=== PATIENT | male | born 1940 | race Caucasian/White ===

== ENCOUNTER 2024-03-27 12:07 | Inpatient (IN) ==
--- NOTE | 2024-03-27 12:22 | Emergency Department Note ---
Impression & Plan Hypoxic respiratory failure, Weakness, Elevated troponin, Lung mass ED Provider Note NAME: OSWALDO VOSS AGE: 83 SEX: M : 1940 ARRIVES VIA: Ambulance INFORMANT: Patient ED PROVIDER(S): Barron Chavez DO CHIEF COMPLAINT: weakness HPI: Patient is an 83-year-old male with a past medical history of bladder cancer with urostomy who presents to the ER for weakness. He notes this has been present for the past 2 to 3 days. He is so weak today that he cannot get out of bed. Patient admits to the persistent right sided chest wall pain that has been constant for over a month. Denies any headache or change in vision. No shortness of breath. No belly pain. No nausea, vomiting or diarrhea. No dysuria, urgency or frequency. No other exacerbating or remitting factors. ADDITIONAL HISTORY OBTAINED: Per HPI Chronic Medical/Social Conditions Affecting Care: Per HPI PAST MEDICAL HISTORY:See Below PAST SURGICAL HISTORY:See Below FAMILY HISTORY:See Below SOCIAL HISTORY:See Below HOME MEDICATIONS:See Below ALLERGIES:See Below VITALS:See Below PHYSICAL EXAMINATION: GENERAL: Sitting up in bed, alert, well appearing, well nourished, no distress, non-toxic EYE EXAM: normal conjunctiva. OROPHARYNX: no exudate, no erythema, lips, buccal mucosa, and tongue normal and mucous membranes are moist NECK: supple, no nuchal rigidity, no adenopathy, non-tender LUNGS: Clear to auscultation. Normal chest wall mechanics HEART: no murmurs, S1 normal and S2 normal ABDOMEN: abdomen soft, non-tender, normo-active bowel sounds, no masses, no rebound or guarding. BACK: Back is symmetrical on inspection and there is no deformity, no midline tenderness, no CVA tenderness. SKIN: no rashes and no bruising UPPER EXTREMITIES: upper extremities are grossly normal. LOWER EXTREMITIES: No pitting edema. NEURO EXAM: Normal sensorium, cranial nerves II-XII grossly intact, normal speech, no gross weakness of arms, no gross weakness of legs. MEDICAL DECISION MAKING: Patient is an 83-year-old male who presents the ER for the above-stated complaint. IV was established and blood work was obtained. Labs showed mild leukocytosis 11,000. No significant anemia. BMP with mild hyponatremia at 133. LFTs bilirubin were unremarkable. Troponin was mildly elevated at 33. Lipase normal. Viral panel was negative. Chest x-ray suggest a pulmonary mass. CT confirms likely cancer of the lung. Patient was hypoxic upon presentation was placed on 2 L nasal cannula with a pulse ox of 88 to 89% on room air. He was initially covered with IV antibiotics including Rocephin and azithromycin. Case was discussed with the hospitalist for further evaluation management treatment. Consults/Care Managements Discussions: Per [facility] Triage Nursing notes reviewed. Limited review of prior medical records performed Vital Signs: reviewed and remarkable for no significant abnormalities Differential diagnosis: Infection, dehydration, metabolic abnormality, hypo/hyperglycemia, electrolyte disturbance, anemia, hypoxia, cardiac sources, intracerebral event, toxicologic, neurologic, as well as other pathologies. ER treatment provided: See below Diagnostics interpreted by me include EKG and cardiac monitoring as listed below: -Cardiac Monitoring: An order was placed for continuous cardiac monitoring. The monitor shows a rate of 80 with sinus rhythm. -ECG: Sinus rhythm rate 88 Normal axis Reported branch block QTc 467 -Laboratory studies:Interpreted by me as stated above in MDM and shown below. Imaging studies: Xrays: As interpreted by me: Portable AP upright 1 view of the chest shows right lower lobe mass CTs show: CT of the chest suggest lung cancer Procedures:none Critical Care: I have personally spent 33 minutes of critical care time in the direct management of this patient. This includes bedside care, interpretation of diagnostic studies, and testing, discussion with consultants, patient, and family members, and other required patient management activities. This 33 minutes is in excess of all separately billable procedures. Past Med/Surg History Problem List (Updated 03/27/24 @ 17:49 by Barron Chavez DO) Lung mass (Acute) Elevated troponin (Acute) Weakness (Acute) Hypoxic respiratory failure (Acute) History of bladder cancer 2016--bladder sx/chemo Recurrent falls RLL pneumonia Lung cancer Elevated troponin Generalized weakness Hypoxia S/P carpal tunnel release Carpal tunnel syndrome, right Pre-op testing Bilateral carpal tunnel syndrome Bilateral kidney stones Complication of urostomy resolved History of primary bladder cancer ~9 years Arthritis Medical History Encounter for pre-operative examination Osteoarthritis History of bladder cancer 2016--bladder sx/chemo Hx MRSA infection "years ago" dx hospital in [place], in a wound and blood?; tx w/abx. History of kidney stones Hyperlipidemia Presence of urostomy Frequent UTI "not as bad as he used to" Surgical History History of carpal tunnel surgery of left wrist History of lumbar surgery 1961 History of esophagogastroduodenoscopy (EGD) Hx of colonoscopy Hx of tonsillectomy Hx of cataract extraction rt/lt. 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 Required: No Beliefs That Will Affect Care: None marital status: Current Living Situation: Spouse current occupational status: retired Feels Safe at Home: Yes Assistive Devices: Denture - Upper, Denture - Lower and Glasses Allergies Allergies Allergy/AdvReac Type Severity Reaction Status Date / Time Penicillins Allergy Intermediate Hives Verified 09/17/23 10:56 Home Meds Home Medications Medication Instructions Recorded Confirmed hydrocodone 5 mg-acetaminophen 325 1 - 2 tab PO BID PRN Pain 03/01/19 03/27/24 mg tablet alprazolam 0.5 mg tablet 0.5 mg PO BID PRN Anxiety 06/14/20 03/27/24 ascorbic acid (vitamin C) 500 mg 1,500 mg PO QPM 06/14/20 03/27/24 tablet (Vitamin C) aspirin 81 mg tablet,delayed 81 mg PO UD 06/14/20 03/27/24 release (Ramya Low Dose Aspirin) cholecalciferol (vitamin D3) 25 25 mcg PO DAILY 06/14/20 03/27/24 mcg (1,000 unit) tablet (Vitamin D3) atorvastatin 20 mg tablet 20 mg PO QAM 05/28/21 03/27/24 Results & Data (ED) Vital Signs Vital Signs - 24 hr 03/27/24 12:22 03/27/24 12:23 03/27/24 13:13 Temperature 37.5 C Temperature Source Oral Pulse Rate 87 89 Pulse Rate [Apical] Respiratory Rate 28 H Respiratory Effort / Characteristics Non-Labored Spontaneous Respiratory Depth Normal Respiratory Pattern Regular Blood Pressure 102/54 L Blood Pressure [Right Arm] Blood Pressure Mean 70 Blood Pressure Mean [Right Arm] Pulse Oximetry 93 89 L Oxygen Delivery Method Room Air Nasal Cannula Oxygen Flow Rate 0 Sepsis Recent Fever Within 48 Hours No Sepsis New/Unexplained Change in Mental Status No Sepsis Action Taken by Nursing No Action Required Fraction of Inspired Oxygen - Titration 2 Pulse Oximetry Post Tiitration 95 03/27/24 14:01 Temperature Temperature Source Pulse Rate Pulse Rate [Apical] 78 Respiratory Rate 14 Respiratory Effort / Characteristics Non-Labored Spontaneous Respiratory Depth Normal Respiratory Pattern Regular Blood Pressure Blood Pressure [Right Arm] 116/59 L Blood Pressure Mean Blood Pressure Mean [Right Arm] 78 Pulse Oximetry 95 Oxygen Delivery Method Room Air Oxygen Flow Rate Sepsis Recent Fever Within 48 Hours Sepsis New/Unexplained Change in Mental Status Sepsis Action Taken by Nursing Fraction of Inspired Oxygen - Titration Pulse Oximetry Post Tiitration Laboratory Data 03/27/24 12:57 03/27/24 12:57 Lab Results 03/27/24 03/27/24 03/27/24 Range/Units 12:35 12:57 14:33 WBC 11.26 H (4.8-10.8) K/ul RBC 4.84 (4.70-6.10) M/uL Hgb 14.2 (14.0-18.0) g/dl Hct 42.7 (42.0-52.0) % MCV 88.2 (80.0-100.0) fL MCH 29.3 (25.0-34.0) pg MCHC 33.3 (32.0-36.0) g/dL RDW Std Deviation 43.8 (36.4-46.3) fL RDW Coeff of Kwame 13.6 (11.5-14.5) % Plt Count 237 (130-400) K/uL MPV 9.9 (9.4-12.4) fL Immature Gran % (Auto) 0.4 % Neut % (Auto) 80.4 % Lymph % (Auto) 5.8 % Ross % (Auto) 12.9 % Eos % (Auto) 0.1 % Baso % (Auto) 0.4 % Neut # (Auto) 9.07 H (1.40-6.50) K/uL Lymph # (Auto) 0.65 L (1.20-3.40) K/uL Ross # (Auto) 1.45 H (0.11-0.59) K/uL Eos # (Auto) 0.01 (0.00-0.50) K/uL Baso # (Auto) 0.04 (0.00-0.20) K/uL Immature Gran # (Auto) 0.04 (0.01-0.20) K/uL APTT 28 (21-31) Seconds PTT Ratio 1.0 Sodium 133 L (136-145) mmol/L Potassium 3.8 (3.5-5.1) mmol/L Chloride 99 (98-107) mmol/L Carbon Dioxide 25 (21-32) mmol/L Anion Gap 9 (3-11) BUN 15 (6-23) mg/dl Creatinine 0.78 (0.6-1.4) mg/dl Est Cr Clr Drug Dosing 75.1 ml/min eGFR 87.94 BUN/Creatinine Ratio 19.2 (10-20) Glucose 114 H (70-99(Fasting)) mg/dl Calcium 9.0 (8.6-10.3) mg/dl Total Bilirubin 0.9 (0.2-1.0) mg/dl AST 13 (13-39) U/L ALT 9 (7-52) U/L Alkaline Phosphatase 68 (34-104) U/L Troponin I High Sens 33.5 H 26.8 H (0-20) pg/ml Total Protein 7.6 (6.0-8.3) gm/dl Albumin 3.8 (3.4-5.0) gm/dl Globulin 3.8 (2.5-4.0) gm/dl Albumin/Globulin Ratio 1.0 (0.9-2) Lipase 26 (11-82) U/L Adenovirus (PCR) Not Detected (NotDetected) B. pertussis DNA (PCR) Not Detected (NotDetected) B.parapertussis DNA PCR Not Detected (NotDetected) C. pneumoniae DNA (PCR) Not Detected (NotDetected) Coronavirus OC43 (PCR) Not Detected (NotDetected) Coronavirus HKU1 (PCR) Not Detected (NotDetected) Coronavirus 229E (PCR) Not Detected (NotDetected) SARS-CoV-2 (PCR) Not Detected (NotDetected) Coronavirus NL63 (PCR) Not Detected (NotDetected) Human Metapneumovir PCR Not Detected (NotDetected) Influenza Type A (PCR) Not Detected (NotDetected) Influenza Type B (PCR) Not Detected (NotDetected) M. pneumoniae (PCR) Not Detected (NotDetected) Parainfluenza 1 (PCR) Not Detected (NotDetected) Parainfluenza 2 (PCR) Not Detected (NotDetected) Parainfluenza 3 (PCR) Not Detected (NotDetected) Parainfluenza 4 (PCR) Not Detected (NotDetected) RSV (PCR) Not Detected (NotDetected) Entero/Rhino (PCR) Not Detected (NotDetected) Administered Medications Discontinued Medications Azithromycin (Azithromycin 250 Mg Tab) 500 mg PO NOW ONE Stop: 03/27/24 15:46 Last Admin: 03/27/24 15:58 Dose: 500 mg Documented By: ROHITH Sodium Chloride (Nss) 500 mls @ 999 mls/hr IV .Q31M ONE Stop: 03/27/24 15:05 Last Infusion: 03/27/24 16:40 Dose: Infused Documented By: Admin: 03/27/24 14:49 Dose: 999 mls/hr Documented By: JENN Ceftriaxone Sodium (Rocephin) 2,000 mg in 50 mls @ 100 mls/hr IV NOW STA Stop: 03/27/24 16:14 Last Infusion: 03/27/24 16:40 Dose: Infused Documented By: Admin: 03/27/24 15:58 Dose: 100 mls/hr Documented By: ROHITH Ioversol (Optiray 320 125ml) 121 ml IV ONCE ONE Stop: 03/27/24 14:25 Last Admin: 03/27/24 14:24 Dose: 121 ml Documented By: EDK Imaging Data Radiologist's Impression: Chest X-Ray 03/27/24 12:20 XR chest 1V portable CLINICAL HISTORY: Chest pain, nonspecific COMPARISON STUDY: Chest radiograph February 11, 2024. FINDINGS: There is no pneumothorax or pleural effusion. Asymmetric right hilar enlargement is noted. There is a 5 cm mass-like right perihilar round density. Cardiomediastinal silhouette is stable. There is pulmonary vascular congestion. No consolidation is identified to suggest pneumonia. IMPRESSION: 1. 5 cm round mass-like right perihilar density. This is suggestive of a neoplasm. Right hilar enlargement may represent associated lymphadenopathy. CT of the chest with contrast is recommended for further evaluation. 2. Pulmonary vascular congestion. ACT 112: Positive. There are findings on this exam that require communication between the performing entity and the patient following Patient Test Result Information Act ([place] Act 112) guidelines. Electronically signed by: Kaleb Rubi M.D. 03/27/2024 1:44 PM Chest CTA 03/27/24 14:06 CT pulmonary angiogram with IV contrast History: Chest pain COMPARISON: None TECHNIQUE: CT angiography of the chest was performed without IV contrast followed by IV contrast, including 3D post processing CTA image reconstruction. Dose reduction techniques were achieved by using automatic exposure control and/or adjustment of mA and/or kV according to patient size and/or use of iterative reconstruction technique. FINDINGS: Diagnostic quality: Adequate There is no evidence for pulmonary embolism. The heart is not enlarged. There is no pericardial effusion. Masslike lymphadenopathy in the right mediastinum/hilum, measuring 4.9 x 4.2 cm in the axial plane, with masslike peripheral lymphadenopathy about the inferior right hilum as well, measuring 3.3 x 2.1 cm. There is mild narrowing of the bronchus intermedius. There is a rounded mass along the pleura of the posterior right lower lobe on axial image 43 measuring 4.7 x 2.8 cm. The lungs demonstrate severe emphysema. A nodular density of the right lung apex on axial image 84 is seen measuring 6 mm, however which may represent a component of scar and appears continuous with adjacent apical pleural thickening. The base of the neck appears grossly clear. Mild mucoid debris is seen in the trachea. Trace right pleural effusion. Limited visualized upper abdomen. No destructive osseous changes are seen. IMPRESSION: No evidence for pulmonary embolism. Right lower lobe malignancy, with pathologic right hilar and right mediastinal lymphadenopathy. Electronically signed by Matt Elliott 03-27-2024 2:49 PM Discharge Plan Visit Data Chief Complaint: Weakness Stated Complaint: WEAKNESS ED Provider: Barron Chavez Discharge Problem: Hypoxic respiratory failure, Weakness, Elevated troponin, Lung mass Discharge Instructions Interventions: ED Discharge Assessment Last Done: 03/27/24 16:33 Discharge Problem: Hypoxic respiratory failure Qualifiers: Chronicity: acute Qualified Code(s): J96.01 - Acute respiratory failure with hypoxia
[2024-03-27 13:08] LABS: Basophils # (auto) 0.04 K/uL (0.00-0.20); Basophils % (auto) 0.4 %; Eosinophils # (auto) 0.01 K/uL (0.00-0.50); Eosinophils % (auto) 0.1 %; Hematocrit (blood only) 42.7 % (42.0-52.0); Hemoglobin 14.2 g/dl (14.0-18.0); Immature Granulocytes # (auto) 0.04 K/uL (0.01-0.20); Immature Granulocytes % (auto) 0.4 %; Lymphocytes # (auto) 0.65 K/uL (1.20-3.40); Lymphocytes % (auto) 5.8 %; Mean Corpuscular Hemoglobin 29.3 pg (25.0-34.0); Mean Corpuscular Hgb Conc 33.3 g/dL (32.0-36.0); Mean Corpuscular Volume 88.2 fL (80.0-100.0); Mean Platelet Volume 9.9 fL (9.4-12.4); Monocytes # (auto) 1.45 K/uL (0.11-0.59); Monocytes % (auto) 12.9 %; Neutrophils # (auto) 9.07 K/uL (1.40-6.50); Neutrophils % (auto) 80.4 %; Platelet Count 237 K/uL (130-400); RDW Coefficient of Variation 13.6 % (11.5-14.5); RDW Standard Deviation 43.8 fL (36.4-46.3); Red Blood Count 4.84 M/uL (4.70-6.10); White Blood Count 11.26 K/ul (4.8-10.8)
[2024-03-27 13:30] LABS: Albumin Level 3.8 gm/dl (3.4-5.0); BUN Creatinine Ratio 19.2 (10-20); Bilirubin,Total 0.9 mg/dl (0.2-1.0); Creatinine Clr Calc Pharmacy 75.1 ml/min; Globulin 3.8 gm/dl (2.5-4.0); Potassium 3.8 mmol/L (3.5-5.1); Total Protein 7.6 gm/dl (6.0-8.3)
[2024-03-27 13:35] LABS: Troponin I High Sensitivity 33.5 pg/ml (0-20)
[2024-03-27 13:37] LABS: Partial Thromboplastin Time 28 Seconds (21-31)
--- NOTE | 2024-03-27 13:46 | XRay Report ---
XR chest 1V portable CLINICAL HISTORY: Chest pain, nonspecific COMPARISON STUDY: Chest radiograph February 11, 2024. FINDINGS: There is no pneumothorax or pleural effusion. Asymmetric right hilar enlargement is noted. There is a 5 cm mass-like right perihilar round density. Cardiomediastinal silhouette is stable. Ther e is pulmonary vascular congestion. No consolidation is identified to suggest pneumonia. IMPRESSION: 1. 5 cm round mass-like right perihilar density. This is suggestive of a neoplasm. Right hilar enlarg ement may represent associated lymphadenopathy. CT of the chest with contrast is recommended for furt her evaluation. 2. Pulmonary vascular congestion. ACT 112: Positive. There are findings on this exam that require communication between the performing entity and the patient following Patient Test Result Information Act ([place] Act 112) guidelines. Electronically signed by: Kaleb Rubi M.D. 03/27/2024 1:44 PM
[2024-03-27 13:56] LABS: Adenovirus PCR Not Detected (NotDetected); Bordetella parapertussis PCR Not Detected (NotDetected); Bordetella pertussis PCR Not Detected (NotDetected); Chlamydia pneumoniae PCR Not Detected (NotDetected); Coronavirus 229E PCR Not Detected (NotDetected); Coronavirus CoV-2 (COVID19)PCR Not Detected (NotDetected); Coronavirus HKU1 PCR Not Detected (NotDetected); Coronavirus NL63 PCR Not Detected (NotDetected); Coronavirus OC43PCR Not Detected (NotDetected); Human Metapneumovirus PCR Not Detected (NotDetected); Influenza A PCR Not Detected (NotDetected); Influenza B PCR Not Detected (NotDetected); Mycoplasma pneumoniae PCR Not Detected (NotDetected); Parainfluenza Virus 1 PCR Not Detected (NotDetected); Parainfluenza Virus 2 PCR Not Detected (NotDetected); Parainfluenza Virus 3 PCR Not Detected (NotDetected); Parainfluenza Virus 4 PCR Not Detected (NotDetected); Respiratory Syncytial VirusPCR Not Detected (NotDetected); Rhinovirus/Enterovirus PCR Not Detected (NotDetected)
[2024-03-27] MEDS: OPTIRAY 320 125ml IV ONE (14:24)
--- NOTE | 2024-03-27 14:45 | History & Physical Report ---
Date of Service March 27, 2024 Assessment & Plan (1) RLL pneumonia: Plan: Rafal is an 83-year-old male with PMH of bladder cancer and arthritis. He presented on 03/27 for generalized weakness, fatigue, low-grade fevers, and dry cough x 2 to 3 days. Patient reports that he was unable to get up out of his chair today, when he is normally able to stand/ambulate independently. Falls x 2 prior to coming in. Mild leukocytosis at 11.26 with a neutrophil predominance CXR revealed 5 cm round mass in the right perihilar region suggestive of neoplasm, as well as pulmonary vascular congestion Pulmonary lesion first appreciated on CXR on 02/11/2024 Chest CTA revealed no pulmonary embolism, but did reconfirm RLL malignancy and mediastinal lymphadenopathy Incentive spirometry, flutter valve DuoNeb 3 mL Q6R Guaifenesin 600 mg p.o. BID for cough While no mention of pneumonia on imaging, given elevated WBCs + acute onset of weakness, low-grade fevers, right rib pain, and cough x 2 days, will cover empirically with antibiotics for RLL pneumonia Ceftriaxone 2000 mg IV q24h; patient does report h/o mild PCN allergy, rash Azithromycin 500 mg p.o. q24h Acetaminophen as needed for pain/fever (2) Hypoxia: Plan: 89% on RA on arrival Patient is not on supplemental oxygen at baseline BioFire negative Supplemental oxygen as needed to maintain SpO2 >94% While patient is a former smoker and CTA does show evidence of emphysema, no prior history of COPD diagnosis Continuous pulse oximetry (3) Lung cancer: Plan: Did discuss findings of right lung mass on chest CTA with both patient and family at bedside No mention of patient's R lung mass on CXR on 09/24/2020 However, patient's son at bedside reports that they were told of a right lung mass 8 to 10 years ago at [facility] oncology when patient was undergoing treatment for his bladder cancer ? Told recently that this mass was unchanged from prior Will work to obtain additional records from [facility] oncology at [place] Pending any additional findings, will need to discuss follow-up/workup for potential biopsy (4) Elevated troponin: Plan: Troponin 33--> 26 on arrival Clinically, patient denies chest pain at time admission Continuous telemetry monitoring (5) Recurrent falls: Plan: Fall x 2 on 03/26; no LOC; no head strike; not on anticoagulants PT/OT evaluations appreciated Fall precautions (6) History of bladder cancer: Plan: S/p bladder removal Daily urostomy care (7) Generalized weakness: Plan [facility] Full code Regular diet VTE PPx: Lovenox 40 mg SQ q24h History of Present Illness Chief Complaint: Generalized weakness, cough, low-grade fevers Primary Care Provider: Ivan Harrison Rafal is an 83-year-old male with PMH of bladder cancer and arthritis. He presented on 03/27 for generalized weakness, fatigue, and dry cough x 2 to 3 days. Patient reports that he was unable to get up out of his chair today, when he is normally able to stand/ambulate independently. He does not ambulate with a walker or cane at baseline. He does endorse lower extremity weakness, and patient's at bedside (Pepper) does report that he has had a low-grade fever over the past couple days. Patient had 2 falls yesterday; no LOC; no head strike. Patient reports that his legs just gave out on him. H/o recurrent falls, per family. Additionally, family reports that he had been "talking funny" and somewhat confused over the past 24 hours; for instance he thought his "toes" were where his "heels" were, and vice versa. No prior history of stroke, and family denies appreciating any strokelike symptoms such as slurred speech, facial droop, or unilateral deficits. Patient denies any chest pain, but does note he has rib pain on his right side, which has been ongoing for the past month. While he is unsure if the right ribs were affected by a fall, he denies any recent muscle strains or injuries. He denies SOB at rest or with exertion, but has developed a dry cough. No supplemental oxygen at baseline. No CPAP at night. He received a course of doxycycline at the end of January for presumed right lower lobe pneumonia. In regard to the mass in the patient's right lung, patient's son at bedside does report that they have known about this mass since January, and were told that this mass might be unchanged from prior. Patient has history of bladder cancer s/p cystectomy around 8 to 10 years ago; he previously followed with [facility] oncology. Patient does report he has a penicillin allergy; when asked what happens when he takes penicillin, he reports he developed a rash many years ago, and family is unsure if this is a true allergy. No prior history of anaphylaxis, throat closure, or tongue swelling with PCN use. Patient is amenable to trying Rocephin while inpatient. Patient is a former tobacco cigarette smoker, but quit approximately 15 years ago. Patient is tachypneic at 28 bpm, hypotensive at 102/54, and hypoxic at 89% on RA at time of admission. ED course: NSS 500 mL IV ROS: Patient endorses low grade fevers at home x 2 days, feeling off balance, dry cough, pain in R ribs x 2 months, and diarrhea x 2 days. Patient denies chills, night sweats, headache, changes in vision, chest pain, chest tightness, rashes or bruising on the chest wall, tick bites, SOB at rest or with exertion, pleuritic CP, abdominal pain, N/V/D, changes in urinary bowel habits, or numbness/tingling/swelling in the legs. Allergies Allergy/AdvReac Type Severity Reaction Status Date / Time Penicillins Allergy Intermediate Hives Verified 09/17/23 10:56 Home Medications Medication Instructions Recorded Confirmed Type hydrocodone 5 mg-acetaminophen 325 1 - 2 tab PO BID PRN Pain 03/01/19 03/27/24 History mg tablet alprazolam 0.5 mg tablet 0.5 mg PO BID PRN Anxiety 06/14/20 03/27/24 History ascorbic acid (vitamin C) 500 mg 1,500 mg PO QPM 06/14/20 03/27/24 History tablet (Vitamin C) aspirin 81 mg tablet,delayed 81 mg PO UD 06/14/20 03/27/24 History release (Ramya Low Dose Aspirin) cholecalciferol (vitamin D3) 25 25 mcg PO DAILY 06/14/20 03/27/24 History mcg (1,000 unit) tablet (Vitamin D3) atorvastatin 20 mg tablet 20 mg PO QAM 05/28/21 03/27/24 History Past Med/Surg History Problem List (Updated 03/27/24 @ 16:01 by Joseph Walker PA-C) History of bladder cancer 2016--bladder sx/chemo Recurrent falls RLL pneumonia Lung cancer Elevated troponin Generalized weakness Hypoxia S/P carpal tunnel release Carpal tunnel syndrome, right Pre-op testing Bilateral carpal tunnel syndrome Bilateral kidney stones Complication of urostomy resolved History of primary bladder cancer ~9 years Arthritis Medical History Encounter for pre-operative examination Osteoarthritis History of bladder cancer 2016--bladder sx/chemo Hx MRSA infection "years ago" dx hospital in [place], in a wound and blood?; tx w/abx. History of kidney stones Hyperlipidemia Presence of urostomy Frequent UTI "not as bad as he used to" Surgical History History of carpal tunnel surgery of left wrist History of lumbar surgery 1961 History of esophagogastroduodenoscopy (EGD) Hx of colonoscopy Hx of tonsillectomy Hx of cataract extraction rt/lt. Hx of prostatectomy done with total cystectomy History of total cystectomy Family History Brother Prostate cancer Hypertension Father Heart disease Other No family history of adverse response to anesthesia Social History Smoking Status: Current every day smoker Tobacco Type: Smokeless Tobacco (Dip or Chew) Second Hand Exposure: No; Do You Dip or Chew Tobacco: Yes (1 can/day; advised); Hx Alcohol Use: No Hx Substance Use: No Preferred Language: Sami Communication Ability: Effective Park Maintainer Required: No Beliefs That Will Affect Care: None marital status: Current Living Situation: Spouse current occupational status: retired Feels Safe at Home: Yes Assistive Devices: Denture - Upper, Denture - Lower and Glasses Review of Systems Review of Systems: See HPI above Physical Exam Physical Exam: General: no acute distress; family bedside; non-toxic appearing; frail appearing; cooperative; SpO2 98% on 2L NC HEENT: normocephalic, atraumatic; no scleral icterus; PERRLA; vision and hearing grossly intact Neck: supple; no lymphadenopathy; trachea midline Skin: warm, dry without signs of tenting; no cyanosis; no rashes, bruising, lesions, or erythema noted CV: chest wall NTP; RRR; S1/S2 normal; no murmurs/rubs/gallops; pulses intact and symmetric at radial, DP, and PT Lungs: no acute respiratory distress; symmetrical chest wall expansion; mild expiratory wheeze noted in the right lower lung field ABD: Soft, NTP; stoma in place without signs of erythema or infection; BS present; no rebound/guarding; no distention MSK: no tics or fasciculations; no edema noted in the LEs b/l, nonerythematous Neuro: A&Ox3; normal mood and affect; fluent speech; no focal deficits; sensation grossly intact in the LEs b/l Trialed patient off of supplemental oxygen: Patient's SpO2 was 98% on 2L NC Patient's SpO2 dropped to around 90% on RA Results & Data Results & Data Vital Signs (Past 12 Hours) Vital Signs Temp Pulse Resp BP Pulse Ox O2 Del Method O2 Flow Rate 03/27/24 13:13 89 L Nasal Cannula 0 03/27/24 12:23 89 03/27/24 12:22 37.5 C 87 28 H 102/54 L 93 Room Air Laboratory Results Abnormal lab results 03/27/24 Range/Units 12:57 WBC 11.26 H (4.8-10.8) K/ul Neut # (Auto) 9.07 H (1.40-6.50) K/uL Lymph # (Auto) 0.65 L (1.20-3.40) K/uL [place] # (Auto) 1.45 H (0.11-0.59) K/uL Sodium 133 L (136-145) mmol/L Glucose 114 H (70-99(Fasting)) mg/dl Troponin I High Sens 33.5 H (0-20) pg/ml Diagnostic Findings Chest X-Ray 03/27/24 12:20 XR chest 1V portable CLINICAL HISTORY: Chest pain, nonspecific COMPARISON STUDY: Chest radiograph February 11, 2024. FINDINGS: There is no pneumothorax or pleural effusion. Asymmetric right hilar enlargement is noted. There is a 5 cm mass-like right perihilar round density. Cardiomediastinal silhouette is stable. There is pulmonary vascular congestion. No consolidation is identified to suggest pneumonia. IMPRESSION: 1. 5 cm round mass-like right perihilar density. This is suggestive of a neoplasm. Right hilar enlargement may represent associated lymphadenopathy. CT of the chest with contrast is recommended for further evaluation. 2. Pulmonary vascular congestion. ACT 112: Positive. There are findings on this exam that require communication between the performing entity and the patient following Patient Test Result Information Act ([place] Act 112) guidelines. Electronically signed by: Kaleb Rubi M.D. 03/27/2024 1:44 PM ECG Additional Comments: ECG revealed NSR at 88 bpm; QTc 467 Code Status & VTE Plan Code Status Full code VTE Prophylaxis Plan VTE Prophylaxis will be ordered: Yes Supervising Physician Co-Signing Physician Notes I have personally seen, evaluated and examined the patient. I have also personally discussed the management of the patient with the resident physician/MICHELLE and I agree with the exam findings documented in the history and physical examination and the documented assessment and plan unless otherwise stated below. Brief Exam: In general pleasant 83-year-old male was alert oriented x 3 at the time my exam. He is accompanied by his , his 2 sons, his grandson and his grandson's girlfriend. He did yaritza permission for all parties to be present in room during my interview and exam. He interacts appropriate and pleasantly. He is comfortable on his oxygen therapy currently. Reports that he spent 6 years in [place]. Extensive conversation with the patient and family as documented above I had additional conversation. We did tell them that this mass/nodule was not present in 2020. Was present in January. Patient did have a full course of antibiotics family reports doxycycline as an outpatient. This nodule was not resolved. It looks suspicious by imaging. We did discuss biopsies are going away whether or not he wants to go through biopsy or not. In addition they are requesting we obtain records from 10 years ago from [facility]. HEENT: Normocephalic atraumatic. Heart: Regular rate and rhythm. Lungs: Bilateral diffuse expiratory wheezing. Abdomen: Soft nontender positive bowel sounds, ileal conduit noted. Extremities: Intact with no significant edema. Neurologically alert and oriented x 3. Assessment/plan: As discussed above. Continue antibiotic therapy. Waived potential for possible biopsy of this lung abnormality. Again discussed in detail above. Please refer to orders for further planning. PG Care Time/CCT Total # of Minutes Spent Total Time Spent with Patient: Total time spent is greater than 50% in coordination of care (as documented) at patient's floor/unit and/or counseling patient: Coding [place] [address] INT INP/OBS CARE MIN Patient Type Established Medical Decision Making High Complexity Diagnoses RLL pneumonia J18.9 Hypoxia R09.02 Lung cancer C34.90 Elevated troponin R79.89 Recurrent falls R29.6 History of bladder cancer Z85.51 Generalized weakness R53.1
[2024-03-27] MEDS: SODIUM CHLORIDE 0.9% 500 ML IV ONE (14:49)
--- NOTE | 2024-03-27 14:50 | CT Scan Report ---
CT pulmonary angiogram with IV contrast History: Chest pain COMPARISON: None TECHNIQUE: CT angiography of the chest was performed without IV contrast followed by IV contrast, including 3D post processing CTA image reconstruction. Dose reduction techniques were achieved by using automatic exposure control and/or adjustment of mA and/or kV according to patient size and/or use of iterative reconstruction technique. FINDINGS: Diagnostic quality: Adequate There is no evidence for pulmonary embolism. The heart is not enlarged. There is no pericardial effusion. Masslike lymphadenopathy in the right mediastinum/hilum, measuring 4.9 x 4.2 cm in the axial plane, with masslike peripheral lymphadenopathy about the inferior right hilum as well, measuring 3.3 x 2.1 cm. There is mild narrowing of the bronchus intermedius. There is a rounded mass along the pleura of the posterior right lower lobe on axial image 43 measuring 4.7 x 2.8 cm. The lungs demonstrate severe emphysema. A nodular density of the right lung apex on axial image 84 is seen measuring 6 mm, however which may represent a component of scar and appears continuous with adjacent apical pleural thickening. The base of the neck appears grossly clear. Mild mucoid debris is seen in the trachea. Trace right pleural effusion. Limited visualized upper abdomen. No destructive osseous changes are seen. IMPRESSION: No evidence for pulmonary embolism. Right lower lobe malignancy, with pathologic right hilar and right mediastinal lymphadenopathy. Electronically signed by Matt Elliott 03-27-2024 2:49 PM
[2024-03-27] MEDS: cefTRIAXone SODIUM 2,000 MG/50 ML BAG IV STA (15:58)
[2024-03-27] MEDS: AZITHROMYCIN 250 MG TAB PO ONE (15:58)
[2024-03-27] MEDS ORDERED: ALBUT/IPRATROP 3MG/0.5MG NEB 3 ML VIAL NEB PRN (16:33)
[2024-03-27] MEDS: HYDROmorphone INJ 0.5 MG/0.5 ML SYR IV STA (18:43)
[2024-03-27 19:02] LABS: Amorphous Sediment Urine Present (None Prsent); Appearance Urine Cloudy (Clear); Bacteria Urine Automated 4+ (None Seen); Bilirubin Urine Negative (Negative); Blood Urine Trace (Negative); Color Urine Yellow; Glucose Urine UA Negative (Negative); Ketones Urine Negative (Negative); Leukocyte Esterase Urine 2+ (Negative); Nitrite Urine Negative (Negative); Protein Urine 1+ (Negative); Specific Gravity Urine > 1.045 (1.000-1.030); Urobilinogen Urine Negative (Negative); WBC Urine Automated 21-50 /hpf (0-5)
[2024-03-27] MEDS: guaiFENesin 600 MG TABCR PO SCH (20:15)
[2024-03-27] MEDS: ENOXAPARIN INJ 40 MG/0.4 ML SYR SQ SCH (20:15)
[2024-03-28] MEDS: HYDROCODONE/ACETAMOPHEN 5/325MG TAB PO PRN (05:33)
[2024-03-28] MEDS: ASPIRIN 81 MG ECTAB PO SCH (07:29)
[2024-03-28] MEDS: ATORVASTATIN 20 MG TAB PO SCH (07:30)
--- NOTE | 2024-03-28 12:14 | Hospitalist Progress Note ---
Date of Service March 28, 2024 Assessment & Plan (1) Acute hypoxic respiratory failure: Plan: although no discrete pneumonia is seen on imaging, I suspect he has a COPD exacerbation at minimum. he has severe emphysematous changes on imaging, and has developed significant cough etc in the days leading up to admission. he was hypoxic upon ER presentation with documented respiratory rates in the mid 20s. remains on rocephin/zithromax (could he have a post-obstructive pneumonia that simply can't be seen readily on CT?). cont mucinex. cont tessalon. pulm toilet. of note - resp biofire panel was fully negative. (2) COPD with emphysema: Plan: as seen on CT. with exacerbation. add Anoro. cont mucinex, tessalon. albuterol prn. abx as in #1 above. NC O2 - wean as tolerated. (3) Elevated troponin: Plan: Troponin 33--> 26 on arrival no evidence of ACS this is likely myocardial demand ischemia in setting of #1, #2 above (4) Recurrent falls: Plan: due to weakness from his pulmonary disease? due to weakness from lumbar spine disease? other? PT, OT Check B12, TSH levels obtaining MRI brain - r/o stroke as cause of falls; r/o ICH; r/o metastatic disease (5) History of bladder cancer: Plan: s/p cystectomy 2016 with urostomy creation (6) LAD (lymphadenopathy), mediastinal: Plan: highly worrisome for lung ca to have EBUS tomorrow (7) Lung mass: Plan: right lower lobe highly worrisome for lung ca appreciate consult by Dr Hutchinson, MACK Pulm possible EBUS with bx tomorrow NPO after MN tonight obtaining CT a/p to r/o distant mets obtaining MRI brain to r/o intra-cranial mets (8) Presence of urostomy: Plan: created 2016 in [place] ?UTI cont rocephin (9) Lumbar spine pain: Plan: long-standing lumbar back pain but worse in the last few weeks check CT l-spine - r/o fracture, r/o high-grade stenosis causing falls, r/o obvious metastatic disease k-pad pain meds etc Plan DVT proph - lovenox - but hold for possible EBUS tomorrow daughter, grand-daughter updated at bedside Admission and Anticipated Discharge Date Admission Date: March 27, 2024 Subjective patient resting in bed during the visit daughter, grand-daughter present at bedside he reports several weeks of right-sided pleuritic chest discomfort in addition has had ongoing cough/congestion no weight loss he also suffers from severe low back pain family reports he walks "hunched over" and "shuffles" he denies leg pains or paresthesias of legs had surgery in his lumbar spine in the 1960s has multiple falls each week has not hit his head denies neck pain Review of Systems Review of Systems: gen - denies fever or chills today cv - no substernal or left-sided cp pulm - no hemoptysis GI - no abd pain or N/V Physical Exam Physical Exam: gen - lying in bed, coughing at times neck - no JVD mouth - MMM heart - RRR, s1 s2, no murmur lungs - b/l wheezes, course BS b/l, occasional crackle, no increased work of breathing abd - soft NT ND BS+; urostomy stoma clean, healthy red color, attached to vega bag ext - no edema, pulses 2+ b/l feet neuro - strength 5/5 b/l hip flexion, ankle dorsiflexion/plantarflexion musculo - tender over l-spine to palpation; at L1 or L2 the spine protrudes in this area; no masses Results & Data Results & Data Vital Signs (Past 12 Hours) Vital Signs Temp Pulse Pulse Resp BP Pulse Ox O2 Del Method 03/28/24 08:22 Nasal Cannula 03/28/24 07:35 36.9 C 82 16 109/58 L 96 Nasal Cannula 03/28/24 05:40 85 03/28/24 03:31 36.9 C 91 H 20 108/64 96 Nasal Cannula O2 Flow Rate 03/28/24 08:22 2 03/28/24 07:35 3 03/28/24 05:40 03/28/24 03:31 2 Laboratory Results Laboratory Results - last 48 hr 03/27/24 03/27/24 03/27/24 12:35 12:57 14:33 WBC 11.26 H RBC 4.84 Hgb 14.2 Hct 42.7 MCV 88.2 MCH 29.3 MCHC 33.3 RDW Std Deviation 43.8 RDW Coeff of Kwame 13.6 Plt Count 237 MPV 9.9 Immature Gran % (Auto) 0.4 Neut % (Auto) 80.4 Lymph % (Auto) 5.8 [place] % (Auto) 12.9 Eos % (Auto) 0.1 Baso % (Auto) 0.4 Neut # (Auto) 9.07 H Lymph # (Auto) 0.65 L [place] # (Auto) 1.45 H Eos # (Auto) 0.01 Baso # (Auto) 0.04 Immature Gran # (Auto) 0.04 APTT 28 PTT Ratio 1.0 Sodium 133 L Potassium 3.8 Chloride 99 Carbon Dioxide 25 Anion Gap 9 BUN 15 Creatinine 0.78 Est Cr Clr Drug Dosing 75.1 eGFR 87.94 BUN/Creatinine Ratio 19.2 Glucose 114 H Calcium 9.0 Total Bilirubin 0.9 AST 13 ALT 9 Alkaline Phosphatase 68 Troponin I High Sens 33.5 H 26.8 H Total Protein 7.6 Albumin 3.8 Globulin 3.8 Albumin/Globulin Ratio 1.0 Lipase 26 Urine Color Urine Appearance Urine pH Ur Specific [place] Urine Protein Urine Glucose (UA) Urine Ketones Urine Blood Urine Nitrite Urine Bilirubin Urine Urobilinogen Ur Leukocyte Esterase Urine WBC (Auto) Urine RBC (Auto) U Hyaline Cast (Auto) U Epithel Cells (Auto) Urine Bacteria (Auto) Amorphous Sediment Adenovirus (PCR) Not Detected B. pertussis DNA (PCR) Not Detected B.parapertussis DNA PCR Not Detected C. pneumoniae DNA (PCR) Not Detected Coronavirus OC43 (PCR) Not Detected Coronavirus HKU1 (PCR) Not Detected Coronavirus 229E (PCR) Not Detected SARS-CoV-2 (PCR) Not Detected Coronavirus NL63 (PCR) Not Detected Human Metapneumovir PCR Not Detected Influenza Type A (PCR) Not Detected Influenza Type B (PCR) Not Detected M. pneumoniae (PCR) Not Detected Parainfluenza 1 (PCR) Not Detected Parainfluenza 2 (PCR) Not Detected Parainfluenza 3 (PCR) Not Detected Parainfluenza 4 (PCR) Not Detected RSV (PCR) Not Detected Entero/Rhino (PCR) Not Detected 03/27/24 Unknown WBC RBC Hgb Hct MCV MCH MCHC RDW Std Deviation RDW Coeff of [place] Plt Count MPV Immature Gran % (Auto) Neut % (Auto) Lymph % (Auto) [place] % (Auto) Eos % (Auto) Baso % (Auto) Neut # (Auto) Lymph # (Auto) [place] # (Auto) Eos # (Auto) Baso # (Auto) Immature Gran # (Auto) APTT PTT Ratio Sodium Potassium Chloride Carbon Dioxide Anion Gap BUN Creatinine Est Cr Clr Drug Dosing eGFR BUN/Creatinine Ratio Glucose Calcium Total Bilirubin AST ALT Alkaline Phosphatase Troponin I High Sens Total Protein Albumin Globulin Albumin/Globulin Ratio Lipase Urine Color Yellow Urine Appearance Cloudy A Urine pH 7.0 Ur Specific [place] > 1.045 H Urine Protein 1+ H Urine Glucose (UA) Negative Urine Ketones Negative Urine Blood Trace H Urine Nitrite Negative Urine Bilirubin Negative Urine Urobilinogen Negative Ur Leukocyte Esterase 2+ H Urine WBC (Auto) 21-50 H Urine RBC (Auto) 6-10 H U Hyaline Cast (Auto) 3-5 H U Epithel Cells (Auto) 3-5 H Urine Bacteria (Auto) 4+ H Amorphous Sediment Present A Adenovirus (PCR) B. pertussis DNA (PCR) B.parapertussis DNA PCR C. pneumoniae DNA (PCR) Coronavirus OC43 (PCR) Coronavirus HKU1 (PCR) Coronavirus 229E (PCR) SARS-CoV-2 (PCR) Coronavirus NL63 (PCR) Human Metapneumovir PCR Influenza Type A (PCR) Influenza Type B (PCR) M. pneumoniae (PCR) Parainfluenza 1 (PCR) Parainfluenza 2 (PCR) Parainfluenza 3 (PCR) Parainfluenza 4 (PCR) RSV (PCR) Entero/Rhino (PCR) PG Care Time/CCT Total # of Minutes Spent Total Time Spent with Patient: Total time spent is greater than 50% in coordination of care (as documented) at patient's floor/unit and/or counseling patient: Coding Level of Care Code 78728 SUB INP/OBS CARE 3/50MIN Diagnoses Acute hypoxic respiratory failure J96.01 COPD with emphysema J43.9 Elevated troponin R79.89 Recurrent falls R29.6 History of bladder cancer Z85.51 LAD (lymphadenopathy), mediastinal R59.0 Lung mass R91.8 Presence of urostomy Z93.6 Lumbar spine pain M54.50
--- NOTE | 2024-03-28 12:20 | Pulmonary Consultation ---
Date of Consultation March 28, 2024 Assessment & Plan (1) Lung mass: (2) LAD (lymphadenopathy), mediastinal: (3) COPD with emphysema: (4) Hypoxic respiratory failure: Chronicity: acute Qualified Code(s): J96.01 - Acute respiratory failure with hypoxia (5) History of primary bladder cancer: Plan CT chest 03/27/2024 personally reviewed: Narrowing of the RBI, right lower lobe superior segment pleural-based mass Centrilobular and paraseptal emphysema appreciated bilaterally Right apical pleural scarring Significant right hilar and mediastinal lymphadenopathy -- Right lower lobe mass with mediastinal lymphadenopathy There seems to be narrowing of the RBI as well There is known history of pulmonary nodule approximately 5 years ago which was not followed up The probability of it being lung cancer is very high. --COPD with emphysema Not on any inhalers at home Plan: MRI of the brain, CT abdomen pelvis has been ordered. If the CT abdomen pelvis does not show any abnormality and the MRI of the brain is negative then EBUS tomorrow with endobronchial biopsies will be thought of Case was discussed with patient's family and patient at bedside. They understand and they are agreeable to procedure if need be Please note the above document was generated using voice recognition software. It may contain grammatical, syntax or spelling errors.Any formal questions or concerns about the content, text or information contained within the body of this dictation should be directly addressed to the provider for clarification. History of Present Illness Attending Physician: Chaim Franco MD History of Present Illness 83-year-old male present to the hospital with generalized weakness and low-grade fever Past medical history: Bladder cancer Pulmonary consulted for abnormal chest CT At the time of examination patient's family was in the room. Patient was in mild respiratory distress although his oxygenation was 98% on 2 L nasal cannula Denies any difficulty swallowing. He is not on any oxygen at home. Does not take any inhalers at home Occasional cough with clear phlegm. 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 No history of lung cancer in the family Allergies Allergy/AdvReac Type Severity Reaction Status Date / Time Penicillins Allergy Intermediate Hives Verified 09/17/23 10:56 Home Medications Medication Instructions Recorded Confirmed Type hydrocodone 5 mg-acetaminophen 325 1 - 2 tab PO BID PRN Pain 03/01/19 03/27/24 History mg tablet alprazolam 0.5 mg tablet 0.5 mg PO BID PRN Anxiety 06/14/20 03/27/24 History ascorbic acid (vitamin C) 500 mg 1,500 mg PO QPM 06/14/20 03/27/24 History tablet (Vitamin C) aspirin 81 mg tablet,delayed 81 mg PO UD 06/14/20 03/27/24 History release (Ramya Low Dose Aspirin) cholecalciferol (vitamin D3) 25 25 mcg PO DAILY 06/14/20 03/27/24 History mcg (1,000 unit) tablet (Vitamin D3) atorvastatin 20 mg tablet 20 mg PO QAM 05/28/21 03/27/24 History Patient History Medical History Encounter for pre-operative examination Osteoarthritis History of bladder cancer 2015--bladder sx/chemo Hx MRSA infection "years ago" [facility] in [place], in a wound and blood?; tx w/abx. History of kidney stones Hyperlipidemia Presence of urostomy Frequent UTI "not as bad as he used to" Surgical History History of carpal tunnel surgery of left wrist History of lumbar surgery 1961 History of esophagogastroduodenoscopy (EGD) Hx of colonoscopy Hx of tonsillectomy Hx of cataract extraction rt/lt. Hx of prostatectomy done with total cystectomy History of total cystectomy Family History Brother Prostate cancer Hypertension Father Heart disease Other No family history of adverse response to anesthesia Social History Smoking Status: Never smoker Tobacco Type: Smokeless Tobacco (Dip or Chew) Second Hand Exposure: No; Do You Dip or Chew Tobacco: Yes; Tobacco Cessation Education Requested by Patient: No Hx Alcohol Use: No Hx Substance Use: No Preferred Language: Taiwanese Communication Ability: Effective Director Of Community Services Required: No Beliefs That Will Affect Care: None marital status: Current Living Situation: Spouse current occupational status: retired Feels Safe at Home: Yes Safety Concerns: Feels Safe At This Time Assistive Devices: Oxygen - Continuous Review of Systems 2 Review of Systems: All systems reviewed & are unremarkable except as noted in HPI & below Physical Exam 2 Physical Exam: Constitutional: Mild respiratory distress HEENT: EOMI, PERRLA Respiratory system: Decreased air entry bilaterally, no wheeze, rhonchi, positive crackles bilaterally CVS: S1-S2 positive Abdomen: Soft, nontender, nondistended, positive bowel sounds x4 Extremities: +2 pulses bilaterally radialis/ dorsalis pedis, no cyanosis, no edema Neuro: Awake alert oriented x3 Psych: Normal mood and affect G/U: Positive Schmitz Skin: no rashes, warm and dry Lymphatic: no cervical or axillary lymphadenopathy Results & Data Results & Data Vital Signs (Past 12 Hours) Vital Signs Temp Pulse Pulse Resp BP Pulse Ox O2 Del Method 03/28/24 08:22 Nasal Cannula 03/28/24 07:35 36.9 C 82 16 109/58 L 96 Nasal Cannula 03/28/24 05:40 85 03/28/24 03:31 36.9 C 91 H 20 108/64 96 Nasal Cannula O2 Flow Rate 03/28/24 08:22 2 03/28/24 07:35 3 03/28/24 05:40 03/28/24 03:31 2 Laboratory Results 03/27/24 12:57 03/27/24 12:57 PG Care Time/CCT Total # of Minutes Spent Total Time Spent with Patient: Total time spent is greater than 50% in coordination of care (as documented) at patient's floor/unit and/or counseling patient: Coding Level of Care Code 72584 INT INP/OBS CARE 375MIN Diagnoses Lung mass R91.8 LAD (lymphadenopathy), mediastinal R59.0 COPD with emphysema J43.9 Hypoxic respiratory failure J96.01 Chronicity: acute History of primary bladder cancer Z85.51
[2024-03-28] MEDS: OPTIRAY 320 100ml IV ONE (13:26)
--- NOTE | 2024-03-28 14:13 | XRay Report ---
ORBIT RADIOGRAP[facility] 3 VIEWS HISTORY: pre-MRI screening. COMPARISON: Head CT June 13, 2020. FINDINGS: There are no radiopaque foreign bodies identified within the orbits. Note is again made of multiple metallic foreign bodies within the right face, as shown on CT of June 13, 2020 IMPRESSION: 1. No radiopaque foreign bodies identified within the orbits. 2. Multiple right facial metallic foreign bodies, as shown on prior CT. These do not represent a cont raindication to MRI. ACT 112: Negative or not required by law. Electronically signed by: Kaleb Rubi M.D. 03/28/2024 2:12 PM
--- NOTE | 2024-03-28 14:13 | CT Scan Report ---
CT OF THE ABDOMEN AND PELVIS WITH CONTRAST CLINICAL HISTORY: lung mass, prior bladder ca; eval recurrent ca COMPARISON STUDY: CT of the abdomen and pelvis May 28, 2021. TECHNIQUE: Following IV administration of 94 mL of Optiray, axial images of the abdomen and pelvis we re obtained from the lung bases to the proximal femurs. Images were reviewed in the axial, sagittal, and coronal planes. IV contrast was administered without complication. Automated exposure control wa s utilized for the study. A dose lowering technique was utilized adhering to the principles of ALARA . CT DOSE: 1046.02 mGy.cm FINDINGS: Trace right pleural effusion. No pneumatosis, free air or portal venous gas is present. The re are no hepatic lesions. Spleen, adrenal glands and pancreas are normal. There is no biliary or canada creatic ductal dilatation. There are postoperative findings consistent with cystectomy with right low er quadrant urostomy. There is no hydronephrosis. Several left renal calculi measure up to 5 mm. Smal l right renal calculus is present. There are no ureteral calculi. Mild bilateral perinephric strandin g. Several ill-defined hypoechoic enhancing foci within the left kidney are present. There is also a small hypoenhancing focus within the midpole the right kidney. Stranding adjacent to the bilateral re nal pelves and ureters is unchanged. There is no evidence for a bowel obstruction. No abdominal or pe lvic lymphadenopathy is identified. There are postoperative findings within the lumbar spine. No acut e fractures are identified. Please note that the lumbar spine CT will be reported separately. There is extensive aortoiliac atherosclerotic plaque. IMPRESSION: 1. Several ill-defined hypoenhancing foci within the kidneys, left greater than right. The findings m ay represent pyelonephritis. Although less likely, metastases could appear similar given the findings on chest CT of March 27, 2024. 2. Bilateral nephrolithiasis. No ureteral calculi. No hydronephrosis status post cystectomy with righ t lower quadrant urostomy. 3. No bowel obstruction. No bowel wall thickening. 4. No abdominal or pelvic lymphadenopathy. ACT 112: Negative or not required by law. Electronically signed by: Kaleb Rubi M.D. 03/28/2024 2:11 PM
--- NOTE | 2024-03-28 14:33 | CT Scan Report ---
LUMBAR SPINE CT WITH CONTRAST CLINICAL HISTORY: numerous falls, severe low back pain; r/o Fx, mets COMPARISON STUDY: CT of the abdomen and pelvis January 20, 2023. TECHNIQUE: Axial images of the lumbar spine were obtained following intravenous administration of 94 cc of Optiray 320 IV. Sagittal and coronal reconstructions were viewed. Automated exposure control wa s utilized for the study. A dose lowering technique was utilized adhering to the principles of ALARA . FINDINGS: Please note that the abdomen and pelvis CT will be reported separately. For purposes of num bering on this exam, the L5-S1 disc space is assigned to axial image 316 of 409. There is mild S-shap ed curvature of the lumbar spine. Vertebral body heights are maintained. There are no lumbar spine fr actures. No osseous lesions are identified by CT. Severe multilevel disc space narrowing is noted wit hin the lumbar spine. There is associated osteophytosis as well as severe facet arthrosis. There are postoperative findings consistent with L3-L4 laminectomy. Central canal and neural foramen are subopt imally assessed given CT technique. Surgical clips within the canal at the L3-L4 level are noted. Migdalia arent central canal stenosis at this level is again noted. This appears similar to prior CT. IMPRESSION: 1. No acute lumbar spine fractures. 2. No suspicious lesions within the lumbar spine by CT. 3. Severe multilevel degenerative changes within the lumbar spine. Status post L3-L4 laminectomy. Patricia pected central canal stenosis at L3-L4. This is suboptimally assessed by CT but likely similar to ear lier CT of January 20, 2023. ACT 112: Negative or not required by law. Electronically signed by: Kaleb Rubi M.D. 03/28/2024 2:30 PM
[2024-03-28] MEDS: GADOBUTROL 65ML VIAL IV ONE (15:16)
--- NOTE | 2024-03-28 15:42 | Magnetic Resonance Report ---
MRI of the brain performed with and without IV contrast History: Lung cancer Comparison: No prior Technique: Multiplanar T1 weighted, axial T2/FLAIR, and susceptibility images were obtained without intravenous contrast. Following intravenous gadolinium based contrast administration, axial T2 weighted, diffusion, and T1-weighted images were obtained. 8 mL Gadavist. Findings: No evidence for intracranial mass lesion, mass-effect, midline shift, or abnormal extra-axial fluid collection. Postcontrast images demonstrate no abnormal intracranial enhancement. The orbits are grossly unremarkable. There is marked cerebral atrophy, and mild to moderate cerebellar atrophy. On T2/FLAIR, there is mild high signal intensity change in the white matter suggesting sequelae of chronic small vessel ischemic disease. No abnormally reduced diffusion or evidence for acute infarct. Normal intravascular flow voids. Bilateral pseudophakia. Impression: No evidence for metastatic disease of the head. Age-related changes. Electronically signed by Matt Elliott 03-28-2024 3:42 PM
[2024-03-28] MEDS: LIDOCAINE 5% 1 PATCH TD SCH (15:47)
[2024-03-28] MEDS: UMECLIDINIUM/VILANTEROL 62.5/25MCG 7 PUFFS/INHALER INH SCH (15:47)
[2024-03-28] MEDS: BENZONATATE 100 MG CAPSULE PO SCH (15:47)
[2024-03-28] MEDS: AZITHROMYCIN 250 MG TAB PO SCH (15:48)
[2024-03-28] MEDS: cefTRIAXone SODIUM 2,000 MG/50 ML BAG IV SCH (15:49)
[2024-03-28] MEDS: ACETAMINOPHEN 325 MG TAB PO PRN (16:02)
[2024-03-29 08:13] LABS: BUN Creatinine Ratio 22.1 (10-20); Calcium 8.9 mg/dl (8.6-10.3); Creatinine Clr Calc Pharmacy 86.1 ml/min; Potassium 3.6 mmol/L (3.5-5.1)
[2024-03-29 08:19] LABS: Prothrombin Time 11.2 Seconds (9.0-12.0)
[2024-03-29 08:28] LABS: Thyroid Stimulating Hormone 3.444 uIu/ml (0.300-4.500)
--- NOTE | 2024-03-29 11:14 | Pulmonology Progress Note ---
Date of Service March 29, 2024 Assessment & Plan (1) Lung mass: (2) LAD (lymphadenopathy), mediastinal: (3) COPD with emphysema: (4) Hypoxic respiratory failure: Chronicity: acute Qualified Code(s): J96.01 - Acute respiratory failure with hypoxia (5) History of primary bladder cancer: Plan Impression: 83-year-old male with prior history of bladder cancer presenting now with lung mass and extensive right hilar adenopathy of unclear etiology. No comparison films in our system to review. Findings are concerning for malignancy. Recommendations: 1. Right lower lobe lung mass with extensive mediastinal adenopathy. Patient is n.p.o. for bronchoscopy with endobronchial ultrasound and transbronchial needle aspiration. Discussed with patient and family at bedside. Questions were answered the best my ability. We discussed risks of the procedure including bleeding, respiratory failure, hypoxemia, pneumothorax, and need for additional invasive procedures. Patient is agreeable to proceed. Procedure tentatively scheduled for noon today. Advised the patient and family that pathology will not likely be available for 48 to 72 hours. Will need outpatient PET scan and potentially consultation with medical oncology and/or radiation oncology depending on findings. 2. Do not see evidence for pneumonia. Recommend discontinuation of broad- spectrum antibiotics. 3. Hypoxemia: Resolved. The patient should be assessed for supplemental oxygen prior to discharge. 4. COPD: The patient may have had an exacerbation. He is not bronchospastic currently. Can continue azithromycin 250 mg for additional 3 days at which point in time he may be discontinued. Outpatient PFTs are recommended. Can continue DuoNebs on an as-needed basis. Agree with Anoro. From a pulmonary perspective, the patient may be eligible to dismissed from the hospital after the bronchoscopy. Ultimate disposition is deferred to the patient's primary admitting service. I will contact the patient once the pathology results are available to review later this week. 55 minutes was spent evaluating managing and coronation care for this patient Admission and Anticipated Discharge Date Admission Date: March 27, 2024 Subjective Patient seen and examined. EMR reviewed. 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 Patient reports he is doing well currently. He is having no respiratory difficulties. No cough, wheezing, shortness of breath. No sputum production. He is asking about potentially be dismissed from the hospital Review of Systems 2 Review of Systems: All systems reviewed & are unremarkable except as noted in Subjective Physical Exam 2 Constitutional: WD/WN, vitals as above Neck: trachea midline, no thyromegaly Respiratory: normal respiratory effort, lungs clear to auscultation Cardiovascular: RRR, no murmur, no edema Gastrointestinal (Abdomen): normal bowel sounds, soft, nontender, no hepatosplenomegaly Musculoskeletal: Extremities: extremities normal to inspection Skin: no rashes, warm and dry Neurologic: Nonfocal exam Lymphatic: no cervical lymphadenopathy Results & Data Results & Data Vital Signs (Past 12 Hours) Vital Signs Temp Pulse Resp BP Pulse Ox O2 Del Method 03/29/24 08:04 36.6 C 70 18 121/65 94 Room Air 03/29/24 04:13 36.5 C 72 18 112/67 95 Room Air 03/28/24 23:17 36.5 C 69 18 105/60 95 Room Air Laboratory Results 03/27/24 12:57 03/29/24 06:32 Diagnostic Findings MRI of the brain without evidence of intracranial metastases. CT abdomen pelvis: Several hypoenhancing foci within the kidneys left greater than right. Unclear etiology. Recommend correlation with prior films. PG Care Time/CCT Total # of Minutes Spent Total Time Spent with Patient: Total time spent is greater than 50% in coordination of care (as documented) at patient's floor/unit and/or counseling patient: Coding Level of Care Code 31336 SUB INP/OBS CARE 3/50MIN Diagnoses Lung mass R91.8 LAD (lymphadenopathy), mediastinal R59.0 COPD with emphysema J43.9 Hypoxic respiratory failure J96.01 Chronicity: acute History of primary bladder cancer Z85.51
--- NOTE | 2024-03-29 11:57 | Pre Anesthesia Assessment ---
Date of Service March 29, 2024 Pre Sedation Assessment Vital Signs Temp Pulse Pulse Resp BP Pulse Ox O2 Del Method 03/29/24 11:46 36.7 C 74 19 149/67 H 99 Oxymask 03/29/24 08:04 36.6 C 70 18 121/65 94 Room Air 03/29/24 07:00 79 03/29/24 04:13 36.5 C 72 18 112/67 95 Room Air 03/28/24 23:17 36.5 C 69 18 105/60 95 Room Air 03/28/24 21:55 69 03/28/24 19:50 Nasal Cannula 03/28/24 19:21 36.4 C L 77 16 109/63 94 Room Air 03/28/24 16:22 36.7 C 80 16 125/64 95 Room Air 03/28/24 12:26 36.7 C 82 20 156/73 H 98 Nasal Cannula O2 Flow Rate 03/29/24 11:46 6 03/29/24 08:04 03/29/24 07:00 03/29/24 04:13 03/28/24 23:17 03/28/24 21:55 03/28/24 19:50 3 03/28/24 19:21 03/28/24 16:22 03/28/24 12:26 2 Pre-Sedation Airway Assessment Smoking Status: Never smoker Hx Sleep Apnea: No Short, Thick Neck: No Thyromental Distance: > or= 3.5 Finger Breadths Oral Cavity: + WNL Mallampati Class: III ASA: ASA3 NPO Status Date of Last Intake of Fluids: 03/29/24 Time of Last Intake of Fluids: 06:00 Date of Last Intake of Solid Food: 03/28/24 Time of Last Intake of Solid Foods: 21:00 Notes The planned sedation has been discussed with the patient. Informed Consent was obtained. I have identified the patient, determined the appropriateness of sedation and have assessed the patient immediately prior to the procedure. All medicine(s) and interventions are by my order.
--- NOTE | 2024-03-29 12:22 | Post Anesthesia Assessment ---
Date of Service March 29, 2024 Post Sedation Assessment Vital Signs Temp Pulse Pulse Resp BP Pulse Ox O2 Del Method 03/29/24 12:19 82 12 99/62 L 93 Oxymask 03/29/24 12:15 76 8 L 96/54 L 93 Oxymask 03/29/24 12:10 75 10 L 99/53 L 93 Oxymask 03/29/24 12:05 74 12 131/66 100 Oxymask 03/29/24 12:00 76 14 149/67 H 100 Oxymask 03/29/24 12:00 Room Air 03/29/24 11:46 36.7 C 74 19 149/67 H 99 Oxymask 03/29/24 08:04 36.6 C 70 18 121/65 94 Room Air 03/29/24 07:00 79 03/29/24 04:13 36.5 C 72 18 112/67 95 Room Air 03/28/24 23:17 36.5 C 69 18 105/60 95 Room Air 03/28/24 21:55 69 03/28/24 19:50 Nasal Cannula 03/28/24 19:21 36.4 C L 77 16 109/63 94 Room Air 03/28/24 16:22 36.7 C 80 16 125/64 95 Room Air 03/28/24 12:26 36.7 C 82 20 156/73 H 98 Nasal Cannula O2 Flow Rate 03/29/24 12:19 6 03/29/24 12:15 6 03/29/24 12:10 6 03/29/24 12:05 6 03/29/24 12:00 03/29/24 12:00 03/29/24 11:46 6 03/29/24 08:04 03/29/24 07:00 03/29/24 04:13 03/28/24 23:17 03/28/24 21:55 03/28/24 19:50 3 03/28/24 19:21 03/28/24 16:22 03/28/24 12:26 2 Recovery Score Activity: Moves 0 extremities Respiration: Dyspnea/Limited Breathing Circulation: +/-20-49% PreAnes Value Consciousness: Arouseable (by name) Oxygen Saturation: > 92% On Room Air Post Anesthesia Score: 5 Discharge Sedation Level of Care: Fast Track Phase II Post Sedation Plan On clinical assessment, the patient appears to have tolerated the sedation without complications. Patient is recovering as anticipated. Patient will continue to be monitored by nursing and may be discharged when sedation discharge criteria are met per below protocol. Upon Completions of procedure up to 15 minutes continue every 5 minute vital signs and the P.A.R. score; then discharge to a Phase I or Fast Track to Phase II per the following guidelines: * Discharge Patient to appropriate Phase II area if PAR is 8 or greater or return to pre- procedure baseline. The post - procedure orders will be as directed. * If PAR score is less than 8 or not return to pre-procedure baseline then patient will follow Phase I monitoring till PAR is reached for Phase II. The Phase I may be done in procedure room or may call to secure a Phase I area. * If naloxone or flumazenil are used for reversal, hold in Phase I for continued monitoring from when last reversal dose was given for a minimum of 60 minutes or longer pending the nurse and/or physician discretion of patient condition before discharge to Phase II. Please call the Sedation Physician to re-evaluate and complete post-note for discharge to Phase II area. Do NOT discharge from procedure sedation or Phase 1 until post- sedation evaluation note is complete by procedure /sedation MD Sedation Discharge Instructions to be given to the patient at discharge to home.
--- NOTE | 2024-03-29 12:35 | Procedure Note ---
Procedure Note: Bronchoscopy Procedure Procedure: Fiberoptic bronchoscopy Endobronchial ultrasound evaluation during bronchoscopy Endobronchial ultrasound with transbronchial needle aspiration of lymph nodes, single station Conscious sedation Provider: Bj Lacey MD Consent: Signed by patient and timeout verified prior to procedure. Sedation start: 1155 Sedation end: 1219 Conscious sedation: 6 mg Versed, 125 mcg fentanyl, topical lidocaine per RT protocol Indication: Abnormal CT scan Procedure: Patient was brought to the bronchoscopy suite. Consent was verified. Appropriate radiographic studies had been reviewed prior to the procedure. Standard monitoring was applied. Oxygen was administered. After topical anesthesia of the airways per respiratory therapy protocol, the fiberoptic scope was advanced through the oropharynx via the bite-block. Oropharynx was unremarkable. Vocal cords were visualized and were normal in function.. Topical anesthesia of the cords was achieved with instillation of lidocaine through the scope. Scope was then passed through the vocal cords. The trachea was slightly tortuous. Main catarina was splayed. Anesthesia of the lower airways was achieved with instillation of lidocaine through the scope. A sequential and systematic examination of the lower airways was conducted. The right mainstem bronchus was patent with a patent orifice leading to the right upper lobe however at the R C2 lesion, there was submucosal abnormality which appeared to be malignant. This extended down at the 3 o'clock position of the bronchus intermedius to just above the takeoff of the superior segment of the right lower lobe. The right middle lobe and right lower lobe were patent. There was some mucoid secretions emanating from the lower lobe which were lavaged free. Scope was then directed into the left mainstem bronchus. The left upper lobe, lingula, and left lower lobe orifice was patent with normal mucosa. After the inspection bronchoscopy was completed, the fiberoptic scope was removed from the airway and the endobronchial ultrasound advanced through the bite-block through the glottis. Extensive masslike consolidation/adenopathy was identified within the level 7 and level 4R stations. Under direct ultrasound visualization using a 20-gauge needle, the 4R station was sampled. Rapid onsite cytologic evaluation confirmed presence of malignant cells. A total of 8 passes with the needle were collected with 10-15 swipes per pass. After adequate material had been collected, the scope was withdrawn to the level of the catarina. Hemostasis was confirmed. The bronchoscope was then removed from the airways. The patient tolerated the procedure well without obvious complication. Patient was returned to the recovery room. Estimated blood loss: 5 mL Impression: 1. Abnormal inspection bronchoscopy with what appeared to be tumor extending from the RC to down into the bronchus intermedius. The airways were patent. 3. Extensive masslike consolidation/adenopathy present within the level 7 and level 4R stations status post biopsy with a 21-gauge needle. Await final [place] [facility] Codes (Charges) Pulmonary/Thoracic Procedure 1: Pulmonary and Thoracic: 05658 Bronchoscopy, w/EBUS 1 or 2 mediastinal Sedation/Anesthesia Procedure 2: Sedation/Anesthesia: 23976 Mod Sedation by the same physician;Init15 Min Child Age 5 & Up Total Sedation Time (minutes): 24 Procedure 3: Sedation/Anesthesia: 46066 Mod Sedation by the same physician; Ea [id number] Minutes
[2024-03-29] MEDS: CYANOCOBALAMIN (B-12) 500 MCG TABLET PO SCH (15:41)
[2024-03-29] MEDS: AZITHROMYCIN 250 MG TAB PO SCH (15:41)
--- NOTE | 2024-03-29 15:41 | Electrocardiogram Report ---
Test Reason : Blood Pressure : */* mmHG Vent. Rate : 88 BPM Atrial Rate : 88 BPM P-R Int : 178 ms QRS Dur : 132 ms QT Int : 386 ms P-R-T Axes : 55 72 56 degrees QTcB Int : 467 ms Normal sinus rhythm Right bundle branch block Abnormal ECG When compared with ECG of 11-Feb-2024 09:45, No significant change was found Confirmed by Beka Kimbrough ([id number]) on 03/29/2024 3:41:01 PM Referred By: REFERRED SELF Confirmed By: Beka Kimbrough
[2024-03-29] MEDS: MIDAZOLAM HCL 5 MG/ML 1 ML VIAL ONE (16:06)
[2024-03-29] MEDS: fentaNYL citrate PF 100 MCG/2 ML VIAL ONE (16:06)
--- NOTE | 2024-03-29 18:23 | Hospitalist Progress Note ---
Date of Service March 29, 2024 Assessment & Plan (1) Lung mass: Plan: right lower lobe highly worrisome for lung ca about 4.5cm in size appreciate consult by Dr Hutchinson and Dr Lacey s/p EBUS with biopsies today by Dr Lacey patient stable from pulm standpoint post-bronch MRI brain w/o intracranial mets CT a/p without obvious mets although kidneys were abnormal in appearance will need outpatient PET/CT patient and family to decide where they want his cancer care (he has previously followed with [facility] in [place] for his prior bladder ca) (2) Acute hypoxic respiratory failure: Plan: improved although no discrete pneumonia was seen on imaging, I suspect he has a COPD exacerbation at minimum. he has severe emphysematous changes on imaging, and has developed significant cough etc in the days leading up to admission. he was hypoxic upon ER presentation with documented respiratory rates in the mid 20s. received rocephin/zithromax (could he have a post-obstructive pneumonia that simply can't be seen readily on CT?) since admission change to levaquin PO in am tomorrow. (levaquin to be used for urine coverage as well) s/p bronch today - see #1 above. cont mucinex. cont tessalon. cont Anoro which was started this admission. of note - resp biofire panel was fully negative. (3) COPD with emphysema: Plan: emphysema seen on CT chest. heavy tobacco consumption years ago. with exacerbation. added Anoro. would d/c home on such. cont mucinex, tessalon. albuterol prn. antibiotics. defer on systemic steroids. (4) Elevated troponin: Plan: Troponin 33--> 26 on arrival no evidence of ACS this was likely myocardial demand ischemia in setting of #1, #2 above (5) Recurrent falls: Plan: due to weakness from his pulmonary disease and suspected lung ca? due to weakness from lumbar spine disease? worsened by B12 def? PT, OT evals needed MRI brain with atrophy of cerebrum/cerebellum but no old/new CVA L-spine CT with advanced DDD which is the likely culprit (family reports stopped posture with walking, etc) (6) History of bladder cancer: Plan: s/p cystectomy 2015 with urostomy creation - [facility] (7) LAD (lymphadenopathy), mediastinal: Plan: highly worrisome for lung ca s/p bronch/EBUS today with bx's of RLL mass (8) Presence of urostomy: Plan: created 2015 in [place] ?UTI with pyelonephritis? cont abx - change to PO levaquin tomorrow, 03/30 (9) Lumbar spine pain: Plan: long-standing lumbar back pain but worse in the last few weeks checked CT l-spine - NO fracture, NO obvious metastatic disease considerable DDD/DJD of l-spine noted on CT k-pad pain meds etc lidoderms PT/OT (10) B12 deficiency: Plan: B12 level 191 deserves replacement in light of ambulatory dysfunction start oral B12 1000mcg daily and take for 6 months to rebuild stores (11) Abnormal CT of the abdomen: Plan: CT a/p with findings suggestive of pyelonephritis vs mets from the suspected lung cancer favor former some of his right sided lower chest wall pain/flank could be from the right kidney u/a at admission was suggestive of UTI but urine cx grew multiple organisms [id number] will cover for UTI/possible pyelo stop rocephin stop azithromycin change to levaquin 750mg daily levaquin will cover the lungs as well Plan DVT proph - lovenox - but held for his EBUS today daughter, grand-daughter, , son-in-law updated extensively at bedside today questions answered support given await PT/OT evals given frequent falls at home Admission and Anticipated Discharge Date Admission Date: March 27, 2024 Subjective saw patient post-bronch bronch went well, biopsies obtained of RLL lung mass some minimal amount of mucoid secretions were seen during the bronch since the bronch he has had scant hemoptysis he reports overall feeling better less cough no dyspnea at rest still with mild pleuritic right-sided chest wall pain no substernal pain no left-sided chest pain numerous family at bedside during the visit - , daughter, son-in-law, grand- daughter we discussed the concerns for lung cancer and that bx results would take 2-3 days to result but the suspicion for lung ca is very high discussed negative brain MRI discussed l-spine CT showing considerable DJD discussed CT a/p showing ? findings that might fit with pyelonephritis and that some of his right sided pain could be kidney pain in addition to pain from the right lung he has not been out of bed much since admission remains anxious to get home, however Review of Systems Review of Systems: gen - no fevers cv - see HPI; no edema pulm - see HPI; no dyspnea at rest GI - no abd pain or N/V - urostomy draining clear yellow urine Physical Exam Physical Exam: gen - lying in bed, looks better today, awake/alert, minimal cough today neck - no JVD mouth - MMM heart - RRR, s1 s2, no murmur lungs - b/l wheezes improved, no increased work of breathing abd - soft NT ND BS+; urostomy stoma clean, healthy red color, attached to vega bag ext - no edema, pulses 2+ b/l feet Results & Data Results & Data Vital Signs (Past 12 Hours) Vital Signs Temp Pulse Pulse Resp BP Pulse Ox O2 Del Method 03/29/24 14:00 36.5 C 79 18 117/63 90 Room Air 03/29/24 13:55 Oxyhood 03/29/24 13:40 82 12 99/62 L 97 Nasal Cannula 03/29/24 13:25 78 12 105/59 L 96 Nasal Cannula 03/29/24 13:10 77 12 91/60 L 96 Nasal Cannula 03/29/24 12:55 84 12 112/63 96 Nasal Cannula 03/29/24 12:40 86 15 117/67 95 Oxymask 03/29/24 12:28 36.6 C 92 H 14 99/62 L 91 Oxymask 03/29/24 12:19 82 12 99/62 L 93 Oxymask 03/29/24 12:15 76 8 L 96/54 L 93 Oxymask 03/29/24 12:10 75 10 L 99/53 L 93 Oxymask 03/29/24 12:05 74 12 131/66 100 Oxymask 03/29/24 12:00 76 14 149/67 H 100 Oxymask 03/29/24 12:00 Room Air 03/29/24 11:46 36.7 C 74 19 149/67 H 99 Oxymask 03/29/24 08:04 36.6 C 70 18 121/65 94 Room Air 03/29/24 07:00 79 O2 Flow Rate 03/29/24 14:00 03/29/24 13:55 03/29/24 13:40 2 03/29/24 13:25 2 03/29/24 13:10 4 03/29/24 12:55 4 03/29/24 12:40 4 03/29/24 12:28 4 03/29/24 12:19 6 03/29/24 12:15 6 03/29/24 12:10 6 03/29/24 12:05 6 03/29/24 12:00 03/29/24 12:00 03/29/24 11:46 6 03/29/24 08:04 03/29/24 07:00 Laboratory Results Laboratory Results - last 24 hr 03/29/24 06:32 PT 11.2 INR 1.0 Sodium 134 L Potassium 3.6 Chloride 99 Carbon Dioxide 28 Anion Gap 7 BUN 15 Creatinine 0.68 Est Cr Clr Drug Dosing 86.1 eGFR 91.66 BUN/Creatinine Ratio 22.1 H Glucose 105 H Calcium 8.9 Vitamin B12 191 TSH 3.444 PG Care Time/CCT Total # of Minutes Spent Total Time Spent with Patient: Total time spent is greater than 50% in coordination of care (as documented) at patient's floor/unit and/or counseling patient: Coding Level of Care Code 04105 SUB INP/OBS CARE 3/50MIN Diagnoses Lung mass R91.8 Acute hypoxic respiratory failure J96.01 COPD with emphysema J43.9 Elevated troponin R79.89 Recurrent falls R29.6 History of bladder cancer Z85.51 LAD (lymphadenopathy), mediastinal R59.0 Presence of urostomy Z93.6 Lumbar spine pain M54.50 [address] deficiency [address] of the abdomen R93.5
[2024-03-30 08:14] LABS: Hematocrit (blood only) 40.8 % (42.0-52.0); Hemoglobin 13.8 g/dl (14.0-18.0); Mean Corpuscular Hemoglobin 29.9 pg (25.0-34.0); Mean Corpuscular Hgb Conc 33.8 g/dL (32.0-36.0); Mean Corpuscular Volume 88.5 fL (80.0-100.0); Mean Platelet Volume 10.4 fL (9.4-12.4); Platelet Count 232 K/uL (130-400); RDW Coefficient of Variation 13.3 % (11.5-14.5); RDW Standard Deviation 43.3 fL (36.4-46.3); Red Blood Count 4.61 M/uL (4.70-6.10); White Blood Count 5.31 K/ul (4.8-10.8)
[2024-03-30 08:19] LABS: BUN Creatinine Ratio 22.5 (10-20); Creatinine Clr Calc Pharmacy 82.5 ml/min; Potassium 3.8 mmol/L (3.5-5.1)
[2024-03-30] MEDS: levoFLOXacin 750 MG TAB PO SCH (08:43)
--- NOTE | 2024-03-30 09:17 | Pulmonology Progress Note ---
Date of Service March 30, 2024 Assessment & Plan (1) Lung mass: (2) LAD (lymphadenopathy), mediastinal: (3) COPD with emphysema: (4) Hypoxic respiratory failure: Chronicity: acute Qualified Code(s): J96.01 - Acute respiratory failure with hypoxia (5) History of primary bladder cancer: Plan Impression: 83-year-old male with prior history of bladder cancer presenting now with lung mass and extensive right hilar adenopathy of unclear etiology. Status post EBUS TBNA yesterday with final results pending Recommendations: 1. Right lower lobe lung mass with extensive mediastinal adenopathy. Status post EBUS TBNA. Malignant cells identified, final path pending. Should be available in 24 to 48 hours. Would recommend medical oncology and radiation oncology evaluation. Recommend oncology nurse navigation be involved to assist in getting patient timely appointments 2. Patient will require PET scan as an outpatient 3. Hypoxemia: Resolved. The patient should be assessed for supplemental oxygen prior to discharge. 4. COPD: Patient is unclear if Anoro is offering him any clinical benefit. Complete azithromycin for additional 2 days then discontinue. Recommend outpatient PFTs Patient can be dismissed from the hospital. I will call him to review the path results once available. Pulmonary signing off. Feel free to contact us with questions or concerns Admission and Anticipated Discharge Date Admission Date: March 27, 2024 Subjective Patient seen and examined. EMR reviewed. The patient is doing well post bronchoscopy. He did have a little bit of blood- tinged phlegm yesterday but this is resolving. He is off oxygen. He is sitting up eating breakfast. His back pain is adequately treated. He denies any chest pain or palpitations. No shortness of breath. He overall feels like he is doing well clinically Review of Systems 2 Review of Systems: All systems reviewed & are unremarkable except as noted in Subjective Physical Exam 2 Constitutional: WD/WN, vitals as above ENMT: Mallampati Class: III Neck: trachea midline, no thyromegaly Respiratory: normal respiratory effort, lungs clear to auscultation Cardiovascular: RRR, no murmur, no edema Gastrointestinal (Abdomen): normal bowel sounds, soft, nontender, no hepatosplenomegaly Musculoskeletal: Extremities: extremities normal to inspection Skin: no rashes, warm and dry Lymphatic: no cervical lymphadenopathy Results & Data Results & Data Vital Signs (Past 12 Hours) Vital Signs Temp Pulse Pulse Resp BP Pulse Ox O2 Del Method 03/30/24 07:35 Room Air 03/30/24 07:25 36.8 C 86 18 125/68 91 Room Air 03/30/24 07:10 77 03/30/24 03:43 36.7 C 68 18 115/66 93 Room Air 03/29/24 23:00 36.8 C 79 18 115/62 93 Room Air 03/29/24 21:52 83 Laboratory Results 03/30/24 07:19 03/30/24 07:19 Pathology pending. Diagnostic Findings No new imaging PG Care Time/CCT Total # of Minutes Spent Total Time Spent with Patient: Total time spent is greater than 50% in coordination of care (as documented) at patient's floor/unit and/or counseling patient: Coding Level of Care Code 22006 SUB INP/OBS CARE 2/35MIN Diagnoses Lung mass R91.8 LAD (lymphadenopathy), mediastinal R59.0 COPD with emphysema J43.9 Hypoxic respiratory failure J96.01 Chronicity: acute History of primary bladder cancer Z85.51
--- NOTE | 2024-03-30 12:28 | Hospitalist Progress Note ---
Date of Service March 30, 2024 Assessment & Plan (1) Lung mass: Plan: right lower lobe mass,highly worrisome for lung ca,about 4.5cm in size Now s/p EBUS with biopsies, pathology pending patient stable from pulm standpoint post-bronch MRI brain w/o intracranial mets CT a/p without obvious mets although kidneys were abnormal in appearance Will await pathology to direct care regarding need for oncology consult will need outpatient PET/CT patient and family to decide where they want his cancer care (he has previously followed with [facility] in [place] for his prior bladder ca) (2) Acute hypoxic respiratory failure: Plan: Now much improved improved, now on room air Probably secondary to COPD excaerbation or the lung mass he has severe emphysematous changes on imaging, and has developed significant cough etc in the days leading up to admission. continue PO Levaquin (3) COPD with emphysema: Plan: emphysema seen on CT chest. heavy tobacco consumption years ago. with exacerbation. added Anoro. would d/c home on such. cont mucinex, tessalon. albuterol prn. antibiotics. defer on systemic steroids. (4) Elevated troponin: Plan: Troponin 33--> 26 on arrival no evidence of ACS this was likely myocardial demand ischemia in setting of #1, #2 above (5) Recurrent falls: Plan: due to weakness from his pulmonary disease and suspected lung ca? due to weakness from lumbar spine disease? worsened by B12 def? PT, OT evals needed MRI brain with atrophy of cerebrum/cerebellum but no old/new CVA L-spine CT with advanced DDD which is the likely culprit (family reports stopped posture with walking, etc) (6) History of bladder cancer: Plan: s/p cystectomy 2015 with urostomy creation - [facility] (7) LAD (lymphadenopathy), mediastinal: Plan: highly worrisome for lung ca s/p bronch/EBUS today with bx's of RLL mass (8) Presence of urostomy: Plan: created 2015 in [place] ?UTI with pyelonephritis? cont abx - change to PO levaquin tomorrow, 03/30 (9) Lumbar spine pain: Plan: long-standing lumbar back pain but worse in the last few weeks checked CT l-spine - NO fracture, NO obvious metastatic disease considerable DDD/DJD of l-spine noted on CT k-pad pain meds etc lidoderms PT/OT (10) B12 deficiency: Plan: B12 level 191 deserves replacement in light of ambulatory dysfunction start oral B12 1000mcg daily and take for 6 months to rebuild stores (11) Abnormal CT of the abdomen: Plan: CT a/p with findings suggestive of pyelonephritis vs mets from the suspected lung cancer favor former some of his right sided lower chest wall pain/flank could be from the right kidney u/a at admission was suggestive of UTI but urine cx grew multiple organisms [id number] will cover for UTI/possible pyelo stop rocephin stop azithromycin change to levaquin 750mg daily levaquin will cover the lungs as well Plan DVT proph - lovenox - but held for his EBUS today daughter, grand-daughter, , son-in-law updated extensively at bedside today questions answered support given await PT/OT evals given frequent falls at home Admission and Anticipated Discharge Date Admission Date: March 27, 2024 Subjective patient seen and examined, stable post [facility] Review of Systems Review of Systems: All systems reviewed are negative, apart from the ones contained in the history. Physical Exam Physical Exam: The patient is awake, alert and oriented 3, well developed and well nourished, normocephalic and atraumatic, lying in bed and in no acute distress. HEENT--PERRL, EOMI, mucous membranes and oropharynx mildly dry Neck--supple. No JVD. No bruits. Thyroid normal, trachea midline, no adenopathy. Heart--normal S1 and S2. No murmurs, rubs or gallops. Lungs--clear bilaterally, no respiratory distress, no accessory muscle use. Abdomen--normal bowel sounds and soft. Extremities--no cyanosis or clubbing. No edema. Dermatologic--normal skin turgor, normal color, no abnormal lymph nodes, no rash. Neurologic--cranial nerves II through XII grossly intact. Rheumatologic--normal range of motion. Psychiatric--normal affect. Results & Data Results & Data Vital Signs (Past 12 Hours) Vital Signs Temp Pulse Pulse Resp BP Pulse Ox O2 Del Method 03/30/24 11:05 98.2 F 64 18 131/68 92 Room Air 03/30/24 07:35 Room Air 03/30/24 07:25 98.2 F 86 18 125/68 91 Room Air 03/30/24 07:10 77 03/30/24 03:43 98.1 F 68 18 115/66 93 Room Air PG Care Time/CCT Total # of Minutes Spent Total Time Spent with Patient: Total time spent is greater than 50% in coordination of care (as documented) at patient's floor/unit and/or counseling patient: Coding Level of Care Code 53182 SUB INP/OBS CARE 2/35MIN Diagnoses Lung mass R91.8 Acute hypoxic respiratory failure J96.01 COPD with emphysema J43.9 Elevated troponin R79.89 Recurrent falls R29.6 History of bladder cancer Z85.51 LAD (lymphadenopathy), mediastinal R59.0 Presence of urostomy Z93.6 Lumbar spine pain M54.50 B12 deficiency E53.[address] of the abdomen R93.5 Time Spent (min) 35
--- NOTE | 2024-03-31 08:04 | Oncology Consultation ---
Date of Consultation March 31, 2024 Assessment & Plan (1) Lung cancer: Plan Gentleman recently diagnosed with adenocarcinoma of the lung. Based on imaging, he appears to have stage III disease. -Would recommend outpatient PET/CT to rule out more extensive disease -If PET/CT is negative for distant metastatic disease, we will plan to treat with concurrent chemoradiation treatment with carboplatin/paclitaxel followed by 1 year of immunotherapy if he has good response to treatment. I will schedule patient to follow-up with me in clinic in about 1 to 2 weeks , outpatient PET/CT and outpatient radiation oncology evaluation. Patient, and son agreed with above plan. History of Present Illness Attending Physician: Kassie Guerra MD History of Present Illness 83-year-old gentleman with history of bladder cancer status post cystectomy and adjuvant chemotherapy about 10 years ago who presented to the ER at [facility] on 03/27/2024 with fatigue and cough. Chest x-ray revealed 5 cm round masslike right perihilar density suggestive of neoplasm with right hilar enlargement possibly representing associated lymphadenopathy. CTA chest also on 03/27/2024 revealed right lower lobe malignancy with pathologic right hilar and right mediastinal lymphadenopathy. CT abdomen and pelvis on 03/28/2024 revealed several ill-defined hypoenhancing foci within the kidneys, left greater than right possibly representing pyelonephritis, bilateral nephrolithiasis. Lumbar spine CT on 03/28/2024 did not reveal any suspicious lesions. Brain MRI also on 03/28/2024 was negative for metastatic disease. 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 He states that he had previously smoked about 1 pack a day for about 50 years prior to quitting when he was diagnosed with bladder cancer Allergies Allergy/AdvReac Type Severity Reaction Status Date / Time Penicillins Allergy Intermediate Hives Verified 09/17/23 10:56 Home Medications Medication Instructions Recorded Confirmed Type hydrocodone 5 mg-acetaminophen 325 1 - 2 tab PO BID PRN Pain 03/01/19 03/27/24 History mg tablet alprazolam 0.5 mg tablet 0.5 mg PO BID PRN Anxiety 06/14/20 03/27/24 History ascorbic acid (vitamin C) 500 mg 1,500 mg PO QPM 06/14/20 03/27/24 History tablet (Vitamin C) aspirin 81 mg tablet,delayed 81 mg PO UD 06/14/20 03/27/24 History release (Ramya Low Dose Aspirin) cholecalciferol (vitamin D3) 25 25 mcg PO DAILY 06/14/20 03/27/24 History mcg (1,000 unit) tablet (Vitamin D3) atorvastatin 20 mg tablet 20 mg PO QAM 05/28/21 03/27/24 History Patient History Medical History Encounter for pre-operative examination Osteoarthritis History of bladder cancer 2016--bladder sx/chemo Hx MRSA infection "years ago" dx [facility] in [place], in a wound and blood?; tx w/abx. History of kidney stones Hyperlipidemia Presence of urostomy Frequent UTI "not as bad as he used to" Surgical History History of carpal tunnel surgery of left wrist History of lumbar surgery 1961 History of esophagogastroduodenoscopy (EGD) Hx of colonoscopy Hx of tonsillectomy Hx of cataract extraction rt/lt. Hx of prostatectomy done with total cystectomy History of total cystectomy Family History Brother Prostate cancer Hypertension Father Heart disease Other No family history of adverse response to anesthesia Social History Smoking Status: Never smoker Tobacco Type: Smokeless Tobacco (Dip or Chew) Second Hand Exposure: No; Do You Dip or Chew Tobacco: Yes; Tobacco Cessation Education Requested by Patient: No Hx Alcohol Use: No Hx Substance Use: No Preferred Language: Arabic Communication Ability: Effective Creative Services Intern Required: No Beliefs That Will Affect Care: None marital status: Current Living Situation: Spouse current occupational status: retired Feels Safe at Home: Yes Safety Concerns: Feels Safe At This Time Assistive Devices: Glasses Results & Data Vital Signs (Past 12 Hours) Vital Signs Temp Pulse Pulse Resp BP Pulse Ox O2 Del Method 03/31/24 07:46 36.2 C L 73 19 118/66 94 Room Air 03/31/24 04:01 36.7 C 58 L 20 114/64 93 Room Air 03/31/24 00:25 36.9 C 66 20 126/64 93 Room Air 03/30/24 21:48 76
--- NOTE | 2024-03-31 11:44 | Hospitalist Progress Note ---
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 continue PO Levaquin (3) COPD with emphysema: Plan: emphysema seen on CT chest. heavy tobacco consumption years ago. with exacerbation. added Anoro. would d/c home on such. cont mucinex, tessalon. albuterol prn. antibiotics. defer on systemic steroids. (4) Elevated troponin: Plan: Troponin 33--> 26 on arrival no evidence of ACS this was likely myocardial demand ischemia in setting of #1, #2 above (5) Recurrent falls: Plan: due to weakness from his pulmonary disease and suspected lung ca? due to weakness from lumbar spine disease? worsened by B12 def? PT, OT evals needed MRI brain with atrophy of cerebrum/cerebellum but no old/new CVA L-spine CT with advanced DDD which is the likely culprit (family reports stopped posture with walking, etc) (6) History of bladder cancer: Plan: s/p cystectomy 2016 with urostomy creation - [facility] (7) LAD (lymphadenopathy), mediastinal: Plan: highly worrisome for lung ca s/p bronch/EBUS today with bx's of RLL mass (8) Presence of urostomy: Plan: created 2015 in [place] ?UTI with pyelonephritis? cont abx (9) Lumbar spine pain: Plan: long-standing lumbar back pain but worse in the last few weeks checked CT l-spine - NO fracture, NO obvious metastatic disease considerable DDD/DJD of l-spine noted on CT k-pad pain meds etc lidoderms PT/OT (10) B12 deficiency: Plan: B12 level 191 deserves replacement in light of ambulatory dysfunction start oral B12 1000mcg daily and take for 6 months to rebuild stores (11) Abnormal CT of the abdomen: Plan: CT a/p with findings suggestive of pyelonephritis vs mets from the suspected lung cancer favor former some of his right sided lower chest wall pain/flank could be from the right kidney u/a at admission was suggestive of UTI but urine cx grew multiple organisms [id number] will cover for UTI/possible pyelo stop rocephin stop azithromycin change to levaquin 750mg daily levaquin will cover the lungs as well Plan DVT proph - lovenox support given await PT/OT evals given frequent falls at home Admission and Anticipated Discharge Date Admission Date: March 27, 2024 Subjective patient seen and examined, stable post [facility] Review of Systems Review of Systems: All systems reviewed are negative, apart from the ones contained in the history. Physical Exam Physical Exam: The patient is awake, alert and oriented 3, well developed and well nourished, normocephalic and atraumatic, lying in bed and in no acute distress. HEENT--PERRL, EOMI, mucous membranes and oropharynx mildly dry Neck--supple. No JVD. No bruits. Thyroid normal, trachea midline, no adenopathy. Heart--normal S1 and S2. No murmurs, rubs or gallops. Lungs--clear bilaterally, no respiratory distress, no accessory muscle use. Abdomen--normal bowel sounds and soft. Extremities--no cyanosis or clubbing. No edema. Dermatologic--normal skin turgor, normal color, no abnormal lymph nodes, no rash. Neurologic--cranial nerves II through XII grossly intact. Rheumatologic--normal range of motion. Psychiatric--normal affect. Results & Data Results & Data Vital Signs (Past 12 Hours) Vital Signs Temp Pulse Resp BP Pulse Ox O2 Del Method 03/31/24 07:46 97.2 F L 73 19 118/66 94 Room Air 03/31/24 04:01 98.1 F 58 L 20 114/64 93 Room Air 03/31/24 00:25 98.4 F 66 20 126/64 93 Room Air PG Care Time/CCT Total # of Minutes Spent Total Time Spent with Patient: Total time spent is greater than 50% in coordination of care (as documented) at patient's floor/unit and/or counseling patient: Coding Level of Care Code 20627 SUB INP/OBS CARE 2/35MIN Diagnoses Lung mass R91.8 Acute hypoxic respiratory failure J96.01 COPD with emphysema J43.9 Elevated troponin R79.89 Recurrent falls R29.6 History of bladder cancer Z85.51 LAD (lymphadenopathy), mediastinal R59.0 Presence of urostomy Z93.6 Lumbar spine pain M54.50 B[address] deficiency [address] of the abdomen R93.5 Time Spent (min) 35
[2024-03-31] MEDS: FAMOTIDINE 20 MG TAB PO PRN (21:25)
[2024-03-31] MEDS: CALCIUM CARBONATE 500 MG CHEWABLE TAB PO PRN (22:40)
[2024-04-01] VITALS: O2SAT 94
[2024-04-01 07:54] VITALS: RESP 18
--- NOTE | 2024-04-01 11:11 | Discharge Summary ---
Date of Service April 01, 2024 Admission HPI Per Admitting Provider Rafal is an 83-year-old male with PMH of bladder cancer and arthritis. He presented on 03/27 for generalized weakness, fatigue, and dry cough x 2 to 3 days. Patient reports that he was unable to get up out of his chair today, when he is normally able to stand/ambulate independently. He does not ambulate with a walker or cane at baseline. He does endorse lower extremity weakness, and patient's at bedside (Pepper) does report that he has had a low-grade fever over the past couple days. Patient had 2 falls yesterday; no LOC; no head strike. Patient reports that his legs just gave out on him. H/o recurrent falls, per family. Additionally, family reports that he had been "talking funny" and somewhat confused over the past 24 hours; for instance he thought his "toes" were where his "heels" were, and vice versa. No prior history of stroke, and family denies appreciating any strokelike symptoms such as slurred speech, facial droop, or unilateral deficits. Patient denies any chest pain, but does note he has rib pain on his right side, which has been ongoing for the past month. While he is unsure if the right ribs were affected by a fall, he denies any recent muscle strains or injuries. He denies SOB at rest or with exertion, but has developed a dry cough. No supplemental oxygen at baseline. No CPAP at night. He received a course of doxycycline at the end of January for presumed right lower lobe pneumonia. In regard to the mass in the patient's right lung, patient's son at bedside does report that they have known about this mass since January, and were told that this mass might be unchanged from prior. Patient has history of bladder cancer s/p cystectomy around 8 to 10 years ago; he previously followed with [facility] oncology. Patient does report he has a penicillin allergy; when asked what happens when he takes penicillin, he reports he developed a rash many years ago, and family is unsure if this is a true allergy. No prior history of anaphylaxis, throat closure, or tongue swelling with PCN use. Patient is amenable to trying Rocephin while inpatient. Patient is a former tobacco cigarette smoker, but quit approximately 15 years ago. Patient is tachypneic at 28 bpm, hypotensive at 102/54, and hypoxic at 89% on RA at time of admission. ED course: NSS 500 mL IV ROS: Patient endorses low grade fevers at home x 2 days, feeling off balance, dry cough, pain in R ribs x 2 months, and diarrhea x 2 days. Patient denies chills, night sweats, headache, changes in vision, chest pain, chest tightness, rashes or bruising on the chest wall, tick bites, SOB at rest or with exertion, pleuritic CP, abdominal pain, N/V/D, changes in urinary bowel habits, or numbness/tingling/swelling in the legs. Admission Exam (Per Admitting) Constitutional The patient is awake, alert and oriented 3, well developed and well nourished, normocephalic and atraumatic, lying in bed and in no acute distress. HEENT--PERRL, EOMI, mucous membranes and oropharynx mildly dry Neck--supple. No JVD. No bruits. Thyroid normal, trachea midline, no adenopathy. Heart--normal S1 and S2. No murmurs, rubs or gallops. Lungs--clear bilaterally, no respiratory distress, no accessory muscle use. Abdomen--normal bowel sounds and soft. Extremities--no cyanosis or clubbing. No edema. Dermatologic--normal skin turgor, normal color, no abnormal lymph nodes, no rash. Neurologic--cranial nerves II through XII grossly intact. Rheumatologic--normal range of motion. Psychiatric--normal affect. 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 continue PO Levaquin 750mg for 5 more days (3) COPD with emphysema: emphysema seen on CT chest. heavy tobacco consumption years ago. with exacerbation. added Anoro. would d/c home on such. cont mucinex, tessalon. albuterol prn. antibiotics. defer on systemic steroids. (4) Elevated troponin: Troponin 33--> 26 on arrival no evidence of ACS this was likely myocardial demand ischemia in setting of #1, #2 above (5) Recurrent falls: due to weakness from his pulmonary disease and suspected lung ca? due to weakness from lumbar spine disease? worsened by B12 def? PT, OT evals needed MRI brain with atrophy of cerebrum/cerebellum but no old/new CVA L-spine CT with advanced DDD which is the likely culprit (family reports stopped posture with walking, etc) (6) History of bladder cancer: s/p cystectomy 2016 with urostomy creation - [facility] (7) LAD (lymphadenopathy), mediastinal: highly worrisome for lung ca s/p bronch/EBUS today with bx's of RLL mass (8) Presence of urostomy: created 2015 in [place] ?UTI with pyelonephritis? cont abx (9) Lumbar spine pain: long-standing lumbar back pain but worse in the last few weeks checked CT l-spine - NO fracture, NO obvious metastatic disease considerable DDD/DJD of l-spine noted on CT k-pad pain meds etc lidoderms PT/OT (10) B12 deficiency: B12 level 191 deserves replacement in light of ambulatory dysfunction start oral B12 1000mcg daily and take for 6 months to rebuild stores (11) Abnormal CT of the abdomen: CT a/p with findings suggestive of pyelonephritis vs mets from the suspected lung cancer favor former some of his right sided lower chest wall pain/flank could be from the right kidney u/a at admission was suggestive of UTI but urine cx grew multiple organisms [id number] will cover for UTI/possible pyelo stop rocephin stop azithromycin change to levaquin 750mg daily levaquin will cover the lungs as well Plan DVT proph - lovenox support given d/c home, Coding Level of Care Code 94979 INP/OBS DISCH >30 MIN Diagnoses Lung mass R91.8 Acute hypoxic respiratory failure J96.01 COPD with emphysema J43.9 Elevated troponin R79.89 Recurrent falls R29.6 History of bladder cancer Z85.51 LAD (lymphadenopathy), mediastinal R59.0 Presence of urostomy Z93.6 Lumbar spine pain M54.50 B12 deficiency E53.[address] of the abdomen R93.5 Time Spent (min) 35
[2024-04-01 11:37] VITALS: BP 121/61; PULSE 64; TEMP 97.5
== END 2024-04-01 12:48 | disposition home or self-care (01) | DRG 166 ==
LOC: ED 12:07 → SUATTDRO 15:44 → EDINP 15:44 → 2N 16:33

== ENCOUNTER 2024-07-26 10:03 | Inpatient (IN) ==
--- NOTE | 2024-07-26 10:20 | Emergency Department Note ---
Impression & Plan Sepsis, Fall from standing, Complicated urinary tract infection, Acute pain of left hip ED Provider Note HISTORY OF PRESENT ILLNESS: Patient is an 84-year-old male presenting after a fall from standing. Patient reports that he was walking with his walker when he tripped over his 's oxygen cord and fell, striking the left side of his head against a wall and landing on his left hip. He was unable to get up on his own. He is not on any anticoagulation or antiplatelet therapy. He reports a history of bladder cancer and lung cancer. He just recently completed radiation and chemotherapy 2 weeks ago. He reports that he is supposed to start immunotherapy in 72 hours. Denies any fevers or chills at home. Denies any chest pain, shortness of breath or lightheadedness prior to his fall. He states that he been having a chronic cough. Denies any recent sick contact exposures. Denies any dysuria or hematuria. ROS: as above PHYSICAL EXAM: Constitutional: Patient appears in no acute distress. HENT: Head: Normocephalic and atraumatic. Eyes: EOMI, PERRL Mouth/Throat: Mucous membranes moist. Neck: Trachea midline. Neck supple. Cardiovascular: Tachycardic with regular rhythm. No murmurs, rubs or gallops. Intact distal pulses. Pulmonary/Chest: No respiratory distress. Breath sounds clear and equal bilaterally. No wheezes or rales. No chest wall tenderness to palpation. Abdominal: Abdomen soft, no tenderness, rebound or guarding. Urostomy in right lower quadrant. Musculoskeletal: No edema, or deformity noted. Left lateral hip tenderness palpation. Patient is able to straight leg raise bilaterally. No pain with internal/external rotation of the femur on the left. Skin: Warm and dry. No rash, erythema, pallor or cyanosis Psychiatric: Appropriate mood and affect for situation. Neurological: Alert and keenly responsive. CN II-XII grossly intact, moving all extremities equally and fully. MDM: - Vitals signs showed tachycardia - History obtained via patient. History as above. - Chronic conditions affecting care: HTN; HLD; bladder cancer; COPD; adenocarcinoma of R lung - Differential diagnoses include, but are not limited to: Pneumonia; UTI; intracranial hemorrhage; CVA; pelvic fracture; left femur fracture - Order placed for continuous cardiac monitoring. At this time, monitor showed rate of 98 bpm with normal sinus rhythm, per my interpretation. - External medical records reviewed. Oncology note dated was reviewed. Patient followed in the clinic for right lower lobe adenocarcinoma of the lung. He completed a combined chemo and radiation therapy on. - EKG image interpreted by myself showed normal sinus rhythm. Rate tachycardic at 114 bpm. QT 358. Noted to have a right bundle branch block. No acute ischemic changes. - Laboratory workup interpreted by myself showed normal WBC; normal PT/INR; stable electrolytes; slightly elevated glucose (127) with normal anion gap; normal troponin; normal lactate - UA showed evidence of infection. Given 2g IV rocephin - Viral respiratory panel negative - CXR image read by myself is negative for pneumonia, per my interpretation. - Xray pelvis negative for acute fracture. - CT head wo contrast negative for intracranial pathology - CT cervical spine wo contrast negative for acute pathology - Patient given 2L NS in ER. Patient's sepsis fluid volume calculation based on ideal body weight is 2263.50 mL. Patient was started on 2 L nasal cannula for increased work of breathing after his initial 2 L. Will hold off on any further fluid resuscitation as patient is not hypotensive. - Given 1g IV tylenol for hip pain. - Blood cultures obtained. - Given patient's HR >90, RR >20 and UTI, he meets sepsis criteria. - Discussion was had with case supervisor about patient's case and need for admission - Hospitalist, Dr. Cameron, consulted for admission [facility] 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), mediastinal Lung mass (Acute) Elevated troponin (Acute) Weakness (Acute) Hypoxic respiratory failure (Acute) History of bladder cancer 2015--bladder sx/chemo Recurrent falls RLL pneumonia Lung cancer Elevated troponin Generalized weakness Hypoxia S/P carpal tunnel release Carpal tunnel syndrome, right Pre-op testing Bilateral carpal tunnel syndrome Bilateral kidney stones Complication of urostomy resolved History of primary bladder cancer ~9 years Arthritis Medical History (Updated 07/26/24 @ 15:13 by Jamee Lee MD) Encounter for pre-operative examination Osteoarthritis Hx MRSA infection "years ago" [facility] in [place], in a wound and blood?; tx w/abx. History of kidney stones Hyperlipidemia Frequent UTI "not as bad as he used to" Surgical History (Updated 05/02/24 @ 00:07 by Phil Chung) History of carpal tunnel surgery of right wrist History of carpal tunnel surgery of left wrist History of lumbar surgery 1961 History of esophagogastroduodenoscopy (EGD) Hx of colonoscopy Hx of tonsillectomy Hx of cataract extraction rt/lt. Hx of prostatectomy done with total cystectomy History of total cystectomy Family History (Updated 04/15/24 @ 13:24 by Mindi Monterroso RN) Brother Prostate cancer Hypertension Father Heart disease Cancer throat Other No family history of adverse response to anesthesia Social History (Updated 04/15/24 @ 13:27 by Mindi Monterroso, JAY) Smoking Status: Former smoker Tobacco Type: Smokeless Tobacco (Dip or Chew) Age Started Using Tobacco: 17; Second Hand Exposure: No; Do You Dip or Chew Tobacco: Yes; Hx Alcohol Use: No Hx Substance Use: No Preferred Language: Nigerien Communication Ability: Effective Visual Impairment: Limited Hearing Ability: Hard of Hearing 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 Beliefs That Will Affect Care: None marital status: Current Living Situation: Spouse 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 Feels Safe at Home: Yes Diet: regular during the past year weight has: remained stable Assistive Devices: Glasses Allergies Allergies Allergy/AdvReac Type Severity Reaction Status Date / Time wheat Allergy Severe Sneezing Unverified 07/26/24 14:46 Penicillins Allergy Intermediate Hives Verified 07/26/24 14:46 Home Meds Home Medications Medication Instructions Recorded Confirmed hydrocodone 5 mg-acetaminophen 325 1 - 2 tab PO BID PRN Pain 03/01/19 07/26/24 mg tablet alprazolam 0.5 mg tablet 0.5 mg PO BID PRN Anxiety 06/14/20 07/26/24 ascorbic acid (vitamin C) 500 mg 1,500 mg PO QPM 06/14/20 07/26/24 tablet (Vitamin C) aspirin 81 mg tablet,delayed 81 mg PO DAILY 06/14/20 07/26/24 release (Ramya Low Dose Aspirin) atorvastatin 20 mg tablet 20 mg PO QAM 05/28/21 07/26/24 mecobalamin (vitamin B12) 1,000 1,000 mcg PO DAILY 06/21/24 07/26/24 mcg chewable tablet omeprazole 20 mg capsule,delayed 20 mg PO DAILY PRN Acid Reflux 06/21/24 07/26/24 release albuterol sulfate 90 mcg/actuation 1 inh inhalation QID PRN Shortness 07/26/24 07/26/24 aerosol inhaler Of Breath Or Wheezing Results & Data (ED) Vital Signs Vital Signs - 24 hr 07/26/24 10:12 07/26/24 10:13 07/26/24 10:30 Temperature 36.8 C Temperature Source Oral Pulse Rate 122 H 120 H 114 H Pulse Rate [Apical] Pulse Rate from SpO2 Sensor 114 H Respiratory Rate 20 17 Respiratory Effort / Characteristics Non-Labored Spontaneous Blood Pressure 108/69 109/68 Blood Pressure [Left Arm] Blood Pressure Mean 82 81 Blood Pressure Mean [Left Arm] Pulse Oximetry 96 93 Oxygen Delivery Method Room Air Nasal Cannula Oxygen Flow Rate 2 Sepsis Recent Fever Within 48 Hours No Sepsis New/Unexplained Change in Mental Status No Sepsis Action Taken by Nursing No Action Required 07/26/24 10:32 07/26/24 10:32 07/26/24 10:32 Temperature Temperature Source Pulse Rate 114 H Pulse Rate [Apical] 114 H Pulse Rate from SpO2 Sensor Respiratory Rate 23 23 Respiratory Effort / Characteristics Blood Pressure Blood Pressure [Left Arm] 109/68 Blood Pressure Mean Blood Pressure Mean [Left Arm] 81 Pulse Oximetry 98 98 98 Oxygen Delivery Method Nasal Cannula Nasal Cannula Nasal Cannula Oxygen Flow Rate 2 2 2 Sepsis Recent Fever Within 48 Hours Sepsis New/Unexplained Change in Mental Status Sepsis Action Taken by Nursing 07/26/24 11:18 07/26/24 11:36 07/26/24 11:51 Temperature Temperature Source Pulse Rate 112 H 113 H 117 H Pulse Rate [Apical] Pulse Rate from SpO2 Sensor 112 H 114 H 109 H Respiratory Rate 13 21 15 Respiratory Effort / Characteristics Blood Pressure 128/72 104/66 121/75 Blood Pressure [Left Arm] Blood Pressure Mean 90 78 90 Blood Pressure Mean [Left Arm] Pulse Oximetry 96 97 96 Oxygen Delivery Method Nasal Cannula Nasal Cannula Nasal Cannula Oxygen Flow Rate 2 2 2 Sepsis Recent Fever Within 48 Hours Sepsis New/Unexplained Change in Mental Status Sepsis Action Taken by Nursing 07/26/24 12:00 07/26/24 12:15 07/26/24 12:35 Temperature Temperature Source Pulse Rate 115 H 111 H 105 H Pulse Rate [Apical] Pulse Rate from SpO2 Sensor 115 H 110 H 104 H Respiratory Rate 25 H 18 22 Respiratory Effort / Characteristics Blood Pressure 98/66 L 117/67 124/69 Blood Pressure [Left Arm] Blood Pressure Mean 76 83 87 Blood Pressure Mean [Left Arm] Pulse Oximetry 96 94 95 Oxygen Delivery Method Nasal Cannula Nasal Cannula Oxygen Flow Rate 2 2 Sepsis Recent Fever Within 48 Hours Sepsis New/Unexplained Change in Mental Status Sepsis Action Taken by Nursing 07/26/24 13:05 07/26/24 13:23 07/26/24 13:47 Temperature Temperature Source Pulse Rate 101 H 103 H 99 H Pulse Rate [Apical] Pulse Rate from SpO2 Sensor 102 H 103 H 99 H Respiratory Rate 20 19 24 Respiratory Effort / Characteristics Blood Pressure 90/63 L 104/69 93/62 L Blood Pressure [Left Arm] Blood Pressure Mean 72 80 72 Blood Pressure Mean [Left Arm] Pulse Oximetry 97 95 95 Oxygen Delivery Method Nasal Cannula Nasal Cannula Nasal Cannula Oxygen Flow Rate 2 2 2 Sepsis Recent Fever Within 48 Hours Sepsis New/Unexplained Change in Mental Status Sepsis Action Taken by Nursing 07/26/24 14:02 07/26/24 14:20 07/26/24 14:25 Temperature Temperature Source Pulse Rate 100 H 97 H 98 H Pulse Rate [Apical] Pulse Rate from SpO2 Sensor 101 H 97 H Respiratory Rate 21 16 Respiratory Effort / Characteristics Blood Pressure 97/68 L 108/77 Blood Pressure [Left Arm] Blood Pressure Mean 77 87 Blood Pressure Mean [Left Arm] Pulse Oximetry 97 95 Oxygen Delivery Method Nasal Cannula Nasal Cannula Oxygen Flow Rate 2 2 Sepsis Recent Fever Within 48 Hours Sepsis New/Unexplained Change in Mental Status Sepsis Action Taken by Nursing Laboratory Data 07/26/24 10:45 07/26/24 10:45 Lab Results 07/26/24 07/26/24 Range/Units 10:45 12:44 WBC 8.48 (4.8-10.8) K/ul RBC 4.29 L (4.70-6.10) M/uL Hgb 13.4 L (14.0-18.0) g/dl Hct 39.8 L (42.0-52.0) % MCV 92.8 (80.0-100.0) fL MCH 31.2 (25.0-34.0) pg MCHC 33.7 (32.0-36.0) g/dL RDW Std Deviation 62.4 H (36.4-46.3) fL RDW Coeff of Kwame 18.6 H (11.5-14.5) % Plt Count 147 (130-400) K/uL MPV 10.3 (9.4-12.4) fL Immature Gran % (Auto) 1.8 % Neut % (Auto) 75.7 % Lymph % (Auto) 5.2 % [place] % (Auto) 11.6 % Eos % (Auto) 5.3 % Baso % (Auto) 0.4 % Neut # (Auto) 6.43 (1.40-6.50) K/uL Lymph # (Auto) 0.44 L (1.20-3.40) K/uL [place] # (Auto) 0.98 H (0.11-0.59) K/uL Eos # (Auto) 0.45 (0.00-0.50) K/uL Baso # (Auto) 0.03 (0.00-0.20) K/uL Immature Gran # (Auto) 0.15 (0.01-0.20) K/uL PT 11.1 (9.0-12.0) Seconds INR 1.0 (0.9-1.1) APTT 22 (21-31) Seconds PTT Ratio 0.8 Sodium 136 (136-145) mmol/L Potassium 4.1 (3.5-5.1) mmol/L Chloride 100 (98-107) mmol/L Carbon Dioxide 29 (21-32) mmol/L Anion Gap 7 (3-11) BUN 16 (6-23) mg/dl Creatinine 0.70 (0.6-1.4) mg/dl Est Cr Clr Drug Dosing 79.7 ml/min eGFR 90.30 BUN/Creatinine Ratio 22.9 H (10-20) Glucose 127 H (70-99(Fasting)) mg/dl Lactate 1.8 (0.4-2.0) mmol/L Calcium 9.4 (8.6-10.3) mg/dl Magnesium 2.1 (1.7-2.4) mg/dl Total Bilirubin 0.8 (0.2-1.0) mg/dl AST 31 (13-39) U/L ALT 38 (7-52) U/L Alkaline Phosphatase 89 (34-104) U/L Troponin I High Sens 18.4 (0-20) pg/ml Total Protein 7.2 (6.0-8.3) gm/dl Albumin 3.4 (3.4-5.0) gm/dl Globulin 3.8 (2.5-4.0) gm/dl Albumin/Globulin Ratio 0.9 (0.9-2) Urine Color Yellow Urine Appearance Cloudy A (Clear) Urine pH 6.5 (4.5-7.5) Ur Specific [place] 1.016 (1.000-1.030) Urine Protein 1+ H (Negative) Urine Glucose (UA) Negative (Negative) Urine Ketones Trace H (Negative) Urine Blood Negative (Negative) Urine Nitrite Positive A (Negative) Urine Bilirubin Negative (Negative) Urine Urobilinogen Negative (Negative) Ur Leukocyte Esterase 2+ H (Negative) Urine WBC (Auto) 21-50 H (0-5) /hpf Urine RBC (Auto) 6-10 H (0-2) /hpf U Hyaline Cast (Auto) 0-2 (0-2) /lpf U Epithel Cells (Auto) 0-2 (0-2) /hpf Urine Bacteria (Auto) 4+ H (None Seen) Calcium Oxalate Crystal Present A (None Prsent) Adenovirus (PCR) Not Detected (NotDetected) B. pertussis DNA (PCR) Not Detected (NotDetected) B.parapertussis DNA PCR Not Detected (NotDetected) C. pneumoniae DNA (PCR) Not Detected (NotDetected) Coronavirus OC43 (PCR) Not Detected (NotDetected) Coronavirus HKU1 (PCR) Not Detected (NotDetected) Coronavirus 229E (PCR) Not Detected (NotDetected) SARS-CoV-2 (PCR) Not Detected (NotDetected) Coronavirus NL63 (PCR) Not Detected (NotDetected) Human Metapneumovir PCR Not Detected (NotDetected) Influenza Type A (PCR) Not Detected (NotDetected) Influenza Type B (PCR) Not Detected (NotDetected) M. pneumoniae (PCR) Not Detected (NotDetected) Parainfluenza 1 (PCR) Not Detected (NotDetected) Parainfluenza 2 (PCR) Not Detected (NotDetected) Parainfluenza 3 (PCR) Not Detected (NotDetected) Parainfluenza 4 (PCR) Not Detected (NotDetected) RSV (PCR) Not Detected (NotDetected) Entero/Rhino (PCR) Not Detected (NotDetected) Administered Medications Sodium Chloride (Nss) 500 mls @ 15 mls/hr IV .Q24H JOSE ALBERTO Stop: 07/27/24 07:29 Last Admin: 07/26/24 14:10 Dose: 15 mls/hr Documented By: DEBORAH Discontinued Medications Sodium Chloride (Nss) 500 mls @ 999 mls/hr IV .Q31M ONE Stop: 07/26/24 12:27 Last Infusion: 07/26/24 13:03 Dose: Infused Documented By: Admin: 07/26/24 12:17 Dose: 999 mls/hr Documented By: LUISITO Acetaminophen (Ofirmev) 1,000 mg in 100 mls @ 400 mls/hr IV NOW STA Stop: 07/26/24 12:11 Last Infusion: 07/26/24 12:39 Dose: Infused Documented By: Admin: 07/26/24 12:18 Dose: 400 mls/hr Documented By: LUISITO Ceftriaxone Sodium (Rocephin) 2,000 mg in 50 mls @ 100 mls/hr IV NOW STA Stop: 07/26/24 13:51 Last Admin: 07/26/24 14:03 Dose: 100 mls/hr Documented By: DEBORAH Sodium Chloride (Nss) 1,000 mls @ 999 mls/hr IV .Q1H1M STA Stop: 07/26/24 14:31 Last Admin: 07/26/24 14:04 Dose: 999 mls/hr Documented By: DEBORAH Imaging Data Radiologist's Impression: Cervical Spine CT 07/26/24 10:15 CT cervical spine wo con CT DOSE: 1189.31 mGy.cm CLINICAL HISTORY: fall from standing. COMPARISON: 06/13/2020 TECHNIQUE: Multiple axial CT images of the cervical spine were obtained without contrast. A dose lowering technique was utilized adhering to the principles of ALARA. FINDINGS: There is diffuse cervical spine degenerative disc disease. No fracture or subluxation. IMPRESSION: No cervical spine fracture seen. ACT 112: Negative or not required by law. The above report was generated using voice recognition software. It may contain grammatical, syntax or spelling errors. Electronically signed by: Kamron Watson M.D. 07/26/2024 11:46 AM Chest X-Ray 07/26/24 10:15 XR chest 1V not portable CLINICAL HISTORY: Sepsis. Lung cancer. COMPARISON STUDY: Chest CT July 14, 2024. FINDINGS: Lung volumes are normal. Right lower lobe lesion on CT of July 14, 2024 is not well visualized by radiography. There is no pneumothorax or pleural effusion. Cardiac size is normal. Mediastinal contours are normal. There is no evidence for pulmonary edema. IMPRESSION: 1. No acute cardiopulmonary findings. 2. The right lower lobe lesion on CT of July 14, 2024 is not well-visualized by radiography. ACT 112: Negative or not required by law. Electronically signed by: Kaleb Rubi M.D. 07/26/2024 11:[address] 07/26/24 10:15 CT SCAN OF THE BRAIN WITHOUT IV CONTRAST CLINICAL HISTORY: Fall. COMPARISON STUDY: Head CT June 13, 2020 and MRI of the brain March 28, 2024. TECHNIQUE: Unenhanced axial CT scan of the brain was performed from the vertex to the skull base. A dose lowering technique was utilized adhering to the principles of ALARA. FINDINGS: Brain parenchyma: This exam is mildly compromised by motion artifact. No acute intracranial hemorrhage, midline shift or mass effect is present. Krueger-white matter differentiation is preserved. There are no extra-axial fluid collections. There are no findings to suggest acute dural sinus thrombosis or acute territorial infarct. Ventricles, sulci, cisterns: There is no hydrocephalus. The basal cisterns are patent. Calvarium: There are no calvarial fractures. Sinuses and mastoids: The visualized paranasal sinuses are clear. The mastoid air cells are well pneumatized. Orbits: The bony orbits are grossly intact. Facial bones: Old nasal bone fractures are unchanged since PET/CT of May 04, 2024. IMPRESSION: 1. No acute intracranial findings. Mild motion artifact. 2. No calvarial fractures. ACT 112: Negative or not required by law. Electronically signed by: Kaleb Rubi M.D. 07/26/2024 11:38 AM Pelvis X-Ray 07/26/24 10:15 XR pelvis 1-2V routine CLINICAL HISTORY: L hip pain s/p fall COMPARISON: CT of the abdomen and pelvis July 14, 2024. FINDINGS: Sacroiliac joints and symphysis pubis are intact. There are no fractures within the pelvis or hips. Pelvic surgical clips are noted. There is a right lower quadrant ostomy. There is moderate osteophytosis of both hips. IMPRESSION: No fractures within the pelvis or hips. ACT 112: Negative or not required by law. Electronically signed by: Kaleb Rubi M.D. 07/26/2024 11:33 AM Discharge Plan Visit Data Chief Complaint: Fall Stated Complaint: FALL, L HIP DISCOMFORT ED Provider: Jamee Lee Discharge Problem: Sepsis, Fall from standing, Complicated urinary tract infection, Acute pain of left hip Condition: Fair Forms Stand Alone Forms: [facility] Prescriptions Prescriptions: No Action omeprazole 20 mg capsule,delayed release(DR/EC) 20 mg PO DAILY PRN (Reason: Acid Reflux) mecobalamin (vitamin B12) 1,000 mcg tablet,chewable 1,000 mcg PO DAILY hydrocodone-acetaminophen 5-325 mg tablet 1 - 2 tab PO BID PRN (Reason: Pain) Hold Instructions: new medication alprazolam 0.5 mg tablet 0.5 mg PO BID PRN (Reason: Anxiety) Patient Comments: usually takes once a day at night aspirin [Ramya Low Dose Aspirin] 81 mg Tablet,Delayed Release (Dr/Ec) 81 mg PO DAILY ascorbic acid (vitamin C) [Vitamin C] 500 mg Tablet 1,500 mg PO QPM atorvastatin 20 mg tablet 20 mg PO QAM albuterol sulfate 90 mcg/actuation Hfa Aerosol Inhaler 1 inh INHALATION QID PRN (Reason: Shortness Of Breath Or Wheezing) Referrals Referrals: Ivan Harrison [Primary Care Provider] -
[2024-07-26 11:26] LABS: Basophils # (auto) 0.03 K/uL (0.00-0.20); Basophils % (auto) 0.4 %; Eosinophils # (auto) 0.45 K/uL (0.00-0.50); Eosinophils % (auto) 5.3 %; Hematocrit (blood only) 39.8 % (42.0-52.0); Hemoglobin 13.4 g/dl (14.0-18.0); Immature Granulocytes # (auto) 0.15 K/uL (0.01-0.20); Immature Granulocytes % (auto) 1.8 %; Lymphocytes # (auto) 0.44 K/uL (1.20-3.40); Lymphocytes % (auto) 5.2 %; Mean Corpuscular Hemoglobin 31.2 pg (25.0-34.0); Mean Corpuscular Hgb Conc 33.7 g/dL (32.0-36.0); Mean Corpuscular Volume 92.8 fL (80.0-100.0); Mean Platelet Volume 10.3 fL (9.4-12.4); Monocytes # (auto) 0.98 K/uL (0.11-0.59); Monocytes % (auto) 11.6 %; Neutrophils # (auto) 6.43 K/uL (1.40-6.50); Neutrophils % (auto) 75.7 %; Platelet Count 147 K/uL (130-400); RDW Coefficient of Variation 18.6 % (11.5-14.5); RDW Standard Deviation 62.4 fL (36.4-46.3); Red Blood Count 4.29 M/uL (4.70-6.10); White Blood Count 8.48 K/ul (4.8-10.8)
[2024-07-26 11:32] LABS: Albumin Globulin Ratio 0.9 (0.9-2); Albumin Level 3.4 gm/dl (3.4-5.0); BUN Creatinine Ratio 22.9 (10-20); Bilirubin,Total 0.8 mg/dl (0.2-1.0); Calcium 9.4 mg/dl (8.6-10.3); Creatinine Clr Calc Pharmacy 79.7 ml/min; Globulin 3.8 gm/dl (2.5-4.0); Magnesium 2.1 mg/dl (1.7-2.4); Potassium 4.1 mmol/L (3.5-5.1); Total Protein 7.2 gm/dl (6.0-8.3)
--- NOTE | 2024-07-26 11:35 | XRay Report ---
XR pelvis 1-2V routine CLINICAL HISTORY: L hip pain s/p fall COMPARISON: CT of the abdomen and pelvis July 14, 2024. FINDINGS: Sacroiliac joints and symphysis pubis are intact. There are no fractures within the pelvis or hips. Pelvic surgical clips are noted. There is a right lower quadrant ostomy. There is moderate osteophytosis of both hips. IMPRESSION: No fractures within the pelvis or hips. ACT 112: Negative or not required by law. Electronically signed by: Kaleb Rubi M.D. 07/26/2024 11:33 AM
--- NOTE | 2024-07-26 11:36 | XRay Report ---
XR chest 1V not portable CLINICAL HISTORY: Sepsis. Lung cancer. COMPARISON STUDY: Chest CT July 14, 2024. FINDINGS: Lung volumes are normal. Right lower lobe lesion on CT of July 14, 2024 is not well visual ized by radiography. There is no pneumothorax or pleural effusion. Cardiac size is normal. Mediastina l contours are normal. There is no evidence for pulmonary edema. IMPRESSION: 1. No acute cardiopulmonary findings. 2. The right lower lobe lesion on CT of July 14, 2024 is not well-visualized by radiography. ACT 112: Negative or not required by law. Electronically signed by: Kaleb Rubi M.D. 07/26/2024 11:35 AM
[2024-07-26 11:37] LABS: Troponin I High Sensitivity 18.4 pg/ml (0-20)
[2024-07-26 11:40] LABS: Partial Thromboplastin Ratio 0.8; Partial Thromboplastin Time 22 Seconds (21-31); Prothrombin Time 11.1 Seconds (9.0-12.0)
--- NOTE | 2024-07-26 11:40 | CT Scan Report ---
CT SCAN OF THE BRAIN WITHOUT IV CONTRAST CLINICAL HISTORY: Fall. COMPARISON STUDY: Head CT June 13, 2020 and MRI of the brain March 28, 2024. TECHNIQUE: Unenhanced axial CT scan of the brain was performed from the vertex to the skull base. A dose lowering technique was utilized adhering to the principles of ALARA. FINDINGS: Brain parenchyma: This exam is mildly compromised by motion artifact. No acute intracranial hemorrhag e, midline shift or mass effect is present. Krueger-white matter differentiation is preserved. There are no extra-axial fluid collections. There are no findings to suggest acute dural sinus thrombosis or a cute territorial infarct. Ventricles, sulci, cisterns: There is no hydrocephalus. The basal cisterns are patent. Calvarium: There are no calvarial fractures. Sinuses and mastoids: The visualized paranasal sinuses are clear. The mastoid air cells are well pneu matized. Orbits: The bony orbits are grossly intact. Facial bones: Old nasal bone fractures are unchanged since PET/CT of May 04, 2024. IMPRESSION: 1. No acute intracranial findings. Mild motion artifact. 2. No calvarial fractures. ACT 112: Negative or not required by law. Electronically signed by: Kaleb Rubi M.D. 07/26/2024 11:38 AM
--- NOTE | 2024-07-26 11:48 | CT Scan Report ---
CT cervical spine wo con CT DOSE: 1189.31 mGy.cm CLINICAL HISTORY: fall from standing. COMPARISON: 06/13/2020 TECHNIQUE: Multiple axial CT images of the cervical spine were obtained without contrast. A dose low ering technique was utilized adhering to the principles of ALARA. FINDINGS: There is diffuse cervical spine degenerative disc disease. No fracture or subluxation. IMPRESSION: No cervical spine fracture seen. ACT 112: Negative or not required by law. The above report was generated using voice recognition software. It may contain grammatical, syntax o r spelling errors. Electronically signed by: Kamron Watson M.D. 07/26/2024 11:46 AM
[2024-07-26 12:04] LABS: Adenovirus PCR Not Detected (NotDetected); Bordetella parapertussis PCR Not Detected (NotDetected); Bordetella pertussis PCR Not Detected (NotDetected); Chlamydia pneumoniae PCR Not Detected (NotDetected); Coronavirus 229E PCR Not Detected (NotDetected); Coronavirus CoV-2 (COVID19)PCR Not Detected (NotDetected); Coronavirus HKU1 PCR Not Detected (NotDetected); Coronavirus NL63 PCR Not Detected (NotDetected); Coronavirus OC43PCR Not Detected (NotDetected); Human Metapneumovirus PCR Not Detected (NotDetected); Influenza A PCR Not Detected (NotDetected); Influenza B PCR Not Detected (NotDetected); Mycoplasma pneumoniae PCR Not Detected (NotDetected); Parainfluenza Virus 1 PCR Not Detected (NotDetected); Parainfluenza Virus 2 PCR Not Detected (NotDetected); Parainfluenza Virus 3 PCR Not Detected (NotDetected); Parainfluenza Virus 4 PCR Not Detected (NotDetected); Respiratory Syncytial VirusPCR Not Detected (NotDetected); Rhinovirus/Enterovirus PCR Not Detected (NotDetected)
[2024-07-26] MEDS: SODIUM CHLORIDE 0.9% 500 ML IV ONE (12:17)
[2024-07-26] MEDS: ACETAMINOPHEN 1,000 MG/100 ML VIAL IV STA (12:18)
[2024-07-26 13:11] LABS: Appearance Urine Cloudy (Clear); Bacteria Urine Automated 4+ (None Seen); Bilirubin Urine Negative (Negative); Blood Urine Negative (Negative); Calcium Oxalate Crystals Urine Present (None Prsent); Cast Urine Automated 0-2 /lpf (0-2); Color Urine Yellow; Epithelial Cell Urine Auto 0-2 /hpf (0-2); Glucose Urine UA Negative (Negative); Ketones Urine Trace (Negative); Leukocyte Esterase Urine 2+ (Negative); Nitrite Urine Positive (Negative); Protein Urine 1+ (Negative); Specific Gravity Urine 1.016 (1.000-1.030); Urobilinogen Urine Negative (Negative); WBC Urine Automated 21-50 /hpf (0-5); pH Urine 6.5 (4.5-7.5)
[2024-07-26] MEDS: cefTRIAXone SODIUM 2,000 MG/50 ML BAG IV STA (14:03)
[2024-07-26] MEDS: SODIUM CHLORIDE 0.9% 1,000 ML IV STA (14:04)
[2024-07-26] MEDS: SODIUM CHLORIDE 0.9% 500 ML IV SCH (14:10)
--- NOTE | 2024-07-26 15:56 | History & Physical Report ---
Date of Service July 26, 2024 Assessment & Plan (1) Weakness: (2) Complicated urinary tract infection: (3) Adenocarcinoma of lower lobe of right lung: (4) Fall from standing: Plan #weaknessseems most likely to be weak from failure to thrive related to chemo and radiation followed by poor p.o. intake. This in turn seems to be potentiated by an esophageal processmost likely radiation esophagitis, cannot rule out thrush. At any rate, he is overall weak, appears malnourished, and his story fits most with failure to thrive. Will start with gentle IV fluids with LR at 80, manage the esophagitis as though it is not infectious at first (see below) and encourage p.o. intake/build and nutrition plan. PT/OT eval and treat, may need rehab. #Dysphagia/difficulty with p.o. intakeconcern on radiation esophagitis versus candidal esophagitis. Right now he is only on a PPI dailywe will empirically treat with a twice daily PPI, twice daily H2, and 4 times daily Carafateif this does not help enough over approximately 2 days or so, we will ask GI to see him to consider EGD for a more accurate diagnosis (again if he is not improving) #acute protein calorie malnutritionunclear how much weight he is lost, but he does appear frail with some muscle wasting and his p.o. intake seems to be poor. We will build a nutrition plan form ourselves, as well as ask dietitian to build a nutrition plan for him, and work on p.o. intake as best as possible #abnormal urinalysishis symptoms seem to fit the most with failure to thrive from poor p.o. intake, but his family notes that is very reminiscent of whenever he de evolved into sepsis with a UTI before. For now cover with ceftriaxone and follow clinically. When it becomes clear whether or not there is an infection, adjust treatment accordingly. #Lung cancerwas to start immunotherapy this weekI have reached out to oncology to clarify what he was going to be started on, that way we can work together on whether or not it would be of benefit to start at this week if possible, versus if it would be better to hold off longer depending on the treatment regimen #DVT prophylaxisLovenox admit to medical, [facility], after discussion of CODE STATUS, it became clear he would not want to be a full resuscitation, although I did implore him to discuss advanced directives with his family in more detail in the coming days/weeks. PT/OT eval and treat, may need rehab at discharge. History of Present Illness Chief Complaint: weakness Primary Care Provider: Ivan Harrison patient is a very pleasant 84-year-old male who just finished chemo and radiation for lung cancer about 2 weeks ago. He has had a difficult time eating and drinkinghas a lot of throat pain. Feels like he is followed behind nutritionally. Does have some back pain and maybe felt warm last night although no documented feversomewhat reminiscent of whenever he has had sepsis from a urinary tract infection before. Mostly though, he feels extremely weak. Family present and very supportive. Allergies Allergy/AdvReac Type Severity Reaction Status Date / Time wheat Allergy Severe Sneezing Unverified 07/26/24 14:46 Penicillins Allergy Intermediate Hives Verified 07/26/24 14:46 Home Medications Medication Instructions Recorded Confirmed Type hydrocodone 5 mg-acetaminophen 325 1 - 2 tab PO BID PRN Pain 03/01/19 07/26/24 History mg tablet alprazolam 0.5 mg tablet 0.5 mg PO BID PRN Anxiety 06/14/20 07/26/24 History ascorbic acid (vitamin C) 500 mg 1,500 mg PO QPM 06/14/20 07/26/24 History tablet (Vitamin C) aspirin 81 mg tablet,delayed 81 mg PO DAILY 06/14/20 07/26/24 History release (Ramya Low Dose Aspirin) atorvastatin 20 mg tablet 20 mg PO QAM 05/28/21 07/26/24 History mecobalamin (vitamin B12) 1,000 1,000 mcg PO DAILY 06/21/24 07/26/24 History mcg chewable tablet omeprazole 20 mg capsule,delayed 20 mg PO DAILY PRN Acid Reflux 06/21/24 07/26/24 History release albuterol sulfate 90 mcg/actuation 1 inh inhalation QID PRN Shortness 07/26/24 07/26/24 History aerosol inhaler Of Breath Or Wheezing Past Med/Surg History Problem List Acute pain of left hip (Acute) Complicated urinary tract infection (Acute) Fall from standing (Acute) Sepsis (Acute) Adenocarcinoma of lower lobe of right lung (Chronic 03/29/24) Abnormal CT of the abdomen B12 deficiency Acute hypoxic respiratory failure Lumbar spine pain 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), mediastinal Lung mass (Acute) Elevated troponin (Acute) Weakness (Acute) Hypoxic respiratory failure (Acute) History of bladder cancer 2016--bladder sx/chemo Recurrent falls RLL pneumonia Lung cancer Elevated troponin Generalized weakness Hypoxia S/P carpal tunnel release Carpal tunnel syndrome, right Pre-op testing Bilateral carpal tunnel syndrome Bilateral kidney stones Complication of urostomy resolved History of primary bladder cancer ~9 years Arthritis Medical History Encounter for pre-operative examination Osteoarthritis Hx MRSA infection "years ago" dx hospital in [place], in a wound and blood?; tx w/abx. History of kidney stones Hyperlipidemia Frequent UTI "not as bad as he used to" Surgical History History of carpal tunnel surgery of right wrist History of carpal tunnel surgery of left wrist History of lumbar surgery 1961 History of esophagogastroduodenoscopy (EGD) Hx of colonoscopy Hx of tonsillectomy Hx of cataract extraction rt/lt. Hx of prostatectomy done with total cystectomy History of total cystectomy Family History Brother Prostate cancer Hypertension Father Heart disease Cancer throat Other No family history of adverse response to anesthesia Social History Smoking Status: Former smoker Tobacco Type: Smokeless Tobacco (Dip or Chew) Age Started Using Tobacco: 17; Second Hand Exposure: No; Do You Dip or Chew Tobacco: Yes; Hx Alcohol Use: No Hx Substance Use: No Preferred Language: [place] Communication Ability: Effective Visual Impairment: Limited Hearing Ability: Hard of Hearing Marketing Proposal Coordinator Required: No Beliefs That Will Affect Care: None marital status: Current Living Situation: Spouse 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 Feels Safe at Home: Yes Diet: regular during the past year weight has: remained stable Assistive Devices: Glasses Review of Systems Review of Systems: All systems reviewed & are unremarkable except as noted in HPI & below Physical Exam Physical Exam: In general he is awake alert oriented pleasant but fatigued no distress. HEENT normocephalic atraumatic mucous membranes moist. No thrush noted in mouth or oropharynx that I can see. Cardio distant but regular no rubs murmurs or gallops, lungs are clear but quiet no rales rhonchi or wheezes good effort. Abdomen is soft nondistended nontender no masses organomegaly. Extremities are without cyanosis or clubbing there is a little bit of muscle wasting. Skin shows radiation swanson on his back, no other rashes pallor or icterus. Neuro shows cranial nerves II through XII be grossly intact gross motor and sensory are intact. Mental status shows good recent and remote recall normal mood and affect good judgment and insight. Results & Data Results & Data Vital Signs (Past 12 Hours) Vital Signs Temp Pulse Pulse Resp BP BP Pulse Ox 07/26/24 14:25 98 H 07/26/24 14:20 97 H 16 108/77 95 07/26/24 14:02 100 H 21 97/68 L 97 07/26/24 13:47 99 H 24 93/62 L 95 07/26/24 13:23 103 H 19 104/69 95 07/26/24 13:05 101 H 20 90/63 L 97 07/26/24 12:35 105 H 22 124/69 95 07/26/24 12:15 111 H 18 117/67 94 07/26/24 12:00 115 H 25 H 98/66 L 96 07/26/24 11:51 117 H 15 121/75 96 07/26/24 11:36 113 H 21 104/66 97 07/26/24 11:18 112 H 13 128/72 96 07/26/24 10:32 114 H 23 98 07/26/24 10:32 98 07/26/24 10:32 114 H 23 109/68 98 07/26/24 10:30 114 H 17 109/68 93 07/26/24 10:13 120 H 07/26/24 10:12 98.2 F 122 H 20 108/69 96 O2 Del Method O2 Flow Rate 07/26/24 14:25 07/26/24 14:20 Nasal Cannula 2 07/26/24 14:02 Nasal Cannula 2 07/26/24 13:47 Nasal Cannula 2 07/26/24 13:23 Nasal Cannula 2 07/26/24 13:05 Nasal Cannula 2 07/26/24 12:35 Nasal Cannula 2 07/26/24 12:15 07/26/24 12:00 Nasal Cannula 2 07/26/24 11:51 Nasal Cannula 2 07/26/24 11:36 Nasal Cannula 2 07/26/24 11:18 Nasal Cannula 2 07/26/24 10:32 Nasal Cannula 2 07/26/24 10:32 Nasal Cannula 2 07/26/24 10:32 Nasal Cannula 2 07/26/24 10:30 Nasal Cannula 2 07/26/24 10:13 07/26/24 10:12 Room Air Code Status & VTE Plan VTE Prophylaxis Plan VTE Prophylaxis will be ordered: Yes PG Care Time/CCT Total # of Minutes Spent Total Time Spent with Patient: Total time spent is greater than 50% in coordination of care (as documented) at patient's floor/unit and/or counseling patient: Coding Level of Care Code 47957 INT INP/OBS CARE 3/75MIN Diagnoses Weakness R53.1 Complicated urinary tract infection N39.0 Adenocarcinoma of lower lobe of right lung C34.31 Fall from standing W19.XXXA
[2024-07-26] MEDS ORDERED: HYDROCODONE/ACETAMOPHEN 5/325MG TAB PO PRN (18:29)
[2024-07-26] MEDS ORDERED: MAGNESIUM HYDROXIDE SUSP 30 ML UDC PO PRN (18:29)
[2024-07-26] MEDS ORDERED: ACETAMINOPHEN 325 MG TAB PO PRN (18:29)
[2024-07-26] MEDS ORDERED: ALBUTEROL HFA 8 GM INHALER INH PRN (18:29)
[2024-07-26] MEDS ORDERED: POLYETHYLENE (MIRALAX) 17 GM PACK PO PRN (18:29)
[2024-07-26] MEDS ORDERED: ALUMINUM/MAGNESIUM SUSP 30 ML UDC PO PRN (18:29)
[2024-07-26] MEDS ORDERED: ALPRAZolam 0.5 MG TABLET PO PRN (18:29)
[2024-07-26] MEDS ORDERED: ONDANSETRON INJ 2 MG/ML 2 ML VIAL IV PRN (18:29)
[2024-07-26] MEDS ORDERED: SUCRALFATE 1 GM/10 ML UDC PO SCH (18:45)
[2024-07-26] MEDS: PANTOprazole 40 MG TAB PO STA (19:13)
[2024-07-26] MEDS: SUCRALFATE 1 GM/10 ML UDC PO SCH (19:13)
[2024-07-26] MEDS: LACTATED RINGER'S 1,000 ML IV SCH (19:14)
[2024-07-26] MEDS: FAMOTIDINE 20 MG TAB PO ONE (19:14)
[2024-07-26] MEDS: ENOXAPARIN INJ 40 MG/0.4 ML SYR SQ SCH (20:49)
[2024-07-26] MEDS: ASCORBIC ACID 500 MG TAB PO SCH (20:49)
[2024-07-26] MEDS: FAMOTIDINE 20 MG TAB PO SCH (20:50)
[2024-07-26] MEDS: PANTOprazole 40 MG TAB PO SCH (20:50)
--- NOTE | 2024-07-27 04:58 | Electrocardiogram Report ---
Test Reason : Blood Pressure : */* mmHG Vent. Rate : 114 BPM Atrial Rate : 114 BPM P-R Int : 162 ms QRS Dur : 124 ms QT Int : 358 ms P-R-T Axes : 51 72 57 degrees QTcB Int : 493 ms Sinus tachycardia Right bundle branch block Abnormal ECG When compared with ECG of 27-Mar-2024 12:22, No significant change was found Confirmed by Greyson Cancino ([id number]) on 07/27/2024 4:58:04 AM Referred By: REFERRED SELF Confirmed By: Greyson Cancino
[2024-07-27 07:33] LABS: Calcium 8.4 mg/dl (8.6-10.3); Creatinine Clr Calc Pharmacy 94.3 ml/min; Potassium 3.9 mmol/L (3.5-5.1)
[2024-07-27 07:50] LABS: Basophils # (auto) 0.02 K/uL (0.00-0.20); Basophils % (auto) 0.3 %; Eosinophils # (auto) 0.47 K/uL (0.00-0.50); Eosinophils % (auto) 6.4 %; Hematocrit (blood only) 29.5 % (42.0-52.0); Immature Granulocytes # (auto) 0.09 K/uL (0.01-0.20); Immature Granulocytes % (auto) 1.2 %; Lymphocytes # (auto) 0.35 K/uL (1.20-3.40); Lymphocytes % (auto) 4.8 %; Mean Corpuscular Hemoglobin 31.6 pg (25.0-34.0); Mean Corpuscular Hgb Conc 33.9 g/dL (32.0-36.0); Mean Corpuscular Volume 93.4 fL (80.0-100.0); Mean Platelet Volume 10.3 fL (9.4-12.4); Monocytes # (auto) 0.86 K/uL (0.11-0.59); Monocytes % (auto) 11.7 %; Neutrophils # (auto) 5.56 K/uL (1.40-6.50); Neutrophils % (auto) 75.6 %; Platelet Count 141 K/uL (130-400); RDW Coefficient of Variation 18.2 % (11.5-14.5); RDW Standard Deviation 62.2 fL (36.4-46.3); Red Blood Count 3.16 M/uL (4.70-6.10); White Blood Count 7.35 K/ul (4.8-10.8)
[2024-07-27] MEDS ORDERED: FAMOTIDINE 20 MG TAB PO SCH (09:00)
[2024-07-27] MEDS ORDERED: PANTOprazole 40 MG TAB PO SCH (09:00)
[2024-07-27] MEDS: CYANOCOBALAMIN (B-12) 500 MCG TABLET PO SCH (09:31)
[2024-07-27] MEDS: ASPIRIN 81 MG ECTAB PO SCH (09:31)
[2024-07-27] MEDS: ATORVASTATIN 20 MG TAB PO SCH (09:31)
--- NOTE | 2024-07-27 11:03 | Hospitalist Progress Note ---
Date of Service July 27, 2024 Assessment & Plan (1) Adenocarcinoma of lower lobe of right lung: (2) Lung cancer: (3) Dysphagia: (4) Dehydration: Plan Mr. Carrasquillo is 84-year-old male, with pmh of lung cancer, complicated UTI, fall, AHRF, COPD with emphysema, bladder cancer,arthritis who just finished chemo and radiation for lung cancer about 2 weeks ago, admitted for dysphagia as he came with generalized weakness and dysphagia leading to dehydration. #Generalized weakness/ failure to thrive *2/2 to decreased PO and radiation treatment and age of course. - CBC, CMP reviewed; stable. - Urine CS: unremarkable. - NSR on tele/ EKG Plan: Continue IV fluids with LR at 80 encourage p.o. PT/OT: recs Rehab Magic mouthwash. 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 Clinical picture less likely for candidiasis; no thrush on exam. Plan: Extensive GI regimen: Protonix BID, Pepcid BID, Carafate - Will give couple of days to respond- if no improvement GI consult and EGD c ould help. #PEM: - Acute; [employer] consulted. #Lung cancer: - Immunotherapy planned next week. Dispo: OT/PT recs Rehab after stable. DVT prophylaxisLovenox Code: DNR/DNI Admission and Anticipated Discharge Date Admission Date: July 26, 2024 Supervising Physician Co-Signing Physician Notes I personally examined the patient and verified all fernandez points of history and exam, discussed case, and agree with decision making with Dr Conroy Feeling okay. Did not eat great with lunch, but it is not clear that it was because of ongoing odynophagia or any difficulty eatinghe notes that he ate the vegetables but did not care for the fish. No acute complaints right now. Was quite weak with therapy, but notes that he does not want to go to a facility. Family is not present at the time. Vitals noted, in general he is awake and alert pleasant no distress. HEENT normocephalic atraumatic mucous membranes moist. Breathing unlabored no accessory muscle use good effort. Skin without rashes pallor or icterus. Weaknessappears to be predominantly failure to thrive related to chemo and radiation. Concern on radiation esophagitisoverall situation causing severe acute protein calorie malnutrition. Following to see if he is able to take p.o.not clear, given that he did not like the food that he was served and therefore did not eat it is not clear if he is having improvement in his sy mptoms or not. Continue to follow. Once family is present and he has more people to be able to participate in the discussion, we will discuss nutrition goals in detail. Continue Pepcid/Protonix/Carafate. Continue PT/OT eval and treat. With no clear signs of infection and cultures no growth to dateokay to stop antibiotics for now and follow DVT prophylaxisLovenox otherwise as above Subjective Mr. Carrasquillo is felling little better today, but swallowing is still similar to how he came in. No new complain, was curious if somebody from oncology will see him at hospital stay. No fever, slept ok, eating not great. Review of Systems Review of Systems: As per HPI Physical Exam Physical Exam: Constitutional: Well appearing, No acute distress HEENT: Atraumatic, Normocephalic, No conjunctival injection CVS:S1 S2, no leg edema Respiratory. No increased work of breathing GI: Soft, Nondistended, Nontender, Normal Bowel sounds + MSK: No gross deformities noted Skin: Warm and Dry Neuro: Alert, Oriented to TPP, No Focal deficit Psych: Mood and Affect congruent, Cooperative on exam Results & Data Results & Data Vital Signs (Past 12 Hours) Vital Signs Temp Pulse Resp BP Pulse Ox O2 Del Method 07/27/24 07:01 37.3 C 106 H 18 102/61 94 Room Air Resident Activity Tracking Resident Involvement: Resident Care Provided Care Provided: Adult Hospital Medicine
[2024-07-27] MEDS ORDERED: cefTRIAXone SODIUM 1,000 MG/50 ML BAG IV SCH (14:00)
--- NOTE | 2024-07-27 18:56 | Billing Data ---
Date of Service July 27, 2024 Coding Level of Care Code 94982 SUB INP/OBS CARE
[2024-07-28 06:18] LABS: BUN Creatinine Ratio 14.8 (10-20); Calcium 8.2 mg/dl (8.6-10.3); Creatinine Clr Calc Pharmacy 94.3 ml/min; Potassium 3.5 mmol/L (3.5-5.1)
[2024-07-28 09:20] LABS: Basophils # (auto) 0.02 K/uL (0.00-0.20); Basophils % (auto) 0.3 %; Eosinophils % (auto) 10.4 %; Hematocrit (blood only) 27.9 % (42.0-52.0); Hemoglobin 9.4 g/dl (14.0-18.0); Immature Granulocytes # (auto) 0.12 K/uL (0.01-0.20); Immature Granulocytes % (auto) 1.6 %; Lymphocytes # (auto) 0.38 K/uL (1.20-3.40); Lymphocytes % (auto) 4.9 %; Mean Corpuscular Hemoglobin 31.8 pg (25.0-34.0); Mean Corpuscular Hgb Conc 33.7 g/dL (32.0-36.0); Mean Corpuscular Volume 94.3 fL (80.0-100.0); Mean Platelet Volume 10.4 fL (9.4-12.4); Monocytes % (auto) 11.7 %; Neutrophils # (auto) 5.48 K/uL (1.40-6.50); Neutrophils % (auto) 71.1 %; Platelet Count 145 K/uL (130-400); RDW Coefficient of Variation 18.2 % (11.5-14.5); RDW Standard Deviation 62.3 fL (36.4-46.3); Red Blood Count 2.96 M/uL (4.70-6.10)
[2024-07-28 14:38] VITALS: RESP 18
--- NOTE | 2024-07-28 19:25 | Billing Data ---
Date of Service July 28, 2024 Coding Level of Care Code 99483 SUB INP/OBS CARE
[2024-07-28] MEDS: MELATONIN 3 MG TAB PO PRN (20:05)
[2024-07-29 07:44] VITALS: BP 134/90; PULSE 70; TEMP 97.7; O2SAT 99
[2024-07-29 08:24] LABS: Calcium 8.4 mg/dl (8.6-10.3); Creatinine Clr Calc Pharmacy 99.2 ml/min; Potassium 3.4 mmol/L (3.5-5.1)
--- NOTE | 2024-07-29 10:12 | Hospitalist Progress Note ---
Date of Service July 28, 2024 Assessment & Plan (1) Adenocarcinoma of lower lobe of right lung: (2) Lung cancer: (3) Dysphagia: (4) Dehydration: Plan Mr. Carrasquillo is 84-year-old male, with pmh of lung cancer, complicated UTI, fall, AHRF, COPD with emphysema, bladder cancer,arthritis who just finished chemo and radiation for lung cancer about 2 weeks ago, admitted for dysphagia as he came with generalized weakness and dysphagia leading to dehydration. 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 Clinical picture less likely for candidiasis; no thrush on exam. -improving on BID pepcid, BID protonix, QID carafate --> if reaches a plateau or regresses can then consider EGD to eval for vamshi, etc - but improving at this time #Lung cancer: - Immunotherapy to start once he's doing better (Dr Myah reid/onc) Dispo: rehab DVT prophylaxisLovenox Code: DNR/DNI Admission and Anticipated Discharge Date Admission Date: July 26, 2024 Supervising Physician Co-Signing Physician Notes I personally examined the patient and verified all fernandez points of history and exam, discussed case, and agree with decision making with Dr Conroy Feeling okay. Did not eat great with lunch, but it is not clear that it was b ecause of ongoing odynophagia or any difficulty eatinghe notes that he ate the vegetables but did not care for the fish. No acute complaints right now. Was quite weak with therapy, but notes that he does not want to go to a facility. Family is not present at the time. Vitals noted, in general he is awake and alert pleasant no distress. HEENT normocephalic atraumatic mucous membranes moist. Breathing unlabored no accessory muscle use good effort. Skin without rashes pallor or icterus. Weaknessappears to be predominantly failure to thrive related to chemo and radiation. Concern on radiation esophagitisoverall situation causing severe acute protein calorie malnutrition. Following to see if he is able to take p.o.not clear, given that he did not like the food that he was served and therefore did not eat it is not clear if he is having improvement in his symptoms or not. Continue to follow. Once family is present and he has more people to be able to participate in the discussion, we will discuss nutrition goals in detail. Continue Pepcid/Protonix/Carafate. Continue PT/OT eval and treat. With no clear signs of infection and cultures no growth to dateokay to stop antibiotics for now and follow DVT prophylaxisLovenox otherwise as above Subjective feeling bettter just weak. doesn't want to go to rehab. discussed with pt and family that with how weak he appears w PT right now, home would really require 24/7 supervision and assistance. asked family to please assess his functional status and decide the actual viability of him being safe at home prior to taking him home later informed by case management family felt he would need rehab. Review of Systems 2 Review of Systems: All systems reviewed & are unremarkable except as noted in HPI & below Physical Exam Physical Exam: gen aaox3 pleasant nad heent nc at mmm breathing unlabored no accessory muscles good effort skin no rashes no pallor or icterus Results & Data Results & Data Vital Signs (Past 12 Hours) Vital Signs Temp Pulse Resp BP Pulse Ox O2 Del Method 07/29/24 06:54 97.7 F 70 18 134/90 99 Room Air PG Care Time/CCT Total # of Minutes Spent Total Time Spent with Patient: Total time spent is greater than 50% in coordination of care (as documented) at patient's floor/unit and/or counseling patient: Coding Level of Care Code 36553 SUB INP/OBS CARE 3/50MIN Diagnoses Adenocarcinoma of lower lobe of right lung C34.31 Lung cancer C34.90 Dysphagia R13.10 Dehydration E86.0
--- NOTE | 2024-07-29 10:12 | Discharge Summary ---
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 Clinical picture less likely for candidiasis; no thrush on exam. -improving on BID pepcid, BID protonix, QID carafate --> if reaches a plateau or regresses can then consider EGD to eval for vamshi, etc - but improving at this time #Lung cancer: - Immunotherapy to start once he's doing better (Dr Myah reid/onc) Dispo:rehab DVT prophylaxisLovenox utilized during his stay Code: DNR/DNI Notes For Next Care Provider Medication Changes From Visit added twice daily Pepcid, twice daily Protonix, 4 times daily Carafate Admission HPI Per Admitting Provider patient is a very pleasant 84-year-old male who just finished chemo and radiation for lung cancer about 2 weeks ago. He has had a difficult time eating and drinkinghas a lot of throat pain. Feels like he is followed behind nutritionally. Does have some back pain and maybe felt warm last night although no documented feversomewhat reminiscent of whenever he has had sepsis from a urinary tract infection before. Mostly though, he feels extremely weak. Family present and very supportive. Discharge Exam General He is awake and alert pleasant no distress. HEENT normocephalic atraumatic mucous membranes moist. Breathing unlabored no accessory muscle use good effort. Skin without rashes pallor or icterus. Neuro without focal deficits. Updated Medication List Medication Instructions Recorded Confirmed Type hydrocodone 5 mg-acetaminophen 325 1 - 2 tab PO BID PRN Pain 03/01/19 07/26/24 History mg tablet alprazolam 0.5 mg tablet 0.5 mg PO BID PRN Anxiety 06/14/20 07/26/24 History ascorbic acid (vitamin C) 500 mg 1,500 mg PO QPM 06/14/20 07/26/24 History tablet (Vitamin C) aspirin 81 mg tablet,delayed 81 mg PO DAILY 06/14/20 07/26/24 History release (Ramya Low Dose Aspirin) atorvastatin 20 mg tablet 20 mg PO QAM 05/28/21 07/26/24 History mecobalamin (vitamin B12) 1,000 1,000 mcg PO DAILY 06/21/24 07/26/24 History mcg chewable tablet albuterol sulfate 90 mcg/actuation 1 inh inhalation QID PRN Shortness 07/26/24 07/26/24 History aerosol inhaler Of Breath Or Wheezing famotidine 20 mg tablet 20 mg PO BID #60 tabs 07/29/24 Rx pantoprazole 40 mg tablet,delayed 40 mg PO BID #60 tabs 07/29/24 Rx release sucralfate 100 mg/mL oral 1 g (10 mL) PO QID #1,200 mL 07/29/24 Rx suspension Hospital Stay Data Consultations 07/26/24 15:10 ED Decision to Admit Stat Diagnostic Imagining Performed 07/26/24 10:15 CT cervical spine wo con Stat CT head/brain wo con Stat Pending Results Patient Have Any Pending Studies at Discharge: No Discharge Instructions Given to Patient (Per Discharging Provider) weaknesswhile there was initial concern about sepsis from a urinary tract infection, fortunately this proved to be unfounded and there was no infection at play. Weakness appears to be entirely due to deconditioning and malnutriti onwhich in turn are due to effects of chemotherapy and radiation therapy radiation esophagitispain/difficulty swallowing is clinically being attributed to radiation esophagitis. This seems to be getting better with aggressive acid suppression (Pepcid, Protonix, and Carafate)would continue this line of treatment and follow. If he reaches a plateau and is still not able to take in well, or if the current improvement fades and regresses, we did discuss considering an EGD to rule out candidal esophagitis as wellwith no thrush visible on exam, and with improvements clinically on aggressive acid suppression, it does not seem like an EGD will be warranted, but definitely please keep this in mind malnutritionrelated to deconditioning as well as radiation esophagitis. Calorie goals calculated to be [id number] a day (dietitian here recommends 1925). Discussed achieving nutrition goals in depth with patient and family, absolute minimum target of 1700 a day as a "nonnegotiable" (and discussed "cheaters" such as boost, ice cream, drinking calories to achieve that 1700-calorie minimum even on days where he does not feel like it) [facility] would like to start immunotherapy soon, but when we discussed the case, she felt it best to not initiate treatment until he is more built up/has a better functional status. Total Time Total Time Spent Total Time Spent (In Minutes): <30
--- NOTE | 2024-07-29 18:22 | Billing Data ---
Date of Service July 29, 2024 Coding Level of Care Code 88602 IN/OBS DISCH 30 MIN/LESS
== END 2024-07-29 13:10 | DRG 640 ==
LOC: ED 10:03 → EDINP 15:47 → 3N 19:32

== ENCOUNTER 2025-01-14 17:45 | Inpatient (IN) ==
--- NOTE | 2025-01-14 18:08 | Emergency Department Note ---
Impression & Plan Sepsis, Lung mass, Pneumonia, Anemia ED Provider Note NAME: OSWALDO VOSS AGE: 84 SEX: M : 1940 ARRIVES VIA: Walk-In INFORMANT: Patient, the patient's [id number] ED PROVIDER(S): German Matthews DO CHIEF COMPLAINT: Difficulty breathing HPI: the patient is an 84-year-old male who has a history of lung cancer as well as bladder cancer who presented to the emergency department for an evaluation of not feeling well. The patient was visiting his significant other at [facility]. He became very weak. He was taken to the emergency department. While he was there he was diagnosed with sepsis. He was planned for transfer to our facility for inpatient management but he could not get a bed at our facility so he came over by private vehicle. The patient states he has no exposure to tuberculosis. The patient received vancomycin prior to arrival. ROS: See above HPI for pertinent positives & negatives. A total of 10 systems reviewed and were otherwise negative. PAST MEDICAL HISTORY: See Below PAST SURGICAL HISTORY: See Below FAMILY HISTORY: See Below SOCIAL HISTORY: See Below HOME MEDICATIONS: See Below ALLERGIES: See Below VITALS: See Below PHYSICAL EXAMINATION: GENERAL: The patient is awake and alert. He appears somewhat anxious. EYES: The conjunctivae are clear. The pupils are round and reactive. EARS, NOSE, MOUTH AND THROAT: The nose is without any evidence of any deformity. NECK: The neck is nontender and supple. RESPIRATORY: Shallow respirations were noted. There was tachypnea with mild conversational dyspnea. CARDIOVASCULAR: Tachycardic and irregular heart sounds were noted to auscultation. There is no definite murmur. GASTROINTESTINAL: The abdomen is soft. Abdomen is nontender. MUSCULOSKELETAL/EXTREMITIES: There is no evidence of gross deformity full range of motion is noted in the hips and shoulders. SKIN: There is no significant pedal edema noted. NEUROLOGIC: Patient is awake alert and oriented x3 MEDICAL DECISION MAKING: The patient is an 84-year-old male who presented to the emergency department for an evaluation. The patient was not feeling well earlier today. He presented to [facility]. He was felt to be suffering from sepsis with pneumonia. The patient was set to be transferred to our facility but no bed was available. The patient signed out AGAINST MEDICAL ADVICE and came to our facility. We were trying to get the patient's records because the patient felt as though he did have a CAT scan. Reportedly he was treated with vancomycin but no other antibiotics. He was treated in our emergency department with IV fluids as well as IV antibiotics. The patient was reevaluated. I discussed the patient's condition with the on-call [facility] hospitalist. They have agreed to evaluate the patient in the emergency department for further management and disposition. Triage Nursing notes reviewed. Prior medical records reviewed Vital Signs: reviewed and remarkable for no significant abnormalities Differential diagnosis: Infection, dehydration, metabolic abnormality, hypo/hyperglycemia, electrolyte disturbance, anemia, hypoxia, cardiac sources, intracerebral event, toxicologic, neurologic, as well as other pathologies. ER treatment provided: See below Diagnostics interpreted by me: ECG: EKG was obtained in the emergency department. My interpretation is normal sinus rhythm at 100 bpm. Right bundle branch block pattern was noted. QTc was 485 ms. Cardiac Monitoring: An order was placed for continuous cardiac monitoring. The monitor shows a rate of 96 bpm with sinus rhythm. Laboratory studies: As stated above and show below. Imaging studies: See below. Radiographic imaging was reviewed by myself Consultation(s): I discussed this case with Dr. Osborne who is on-call for the [facility]ist group. 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), mediastinal Lung mass (Acute) Elevated troponin (Acute) Weakness (Acute) Hypoxic respiratory failure (Acute) History of bladder cancer 2016--bladder sx/chemo Recurrent falls RLL pneumonia Lung cancer Elevated troponin Generalized weakness Hypoxia S/P carpal tunnel release Carpal tunnel syndrome, right Pre-op testing Bilateral carpal tunnel syndrome Bilateral kidney stones Complication of urostomy resolved History of primary bladder cancer ~9 years Arthritis Medical History Dehydration Acute pain of left hip Complicated urinary tract infection Fall from standing Sepsis Encounter for pre-operative examination Osteoarthritis Hx MRSA infection "years ago" [facility] in [place], in a wound and blood?; tx w/abx. History of kidney stones Hyperlipidemia Frequent UTI "not as bad as he used to" Surgical History History of carpal tunnel surgery of right wrist History of carpal tunnel surgery of left wrist History of lumbar surgery 1961 History of esophagogastroduodenoscopy (EGD) Hx of colonoscopy Hx of tonsillectomy Hx of cataract extraction rt/lt. Hx of prostatectomy done with total cystectomy History of total cystectomy Family History Brother Prostate cancer Hypertension Father Heart disease Cancer throat Other No family history of adverse response to anesthesia Social History Smoking Status: Former smoker Tobacco Type: Smokeless Tobacco (Dip or Chew) Age Started Using Tobacco: 17; Second Hand Exposure: No; Hx Alcohol Use: No Hx Substance Use: No Preferred Language: Sami Communication Ability: Effective Visual Impairment: Limited Hearing Ability: Hard of Hearing Senior It Auditor Required: No Beliefs That Will Affect Care: None marital status: Current Living Situation: Spouse Current Living Situation Comment: home with 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 Feels Safe at Home: Yes Diet: regular during the past year weight has: remained stable Assistive Devices: Cane and Walker Allergies Allergies Allergy/AdvReac Type Severity Reaction Status Date / Time wheat Allergy Severe Sneezing Unverified 12/08/24 09:41 Penicillins Allergy Intermediate Hives Verified 12/08/24 09:41 Home Meds Home Medications Medication Instructions Recorded Confirmed hydrocodone 5 mg-acetaminophen 325 1 - 2 tab PO BID PRN Pain 03/01/19 12/08/24 mg tablet alprazolam 0.5 mg tablet 0.5 mg PO BID PRN Anxiety 06/14/20 12/08/24 ascorbic acid (vitamin C) 500 mg 1,500 mg PO QPM 06/14/20 12/08/24 tablet (Vitamin C) aspirin 81 mg tablet,delayed 81 mg PO DAILY 06/14/20 12/08/24 release (Ramya Low Dose Aspirin) atorvastatin 20 mg tablet 20 mg PO QAM 05/28/21 12/08/24 mecobalamin (vitamin B12) 1,000 1,000 mcg PO DAILY 06/21/24 12/08/24 mcg chewable tablet albuterol sulfate 90 mcg/actuation 1 inh inhalation QID PRN Shortness 07/26/24 12/08/24 aerosol inhaler Of Breath Or Wheezing Previous Rx's Medication Instructions Recorded famotidine 20 mg tablet 20 mg PO BID #60 tabs 07/29/24 pantoprazole 40 mg tablet,delayed 40 mg PO BID #60 tabs 07/29/24 release sucralfate 100 mg/mL oral 1 g (10 mL) PO QID #1,200 mL 07/29/24 suspension methylprednisolone 4 mg tablets in 4 mg PO UD #21 ea 10/20/24 a dose pack (Medrol (Darek)) budesonide 160 mcg-glycopyr 9 2 inh inhalation BID #10.7 grams 12/10/24 mcg-formot 4.8 mcg/actuation HFA inhaler (Breztri Aerosphere) chlorpheniramine 4 1 tab PO BID PRN allergy symptoms 12/10/24 mg-phenylephrine 10 mg tablet #30 tabs fluticasone propionate 50 1 spray intranasal DAILY #9.9 grams 12/10/24 mcg/actuation nasal spray,suspension (Allergy Relief (fluticasone)) Results & Data (ED) Vital Signs Vital Signs - 24 hr 01/14/25 17:50 01/14/25 18:00 01/14/25 18:11 Temperature 36.4 C Temperature Source Temporal Artery Scan Pulse Rate 100 H Pulse Rate [Apical] 104 H Pulse Rate from SpO2 Sensor Respiratory Rate 24 24 22 Respiratory Effort / Characteristics Non-Labored Spontaneous Non-Labored Spontaneous Respiratory Depth Normal Normal Respiratory Pattern Regular Regular Blood Pressure 89/54 L Blood Pressure [Right Arm] 106/63 Blood Pressure Mean 65 Blood Pressure Mean [Right Arm] 77 Blood Pressure Position [Right Arm] Semi-fowlers Pulse Oximetry 92 98 100 Oxygen Delivery Method Room Air Room Air Nasal Cannula Oxygen Flow Rate 2 Sepsis Recent Fever Within 48 Hours No Sepsis New/Unexplained Change in Mental Status No Sepsis Action Taken by Nursing No Action Required 01/14/25 18:11 01/14/25 18:12 01/14/25 18:17 Temperature Temperature Source Pulse Rate 99 H Pulse Rate [Apical] 96 H 91 H Pulse Rate from SpO2 Sensor Respiratory Rate 24 28 H Respiratory Effort / Characteristics Non-Labored Spontaneous Short of Breath Non-Labored Spontaneous Respiratory Depth Normal Normal Respiratory Pattern Tachypnea Tachypnea Blood Pressure Blood Pressure [Right Arm] 95/58 L 108/58 L Blood Pressure Mean Blood Pressure Mean [Right Arm] 70 74 Blood Pressure Position [Right Arm] Semi-fowlers Sitting Pulse Oximetry 99 98 Oxygen Delivery Method Nasal Cannula Room Air Oxygen Flow Rate 2 Sepsis Recent Fever Within 48 Hours Sepsis New/Unexplained Change in Mental Status Sepsis Action Taken by Nursing 01/14/25 18:36 01/14/25 18:39 01/14/25 18:44 Temperature Temperature Source Pulse Rate 94 H 94 H Pulse Rate [Apical] Pulse Rate from SpO2 Sensor 94 H Respiratory Rate 14 11 L Respiratory Effort / Characteristics Respiratory Depth Respiratory Pattern Blood Pressure 112/58 L Blood Pressure [Right Arm] Blood Pressure Mean 81 Blood Pressure Mean [Right Arm] Blood Pressure Position [Right Arm] Pulse Oximetry 100 Oxygen Delivery Method Oxygen Flow Rate Sepsis Recent Fever Within 48 Hours Sepsis New/Unexplained Change in Mental Status Sepsis Action Taken by Nursing 01/14/25 18:45 01/14/25 19:01 01/14/25 19:03 Temperature Temperature Source Pulse Rate 94 H Pulse Rate [Apical] Pulse Rate from SpO2 Sensor Respiratory Rate 15 Respiratory Effort / Characteristics Respiratory Depth Respiratory Pattern Blood Pressure 104/78 119/57 L Blood Pressure [Right Arm] Blood Pressure Mean 90 64 Blood Pressure Mean [Right Arm] Blood Pressure Position [Right Arm] Pulse Oximetry Oxygen Delivery Method Oxygen Flow Rate Sepsis Recent Fever Within 48 Hours Sepsis New/Unexplained Change in Mental Status Sepsis Action Taken by Nursing 01/14/25 19:11 01/14/25 19:15 01/14/25 19:15 Temperature Temperature Source Pulse Rate 93 H Pulse Rate [Apical] Pulse Rate from SpO2 Sensor Respiratory Rate 21 Respiratory Effort / Characteristics Respiratory Depth Respiratory Pattern Blood Pressure 125/71 125/71 Blood Pressure [Right Arm] Blood Pressure Mean 97 97 Blood Pressure Mean [Right Arm] Blood Pressure Position [Right Arm] Pulse Oximetry Oxygen Delivery Method Oxygen Flow Rate Sepsis Recent Fever Within 48 Hours Sepsis New/Unexplained Change in Mental Status Sepsis Action Taken by Nursing 01/14/25 19:23 01/14/25 19:29 01/14/25 19:30 Temperature Temperature Source Pulse Rate 96 H 95 H Pulse Rate [Apical] Pulse Rate from SpO2 Sensor 96 H 95 H Respiratory Rate 17 15 Respiratory Effort / Characteristics Respiratory Depth Respiratory Pattern Blood Pressure 124/69 Blood Pressure [Right Arm] Blood Pressure Mean 94 Blood Pressure Mean [Right Arm] Blood Pressure Position [Right Arm] Pulse Oximetry 99 99 Oxygen Delivery Method Oxygen Flow Rate Sepsis Recent Fever Within 48 Hours Sepsis New/Unexplained Change in Mental Status Sepsis Action Taken by Nursing 01/14/25 19:30 01/14/25 19:30 01/14/25 19:44 Temperature Temperature Source Pulse Rate 100 H Pulse Rate [Apical] Pulse Rate from SpO2 Sensor Respiratory Rate 27 H Respiratory Effort / Characteristics Respiratory Depth Respiratory Pattern Blood Pressure 124/69 124/69 Blood Pressure [Right Arm] Blood Pressure Mean 94 94 Blood Pressure Mean [Right Arm] Blood Pressure Position [Right Arm] Pulse Oximetry Oxygen Delivery Method Oxygen Flow Rate Sepsis Recent Fever Within 48 Hours Sepsis New/Unexplained Change in Mental Status Sepsis Action Taken by Nursing 01/14/25 19:45 01/14/25 19:45 01/14/25 19:50 Temperature Temperature Source Pulse Rate 105 H Pulse Rate [Apical] Pulse Rate from SpO2 Sensor Respiratory Rate 20 Respiratory Effort / Characteristics Respiratory Depth Respiratory Pattern Blood Pressure 122/71 122/71 Blood Pressure [Right Arm] Blood Pressure Mean 88 88 Blood Pressure Mean [Right Arm] Blood Pressure Position [Right Arm] Pulse Oximetry Oxygen Delivery Method Oxygen Flow Rate Sepsis Recent Fever Within 48 Hours Sepsis New/Unexplained Change in Mental Status Sepsis Action Taken by Nursing 01/14/25 19:56 01/14/25 20:00 01/14/25 20:00 Temperature Temperature Source Pulse Rate 103 H Pulse Rate [Apical] Pulse Rate from SpO2 Sensor Respiratory Rate 21 Respiratory Effort / Characteristics Respiratory Depth Respiratory Pattern Blood Pressure 116/90 116/90 Blood Pressure [Right Arm] Blood Pressure Mean 99 99 Blood Pressure Mean [Right Arm] Blood Pressure Position [Right Arm] Pulse Oximetry Oxygen Delivery Method Oxygen Flow Rate Sepsis Recent Fever Within 48 Hours Sepsis New/Unexplained Change in Mental Status Sepsis Action Taken by Nursing 01/14/25 20:02 Temperature Temperature Source Pulse Rate 107 H Pulse Rate [Apical] Pulse Rate from SpO2 Sensor Respiratory Rate 24 Respiratory Effort / Characteristics Respiratory Depth Respiratory Pattern Blood Pressure Blood Pressure [Right Arm] Blood Pressure Mean Blood Pressure Mean [Right Arm] Blood Pressure Position [Right Arm] Pulse Oximetry Oxygen Delivery Method Oxygen Flow Rate Sepsis Recent Fever Within 48 Hours Sepsis New/Unexplained Change in Mental Status Sepsis Action Taken by Senior Living Medications Current Medication List: was personally reviewed by me Laboratory Data Attestation: I reviewed the patient's lab results. 01/15/25 05:27 01/15/25 05:27 Lab Results 01/14/25 01/14/25 Range/Units 18:10 19:59 WBC 12.03 H (4.8-10.8) K/ul RBC 3.59 L (4.70-6.10) M/uL Hgb 10.4 L (14.0-18.0) g/dl Hct 33.3 L (42.0-52.0) % MCV 92.8 (80.0-100.0) fL MCH 29.0 (25.0-34.0) pg MCHC 31.2 L (32.0-36.0) g/dL RDW Std Deviation 57.8 H (36.4-46.3) fL RDW Coeff of Kwame 17.2 H (11.5-14.5) % Plt Count 324 (130-400) K/uL MPV 9.4 (9.4-12.4) fL Immature Gran % (Auto) 0.9 % Neut % (Auto) 85.6 % Lymph % (Auto) 4.7 % [place] % (Auto) 8.3 % Eos % (Auto) 0.3 % Baso % (Auto) 0.2 % Neut # (Auto) 10.28 H (1.40-6.50) K/uL Lymph # (Auto) 0.57 L (1.20-3.40) K/uL [place] # (Auto) 1.00 H (0.11-0.59) K/uL Eos # (Auto) 0.04 (0.00-0.50) K/uL Baso # (Auto) 0.03 (0.00-0.20) K/uL Immature Gran # (Auto) 0.11 (0.01-0.20) K/uL PT 11.4 (9.0-12.0) Seconds INR 1.1 (0.9-1.1) APTT 24 (21-31) Seconds PTT Ratio 0.9 VBG pH 7.33 L (7.36-7.41) VBG pCO2 48 (38-50) mmHg VBG pO2 21 mmHg VBG HCO3 25 mmol/L VBG O2 Saturation < 60.0 % VBG Base Excess -1.1 mEq/L Sodium 137 (136-145) mmol/L Potassium 4.2 (3.5-5.1) mmol/L Chloride 104 (98-107) mmol/L Carbon Dioxide 25 (21-32) mmol/L Anion Gap 8 (3-11) BUN 14 (6-23) mg/dl Creatinine 0.76 (0.6-1.4) mg/dl Est Cr Clr Drug Dosing Not Reportable eGFR 88.08 BUN/Creatinine Ratio 18.4 (10-20) Glucose 128 H (70-99(Fasting)) mg/dl Lactate 2.3 H* (0.4-2.0) mmol/L Calcium 8.8 (8.6-10.3) mg/dl Magnesium 1.7 (1.7-2.4) mg/dl Total Bilirubin 0.6 (0.2-1.0) mg/dl Direct Bilirubin 0.1 (0-0.2) mg/dl AST 11 L (13-39) U/L ALT 13 (7-52) U/L Alkaline Phosphatase 82 (34-104) U/L Troponin I High Sens 13.3 (0-20) pg/ml Total Protein 6.6 (6.0-8.3) gm/dl Albumin 3.1 L (3.4-5.0) gm/dl Procalcitonin 0.21 (0-0.5) ng/ml Adenovirus (PCR) Not Detected (NotDetected) B. pertussis DNA (PCR) Not Detected (NotDetected) B.parapertussis DNA PCR Not Detected (NotDetected) C. pneumoniae DNA (PCR) Not Detected (NotDetected) Coronavirus OC43 (PCR) Not Detected (NotDetected) Coronavirus HKU1 (PCR) Not Detected (NotDetected) Coronavirus 229E (PCR) Not Detected (NotDetected) SARS-CoV-2 (PCR) Not Detected (NotDetected) Coronavirus NL63 (PCR) Not Detected (NotDetected) Human Metapneumovir PCR Not Detected (NotDetected) Influenza Type A (PCR) Not Detected (NotDetected) Influenza Type B (PCR) Not Detected (NotDetected) M. pneumoniae (PCR) Not Detected (NotDetected) Parainfluenza 1 (PCR) Not Detected (NotDetected) Parainfluenza 2 (PCR) Not Detected (NotDetected) Parainfluenza 3 (PCR) Not Detected (NotDetected) Parainfluenza 4 (PCR) Not Detected (NotDetected) RSV (PCR) Not Detected (NotDetected) Entero/Rhino (PCR) Not Detected (NotDetected) Blood Type O Positive Antibody Screen NEGATIVE Administered Medications Enoxaparin Sodium (Enoxaparin Inj 40 Mg/0.4 Ml Syr) 40 mg SQ PM JOSE ALBERTO Stop: 02/13/25 22:42 Last Admin: 01/14/25 23:34 Dose: 40 mg Documented By: PARAMJIT Sodium Chloride (Nss) 1,000 mls @ 125 mls/hr IV .Q8H [facility] Stop: 01/17/25 22:42 Last Admin: 01/15/25 07:45 Dose: 125 mls/hr Documented By: Infusion: 01/15/25 07:36 Dose: Infused Documented By: Admin: 01/14/25 23:36 Dose: 125 mls/hr Documented By: PARAMJIT Cefepime HCl (Maxipime 2000mg) 2,000 mg in 20 mls @ 5 mls/min IV Q8H [facility]; Protocol Stop: 01/20/25 07:59 Last Admin: 01/15/25 07:45 Dose: 5 mls/min Documented By: DONOVAN Vancomycin HCl (Vancomycin Hcl / Nss) 1,000 mg in 270 mls @ 200 mls/hr IV Q12H [facility]; Protocol Stop: 01/17/25 01:59 Last Infusion: 01/15/25 03:44 Dose: Infused Documented By: Admin: 01/15/25 02:11 Dose: 200 mls/hr Documented By: PARAMJIT Doxycycline Hyclate 100 mg/ (Dextrose) 100 mls @ 50 mls/hr IV Q12H [facility] Stop: 01/19/25 22:59 Last Infusion: 01/15/25 02:12 Dose: Infused Documented By: Admin: 01/14/25 23:35 Dose: 50 mls/hr Documented By: PARAMJIT Discontinued Medications Sodium Chloride (Nss) 1,000 mls @ 999 mls/hr IV .Q1H1M ONE Stop: 01/14/25 19:19 Last Infusion: 01/14/25 20:00 Dose: Infused Documented By: Admin: 01/14/25 18:21 Dose: 999 mls/hr Documented By: YVONNE Sodium Chloride (Nss) 1,000 mls @ 999 mls/hr IV .Q1H1M ONE Stop: 01/14/25 20:10 Last Infusion: 01/14/25 21:36 Dose: Infused Documented By: Admin: 01/14/25 19:26 Dose: 999 mls/hr Documented By: ROHITH Ceftriaxone Sodium (Rocephin) 2,000 mg in 50 mls @ 100 mls/hr IV NOW STA Stop: 01/14/25 19:39 Last Infusion: 01/14/25 21:36 Dose: Infused Documented By: Admin: 01/14/25 20:06 Dose: 100 mls/hr Documented By: ROHITH Imaging Data Attestation: I personally reviewed and interpreted this imaging study as follows: My Impression: 1 view chest x-ray was obtained in the emergency department. My interpretation is no free air. There was a nodular mass with infiltrate noted at the right base, final report below. Radiologist's Impression: Chest X-Ray 01/14/25 18:02 Chest radiograph, one view History: Sepsis. Comparison: November 17, 2024. Findings: Lordotic positioning is noted. This limits portions of the evaluation. Left lung is relatively clear. Confluent interstitial densities and somewhat linear band density along the right perihilar and infrahilar region again noted. Poorly defined right costophrenic angle. This is unchanged. Obscuration portions of the medial right hemidiaphragm. Cardiomediastinal silhouette is otherwise normal. Pulmonary vasculature is otherwise normal. Impression: Difficulty appreciating significant interval change given patient positioning with nonspecific right perihilar and infrahilar at least subsegmental atelectasis/scarring and/or consolidation. Suspect small effusion. Electronically signed by Ángel Clancy 01-14-2025 7:18 PM Discharge Plan Visit Data Chief Complaint: Urinary Symptoms Stated Complaint: SEPTIS, LEGION ON LUNGS, UTI ED Provider: German Matthews Discharge Problem: Sepsis, Lung mass, Pneumonia, Anemia Patient Disposition: Admitted As Inpatient Condition: Fair Discharge Instructions Interventions: ED Discharge Assessment Last Done: 01/14/25 22:14
[2025-01-14] MEDS: SODIUM CHLORIDE 0.9% 1,000 ML IV ONE ×2 (18:21→19:26)
[2025-01-14 18:35] LABS: Hematocrit (blood only) 33.3 % (42.0-52.0); Hemoglobin 10.4 g/dl (14.0-18.0); Immature Granulocytes # (auto) 0.11 K/uL (0.01-0.20); Immature Granulocytes % (auto) 0.9 %; Mean Corpuscular Hemoglobin 29.0 pg (25.0-34.0); Mean Corpuscular Volume 92.8 fL (80.0-100.0); Platelet Count 324 K/uL (130-400); RDW Standard Deviation 57.8 fL (36.4-46.3); Red Blood Count 3.59 M/uL (4.70-6.10); White Blood Count 12.03 K/ul (4.8-10.8)
[2025-01-14 18:54] LABS: Alanine Aminotransferase 13 U/L (7-52); Albumin Level 3.1 gm/dl (3.4-5.0); Alkaline Phosphatase 82 U/L (34-104); Anion Gap 8 (3-11); Bilirubin,Total 0.6 mg/dl (0.2-1.0); Blood Urea Nitrogen 14 mg/dl (6-23); Calcium 8.8 mg/dl (8.6-10.3); Carbon Dioxide 25 mmol/L (21-32); Chloride 104 mmol/L (98-107); Glucose 128 mg/dl (70-99(Fasting)); Magnesium 1.7 mg/dl (1.7-2.4); Potassium 4.2 mmol/L (3.5-5.1); Sodium 137 mmol/L (136-145); Total Protein 6.6 gm/dl (6.0-8.3)
[2025-01-14 19:03] LABS: INR 1.1 (0.9-1.1); Partial Thromboplastin Time 24 Seconds (21-31); Prothrombin Time 11.4 Seconds (9.0-12.0)
--- NOTE | 2025-01-14 19:20 | XRay Report ---
Chest radiograph, one view History: Sepsis. Comparison: November 17, 2024. Findings: Lordotic positioning is noted. This limits portions of the evaluation. Left lung is relatively clear. Confluent interstitial densities and somewhat linear band density along the right perihilar and infrahilar region again noted. Poorly defined right costophrenic angle. This is unchanged. Obscuration portions of the medial right hemidiaphragm. Cardiomediastinal silhouette is otherwise normal. Pulmonary vasculature is otherwise normal. Impression: Difficulty appreciating significant interval change given patient positioning with nonspecific right perihilar and infrahilar at least subsegmental atelectasis/scarring and/or consolidation. Suspect small effusion. Electronically signed by Ángel Clancy 01-14-2025 7:18 PM
[2025-01-14 19:26] LABS: Chlamydia pneumoniae PCR Not Detected (NotDetected); Coronavirus 229E PCR Not Detected (NotDetected); Coronavirus CoV-2 (COVID19)PCR Not Detected (NotDetected); Coronavirus HKU1 PCR Not Detected (NotDetected); Coronavirus NL63 PCR Not Detected (NotDetected); Coronavirus OC43PCR Not Detected (NotDetected); Human Metapneumovirus PCR Not Detected (NotDetected); Parainfluenza Virus 1 PCR Not Detected (NotDetected); Parainfluenza Virus 2 PCR Not Detected (NotDetected); Parainfluenza Virus 3 PCR Not Detected (NotDetected); Parainfluenza Virus 4 PCR Not Detected (NotDetected); Respiratory Syncytial VirusPCR Not Detected (NotDetected); Rhinovirus/Enterovirus PCR Not Detected (NotDetected)
[2025-01-14 20:06] LABS: Base Excess VBG -1.1 mEq/L; HCO3 VBG 25 mmol/L; Oxygen Saturation VBG < 60.0 %; PCO2 VBG 48 mmHg (38-50); PO2 VBG 21 mmHg; pH VBG 7.33 (7.36-7.41)
[2025-01-14] MEDS: cefTRIAXone SODIUM 2,000 MG/50 ML BAG IV STA (20:06)
[2025-01-14 20:38] LABS: Appearance Urine Clear (Clear); Bacteria Urine Automated 4+ (None Seen); Cast Urine Automated 0-2 /lpf (0-2); Epithelial Cell Urine Auto 0-2 /hpf (0-2); Glucose Urine UA Negative (Negative); RBC Urine Automated 0-2 /hpf (0-2)
--- NOTE | 2025-01-14 20:38 | History & Physical Report ---
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 Apparently patient was visiting his significant other at [facility] today. He became weak and was taken to [facility] emergency room. And he was diagnosed with sepsis. [place] [facility] planned for transfer to our facility but as could not get a bed patient came over by private vehicle to the ER. Patient seems received vancomycin prior to arrival. Patient and family in the room. Patient is alert and oriented. Able to give history. Having dry cough for 1 week. Denies any shortness of breath or chest pain. No headache. No runny nose or sore throat. Appetite is okay. No difficulty swallowing. No abdominal pain. Normal bowel and bladder movements. His blood pressure was low at [facility] as per the family. He was feeling dizzy. Currently hemodynamics are okay. As per family patient was told that CAT scan done at [facility] showed lung abscess. We are still waiting for the CAT scan results from [facility]. As per family except for his immunotherapy patient is currently not taking any other medications. Sepsis Soft blood pressures Tachycardia WBC 12 Lactic acid 2.3 Respiratory BioFire negative UA is positive Chest x-ray nonspecific right perihilar and infrahilar subsegmental atelectasis/scaring or consolidation. Awaiting CAT scan results from the room. If CT scan results not available can repeat CAT scan in a.m. Sepsis from possible pneumonia and uti Empiric Vanco, cefepime and Doxy and fluids Close monitoring telemetry Pulmonary consult in a.m. 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 Apparently patient was visiting his significant other at [facility] today. He became weak and was taken to [facility] emergency room. And he was diagnosed with sepsis. [facility] planned for transfer to our facility but as could not get a bed patient came over by private vehicle to the ER. Patient seems received vancomycin prior to arrival. Patient and family in the room. Patient is alert and oriented. Able to give history. Having dry cough for 1 week. Denies any shortness of breath or chest pain. No headache. No runny nose or sore throat. Appetite is okay. No difficulty swallowing. No abdominal pain. Normal bowel and bladder movements. His blood pressure was low at [facility] as per the family. He was feeling dizzy. Currently hemodynamics are okay. As per family patient was told that CAT scan done at [facility] showed lung abscess. We are still waiting for the CAT scan results from [facility]. As per family except for his immunotherapy patient is currently not taking any other medications. Past medical history. As mentioned above. Past surgical history. Back surgery. Bilateral carpal tunnel surgery. Surgeries for bladder cancer with prostatectomy and total cystectomy. History of tonsillectomy. Cataract extraction. Left CEA Social history. Former smoking. Quit smoking 20 years ago. No alcohol use. No drug use. Family history. Per records father heart disease. Throat cancer. Brother had prostate cancer. Hypertension. Allergies Allergy/AdvReac Type Severity Reaction Status Date / Time wheat Allergy Severe Sneezing Unverified 12/08/24 09:41 Penicillins Allergy Intermediate Hives Verified 12/08/24 09:41 Home Medications Medication Instructions Recorded Confirmed Type hydrocodone 5 mg-acetaminophen 325 1 - 2 tab PO BID PRN Pain 03/01/19 12/08/24 History mg tablet alprazolam 0.5 mg tablet 0.5 mg PO BID PRN Anxiety 06/14/20 12/08/24 History ascorbic acid (vitamin C) 500 mg 1,500 mg PO QPM 06/14/20 12/08/24 History tablet (Vitamin C) aspirin 81 mg tablet,delayed 81 mg PO DAILY 06/14/20 12/08/24 History release (Ramya Low Dose Aspirin) atorvastatin 20 mg tablet 20 mg PO QAM 05/28/21 12/08/24 History mecobalamin (vitamin B12) 1,000 1,000 mcg PO DAILY 06/21/24 12/08/24 History mcg chewable tablet albuterol sulfate 90 mcg/actuation 1 inh inhalation QID PRN Shortness 07/26/24 12/08/24 History aerosol inhaler Of Breath Or Wheezing famotidine 20 mg tablet 20 mg PO BID #60 tabs 07/29/24 12/08/24 Rx pantoprazole 40 mg tablet,delayed 40 mg PO BID #60 tabs 07/29/24 12/08/24 Rx release sucralfate 100 mg/mL oral 1 g (10 mL) PO QID #1,200 mL 07/29/24 12/08/24 Rx suspension methylprednisolone 4 mg tablets in 4 mg PO UD #21 ea 10/20/24 12/08/24 Rx a dose pack (Medrol (Darek)) budesonide 160 mcg-glycopyr 9 2 inh inhalation BID #10.7 grams 12/10/24 12/10/24 Rx mcg-formot 4.8 mcg/actuation HFA inhaler (Breztri Aerosphere) chlorpheniramine 4 1 tab PO BID PRN allergy symptoms 12/10/24 12/10/24 Rx mg-phenylephrine 10 mg tablet #30 tabs fluticasone propionate 50 1 spray intranasal DAILY #9.9 grams 12/10/24 12/10/24 Rx mcg/actuation nasal spray,suspension (Allergy Relief (fluticasone)) Past Med/Surg History Problem List (Updated 01/14/25 @ 22:36 by German Matthews DO) Pneumonia (Acute) Lung mass (Acute) Sepsis (Acute) Sepsis Short of breath on exertion Upper airway cough syndrome Chronic cough Abnormal chest CT Dysphagia Adenocarcinoma of lower lobe of right lung (Chronic 03/29/24) Abnormal CT of the abdomen B12 deficiency Acute hypoxic respiratory failure Lumbar spine pain 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), mediastinal Lung mass (Acute) Elevated troponin (Acute) Weakness (Acute) Hypoxic respiratory failure (Acute) History of bladder cancer 2016--bladder sx/chemo Recurrent falls RLL pneumonia Lung cancer Elevated troponin Generalized weakness Hypoxia S/P carpal tunnel release Carpal tunnel syndrome, right Pre-op testing Bilateral carpal tunnel syndrome Bilateral kidney stones Complication of urostomy resolved History of primary bladder cancer ~9 years Arthritis Medical History Dehydration Acute pain of left hip Complicated urinary tract infection Fall from standing Sepsis Encounter for pre-operative examination Osteoarthritis Hx MRSA infection "years ago" [facility] in [place], in a wound and blood?; tx w/abx. History of kidney stones Hyperlipidemia Frequent UTI "not as bad as he used to" Surgical History History of carpal tunnel surgery of right wrist History of carpal tunnel surgery of left wrist History of lumbar surgery 1961 History of esophagogastroduodenoscopy (EGD) Hx of colonoscopy Hx of tonsillectomy Hx of cataract extraction rt/lt. Hx of prostatectomy done with total cystectomy History of total cystectomy Family History Brother Prostate cancer Hypertension Father Heart disease Cancer throat Other No family history of adverse response to anesthesia Social History Smoking Status: Former smoker Tobacco Type: Smokeless Tobacco (Dip or Chew) Age Started Using Tobacco: 17; Second Hand Exposure: No; Hx Alcohol Use: No Hx Substance Use: No Preferred Language: Mohawk Communication Ability: Effective Visual Impairment: Limited Hearing Ability: Hard of Hearing Mva Operator Required: No Beliefs That Will Affect Care: None marital status: Current Living Situation: Spouse Current Living Situation Comment: home with 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 ENT- oropharynx clear Neck- supple, no JVD. Lungs- clear to auscultation no wheezing or crackles Heart- regular rate and rhythm; no murmur, no gallop. Abdomen- normal bowel sounds, soft, nontender, no distension.Cystectomy bag seen Extremities- no pretibial edema, no erythema seen Neuro- alert, oriented PERRL, no facial palsy; no dysarthria; moves extremities Results & Data Results & Data Vital Signs (Past 12 Hours) Vital Signs Temp Pulse Pulse Resp BP BP Pulse Ox 01/14/25 18:17 91 H 28 H 108/58 L 98 01/14/25 18:12 99 H 01/14/25 18:11 96 H 24 95/58 L 99 01/14/25 18:11 22 100 01/14/25 18:00 104 H 24 106/63 98 01/14/25 17:50 36.4 C 100 H 24 89/54 L 92 O2 Del Method O2 Flow Rate 01/14/25 18:17 Room Air 01/14/25 18:12 01/14/25 18:11 Nasal Cannula 2 01/14/25 18:11 Nasal Cannula 2 01/14/25 18:00 Room Air 01/14/25 17:50 Room Air Diagnostic Findings Laboratory Results WBC 12.03 K/ul (4.8-10.8) H 01/14/25 18:10 RBC 3.59 M/uL (4.70-6.10) L 01/14/25 18:10 Hgb 10.4 g/dl (14.0-18.0) L 01/14/25 18:10 Hct 33.3 % (42.0-52.0) L 01/14/25 18:10 MCV 92.8 fL (80.0-100.0) 01/14/25 18:10 MCH 29.0 pg (25.0-34.0) 01/14/25 18:10 MCHC 31.2 g/dL (32.0-36.0) L 01/14/25 18:10 RDW Std Deviation 57.8 fL (36.4-46.3) H 01/14/25 18:10 RDW Coeff of Kwame 17.2 % (11.5-14.5) H 01/14/25 18:10 Plt Count 324 K/uL (130-400) 01/14/25 18:10 MPV 9.4 fL (9.4-12.4) 01/14/25 18:10 Immature Gran % (Auto) 0.9 % 01/14/25 18:10 Neut % (Auto) 85.6 % 01/14/25 18:10 Lymph % (Auto) 4.7 % 01/14/25 18:10 [place] % (Auto) 8.3 % 01/14/25 18:10 Eos % (Auto) 0.3 % 01/14/25 18:10 Baso % (Auto) 0.2 % 01/14/25 18:10 Neut # (Auto) 10.28 K/uL (1.40-6.50) H 01/14/25 18:10 Lymph # (Auto) 0.57 K/uL (1.20-3.40) L 01/14/25 18:10 [place] # (Auto) 1.00 K/uL (0.11-0.59) H 01/14/25 18:10 Eos # (Auto) 0.04 K/uL (0.00-0.50) 01/14/25 18:10 Baso # (Auto) 0.03 K/uL (0.00-0.20) 01/14/25 18:10 Immature Gran # (Auto) 0.11 K/uL (0.01-0.20) 01/14/25 18:10 PT 11.4 Seconds (9.0-12.0) 01/14/25 18:10 INR 1.1 (0.9-1.1) 01/14/25 18:10 APTT 24 Seconds (21-31) 01/14/25 18:10 PTT Ratio 0.9 01/14/25 18:10 VBG pH 7.33 (7.36-7.41) L 01/14/25 19:59 VBG pCO2 48 mmHg (38-50) 01/14/25 19:59 VBG pO2 21 mmHg 01/14/25 19:59 VBG HCO3 25 mmol/L 01/14/25 19:59 VBG O2 Saturation < 60.0 % 01/14/25 19:59 VBG Base Excess -1.1 mEq/L 01/14/25 19:59 Sodium 137 mmol/L (136-145) 01/14/25 18:10 Potassium 4.2 mmol/L (3.5-5.1) 01/14/25 18:10 Chloride 104 mmol/L (98-107) 01/14/25 18:10 Carbon Dioxide 25 mmol/L (21-32) 01/14/25 18:10 Anion Gap 8 (3-11) 01/14/25 18:10 BUN 14 mg/dl (6-23) 01/14/25 18:10 Creatinine 0.76 mg/dl (0.6-1.4) 01/14/25 18:10 Est Cr Clr Drug Dosing Not Reportable 01/14/25 18:10 eGFR 88.08 10/24/25 18:10 BUN/Creatinine Ratio 18.4 (10-20) 01/14/25 18:10 Glucose 128 mg/dl (70-99(Fasting)) H 01/14/25 18:10 Lactate 2.3 mmol/L (0.4-2.0) H* 01/14/25 18:10 Calcium 8.8 mg/dl (8.6-10.3) 01/14/25 18:10 Magnesium 1.7 mg/dl (1.7-2.4) 01/14/25 18:10 Total Bilirubin 0.6 mg/dl (0.2-1.0) 01/14/25 18:10 Direct Bilirubin 0.1 mg/dl (0-0.2) 01/14/25 18:10 AST 11 U/L (13-39) L 01/14/25 18:10 ALT 13 U/L (7-52) 01/14/25 18:10 Alkaline Phosphatase 82 U/L (34-104) 01/14/25 18:10 Troponin I High Sens 13.3 pg/ml (0-20) 01/14/25 18:10 Total Protein 6.6 gm/dl (6.0-8.3) 01/14/25 18:10 Albumin 3.1 gm/dl (3.4-5.0) L 01/14/25 18:10 Procalcitonin 0.21 ng/ml (0-0.5) 01/14/25 18:10 Urine Comment 01/14/25 Unknown Adenovirus (PCR) Not Detected (NotDetected) 01/14/25 18:10 B. pertussis DNA (PCR) Not Detected (NotDetected) 01/14/25 18:10 B.parapertussis DNA PCR Not Detected (NotDetected) 01/14/25 18:10 C. pneumoniae DNA (PCR) Not Detected (NotDetected) 01/14/25 18:10 Coronavirus OC43 (PCR) Not Detected (NotDetected) 01/14/25 18:10 Coronavirus HKU1 (PCR) Not Detected (NotDetected) 01/14/25 18:10 Coronavirus 229E (PCR) Not Detected (NotDetected) 01/14/25 18:10 SARS-CoV-2 (PCR) Not Detected (NotDetected) 01/14/25 18:10 Coronavirus NL63 (PCR) Not Detected (NotDetected) 01/14/25 18:10 Human Metapneumovir PCR Not Detected (NotDetected) 01/14/25 18:10 Influenza Type A (PCR) Not Detected (NotDetected) 01/14/25 18:10 Influenza Type B (PCR) Not Detected (NotDetected) 01/14/25 18:10 M. pneumoniae (PCR) Not Detected (NotDetected) 01/14/25 18:10 Parainfluenza 1 (PCR) Not Detected (NotDetected) 01/14/25 18:10 Parainfluenza 2 (PCR) Not Detected (NotDetected) 01/14/25 18:10 Parainfluenza 3 (PCR) Not Detected (NotDetected) 01/14/25 18:10 Parainfluenza 4 (PCR) Not Detected (NotDetected) 01/14/25 18:10 RSV (PCR) Not Detected (NotDetected) 01/14/25 18:10 Entero/Rhino (PCR) Not Detected (NotDetected) 01/14/25 18:10 Impressions Chest X-Ray 01/14/25 18:02 Chest radiograph, one view History: Sepsis. Comparison: November 17, 2024. Findings: Lordotic positioning is noted. This limits portions of the evaluation. Left lung is relatively clear. Confluent interstitial densities and somewhat linear band density along the right perihilar and infrahilar region again noted. Poorly defined right costophrenic angle. This is unchanged. Obscuration portions of the medial right hemidiaphragm. Cardiomediastinal silhouette is otherwise normal. Pulmonary vasculature is otherwise normal. Impression: Difficulty appreciating significant interval change given patient positioning with nonspecific right perihilar and infrahilar at least subsegmental atelectasis/scarring and/or consolidation. Suspect small effusion. Electronically signed by Ángel Clancy 01-14-2025 7:18 PM ECG Additional Comments: ECG. Normal sinus rhythm rate of 100. Right bundle branch block. No significant changes found. QTc 485. Code Status & VTE Plan VTE Prophylaxis Plan VTE Prophylaxis will be ordered: Yes
[2025-01-14] MEDS ORDERED: LEVALBUTEROL 1.25 MG/3 ML NEB NEB PRN (22:43)
[2025-01-14] MEDS ORDERED: NITROGLYCERIN SL 0.4 MG/TAB TAB SL PRN (22:43)
[2025-01-14] MEDS ORDERED: VANCOMYCIN CONSULT ACTIVE PRN (22:43)
[2025-01-14] MEDS ORDERED: ONDANSETRON INJ 2 MG/ML 2 ML VIAL IV PRN (22:43)
[2025-01-14] MEDS: ENOXAPARIN INJ 40 MG/0.4 ML SYR SQ SCH (23:34)
[2025-01-14] MEDS: DOXYCYCLINE HYCLATE 100 MG in DEXTROSE 5% MINI-B 100 ML IV SCH (23:35)
[2025-01-14] MEDS: SODIUM CHLORIDE 0.9% 1,000 ML IV SCH (23:36)
[2025-01-15] MEDS: VANCOMYCIN HCL / NSS 1,000 MG/270 ML BAG IV SCH (02:11)
[2025-01-15 06:06] LABS: Hematocrit (blood only) 29.4 % (42.0-52.0); Hemoglobin 9.1 g/dl (14.0-18.0); Immature Granulocytes # (auto) 0.12 K/uL (0.01-0.20); Immature Granulocytes % (auto) 1.4 %; Mean Corpuscular Hemoglobin 29.0 pg (25.0-34.0); Mean Corpuscular Volume 93.6 fL (80.0-100.0); Platelet Count 256 K/uL (130-400); RDW Standard Deviation 59.7 fL (36.4-46.3); Red Blood Count 3.14 M/uL (4.70-6.10); White Blood Count 8.56 K/ul (4.8-10.8)
[2025-01-15 06:32] LABS: Anion Gap 5.0 (3-11); Blood Urea Nitrogen 9.0 mg/dl (6-23); Calcium 8.3 mg/dl (8.6-10.3); Carbon Dioxide 27.0 mmol/L (21-32); Chloride 106.0 mmol/L (98-107); Creatinine Clr Calc Pharmacy 89.9 ml/min; Glucose 106.0 mg/dl (70-99(Fasting)); Magnesium 1.7 mg/dl (1.7-2.4); Potassium 4.0 mmol/L (3.5-5.1); Sodium 138.0 mmol/L (136-145)
[2025-01-15] MEDS: CEFEPIME 2000MG 2,000 MG/20 ML SYR IV SCH (07:45)
--- NOTE | 2025-01-15 10:05 | Pharmacy Report ---
Pharmacy PK ABX Note - Date of Service January 15, 2025 - Assessment and Plan Assessment 84 year old M receiving vancomycin, cefepime, and doxycycline for empiric treatment of sepsis suspected secondary to pulmonary v. urinary source. Blood and urine cultures pending. MRSA nasal ordered. Renal function stable. Day #2 of antimicrobial therapy. Plan Vancomycin * Pt received a vancomycin loading dose at outside hospital [facility] * Random level obtained around midnight last night - 9.8mcg/mL demonstrating vancomycin on board and safe to re-dose. * Maintenance dose: 1000 mg IV every 12 hours * Regimen is predicted to achieve target AUC/AUSTIN of 400-600 mg/L.hr * Will obtain a repeat level tomorrow AM Pharmacy will continue to follow and will adjust dose/frequency as necessary. Thank you. Pharmacy has transitioned to AUC monitoring for vancomycin. AUC/AUSTIN is the preferred PK/PD target and is associated with decreased risk of nephrotoxicity compared to traditional trough targets.
--- NOTE | 2025-01-15 11:31 | Pulmonary Consultation ---
Date of Consultation January 15, 2025 Assessment & Plan (1) Multifocal pneumonia: (2) COPD with emphysema: (3) LAD (lymphadenopathy), mediastinal: (4) Adenocarcinoma of lower lobe of right lung: Plan CT chest 01/14/2025 personally reviewed: Centrilobular and paraseptal emphysema appreciated bilaterally Right apical pleural scarring, right upper lobe 8 mm pulmonary nodule, stable Consolidative changes appreciated in the right upper lobe around the bullous area perifissural, I do not think this is abscess Right lower lobe and right hilar bandlike scarring likely postradiation changes Minimal right hilar lymphadenopathy --Acute hypoxic respiratory failure Likely secondary to multifocal pneumonia Respiratory BioFire negative for everything on 01/14/2025 Procalcitonin 0.21 --COPD with emphysema Gold E On BrezTri at home -- Abnormal chest CT Patient seems to have fibrotic changes in the right hilum in the right lower lobe Could be a remnant to radiation therapy that he got Continue to monitor CT chest 01/14/2025 personally reviewed: Centrilobular and paraseptal emphysema appreciated bilaterally Right apical pleural scarring, right upper lobe 8 mm pulmonary nodule, stable Consolidative changes appreciated in the right upper lobe around the bullous area perifissural, I do not think this is abscess Right lower lobe and right hilar bandlike scarring likely postradiation changes Minimal right hilar lymphadenopathy -- 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 Diagnosed 03/2024 MRI of the brain 04/17 negative for any metastatic disease S/p radiation and chemotherapy, currently undergoing immunotherapy Following up with cancer care Surveillance CAT scans have been ordered by them --History of bladder cancer Diagnosed 2015 Plan: Follow-up nasal MRSA, if negative can discontinue vancomycin I do not think patient has abscess but he does seem to have an infection/pneumonia around the bullous region in the right upper lobe paraseptal which would look like abscess if previous CAT scans are not compared I would recommend to continue with antibiotics along with atypical coverage Swallow eval to be done tomorrow. If the patient's clinical status does not improve within 24 hours then I would recommend to add Flagyl to the regimen. Nebulized bronchodilators while in the hospital For the unremitting cough, guaifenesin with codeine [id number] I spent more than 75 minutes looking in the chart, images, discussing the plan of care with the patient, RN as well as primary team Please note the above document was generated using voice recognition software. It may contain grammatical, syntax or spelling errors.Any formal questions or concerns about the content, text or information contained within the body of this dictation should be directly addressed to the provider for clarification. History of Present Illness Attending Physician: Bakari Hart DO History of Present Illness 84-year-old male admitted to the hospital for worsening shortness of breath Past medical history: Bladder cancer 2015, adenocarcinoma of the lung, diagnosed 04/17 Last seen by me in the clinic on 12/10/2024 At the time of examination, patient was saturating 95 to 96% on room air. Patient says that he has been having issues with coughing since the last 3 to 4 days It is so frequent that he is having significant muscular pain in the belly as well as around the chest. He went to [facility] where they did CT a chest and it was told that he has abscess on the right side. They were planning to transfer him but given that they had no transport available he drove himself to [facility] Denies any fever or chills Has been coughing up phlegm but has having difficulty bringing up. 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 No history of lung cancer in the family Allergies Allergy/AdvReac Type Severity Reaction Status Date / Time wheat Allergy Severe Sneezing Unverified 12/08/24 09:41 Penicillins Allergy Intermediate Hives Verified 12/08/24 09:41 Home Medications Medication Instructions Recorded Confirmed Type hydrocodone 5 mg-acetaminophen 325 1 - 2 tab PO BID PRN Pain 03/01/19 12/08/24 History mg tablet alprazolam 0.5 mg tablet 0.5 mg PO BID PRN Anxiety 06/14/20 12/08/24 History ascorbic acid (vitamin C) 500 mg 1,500 mg PO QPM 06/14/20 12/08/24 History tablet (Vitamin C) aspirin 81 mg tablet,delayed 81 mg PO DAILY 06/14/20 12/08/24 History release (Ramya Low Dose Aspirin) atorvastatin 20 mg tablet 20 mg PO QAM 05/28/21 12/08/24 History mecobalamin (vitamin B12) 1,000 1,000 mcg PO DAILY 06/21/24 12/08/24 History mcg chewable tablet albuterol sulfate 90 mcg/actuation 1 inh inhalation QID PRN Shortness 07/26/24 12/08/24 History aerosol inhaler Of Breath Or Wheezing famotidine 20 mg tablet 20 mg PO BID #60 tabs 07/29/24 12/08/24 Rx pantoprazole 40 mg tablet,delayed 40 mg PO BID #60 tabs 07/29/24 12/08/24 Rx release sucralfate 100 mg/mL oral 1 g (10 mL) PO QID #1,200 mL 07/29/24 12/08/24 Rx suspension methylprednisolone 4 mg tablets in 4 mg PO UD #21 ea 10/20/24 12/08/24 Rx a dose pack (Medrol (Darek)) budesonide 160 mcg-glycopyr 9 2 inh inhalation BID #10.7 grams 12/10/24 12/10/24 Rx mcg-formot 4.8 mcg/actuation HFA inhaler (Breztri Aerosphere) chlorpheniramine 4 1 tab PO BID PRN allergy symptoms 12/10/24 12/10/24 Rx mg-phenylephrine 10 mg tablet #30 tabs fluticasone propionate 50 1 spray intranasal DAILY #9.9 grams 12/10/24 12/10/24 Rx mcg/actuation nasal spray,suspension (Allergy Relief (fluticasone)) Patient History Medical History Dehydration Acute pain of left hip Complicated urinary tract infection Fall from standing Sepsis Encounter for pre-operative examination Osteoarthritis Hx MRSA infection "years ago" dx hospital in [place], in a wound and blood?; tx w/abx. History of kidney stones Hyperlipidemia Frequent UTI "not as bad as he used to" Surgical History History of carpal tunnel surgery of right wrist History of carpal tunnel surgery of left wrist History of lumbar surgery 1961 History of esophagogastroduodenoscopy (EGD) Hx of colonoscopy Hx of tonsillectomy Hx of cataract extraction rt/lt. Hx of prostatectomy done with total cystectomy History of total cystectomy Family History Brother Prostate cancer Hypertension Father Heart disease Cancer throat Other No family history of adverse response to anesthesia Social History Smoking Status: Former smoker Tobacco Type: Smokeless Tobacco (Dip or Chew) Age Started Using Tobacco: 17; Second Hand Exposure: No; Hx Alcohol Use: No Hx Substance Use: No Preferred Language: Mongolian Communication Ability: Effective Visual Impairment: Limited Hearing Ability: Hard of Hearing Neuroscience Specialist Required: No Beliefs That Will Affect Care: None marital status: Current Living Situation: Spouse Current Living Situation Comment: home with 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 Feels Safe at Home: Yes Diet: regular during the past year weight has: remained stable Assistive Devices: Cane and Walker Review of Systems 2 Review of Systems: All systems reviewed & are unremarkable except as noted in HPI & below Physical Exam 2 Physical Exam: Constitutional: No acute distress HEENT: EOMI, PERRLA Respiratory system: Decreased air entry bilaterally, no wheeze, no rhonchi, positive crackles bilateral lower lobe CVS: S1-S2 positive, no murmurs or gallops, accentuated P2 Abdomen: Soft, nontender, nondistended, positive bowel sounds x4 Extremities: +2 pulses bilaterally radialis, no cyanosis, no edema Neuro: Awake alert oriented x3 Psych: Normal mood and affect Skin: no rashes, warm and dry Lymphatic: no cervical or axillary lymphadenopathy Results & Data Results & Data Vital Signs (Past 12 Hours) Vital Signs Temp Pulse Pulse Resp BP Pulse Ox O2 Del Method 01/15/25 08:48 Nasal Cannula 01/15/25 07:19 36.8 C 91 H 22 118/71 96 Nasal Cannula 01/15/25 04:27 99 H 01/15/25 03:30 36.9 C 90 18 127/73 98 Room Air O2 Flow Rate 01/15/25 08:48 3 01/15/25 07:19 3 01/15/25 04:27 01/15/25 03:30 Laboratory Results 01/15/25 05:27 01/15/25 05:27 PG Care Time/CCT Total # of Minutes Spent Total Time Spent with Patient: Total time spent is greater than 50% in coordination of care (as documented) at patient's floor/unit and/or counseling patient: Coding Level of Care Code 36723 INT INP/OBS CARE 3/75MIN Diagnoses Multifocal pneumonia J18.8 COPD with emphysema J43.9 LAD (lymphadenopathy), mediastinal R59.0 Adenocarcinoma of lower lobe of right lung C34.31
--- NOTE | 2025-01-15 12:57 | Hospitalist Progress Note ---
Date of Service January 15, 2025 Assessment & Plan (1) Sepsis with acute organ dysfunction: (2) Postobstructive pneumonia: (3) Adenocarcinoma of lower lobe of right lung: (4) Acute hypoxic respiratory failure: (5) COPD with emphysema: (6) History of total cystectomy: (7) History of bladder cancer: Plan Patient transferred from [facility] for concerns of sepsis and significantly abnormal findings on chest CT done there, question if this is acute changes, infectious changes or changes due to lung cancer. Communication with pulmonary, reviewing imaging and making final recommendations Vital signs have been stable, okay MedSurg narrow antibiotics based on cultures and sensitivities Titrate oxygen as able, patient may need oxygen for home Antitussives and mucolytics Admission and Anticipated Discharge Date Admission Date: January 14, 2025 Subjective No acute issues overnight. Patient states he is not usually on oxygen at home. Has chronic cough, possibly little bit worse recently. Was visiting his at [facility] when he had some nausea and vomiting. This is what prompted the hospital staff to send him to ED. Physical Exam Physical Exam: Constitutional: Alert, nontoxic HEENT: Mucous membranes moist. Lungs: Decreased breath sounds, some rhonchi CV: S1-S2, regular Abdomen: Soft, nontender, nondistended, urostomy bag, ostomy viable Extremities: No significant edema Neuro: No focal deficits Psych: Cooperative, normal mood Results & Data Results & Data Vital Signs (Past 12 Hours) Vital Signs Temp Pulse Pulse Resp BP Pulse Ox O2 Del Method 01/15/25 11:39 36.4 C L 95 H 23 107/61 91 Nasal Cannula 01/15/25 08:48 Nasal Cannula 01/15/25 07:19 36.8 C 91 H 22 118/71 96 Nasal Cannula 01/15/25 04:27 99 H 01/15/25 03:30 36.9 C 90 18 127/73 98 Room Air O2 Flow Rate 01/15/25 11:39 3 01/15/25 08:48 3 01/15/25 07:19 3 01/15/25 04:27 01/15/25 03:30 Diagnostic Findings Reviewed imaging, laboratory and diagnostic studies. Pertinent findings as below. 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
--- NOTE | 2025-01-15 16:45 | Electrocardiogram Report ---
Test Reason : Blood Pressure : */* mmHG Vent. Rate : 100 BPM Atrial Rate : 100 BPM P-R Int : 170 ms QRS Dur : 124 ms QT Int : 376 ms P-R-T Axes : 45 65 47 degrees QTcB Int : 485 ms Normal sinus rhythm Right bundle branch block Abnormal ECG When compared with ECG of 26-Jul-2024 10:17, No significant change was found Confirmed by Matt Duncan ([id number] on 01/15/2025 4:45:26 PM Referred By: Confirmed By: Matt Duncan
[2025-01-15] MEDS: BUDESONIDE 0.25 MG/2 ML VIAL (PULMICORT) NEB SCH (19:36)
[2025-01-15] MEDS: FORMOTEROL 20 MCG/2 ML VIAL NEB SCH (19:36)
[2025-01-15] MEDS: ACETAMINOPHEN 325 MG TAB PO PRN (22:58)
[2025-01-16 11:00] LABS: Hematocrit (blood only) 33.7 % (42.0-52.0); Hemoglobin 10.3 g/dl (14.0-18.0); Immature Granulocytes # (auto) 0.15 K/uL (0.01-0.20); Immature Granulocytes % (auto) 1.8 %; Mean Corpuscular Hemoglobin 28.8 pg (25.0-34.0); Mean Corpuscular Volume 94.1 fL (80.0-100.0); Platelet Count 299 K/uL (130-400); RDW Standard Deviation 57.2 fL (36.4-46.3); Red Blood Count 3.58 M/uL (4.70-6.10); White Blood Count 8.12 K/ul (4.8-10.8)
[2025-01-16 11:16] LABS: Anion Gap 7.0 (3-11); Blood Urea Nitrogen 9.0 mg/dl (6-23); Calcium 9.1 mg/dl (8.6-10.3); Carbon Dioxide 29.0 mmol/L (21-32); Chloride 102.0 mmol/L (98-107); Creatinine Clr Calc Pharmacy 79.9 ml/min; Glucose 169.0 mg/dl (70-99(Fasting)); Potassium 3.8 mmol/L (3.5-5.1); Sodium 138.0 mmol/L (136-145)
--- NOTE | 2025-01-16 11:49 | Pulmonology Progress Note ---
Date of Service January 16, 2025 Assessment & Plan (1) Multifocal pneumonia: (2) COPD with emphysema: (3) LAD (lymphadenopathy), mediastinal: (4) Adenocarcinoma of lower lobe of right lung: Plan CT chest 01/14/2025 personally reviewed: Centrilobular and paraseptal emphysema appreciated bilaterally Right apical pleural scarring, right upper lobe 8 mm pulmonary nodule, stable Consolidative changes appreciated in the right upper lobe around the bullous area perifissural, I do not think this is abscess Right lower lobe and right hilar bandlike scarring likely postradiation changes Minimal right hilar lymphadenopathy --Acute hypoxic respiratory failure Likely secondary to multifocal pneumonia Respiratory BioFire negative for everything on 01/14/2025 Procalcitonin 0.21 Nasal MRSA negative --COPD with emphysema Gold E On BrezTri at home -- Abnormal chest CT Patient seems to have fibrotic changes in the right hilum in the right lower lobe Could be a remnant to radiation therapy that he got Continue to monitor CT chest 01/14/2025 personally reviewed: Centrilobular and paraseptal emphysema appreciated bilaterally Right apical pleural scarring, right upper lobe 8 mm pulmonary nodule, stable Consolidative changes appreciated in the right upper lobe around the bullous area perifissural, I do not think this is abscess Right lower lobe and right hilar bandlike scarring likely postradiation changes Minimal right hilar lymphadenopathy -- 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 Diagnosed 03/2024 MRI of the brain 04/17 negative for any metastatic disease S/p radiation and chemotherapy, currently undergoing immunotherapy Following up with cancer care Surveillance CAT scans have been ordered by them --History of bladder cancer Diagnosed 2015 Plan: I do not think patient has abscess but he does seem to have an infection/pneumonia around the bullous region in the right upper lobe paraseptal which would look like abscess if previous CAT scans are not compared Continue with antibiotics along with atypical coverage Speech eval to be done today, video swallow eval tomorrow If the patient's clinical status does not improve within 24 hours then I would recommend to add Flagyl to the regimen. Nebulized bronchodilators while in the hospital For the unremitting cough, guaifenesin with codeine [id number], can decrease the dose to 5 mL 3 times daily if the patient gets too drowsy Case was discussed with RN as well as primary team Please note the above document was generated using voice recognition software. It may contain grammatical, syntax or spelling errors.Any formal questions or concerns about the content, text or information contained within the body of this dictation should be directly addressed to the provider for clarification. Admission and Anticipated Discharge Date Admission Date: January 14, 2025 Subjective Patient seen and examined at bedside. No acute distress, no symptoms overnight He says that he is doing well when it comes to his coughing The cough suppressant medication seems to be working Denies any chest pain No headache, no nausea, no vomiting That appetite Has been afebrile Review of Systems 2 Review of Systems: All systems reviewed & are unremarkable except as noted in Subjective Physical Exam 2 Physical Exam: Constitutional: No acute distress HEENT: EOMI, PERRLA Respiratory system: Decreased air entry bilaterally, no wheeze, no rhonchi, positive crackles bilateral lower lobe CVS: S1-S2 positive, no murmurs or gallops, accentuated P2 Abdomen: Soft, nontender, nondistended, positive bowel sounds x4 Extremities: +2 pulses bilaterally radialis, no cyanosis, no edema Neuro: Awake alert oriented x3 Psych: Normal mood and affect Skin: no rashes, warm and dry Lymphatic: no cervical or axillary lymphadenopathy Results & Data Results & Data Vital Signs (Past 12 Hours) Vital Signs Temp Pulse Resp BP Pulse Ox O2 Del Method O2 Flow Rate 01/16/25 07:30 Room Air 01/16/25 07:17 36.6 C 89 16 98/61 L 92 Room Air 01/16/25 07:01 95 H 18 93 Room Air 01/16/25 00:23 37.1 C 104 H 16 115/70 96 Nasal Cannula 2 Laboratory Results 01/16/25 10:42 01/16/25 10:42 PG Care Time/CCT Total # of Minutes Spent Total Time Spent with Patient: Total time spent is greater than 50% in coordination of care (as documented) at patient's floor/unit and/or counseling patient: Coding Level of Care Code 67964 SUB INP/OBS CARE 2/35MIN Diagnoses Multifocal pneumonia J18.8 COPD with emphysema J43.9 LAD (lymphadenopathy), mediastinal R59.0 Adenocarcinoma of lower lobe of right lung C34.31
--- NOTE | 2025-01-16 16:52 | Hospitalist Progress Note ---
Date of Service January 16, 2025 Assessment & Plan (1) Sepsis with acute organ dysfunction: (2) Postobstructive pneumonia: (3) Adenocarcinoma of lower lobe of right lung: (4) Acute hypoxic respiratory failure: (5) COPD with emphysema: (6) History of total cystectomy: (7) History of bladder cancer: Plan Patient transferred from [facility] for concerns of sepsis and significantly abnormal findings on chest CT done there, question if this is acute changes, infectious changes or changes due to lung cancer. Communication with pulmonary, reviewing imaging and making final recommendations Vital signs have been stable, okay MedSurg narrow antibiotics based on cultures and sensitivities Titrate oxygen as able, patient may need oxygen for home Antitussives and mucolytics Mr. 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 Apparently patient was visiting his significant other at [facility] today. He became weak and was taken to [facility] emergency room. And he was diagnosed with sepsis. [facility] planned for transfer to our facility but as could not get a bed patient came over by private vehicle to the ER. Patient seems received vancomycin prior to arrival. Patient and family in the room. Patient is alert and oriented. Able to give history. Having dry cough for 1 week. Denies any shortness of breath or chest pain. No headache. No runny nose or sore throat. Appetite is okay. No difficulty swallowing. No abdominal pain. Normal bowel and bladder movements. His blood pressure was low at [facility] as per the family. He was feeling dizzy. Currently hemodynamics are okay. As per family patient was told that CAT scan done at [facility] showed lung abscess. We are still waiting for the CAT scan results from [facility]. As per family except for his immunotherapy patient is currently not taking any other medications. #Sepsis #Multifocal pneumonia #Adenocarcinoma of RLL Respiratory BioFire negative UA is positive Chest x-ray nonspecific right perihilar and infrahilar subsegmental atelectasis/scaring or consolidation. CT with interval radiation changes with resolution of right hilar and rll masses low suspicion for abscess at this time continue cefepime and doxy d/c vanco iso mrsa neg VFSS tomorrow Pulm following, appreciate recommendations continue around the clock guaifenesin and codeine #acute hypoxic resp failure, multifactoria #COPD with emphysema #abnormal CT chest wean o2 as able continue bronchodilators as able 2 step likely on dispo with pulm follow up #Status post chemoradiation #Immunocompromised Currently on chemotherapy due for treatment on 01/19, likely will need to reschedule iso infection #History of bladder cancer Status post cystectomy and prostatectomy Has cystectomy bag DVT prophylaxis Lovenox Disposition Telemetry CODE STATUS full code Admission and Anticipated Discharge Date Admission Date: January 14, 2025 Subjective NAEO reports feeling much improved overall this am reports eagerness to return home Denies any chest pain, endorses some cough but noted suppressant is helping alot Physical Exam Constitutional: WD/WN, vitals as above Respiratory: crackles noted bilaterally Cardiovascular: RRR, no murmur, no edema Results & Data Results & Data Vital Signs (Past 12 Hours) Vital Signs Temp Pulse Resp BP Pulse Ox O2 Del Method 01/16/25 15:15 36.8 C 94 H 16 96/61 L 92 Room Air 01/16/25 07:30 Room Air 01/16/25 07:17 36.6 C 89 16 98/61 L 92 Room Air 01/16/25 07:01 95 H 18 93 Room Air Laboratory Results Home Medications Medication Instructions Recorded Confirmed Last Taken hydrocodone 5 mg-acetaminophen 325 1 - 2 tab PO BID PRN Pain 03/01/19 12/08/24 06/13/20 mg tablet alprazolam 0.5 mg tablet 0.5 mg PO BID PRN Anxiety 06/14/20 12/08/24 06/13/20 ascorbic acid (vitamin C) 500 mg 1,500 mg PO QPM 06/14/20 12/08/24 12/09/22 tablet (Vitamin C) aspirin 81 mg tablet,delayed 81 mg PO DAILY 06/14/20 12/08/24 05/26/21 release (Ramya Low Dose Aspirin) atorvastatin 20 mg tablet 20 mg PO QAM 05/28/21 12/08/24 12/09/22 mecobalamin (vitamin B12) 1,000 1,000 mcg PO DAILY 06/21/24 12/08/24 Unknown mcg chewable tablet albuterol sulfate 90 mcg/actuation 1 inh inhalation QID PRN Shortness 07/26/24 12/08/24 Unknown aerosol inhaler Of Breath Or Wheezing famotidine 20 mg tablet 20 mg PO BID #60 tabs 07/29/24 12/08/24 Unknown pantoprazole 40 mg tablet,delayed 40 mg PO BID #60 tabs 07/29/24 12/08/24 Unknown release sucralfate 100 mg/mL oral 1 g (10 mL) PO QID #1,200 mL 07/29/24 12/08/24 Unknown suspension methylprednisolone 4 mg tablets in 4 mg PO UD #21 ea 10/20/24 12/08/24 Unknown a dose pack (Medrol (Darek)) budesonide 160 mcg-glycopyr 9 2 inh inhalation BID #10.7 grams 12/10/24 12/10/24 Unknown mcg-formot 4.8 mcg/actuation HFA inhaler (Breztri Aerosphere) chlorpheniramine 4 1 tab PO BID PRN allergy symptoms 12/10/24 12/10/24 Unknown mg-phenylephrine 10 mg tablet #30 tabs fluticasone propionate 50 1 spray intranasal DAILY #9.9 grams 12/10/24 12/10/24 Unknown mcg/actuation nasal spray,suspension (Allergy Relief (fluticasone)) Active Medications Generic Name Dose Route Start Last Admin Trade Name Freq PRN Reason Stop Dose Admin Acetaminophen 650 mg 01/14/25 22:43 01/15/25 22:58 Acetaminophen 325 Mg Tab PO 02/13/25 22:42 650 mg Q4H PRN Administration Pain or Fever Budesonide 0.25 mg 01/15/25 19:00 01/16/25 06:59 Budesonide 0.25 Mg/2 Ml Vial (Pulmicort) [facility] 02/14/25 18:59 0.25 mg BIDR JOSE ALBERTO Administration Enoxaparin Sodium 40 mg 01/14/25 22:43 01/15/25 20:28 Enoxaparin Inj 40 Mg/0.4 Ml Syr SQ 02/13/25 22:42 40 mg PM JOSE ALBERTO Administration Formoterol Fumarate 20 mcg 01/15/25 19:00 01/16/25 06:59 Formoterol 20 Mcg/2 Ml Vial NEB 02/14/25 18:59 20 mcg BIDR JOSE ALBERTO Administration Guaifenesin/Codeine Phosphate 10 ml 01/15/25 14:00 01/16/25 13:51 Guaifenesin/Codeine 100mg/10mg 5ml Udc PO 02/14/25 13:59 10 ml Q8 JOSE ALBERTO Administration Cefepime HCl 2,000 mg in 20 mls @ 5 mls/min 01/15/25 08:00 01/16/25 15:39 Maxipime 2000mg IV 01/20/25 07:59 5 mls/min Q8H JOSE ALBERTO Administration Protocol Doxycycline Hyclate 100 mg/ 100 mls @ 50 mls/hr 01/14/25 23:00 01/16/25 13:57 Dextrose IV 01/19/25 22:59 Infused Q12H JOSE ALBERTO Infusion Pantoprazole Sodium 40 mg 01/15/25 21:00 01/16/25 07:50 Pantoprazole 40 Mg Tab PO 02/14/25 20:59 40 mg BID JOSE ALBERTO Administration
[2025-01-16] MEDS: FLUTICASONE PROPIONATE NA SPR 16 GM BTL SCH (20:52)
[2025-01-17 06:37] LABS: Hematocrit (blood only) 31.7 % (42.0-52.0); Hemoglobin 9.9 g/dl (14.0-18.0); Mean Corpuscular Hemoglobin 28.5 pg (25.0-34.0); Mean Corpuscular Volume 91.4 fL (80.0-100.0); Platelet Count 263 K/uL (130-400); RDW Standard Deviation 55.2 fL (36.4-46.3); Red Blood Count 3.47 M/uL (4.70-6.10); White Blood Count 6.40 K/ul (4.8-10.8)
[2025-01-17 06:59] LABS: Anion Gap 9.0 (3-11); Blood Urea Nitrogen 9.0 mg/dl (6-23); Calcium 9.1 mg/dl (8.6-10.3); Carbon Dioxide 26.0 mmol/L (21-32); Chloride 100.0 mmol/L (98-107); Creatinine Clr Calc Pharmacy 89.9 ml/min; Glucose 125.0 mg/dl (70-99(Fasting)); Magnesium 1.8 mg/dl (1.7-2.4); Potassium 3.6 mmol/L (3.5-5.1); Sodium 135.0 mmol/L (136-145)
--- NOTE | 2025-01-17 13:21 | Fluoroscopy Report ---
FL video swallow CLINICAL HISTORY: R/o aspiration. TECHNIQUE: Video fluoroscopic evaluation of swallowing was performed in the AP and lateral projection s by the speech pathology staff. The patient is fed nectar-thick and thin liquid barium, a barium coa nelsy wafer, and barium pudding. FLUOROSCOPY TIME: 1 minute 10 seconds. COMPARISON: None FINDINGS: There was mild penetration with thin liquid. No aspiration seen. There is reduced esophagea l motility. IMPRESSION: No aspiration seen. ACT 112: Negative or not required by law. Electronically signed by: Kamron Watson M.D. 01/17/2025 1:20 PM
--- NOTE | 2025-01-17 15:56 | Hospitalist Progress Note ---
Date of Service January 17, 2025 Assessment & Plan (1) Sepsis with acute organ dysfunction: (2) Postobstructive pneumonia: (3) Adenocarcinoma of lower lobe of right lung: (4) Acute hypoxic respiratory failure: (5) COPD with emphysema: (6) History of total cystectomy: (7) History of bladder cancer: Plan Mr. 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 Patient with history of orthostasis and multiple falls at home. Noted to be orthostatic prior to potential discharge. Patient reports chronic orthostatic like symptoms prior to this event #Orthostatic hypotension TSH wnl 11/2024 Ordered am cortisol though suspect less likely given electrolyte stability Start 2.5mg midrodrine tid nelsy stockings IVF for now #Sepsis #Multifocal pneumonia #Adenocarcinoma of RLL Respiratory BioFire negative UA is positive Chest x-ray nonspecific right perihilar and infrahilar subsegmental atel ectasis/scaring or consolidation. CT with interval radiation changes with resolution of right hilar and rll masses low suspicion for abscess at this time continue cefepime and doxy d/c vanco iso mrsa neg VFSS tomorrow Pulm following, appreciate recommendations continue around the clock guaifenesin and codeine #acute hypoxic resp failure, multifactoria #COPD with emphysema #abnormal CT chest wean o2 as able continue bronchodilators as able 2 step likely on dispo with pulm follow up #Status post chemoradiation #Immunocompromised Currently on chemotherapy due for treatment on 01/19, likely will need to reschedule iso infection #History of bladder cancer Status post cystectomy and prostatectomy Has cystectomy bag DVT prophylaxis Lovenox Disposition Telemetry CODE STATUS full code Admission and Anticipated Discharge Date Admission Date: January 14, 2025 Subjective NAEO initially planned to d/c home, however reportedly symptomatic with his orthostasis Patient noted positional dizziness Physical Exam Constitutional: WD/WN, vitals as above Respiratory: no distress, diminished bibasilar breath sounds Cardiovascular: RRR, no murmur, no edema Gastrointestinal (Abdomen): normal bowel sounds, soft, nontender, no hepatosplenomegaly Results & Data Results & Data Vital Signs (Past 12 Hours) Vital Signs Temp Pulse Pulse Pulse Resp Resp Resp 01/17/25 15:23 01/17/25 15:23 36.3 C L 106 H 17 01/17/25 09:52 110 H 95 H 24 16 01/17/25 07:45 01/17/25 07:08 95 H 20 BP BP Pulse Ox Pulse Ox Pulse Ox O2 Del Method 01/17/25 15:23 100/58 L 01/17/25 15:23 80/49 L 95 Room Air 01/17/25 09:52 91 95 01/17/25 07:45 Room Air 01/17/25 07:08 92 Room Air
[2025-01-17] MEDS: MIDODRINE HCL 2.5 MG TAB PO SCH (16:29)
[2025-01-17] MEDS: SODIUM CHLORIDE 0.9% 1,000 ML IV SCH (16:30)
[2025-01-17] MEDS: POT PHOSPHATE MONOBASIC W/ SOD TAB PO SCH (16:31)
[2025-01-17] MEDS: CEFDINIR 300 MG CAP PO SCH (17:12)
[2025-01-17] MEDS: ADVANCED PROBIOTIC 625 MG CAPSULE PO SCH (17:12)
[2025-01-17] MEDS: DOXYCYCLINE HYCLATE 100 MG CAP PO SCH (22:14)
[2025-01-18 07:23] VITALS: O2SAT 94
[2025-01-18 08:37] LABS: Hematocrit (blood only) 32.5 % (42.0-52.0); Hemoglobin 10.2 g/dl (14.0-18.0); Mean Corpuscular Hemoglobin 28.7 pg (25.0-34.0); Mean Corpuscular Volume 91.5 fL (80.0-100.0); Platelet Count 312 K/uL (130-400); RDW Standard Deviation 55.5 fL (36.4-46.3); Red Blood Count 3.55 M/uL (4.70-6.10); White Blood Count 7.93 K/ul (4.8-10.8)
[2025-01-18 08:58] LABS: Anion Gap 8.0 (3-11); Blood Urea Nitrogen 9.0 mg/dl (6-23); Calcium 8.9 mg/dl (8.6-10.3); Carbon Dioxide 28.0 mmol/L (21-32); Chloride 102.0 mmol/L (98-107); Creatinine Clr Calc Pharmacy 83.4 ml/min; Glucose 149.0 mg/dl (70-99(Fasting)); Potassium 3.7 mmol/L (3.5-5.1); Sodium 138.0 mmol/L (136-145)
[2025-01-18 15:00] VITALS: BP 118/67; PULSE 96; RESP 16; TEMP 97.7
--- NOTE | 2025-01-18 17:03 | Discharge Summary ---
Discharge Summary Date of Service January 18, 2025 Principal Dx & Hospital Course #1 = Principal Diagnosis (1) Sepsis with acute organ dysfunction: (2) Postobstructive pneumonia: (3) Adenocarcinoma of lower lobe of right lung: (4) Acute hypoxic respiratory failure: (5) COPD with emphysema: (6) History of total cystectomy: (7) History of bladder cancer: Plan Mr. 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 There was initial concern for pulmonary abscess however upon review from Pulmonology this was less likely the case. Patient improved with IV antibiotics. Patient with history of orthostasis and multiple falls at home. Noted to be orthostatic prior to potential discharge on 01/17. Patient reports chronic orthostatic like symptoms prior to this event. Patient started on midodrine with notable improvement in orthostatic symptoms. Long discussion had with family (daughter Lidya and ) about patient's safety at home. Patient recommended to establish a career development manager as an outpatient. On day of discharge, patient was eating well, denying any dizziness like symptoms, and independent overall. Patient verbalized understanding to use assistive devices at home and explore other safety options, as well as consider assisted living type situations. #Orthostatic hypotension TSH wnl 11/2024 Ordered am cortisol though suspect less likely given electrolyte stability continue 2.5mg midrodrine tid continue nelsy stockings #Sepsis resolved #Multifocal pneumonia #Adenocarcinoma of RLL Respiratory BioFire negative UA is positive Chest x-ray nonspecific right perihilar and infrahilar subsegmental atelectasis/scaring or consolidation. CT with interval radiation changes with resolution of right hilar and rll masses low suspicion for abscess at this time continue cefepime and doxy d/c vanco iso mrsa neg continue guafensisin/codeine continue cefdinir and doxy for 6 more days for total 10 days therapy #acute hypoxic resp failure, multifactorial resolved #COPD with emphysema #abnormal CT chest wean o2 as able continue bronchodilators as able 2 step without need for o2 #Status post chemoradiation #Immunocompromised Currently on chemotherapy due for treatment on 01/19, likely will need to reschedule iso infection #History of bladder cancer Status post cystectomy and prostatectomy Has cystectomy bag Notes For Next Care Provider Recommend referral for financial accounting manager Medication Changes From Visit cefdinir 300mg bid x 6 more days doxycycline 100mg bid x 6 more days midodrine TID Admission HPI Per Admitting Provider 84-year-old male with past medical history significant for adenocarcinoma right lower lobe, bladder cancer status post surgery, 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 Apparently patient was visiting his significant other at [facility] today. He became weak and was taken to [facility] emergency room. And he was diagnosed with sepsis. [facility] planned for transfer to our facility but as could not get a bed patient came over by private vehicle to the ER. Patient seems received vancomycin prior to arrival. Patient and family in the room. Patient is alert and oriented. Able to give history. Having dry cough for 1 week. Denies any shortness of breath or chest pain. No headache. No runny nose or sore throat. Appetite is okay. No difficulty swallowing. No abdominal pain. Normal bowel and bladder movements. His blood pressure was low at [facility] as per the family. He was feeling dizzy. Currently hemodynamics are okay. As per family patient was told that CAT scan done at [facility] showed lung abscess. We are still waiting for the CAT scan results from [facility]. As per family except for his immunotherapy patient is currently not taking any other medications. Past medical history. As mentioned above. Past surgical history. Back surgery. Bilateral carpal tunnel surgery. Surgeries for bladder cancer with prostatectomy and total cystectomy. History of tonsillectomy. Cataract extraction. Left CEA Social history. Former smoking. Quit smoking 20 years ago. No alcohol use. No drug use. Family history. Per records father heart disease. Throat cancer. Brother had prostate cancer. Hypertension. Admission Exam Per Admitting Provider General-Not in distress Head- atraumatic Eyes- PERRL. ENT- oropharynx clear Neck- supple, no JVD. Lungs- clear to auscultation no wheezing or crackles Heart- regular rate and rhythm; no murmur, no gallop. Abdomen- normal bowel sounds, soft, nontender, no distension.Cystectomy bag seen Extremities- no pretibial edema, no erythema seen Neuro- alert, oriented PERRL, no facial palsy; no dysarthria; moves extremities Discharge Exam Constitutional WD/WN, vitals as above Respiratory diminshed bibasilar breath sounds Cardiovascular RRR, no murmur, no edema Gastrointestinal (Abdomen) normal bowel sounds, soft, nontender, no hepatosplenomegaly Neurologic PERRL, EOMI, accommodation nl, no face palsy, no dysarthria Updated Medication List Medication Instructions Recorded Confirmed Type hydrocodone 5 mg-acetaminophen 325 1 - 2 tab PO BID PRN Pain 03/01/19 12/08/24 History mg tablet alprazolam 0.5 mg tablet 0.5 mg PO BID PRN Anxiety 06/14/20 12/08/24 History ascorbic acid (vitamin C) 500 mg 1,500 mg PO QPM 06/14/20 12/08/24 History tablet (Vitamin C) aspirin 81 mg tablet,delayed 81 mg PO DAILY 06/14/20 12/08/24 History release (Ramya Low Dose Aspirin) atorvastatin 20 mg tablet 20 mg PO QAM 05/28/21 12/08/24 History mecobalamin (vitamin B12) 1,000 1,000 mcg PO DAILY 06/21/24 12/08/24 History mcg chewable tablet albuterol sulfate 90 mcg/actuation 1 inh inhalation QID PRN Shortness 07/26/24 12/08/24 History aerosol inhaler Of Breath Or Wheezing famotidine 20 mg tablet 20 mg PO BID #60 tabs 07/29/24 12/08/24 Rx pantoprazole 40 mg tablet,delayed 40 mg PO BID #60 tabs 07/29/24 12/08/24 Rx release sucralfate 100 mg/mL oral 1 g (10 mL) PO QID #1,200 mL 07/29/24 12/08/24 Rx suspension budesonide 160 mcg-glycopyr 9 2 inh inhalation BID #10.7 grams 12/10/24 12/10/24 Rx mcg-formot 4.8 mcg/actuation HFA inhaler (Breztri Aerosphere) chlorpheniramine 4 1 tab PO BID PRN allergy symptoms 12/10/24 12/10/24 Rx mg-phenylephrine 10 mg tablet #30 tabs fluticasone propionate 50 1 spray intranasal DAILY #9.9 grams 12/10/24 12/10/24 Rx mcg/actuation nasal spray,suspension (Allergy Relief (fluticasone)) L.acidop,casei,lactis,rham-B.lact,claude 1 cap PO DAILY 30 days #30 caps 01/18/25 Rx 625 mg (10 billion cell) capsule (Advanced Probiotic) cefdinir 300 mg capsule 300 mg PO BID 6 days #12 caps 01/18/25 Rx codeine 10 mg-guaifenesin 100 mg/5 10 ml PO Q8 14 days #420 mL 01/18/25 Rx mL oral liquid (Guaifenesin AC) doxycycline hyclate 100 mg capsule 100 mg PO BID 6 days #12 caps 01/18/25 Rx midodrine 2.5 mg tablet 2.5 mg PO TID@0800,1200,1700 30 01/18/25 Rx days #90 tabs Hospital Stay Data Consultations 01/14/25 19:33 ED Decision to Admit Stat 01/15/25 08:00 Consult Pulmonology Routine Diagnostic Imagining Performed 01/17/25 10:30 FL Swallow [FL video swallow] Routine Pending Results Patient Have Any Pending Studies at Discharge: No Discharge Instructions Given to Patient (Per Discharging Provider) You were admitted and treated for a multilobar pneumonia You still have 6 days of antibitoics You next dose is this evening -Cefdinir 300mg two times a day until all tablets are gone -Doxycycline 100mg two times a day until all tablets are gone You were noted to have orthostatic hypotension (low pressures with changes in position) -Please take midrodrine 2.5mg three times a day at 8am, 1pm, and 5pm -Please do not lay flat during the day while taking this medicine. You will be called to coordinate another PCP appointment in the coming days and we will work to get you a career development manager as an outpatient Total Time Total Time Spent Total Time Spent (In Minutes): 45
== END 2025-01-18 17:37 | disposition home health service (06) | DRG 871 ==
LOC: ED 17:45 → 2E 20:10 → SUATTDRO 20:10 → 2E 22:14 → 3N 01-15 16:32

== ENCOUNTER 2025-01-31 09:42 | Inpatient (IN) ==
--- NOTE | 2025-01-31 10:22 | Emergency Department Note ---
Impression & Plan Pneumonia, Hypoxia, Lung cancer ED Provider Note NAME: OSWALDO VOSS AGE: 84 SEX: M : 1940 ARRIVES VIA: Walk-In INFORMANT: Patient, ED PROVIDER(S): German Matthews DO CHIEF COMPLAINT: Tachycardia HPI: The patient is an 84-year-old male who was recently discharged more facility for pneumonia. The patient has a history of lung cancer. He was not feeling well especially over the last 2 evenings. He is been having trouble with shortness of breath with exertion as well as palpitations. He is also noticed chest pain. He was sent to the emergency department by his family doctor after being seen today and noted to be tachycardic. The patient denies having any hemoptysis. He has had fever but no lower extremity swelling. The patient was sent to the emergency department for CT of the chest. ROS: See above HPI for pertinent positives & negatives. A total of 10 systems reviewed and were otherwise negative. PAST MEDICAL HISTORY: See Below PAST SURGICAL HISTORY: See Below FAMILY HISTORY: See Below SOCIAL HISTORY: See Below HOME MEDICATIONS: See Below ALLERGIES: See Below VITALS: See Below PHYSICAL EXAMINATION: GENERAL: Patient is awake alert in no acute distress patient is resting comfortably and showing no signs of anxiety EYES: The conjunctivae are clear. The pupils are round and reactive. EARS, NOSE, MOUTH AND THROAT: The nose is without any evidence of any deformity. NECK: The neck is nontender and supple. RESPIRATORY: Diminished breath sounds with rales are noted in the right lung field. There is no tachypnea or conversational dyspnea. CARDIOVASCULAR: Tachycardic but regular heart sounds were noted to auscultation. There is no definite murmur. GASTROINTESTINAL: The abdomen is soft. Abdomen is nontender. MUSCULOSKELETAL/EXTREMITIES: There is no evidence of gross deformity full range of motion is noted in the hips and shoulders. SKIN: There is no obvious evidence of any rash. There are no petechiae, pallor or cyanosis noted. NEUROLOGIC: Patient is awake alert and oriented x3 MEDICAL DECISION MAKING: The patient is an 84-year-old male who presented to the emergency department for an evaluation of difficulty breathing. The patient was recently in our facility for pneumonia. He was discharged to home and was doing well at home until the last couple days. He had a follow-up appoint with his family doctor today where he was found to have tachycardia and difficulty breathing. He was also hypoxic. He was sent to the emergency department for concerns of pulmonary embolism. I discussed the patient's laboratory and radiographic studies with him. He was treated with IV fluids and IV antibiotics emergency department. CT scan was obtained and revealed a large infiltrate with the possibility of a necrotic mass versus a lung abscess. For this reason I discussed his condition with the on- call [facility]. They have agreed to evaluate the patient in the emergency department for further management and disposition. Triage Nursing notes reviewed. Prior medical records reviewed Vital Signs: reviewed and remarkable for tachycardia and hypoxia. Differential diagnosis: Cardiac ischemia, aortic dissection, pulmonary embolism, pneumothorax, pneumonia, pericarditis, myocarditis, esophageal rupture, GERD, cholecystitis, pancreatitis, musculoskeletal, as well as other pathologies. ER treatment provided: See below Diagnostics interpreted by me: ECG: EKG was obtained in the emergency department. My interpretation is sinus tachycardia at 126 bpm. Right bundle branch block pattern was noted. There were no PVCs noted. This was compared to a tracing from January 14, 2025. No changes were noted. Cardiac Monitoring: An order was placed for continuous cardiac monitoring. The monitor shows a rate of 105 bpm with sinus tachycardia. Laboratory studies: As stated above and show below. Imaging studies: See below. Radiographic imaging was reviewed by myself Consultation(s): I discussed this case with Dr. Harrington who is on-call for the [facility] group. ED COURSE: Procedures: none Critical Care: I have personally spent greater than 45 minutes of critical care time in the direct management of this patient. This includes bedside care, interpretation of diagnostic studies, and testing, discussion with consultants, patient, and family members, and other required patient management activities. This 45 minutes is in excess of all separately billable procedures. 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) Abnormal CT of the abdomen B12 deficiency Lumbar spine pain Presence of urostomy LAD (lymphadenopathy), mediastinal Lung mass (Acute) Elevated troponin (Acute) Weakness (Acute) Hypoxic respiratory failure (Acute) Recurrent falls RLL pneumonia Lung cancer (Acute) Elevated troponin Generalized weakness Hypoxia S/P carpal tunnel release Carpal tunnel syndrome, right Pre-op testing Bilateral carpal tunnel syndrome Bilateral kidney stones Complication of urostomy resolved History of primary bladder cancer ~9 years Arthritis Medical History Multifocal pneumonia Postobstructive pneumonia Sepsis with acute organ dysfunction Anemia Pneumonia Lung mass Sepsis Sepsis COPD with emphysema History of bladder cancer 2016--bladder sx/chemo Dehydration Acute pain of left hip Complicated urinary tract infection Fall from standing Sepsis Encounter for pre-operative examination Osteoarthritis Hx MRSA infection "years ago" dx hospital in [place], in a wound and blood?; tx w/abx. History of kidney stones Hyperlipidemia Frequent UTI "not as bad as he used to" Surgical History History of carpal tunnel surgery of right wrist History of carpal tunnel surgery of left wrist History of lumbar surgery 1961 History of esophagogastroduodenoscopy (EGD) Hx of colonoscopy Hx of tonsillectomy Hx of cataract extraction rt/lt. Hx of prostatectomy done with total cystectomy History of total cystectomy Family History Brother Prostate cancer Hypertension Father Heart disease Cancer throat Other No family history of adverse response to anesthesia Denies family history of Ovarian cancer Myocardial infarction Breast cancer Colorectal cancer Social History Smoking Status: Current every day smoker Tobacco Type: Cigarettes Age Started Using Tobacco: 17; Second Hand Exposure: No; Hx Alcohol Use: No Hx Substance Use: No Preferred Language: Persian Communication Ability: Effective Visual Impairment: Limited Hearing Ability: Hard of Hearing Carbide Grinder Required: No Beliefs That Will Affect Care: None marital status: Current Living Situation: Spouse Current Living Situation Comment: home with 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 Feels Safe at Home: Yes Diet: regular during the past year weight has: remained stable Assistive Devices: Cane and Walker Allergies Allergies Allergy/AdvReac Type Severity Reaction Status Date / Time wheat Allergy Severe Sneezing Unverified 01/21/25 11:16 Penicillins Allergy Intermediate Hives Verified 01/21/25 11:16 Home Meds Home Medications Medication Instructions Recorded Confirmed alprazolam 0.5 mg tablet 0.5 mg PO BID PRN Anxiety 06/14/20 01/31/25 ascorbic acid (vitamin C) 500 mg 1,500 mg PO QPM 06/14/20 01/31/25 tablet (Vitamin C) aspirin 81 mg tablet,delayed 81 mg PO DAILY 06/14/20 01/31/25 release (Ramya Low Dose Aspirin) atorvastatin 20 mg tablet 20 mg PO QAM 05/28/21 01/31/25 mecobalamin (vitamin B12) 1,000 1,000 mcg PO DAILY 06/21/24 01/31/25 mcg chewable tablet albuterol sulfate 90 mcg/actuation 1 inh inhalation QID PRN Shortness 07/26/24 01/31/25 aerosol inhaler Of Breath Or Wheezing Previous Rx's Medication Instructions Recorded famotidine 20 mg tablet 20 mg PO BID #60 tabs 07/29/24 pantoprazole 40 mg tablet,delayed 40 mg PO BID #60 tabs 07/29/24 release sucralfate 100 mg/mL oral 1 g (10 mL) PO QID #1,200 mL 07/29/24 suspension chlorpheniramine 4 1 tab PO BID PRN allergy symptoms 12/10/24 mg-phenylephrine 10 mg tablet #30 tabs fluticasone propionate 50 1 spray intranasal DAILY #9.9 grams 12/10/24 mcg/actuation nasal spray,suspension (Allergy Relief (fluticasone)) L.acidop,casei,lactis,rham-B.lact,claude 1 cap PO DAILY 30 days #30 caps 01/18/25 625 mg (10 billion cell) capsule (Advanced Probiotic) midodrine 2.5 mg tablet 2.5 mg PO TID@0800,1200,1700 30 01/18/25 days #90 tabs Lift Chair #1 ea 01/21/25 hydrocodone 5 mg-acetaminophen 325 1 - 2 tab PO BID PRN Pain #120 tabs 01/21/25 mg tablet budesonide 160 mcg-glycopyr 9 2 inh inhalation BID #10.7 grams 01/31/25 mcg-formot 4.8 mcg/actuation HFA inhaler (Breztri Aerosphere) codeine 10 mg-guaifenesin 100 mg/5 10 ml PO Q8 PRN cough #473 mL 01/31/25 mL oral liquid (Guaifenesin AC) Results & Data (ED) Vital Signs Vital Signs - 24 hr 01/31/25 09:52 01/31/25 10:09 01/31/25 10:17 Temperature 36.7 C Temperature Source Temporal Artery Scan Pulse Rate 127 H 123 H Pulse Rate [Apical] Respiratory Rate 24 Blood Pressure 109/66 Blood Pressure [Left Arm] Blood Pressure Mean 80 Blood Pressure Mean [Left Arm] Pulse Oximetry 97 97 Oxygen Delivery Method Room Air Room Air Oxygen Flow Rate Sepsis Recent Fever Within 48 Hours No Sepsis New/Unexplained Change in Mental Status No Sepsis Action Taken by Nursing No Action Required Oxygen Flow Rate - Titration Pulse Oximetry Post Tiitration 01/31/25 10:34 01/31/25 11:00 01/31/25 11:15 Temperature Temperature Source Pulse Rate 119 H 117 H Pulse Rate [Apical] Respiratory Rate 22 Blood Pressure 127/72 124/71 Blood Pressure [Left Arm] Blood Pressure Mean 110 87 Blood Pressure Mean [Left Arm] Pulse Oximetry 92 93 85 L Oxygen Delivery Method Room Air Room Air Nasal Cannula Oxygen Flow Rate 0 Sepsis Recent Fever Within 48 Hours Sepsis New/Unexplained Change in Mental Status Sepsis Action Taken by Nursing Oxygen Flow Rate - Titration 1 Pulse Oximetry Post Tiitration 99 01/31/25 11:30 01/31/25 13:00 Temperature Temperature Source Pulse Rate 112 H Pulse Rate [Apical] 110 H Respiratory Rate 24 Blood Pressure 134/94 Blood Pressure [Left Arm] 105/72 Blood Pressure Mean 106 Blood Pressure Mean [Left Arm] 83 Pulse Oximetry 99 99 Oxygen Delivery Method Nasal Cannula Nasal Cannula Oxygen Flow Rate 1 1 Sepsis Recent Fever Within 48 Hours Sepsis New/Unexplained Change in Mental Status Sepsis Action Taken by Nursing Oxygen Flow Rate - Titration Pulse Oximetry Post Tiitration Home Medications Current Medication List: was personally reviewed by me Laboratory Data Attestation: I reviewed the patient's lab results. 01/31/25 10:48 01/31/25 10:48 Lab Results 01/31/25 01/31/25 01/31/25 Range/Units 10:48 10:50 11:00 WBC 15.13 H (4.8-10.8) K/ul RBC 4.05 L (4.70-6.10) M/uL Hgb 11.4 L (14.0-18.0) g/dl POC Hgb 12.9 L (14.0-18.0) g/dl Hct 37.1 L (42.0-52.0) % POC Hct 38 L (42-52) % MCV 91.6 (80.0-100.0) fL MCH 28.1 (25.0-34.0) pg MCHC 30.7 L (32.0-36.0) g/dL RDW Std Deviation 55.6 H (36.4-46.3) fL RDW Coeff of Kwame 16.5 H (11.5-14.5) % Plt Count 394 (130-400) K/uL MPV 9.7 (9.4-12.4) fL Immature Gran % (Auto) 2.2 % Neut % (Auto) 82.8 % Lymph % (Auto) 2.8 % Hudspeth % (Auto) 10.1 % Eos % (Auto) 1.6 % Baso % (Auto) 0.5 % Neut # (Auto) 12.53 H (1.40-6.50) K/uL Lymph # (Auto) 0.43 L (1.20-3.40) K/uL Hudspeth # (Auto) 1.53 H (0.11-0.59) K/uL Eos # (Auto) 0.24 (0.00-0.50) K/uL Baso # (Auto) 0.07 (0.00-0.20) K/uL Immature Gran # (Auto) 0.33 H (0.01-0.20) K/uL Absolute Nucleated RBC 0.02 (0.00-0.12) K/uL Nucleated RBC % (auto) 0.1 % PT Cancelled INR Cancelled APTT Cancelled PTT Ratio Cancelled VBG pH 7.39 (7.36-7.41) VBG pCO2 53 H (38-50) mmHg VBG pO2 < 20 mmHg VBG HCO3 32 mmol/L VBG O2 Saturation < 60.0 % VBG Base Excess 5.7 mEq/L POC Sodium 137 (135-144) mmol/L Sodium 137 (136-145) mmol/L POC Potassium 3.7 (3.3-5.0) mmol/L Potassium 3.7 (3.5-5.1) mmol/L POC Chloride 94 L (101-112) mmol/L Chloride 96 L (98-107) mmol/L Carbon Dioxide 31 (21-32) mmol/L POC Total CO2 31 (24-31) mmol/L Anion Gap 10 (3-11) POC Anion Gap 17.0 (16-25) mmol/L POC BUN 14 (7-18) mg/dl BUN 14 (6-23) mg/dl Creatinine 0.81 (0.6-1.4) mg/dl POC Creatinine 0.9 (0.6-1.3) mg/dl Est Cr Clr Drug Dosing 71.0 ml/min eGFR 86.40 BUN/Creatinine Ratio 17.3 (10-20) Glucose 168 H (70-99(Fasting)) mg/dl POC Glucose (other) 169 H (70-99) mg/dl Lactate (0.4-2.0) mmol/L Calcium 9.7 (8.6-10.3) mg/dl POC Ioniz Calcium Roxana 1.20 (1.12-1.32) mmol/l Magnesium 1.9 (1.7-2.4) mg/dl Total Bilirubin 0.9 (0.2-1.0) mg/dl AST 33 (13-39) U/L ALT 46 (7-52) U/L Alkaline Phosphatase 133 H (34-104) U/L C-Reactive Protein (0-0.5) mg/dl B-Natriuretic Peptide 102 H (0-100) pg/ml Total Protein 8.2 (6.0-8.3) gm/dl Albumin 3.2 L (3.4-5.0) gm/dl Globulin 5.0 H (2.5-4.0) gm/dl Albumin/Globulin Ratio 0.6 L (0.9-2) Procalcitonin (0-0.5) ng/ml SARS-CoV-2 (PCR) NEGATIVE (Negative) Influenza Type A (PCR) Negative (Neg) Influenza Type B (PCR) Negative (Neg) RSV (RT-PCR) Negative (Neg) 01/31/25 01/31/25 Range/Units 11:47 13:05 WBC (4.8-10.8) K/ul RBC (4.70-6.10) M/uL Hgb (14.0-18.0) g/dl POC Hgb (14.0-18.0) g/dl Hct (42.0-52.0) % POC Hct (42-52) % MCV (80.0-100.0) fL MCH (25.0-34.0) pg MCHC (32.0-36.0) g/dL RDW Std Deviation (36.4-46.3) fL RDW Coeff of Kwame (11.5-14.5) % Plt Count (130-400) K/uL MPV (9.4-12.4) fL Immature Gran % (Auto) % Neut % (Auto) % Lymph % (Auto) % Hudspeth % (Auto) % Eos % (Auto) % Baso % (Auto) % Neut # (Auto) (1.40-6.50) K/uL Lymph # (Auto) (1.20-3.40) K/uL Hudspeth # (Auto) (0.11-0.59) K/uL Eos # (Auto) (0.00-0.50) K/uL Baso # (Auto) (0.00-0.20) K/uL Immature Gran # (Auto) (0.01-0.20) K/uL Absolute Nucleated RBC (0.00-0.12) K/uL Nucleated RBC % (auto) % PT 13.0 H INR 1.2 H APTT 26 PTT Ratio 1.0 VBG pH (7.36-7.41) VBG pCO2 (38-50) mmHg VBG pO2 mmHg VBG HCO3 mmol/L VBG O2 Saturation % VBG Base Excess mEq/L POC Sodium (135-144) mmol/L Sodium (136-145) mmol/L POC Potassium (3.3-5.0) mmol/L Potassium (3.5-5.1) mmol/L POC Chloride (101-112) mmol/L Chloride (98-107) mmol/L Carbon Dioxide (21-32) mmol/L POC Total CO2 (24-31) mmol/L Anion Gap (3-11) POC Anion Gap (16-25) mmol/L POC BUN (7-18) mg/dl BUN (6-23) mg/dl Creatinine (0.6-1.4) mg/dl POC Creatinine (0.6-1.3) mg/dl Est Cr Clr Drug Dosing ml/min eGFR BUN/Creatinine Ratio (10-20) Glucose (70-99(Fasting)) mg/dl POC Glucose (other) (70-99) mg/dl Lactate 1.6 (0.4-2.0) mmol/L Calcium (8.6-10.3) mg/dl POC Ioniz Calcium Roxana (1.12-1.32) mmol/l Magnesium (1.7-2.4) mg/dl Total Bilirubin (0.2-1.0) mg/dl AST (13-39) U/L ALT (7-52) U/L Alkaline Phosphatase (34-104) U/L C-Reactive Protein 30.30 H (0-0.5) mg/dl B-Natriuretic Peptide (0-100) pg/ml Total Protein (6.0-8.3) gm/dl Albumin (3.4-5.0) gm/dl Globulin (2.5-4.0) gm/dl Albumin/Globulin Ratio (0.9-2) Procalcitonin 0.20 (0-0.5) ng/ml SARS-CoV-2 (PCR) (Negative) Influenza Type A (PCR) (Neg) Influenza Type B (PCR) (Neg) RSV (RT-PCR) (Neg) Administered Medications Discontinued Medications Sodium Chloride (Nss) 500 mls @ 999 mls/hr IV .Q31M ONE Stop: 01/31/25 10:52 Last Infusion: 01/31/25 11:25 Dose: Infused Documented By: Admin: 01/31/25 10:54 Dose: 999 mls/hr Documented By: AQUILINO Vancomycin HCl 2,000 mg/ (Sodium Chloride) 540 mls @ 200 mls/hr IV NOW ONE Stop: 01/31/25 14:54 Last Admin: 01/31/25 13:25 Dose: 200 mls/hr Documented By: SHOSHANA Cefepime HCl (Maxipime 2000mg) 2,000 mg in 20 mls @ 5 mls/min IV NOW STA; Protocol Stop: 01/31/25 12:17 Last Admin: 01/31/25 13:14 Dose: 5 mls/min Documented By: SHOSHANA Metronidazole (Flagyl) 500 mg in 100 mls @ 100 mls/hr IV NOW STA; Protocol Stop: 01/31/25 13:13 Last Infusion: 01/31/25 14:53 Dose: Infused Documented By: Admin: 01/31/25 13:14 Dose: 100 mls/hr Documented By: SHOSHANA Sodium Chloride (Nss) 1,000 mls @ 999 mls/hr IV .Q1H1M ONE Stop: 01/31/25 13:45 Last Infusion: 01/31/25 14:53 Dose: Infused Documented By: Admin: 01/31/25 13:14 Dose: 999 mls/hr Documented By: SHOSHANA Ioversol (Optiray 320 125ml) 112 ml IV ONCE ONE Stop: 01/31/25 11:16 Last Admin: 01/31/25 11:15 Dose: 112 ml Documented By: SKYLAR Imaging Data Attestation: I personally reviewed and interpreted this imaging study as follows: My Impression: CT of the chest was obtained in the emergency department. My interpretation is large infiltrate noted in the right lung field, no free air, final report below. Radiologist's Impression: Chest CTA 01/31/25 10:09 CT angio chest PE protocol CT DOSE: 844.39 mGy.cm HISTORY: sent by PCP for CT chest. TECHNIQUE: Multiple CTA images of the chest were obtained after the intravenous administration of 112 ml Optiray. Coronal and sagittal MIPS were obtained from the axial data set and were submitted for review. All measurements were obtained according to NASCET criteria. A dose lowering technique was utilized adhering to the principles of ALARA. COMPARISON STUDY: 12/01/2024 FINDINGS: There are mild airway secretions. There is moderate upper lobe emphysema. There is increased dense consolidation of a large portion of the right upper lobe. Stable areas of bandlike consolidation with bronchiectatic air bronchograms right lower lobe and right middle lobe. There is an interval 4 cm round hypodense finding with multiple internal gas locules right perihilar mid lung at the lower aspect of the right upper lobe. This bows the minor fissure inferiorly. This is at the lower aspect of the interval right upper lobe consolidation. There is a trace right pleural effusion. No consolidation or pleural effusion on the left. Evaluation of the right hilum is limited by the adjacent consolidation. No other enlarged adenopathy seen. No pericardial effusion. There are moderate coronary artery and aortic calcifications. No thoracic aortic dissection or aneurysm. No pulmonary embolism seen. There are mild thoracic spine degenerative changes. IMPRESSION: 1. No pulmonary embolism seen. 2. Large area of acute right upper lobe pneumonia. 3. Inferior parahilar right upper lobe lung abscess versus necrotic mass. 4. Otherwise as described. ACT 112: Positive. There are findings on this exam that require communication between the performing entity and the patient following Patient Test Result Information Act ([place] Act 112) guidelines. The above report was generated using voice recognition software. It may contain grammatical, syntax or spelling errors. Electronically signed by: Kamron Watson M.D. 01/31/2025 11:37 AM Discharge Plan Visit Data Chief Complaint: Referred by Doctor ED Provider: German Matthews Discharge Problem: Pneumonia, Hypoxia, Lung cancer Patient Disposition: Admitted As Inpatient Condition: Fair Discharge Instructions Interventions: ED Discharge Assessment Last Done: 01/31/25 15:28
[2025-01-31] MEDS: SODIUM CHLORIDE 0.9% 500 ML IV ONE (10:54)
[2025-01-31 11:06] LABS: Base Excess VBG 5.7 mEq/L; HCO3 VBG 32 mmol/L; Hematocrit (blood only) 37.1 % (42.0-52.0); Hemoglobin 11.4 g/dl (14.0-18.0); Immature Granulocytes # (auto) 0.33 K/uL (0.01-0.20); Immature Granulocytes % (auto) 2.2 %; Mean Corpuscular Hemoglobin 28.1 pg (25.0-34.0); Mean Corpuscular Volume 91.6 fL (80.0-100.0); Oxygen Saturation VBG < 60.0 %; PCO2 VBG 53 mmHg (38-50); PO2 VBG < 20 mmHg; Platelet Count 394 K/uL (130-400); RDW Standard Deviation 55.6 fL (36.4-46.3); Red Blood Count 4.05 M/uL (4.70-6.10); White Blood Count 15.13 K/ul (4.8-10.8); pH VBG 7.39 (7.36-7.41)
[2025-01-31] MEDS: OPTIRAY 320 125ml IV ONE (11:15)
[2025-01-31 11:34] LABS: Albumin Level 3.2 gm/dl (3.4-5.0); Anion Gap 10.0 (3-11); Bilirubin,Total 0.9 mg/dl (0.2-1.0); Calcium 9.7 mg/dl (8.6-10.3); Carbon Dioxide 31.0 mmol/L (21-32); Chloride 96.0 mmol/L (98-107); Magnesium 1.9 mg/dl (1.7-2.4); Potassium 3.7 mmol/L (3.5-5.1); Sodium 137.0 mmol/L (136-145)
--- NOTE | 2025-01-31 11:38 | CT Scan Report ---
CT angio chest PE protocol CT DOSE: 844.39 mGy.cm HISTORY: sent by PCP for CT chest. TECHNIQUE: Multiple CTA images of the chest were obtained after the intravenous administration of 112 ml Optiray. Coronal and sagittal MIPS were obtained from the axial data set and were submitted for review. All measurements were obtained according to NASCET criteria. A dose lowering technique was u tilized adhering to the principles of ALARA. COMPARISON STUDY: 12/01/2024 FINDINGS: There are mild airway secretions. There is moderate upper lobe emphysema. There is increase d dense consolidation of a large portion of the right upper lobe. Stable areas of bandlike consolidat ion with bronchiectatic air bronchograms right lower lobe and right middle lobe. There is an interval 4 cm round hypodense finding with multiple internal gas locules right perihilar mid lung at the lowe r aspect of the right upper lobe. This bows the minor fissure inferiorly. This is at the lower aspect of the interval right upper lobe consolidation. There is a trace right pleural effusion. No consolid ation or pleural effusion on the left. Evaluation of the right hilum is limited by the adjacent conso lidation. No other enlarged adenopathy seen. No pericardial effusion. There are moderate coronary art dm and aortic calcifications. No thoracic aortic dissection or aneurysm. No pulmonary embolism seen. There are mild thoracic spine degenerative changes. IMPRESSION: 1. No pulmonary embolism seen. 2. Large area of acute right upper lobe pneumonia. 3. Inferior parahilar right upper lobe lung abscess versus necrotic mass. 4. Otherwise as described. ACT 112: Positive. There are findings on this exam that require communication between the performing entity and the patient following Patient Test Result Information Act ([place] Act 112) guidelines. The above report was generated using voice recognition software. It may contain grammatical, syntax o r spelling errors. Electronically signed by: Kamron Watson M.D. 01/31/2025 11:37 AM
[2025-01-31 11:39] LABS: Alanine Aminotransferase 46.0 U/L (7-52); Albumin Globulin Ratio 0.6 (0.9-2); Alkaline Phosphatase 133.0 U/L (34-104); Blood Urea Nitrogen 14.0 mg/dl (6-23); Creatinine Clr Calc Pharmacy 71.0 ml/min; Globulin 5.0 gm/dl (2.5-4.0); Glucose 168.0 mg/dl (70-99(Fasting)); Total Protein 8.2 gm/dl (6.0-8.3)
[2025-01-31 11:48] LABS: Influenza A virus by PCR Negative (Neg); Influenza B virus by PCR Negative (Neg); SARS CoV2 RNA(COVID-19) Ceph NEGATIVE (Negative)
[2025-01-31] MEDS ORDERED: VANCOMYCIN CONSULT ACTIVE PRN (12:13)
[2025-01-31 12:29] LABS: INR 1.2 (0.9-1.1); Partial Thromboplastin Time 26 Seconds (21-31); Prothrombin Time 13.0 Seconds (9.0-12.0)
[2025-01-31] MEDS: SODIUM CHLORIDE 0.9% 1,000 ML IV ONE (13:14)
[2025-01-31] MEDS: CEFEPIME 2000MG 2,000 MG/20 ML SYR IV STA (13:14)
[2025-01-31] MEDS: metroNIDAZOLE 500 MG/100 ML BAG IV STA (13:14)
[2025-01-31] MEDS: VANCOMYCIN HCL 2,000 MG in SODIUM CHLORIDE 0.9% 500 ML IV ONE (13:25)
--- NOTE | 2025-01-31 13:59 | History & Physical Report ---
Date of Service January 31, 2025 Assessment & Plan (1) Healthcare-associated pneumonia: (2) COPD with emphysema: (3) CAD (coronary artery disease): (4) GERD (gastroesophageal reflux disease): Plan 84-year male with a history of COPD and adenocarcinoma of the lung who was recently discharged from our facility after multifocal pneumonia. Patient was discharged on appropriate outpatient antibiotics however he progressed and declined and was recommended for readmission. Upon presentation patient is mildly hypoxic and tachycardic. Patient likely meeting sepsis criteria on presentation. #Sepsis from pneumonia source. Concern for pulmonary abscess. Patient has blood cultures obtained. Initially given vancomycin cefepime and metronidazole. MRSA nasal swab was -2 weeks ago will recheck. Continue antibiotics at this time. Pulmonary consultation. Concern for gram-negative or aspiration pneumonia. Patient had a dysphagia study with a video swallow last admission in December this did not show overt aspiration at this time but he did have prolonged swallowing the area of concern is involving a previous radiation treatment area it is difficult to tell whether this is progression of radiation pneumonitis, infection, or possible recurrence of malignancy. #COPD. The patient is requiring oxygen supplementation. He is not currently in an acute exacerbation Bashan of COPD. He will continue to receive his outpatient inhaled medication with pain and backup DuoNebs. #CAD. Patient is on aspirin and atorvastatin likely a secondary prevention medication. Aspirin is currently on hold in case any procedures to be indicated #GERD. The patient is on famotidine PPI and sucralfate on his med rec. He will continue to famotidine to PPI. 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 Patient was discharged on cefdinir and doxycycline for additional 6 days. Patient establish primary care with Marielle Rubio. The patient has a history of adenocarcinoma of the lung status post radiation therapy and a history of COPD.. Patient was sent to the emergency department on behest of his pulmonary critical care doctor who is seen in the outpatient office for increased tachycardia and abnormal CT scan of the chest. Imaging suggest pulmonary abscess at this time. In emergency department blood cultures were obtained the patient received cefepime metronidazole and vancomycin although previous 01/15/2025 MRSA nasal swab is negative. MRSA nasal swab will be collected at this time. Allergies Allergy/AdvReac Type Severity Reaction Status Date / Time wheat Allergy Severe Sneezing Unverified 01/21/25 11:16 Penicillins Allergy Intermediate Hives Verified 01/21/25 11:16 Home Medications Medication Instructions Recorded Confirmed Type alprazolam 0.5 mg tablet 0.5 mg PO BID PRN Anxiety 06/14/20 01/31/25 History ascorbic acid (vitamin C) 500 mg 1,500 mg PO QPM 06/14/20 01/31/25 History tablet (Vitamin C) aspirin 81 mg tablet,delayed 81 mg PO DAILY 06/14/20 01/31/25 History release (Ramya Low Dose Aspirin) atorvastatin 20 mg tablet 20 mg PO QAM 05/28/21 01/31/25 History mecobalamin (vitamin B12) 1,000 1,000 mcg PO DAILY 06/21/24 01/31/25 History mcg chewable tablet albuterol sulfate 90 mcg/actuation 1 inh inhalation QID PRN Shortness 07/26/24 01/31/25 History aerosol inhaler Of Breath Or Wheezing famotidine 20 mg tablet 20 mg PO BID #60 tabs 07/29/24 01/31/25 Rx pantoprazole 40 mg tablet,delayed 40 mg PO BID #60 tabs 07/29/24 01/31/25 Rx release sucralfate 100 mg/mL oral 1 g (10 mL) PO QID #1,200 mL 07/29/24 01/31/25 Rx suspension chlorpheniramine 4 1 tab PO BID PRN allergy symptoms 12/10/24 01/31/25 Rx mg-phenylephrine 10 mg tablet #30 tabs fluticasone propionate 50 1 spray intranasal DAILY #9.9 grams 12/10/24 01/31/25 Rx mcg/actuation nasal spray,suspension (Allergy Relief (fluticasone)) L.acidop,casei,lactis,rham-B.lact,claude 1 cap PO DAILY 30 days #30 caps 01/18/25 01/31/25 Rx 625 mg (10 billion cell) capsule (Advanced Probiotic) midodrine 2.5 mg tablet 2.5 mg PO TID@0800,1200,1700 30 01/18/25 01/31/25 Rx days #90 tabs Lift Chair #1 ea 01/21/25 01/21/25 Rx hydrocodone 5 mg-acetaminophen 325 1 - 2 tab PO BID PRN Pain #120 tabs 01/21/25 01/31/25 Rx mg tablet budesonide 160 mcg-glycopyr 9 2 inh inhalation BID #10.7 grams 01/31/25 01/31/25 Rx mcg-formot 4.8 mcg/actuation HFA inhaler (Breztri Aerosphere) codeine 10 mg-guaifenesin 100 mg/5 10 ml PO Q8 PRN cough #473 mL 01/31/25 01/31/25 Rx mL oral liquid (Guaifenesin AC) 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) Abnormal CT of the abdomen B12 deficiency Lumbar spine pain Presence of urostomy LAD (lymphadenopathy), mediastinal Lung mass (Acute) Elevated troponin (Acute) Weakness (Acute) Hypoxic respiratory failure (Acute) Recurrent falls RLL pneumonia Lung cancer (Acute) Elevated troponin Generalized weakness Hypoxia S/P carpal tunnel release Carpal tunnel syndrome, right Pre-op testing Bilateral carpal tunnel syndrome Bilateral kidney stones Complication of urostomy resolved History of primary bladder cancer ~9 years Arthritis Medical History Multifocal pneumonia Postobstructive pneumonia Sepsis with acute organ dysfunction Anemia Pneumonia Lung mass Sepsis Sepsis COPD with emphysema History of bladder cancer 2016--bladder sx/chemo Dehydration Acute pain of left hip Complicated urinary tract infection Fall from standing Sepsis Encounter for pre-operative examination Osteoarthritis Hx MRSA infection "years ago" dx hospital in [place], in a wound and blood?; tx w/abx. History of kidney stones Hyperlipidemia Frequent UTI "not as bad as he used to" Surgical History History of carpal tunnel surgery of right wrist History of carpal tunnel surgery of left wrist History of lumbar surgery 1961 History of esophagogastroduodenoscopy (EGD) Hx of colonoscopy Hx of tonsillectomy Hx of cataract extraction rt/lt. Hx of prostatectomy done with total cystectomy History of total cystectomy Family History Brother Prostate cancer Hypertension Father Heart disease Cancer throat Other No family history of adverse response to anesthesia Denies family history of Ovarian cancer Myocardial infarction Breast cancer Colorectal cancer Social History Smoking Status: Former smoker Tobacco Type: Smokeless Tobacco (Dip or Chew) Age Started Using Tobacco: 17; Second Hand Exposure: No; Do You Dip or Chew Tobacco: Yes; Tobacco Cessation Education Requested by Patient: No Hx Alcohol Use: No Hx Substance Use: No Preferred Language: [place] Communication Ability: Effective Visual Impairment: Limited Hearing Ability: Hard of Hearing Communications Strategist Required: No Beliefs That Will Affect Care: None marital status: Current Living Situation: Spouse Current Living Situation Comment: home with 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 Other Information That Helps Us Care for You: Yes Feels Safe at Home: Yes Safety Concerns: Feels Safe At This Time Diet: regular during the past year weight has: remained stable Assistive Devices: Cane and Walker Review of Systems Review of Systems: Mild to moderate distress and fatigue no headache, no visual changes no speech or swallowing issues no chest pain, pressure or palpitations Patient had a fairly significant cough no shortness of breath over his baseline no abdominal pain, nausea or vomiting, diarrhea or constipation Patient is had no appetite for the last 2 to 3 days. Patient is a darker urine in his ileal conduit no focal joint pain or swelling no back pain, CVA tenderness or radicular pain no bruising, bleeding or rashes no focal signs of weakness or numbness or altered sensation no complaints of anxiety or depression.. Physical Exam Physical Exam: The patient appeared normally age and developed but appeared ill Vital signs as documented. Head exam is normocephalic atraumatic Neck is without JVD, thyromegaly, or carotid bruits. Lungs are coarse breath sounds and egophony in the right midlung field Cardiac exam, Rhythm is tachycardic but regular.. No murmurs, rubs or gallops. Abdominal exam reveals normal bowel sounds, soft non tender, no masses Right lower quadrant ileal conduit is present Extremities are nonedematous and both pedal pulses are present Neurologic exam is alert and oriented, no focal loss of strength or sensation Skin is without bruises or rashes Psychologically is without concerns for anxiety or depression.. Results & Data Results & Data Vital Signs (Past 12 Hours) Vital Signs Temp Pulse Resp BP Pulse Ox O2 Del Method O2 Flow Rate 01/31/25 11:30 112 H 134/94 99 Nasal Cannula 1 01/31/25 11:15 85 L Nasal Cannula 0 01/31/25 11:00 117 H 22 124/71 93 Room Air 01/31/25 10:34 119 H 127/72 92 Room Air 01/31/25 10:17 123 H 01/31/25 10:09 97 Room Air 01/31/25 09:52 98.1 F 127 H 24 109/66 97 Room Air Laboratory Results Leukocytosis is noted with mild anemia Chemistries reviewed mild elevation of blood glucose. Nutritional parameters reviewed mild decrease in albumin but increasing globulin Bile triple screen is negative for RSV influenza and COVID Diagnostic Findings Reviewed EKG shows tachycardia no acute ST or T wave changes Code Status & VTE Plan VTE Prophylaxis Plan VTE Prophylaxis will be ordered: Yes PG Care Time/CCT Total # of Minutes Spent Total Time Spent with Patient: Total time spent is greater than 50% in coordination of care (as documented) at patient's floor/unit and/or counseling patient: Coding Level of Care Code 09589 INT INP/OBS CARE 3/75MIN Diagnoses Healthcare-associated pneumonia J18.9 COPD with emphysema J43.9 CAD (coronary artery disease) I25.10 GERD (gastroesophageal reflux disease) K21.9
[2025-01-31 15:56] LABS: Appearance Urine Clear (Clear); Bacteria Urine Automated 4+ (None Seen); Epithelial Cell Urine Auto 0-2 /hpf (0-2); Glucose Urine UA Negative (Negative)
[2025-01-31] MEDS ORDERED: ALBUTEROL HFA 8 GM INHALER INH PRN (15:57)
[2025-01-31] MEDS ORDERED: ONDANSETRON INJ 2 MG/ML 2 ML VIAL IV PRN (15:57)
[2025-01-31] MEDS: MIDODRINE HCL 2.5 MG TAB PO SCH (17:10)
[2025-01-31] MEDS ORDERED: NON-FORMULARY MEDICATION (Budesonide-Glycopyr-Formoterol [Breztri Aerosphere] 160-9-4.8 mc INH SCH (21:00)
[2025-01-31] MEDS: CEFEPIME 2000MG 2,000 MG/20 ML SYR IV SCH (21:14)
[2025-01-31] MEDS: HEPARIN SOD 5,000 UNIT/0.5 ML VIAL SQ SCH (21:14)
[2025-01-31] MEDS: metroNIDAZOLE 500 MG/100 ML BAG IV SCH (21:14)
[2025-01-31] MEDS: FAMOTIDINE 20 MG TAB PO SCH (21:14)
[2025-02-01 07:49] LABS: Hematocrit (blood only) 27.0 % (42.0-52.0); Hemoglobin 8.7 g/dl (14.0-18.0); Mean Corpuscular Hemoglobin 29.0 pg (25.0-34.0); Mean Corpuscular Volume 90.0 fL (80.0-100.0); Platelet Count 337 K/uL (130-400); RDW Standard Deviation 55.4 fL (36.4-46.3); Red Blood Count 3.00 M/uL (4.70-6.10); White Blood Count 12.03 K/ul (4.8-10.8)
[2025-02-01 08:04] LABS: Anion Gap 8.0 (3-11); Blood Urea Nitrogen 10.0 mg/dl (6-23); Calcium 8.7 mg/dl (8.6-10.3); Carbon Dioxide 26.0 mmol/L (21-32); Chloride 99.0 mmol/L (98-107); Creatinine Clr Calc Pharmacy 91.3 ml/min; Glucose 165.0 mg/dl (70-99(Fasting)); Potassium 3.3 mmol/L (3.5-5.1); Sodium 133.0 mmol/L (136-145)
--- NOTE | 2025-02-01 08:09 | Hospitalist Progress Note ---
Date of Service February 01, 2025 Assessment & Plan (1) Healthcare-associated pneumonia: (2) COPD with emphysema: (3) CAD (coronary artery disease): (4) GERD (gastroesophageal reflux disease): Plan 84-year male with a history of COPD and adenocarcinoma of the lung who was recently discharged from our facility after multifocal pneumonia. Patient was discharged on appropriate outpatient antibiotics however he progressed and declined and was readmitted with sepsis and possible lung abscess #Sepsis from pneumonia source. Concern for pulmonary abscess. Patient has blood cultures . Initially given vancomycin cefepime and metronidazole. MRSA nasal swab negative and vancomycin stopped . Pulmonary consultation considering bronchoscopy 02/02/25 Concern for gram-negative or aspiration pneumonia. Patient had a dysphagia study with a video swallow last admission in December this did not show overt aspiration at this time but he did have prolonged swallowing given this is a right sided pneumonia. #COPD. improving/lessening oxygen supplementation. resolving acute on chronic respiratory failure with hypoxia. He will continue to receive his outpatient inhaled medication with pain and backup DuoNebs. # Anemia, consider dilutional will check iron in am #CAD. Patient is on aspirin and atorvastatin likely a secondary prevention medication. Aspirin is currently on hold in case any procedures to be indicated #GERD. The patient is on famotidine PPI and sucralfate on his med rec. He will continue to famotidine to PPI. 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 He is able to titrate his oxygen down to room air at rest Physical Exam Physical Exam: Lung exam continues to have rales and rhonchi in the right side. There is possible egophony. Cardiac exam is regular with a systolic murmur at the right upper sternal border He is less tachycardic Results & Data Results & Data Vital Signs (Past 12 Hours) Vital Signs Temp Pulse Pulse Resp BP Pulse Ox O2 Del Method 02/01/25 04:00 99.7 F H 02/01/25 03:37 100.6 F H 110 H 20 106/59 L 91 Nasal Cannula 01/31/25 23:00 98.6 F 112 H 18 95/51 L 94 Nasal Cannula 01/31/25 22:35 112 H O2 Flow Rate 02/01/25 04:00 02/01/25 03:37 1 01/31/25 23:00 1 01/31/25 22:35 Laboratory Results Reviewed CBC reviewed chemistry Discussed the case with PG Care Time/CCT Total # of Minutes Spent Total Time Spent with Patient: Total time spent is greater than 50% in coordination of care (as documented) at patient's floor/unit and/or counseling patient: Coding Level of Care Code 26692 SUB INP/OBS CARE 3/50MIN Diagnoses Healthcare-associated pneumonia J18.9 COPD with emphysema J43.9 CAD (coronary artery disease) I25.10 GERD (gastroesophageal reflux disease) K21.9
[2025-02-01] MEDS: VANCOMYCIN HCL 1,500 MG in SODIUM CHLORIDE 0.9% 500 ML IV SCH (09:02)
[2025-02-01] MEDS: For Breztri~FLUTICASONE FUROATE 200MCG 14 PUFFS/INHALER INH SCH (09:03)
[2025-02-01] MEDS: For Breztri~UMECLIDINIUM/VILANTEROL 62.5/25MCG 7 PUFFS/INHALER INH SCH (09:03)
[2025-02-01] MEDS: FLUTICASONE PROPIONATE NA SPR 16 GM BTL SCH (09:04)
--- NOTE | 2025-02-01 11:18 | Pharmacy Report ---
Pharmacy PK ABX Note - Date of Service February 01, 2025 - Assessment and Plan Assessment 84 year old M receiving Vancomycin + Cefepime + Metronidazole for treatment of sepsis secondary to pneumonia. * Day #2 of antimicrobial therapy. * Leukocytosis improving. Febrile overnight and still requiring O2 via 1 L NC. SCr improved. * MRSA nasal, COVID, Flu and RSV all negative. Blood and urine cultures pending. * Will reach out about discontinuing vancomycin given negative MRSA swab. Plan Vancomycin * Loading dose: 2000 mg IV x 1 * Maintenance dose: 1500 mg IV every 24 hours * Regimen is predicted to achieve target AUC/[place] of 400-600 mg/L.hr * Level will be ordered if therapy extends beyond 48 hours Pharmacy will continue to follow and will adjust dose/frequency as necessary. Thank you. Pharmacy has transitioned to AUC monitoring for vancomycin. AUC/[place] is the preferred PK/PD target and is associated with decreased risk of nephrotoxicity compared to traditional trough targets.
--- NOTE | 2025-02-01 17:36 | Pulmonary Consultation ---
Date of Consultation February 01, 2025 Assessment & Plan (1) Lung abscess: * Previously treated for suspected post-obstructive pneumonia * Cannot rule out multi-drug resistant organisms * Immunocompromised host * Will consider Bronchoscopy if sputum culture not informative. * Will require prolonged antibiotics (6-8 weeks) with at least 2 weeks IV. * Will need follow-up imaging in 7-10 days. If there is no significant response by that time then consideration will be given for percutaneous drainage. * Continue broad-spectrum antibiotics with anaerobic coverage. Laterality: right Lung location: upper lobe of lung Pulmonary abscess pneumonia presence: with pneumonia Qualified Code(s): J85.1 - Abscess of lung with pneumonia (2) Hypoxia: (3) Pneumonia: Laterality: right Lung location: upper lobe of lung Pneumonia type: due to unspecified organism Qualified Code(s): J18.9 - Pneumonia, unspecified organism (4) Adenocarcinoma of lower lobe of right lung: * Cannot rule out recurrence, new primary, or extension into airways. History of Present Illness Reason for Consultation: Lung abscess Attending Physician: Brock Heredia MD History of Present Illness The patient is a very pleasant 84-year-old male who presented to the ED for evaluation of tachycardia and worsening shortness of breath. He had recently been discharged from a facility after treatment for pneumonia and had a known history of lung cancer. Over the two evenings prior to presentation, he experienced increased shortness of breath with exertion, palpitations, and chest pain. He denied hemoptysis but reported feverishness. His family physician, after evaluating him and noting tachycardia and hypoxia, sent him to the ED for further workup, including a CT scan of the chest. Imaging revealed a large infiltrate with concern for a necrotic mass versus a lung abscess on the right. He was treated with IV fluids and broad-spectrum antibiotics, including vancomycin, cefepime, and metronidazole. Pulmonary consultation was requested. His past medical history included COPD with emphysema, CAD, GERD, adenocarcinoma of the lung status post radiation therapy, and a history of bladder cancer with an ileal conduit. He was recently treated for healthcare-associated pneumonia and was on appropriate outpatient antibiotics prior to this admission. Note from 02/01/2025: The patient denies any dyspnea or chest pain at rest. He reported cough productive of yellowish sputum. He was able to expectorate a specimen while I was in his room, and I submitted it for culture. I reviewed the imaging studies, and there is a suspicious abscess in an area of previous bulla, in addition to infiltrates surrounding that area. Allergies Allergy/AdvReac Type Severity Reaction Status Date / Time wheat Allergy Severe Sneezing Unverified 01/21/25 11:16 Penicillins Allergy Intermediate Hives Verified 01/21/25 11:16 Home Medications Medication Instructions Recorded Confirmed Type alprazolam 0.5 mg tablet 0.5 mg PO BID PRN Anxiety 06/14/20 01/31/25 History ascorbic acid (vitamin C) 500 mg 1,500 mg PO QPM 06/14/20 01/31/25 History tablet (Vitamin C) aspirin 81 mg tablet,delayed 81 mg PO DAILY 06/14/20 01/31/25 History release (Ramya Low Dose Aspirin) atorvastatin 20 mg tablet 20 mg PO QAM 05/28/21 01/31/25 History mecobalamin (vitamin B12) 1,000 1,000 mcg PO DAILY 06/21/24 01/31/25 History mcg chewable tablet albuterol sulfate 90 mcg/actuation 1 inh inhalation QID PRN Shortness 07/26/24 01/31/25 History aerosol inhaler Of Breath Or Wheezing famotidine 20 mg tablet 20 mg PO BID #60 tabs 07/29/24 01/31/25 Rx pantoprazole 40 mg tablet,delayed 40 mg PO BID #60 tabs 07/29/24 01/31/25 Rx release sucralfate 100 mg/mL oral 1 g (10 mL) PO QID #1,200 mL 07/29/24 01/31/25 Rx suspension chlorpheniramine 4 1 tab PO BID PRN allergy symptoms 12/10/24 01/31/25 Rx mg-phenylephrine 10 mg tablet #30 tabs fluticasone propionate 50 1 spray intranasal DAILY #9.9 grams 12/10/24 01/31/25 Rx mcg/actuation nasal spray,suspension (Allergy Relief (fluticasone)) L.acidop,casei,lactis,rham-B.lact,claude 1 cap PO DAILY 30 days #30 caps 01/18/25 01/31/25 Rx 625 mg (10 billion cell) capsule (Advanced Probiotic) midodrine 2.5 mg tablet 2.5 mg PO TID@0800,1200,1700 30 01/18/25 01/31/25 Rx days #90 tabs Lift Chair #1 ea 01/21/25 01/21/25 Rx hydrocodone 5 mg-acetaminophen 325 1 - 2 tab PO BID PRN Pain #120 tabs 01/21/25 01/31/25 Rx mg tablet budesonide 160 mcg-glycopyr 9 2 inh inhalation BID #10.7 grams 01/31/25 01/31/25 Rx mcg-formot 4.8 mcg/actuation HFA inhaler (Breztri Aerosphere) codeine 10 mg-guaifenesin 100 mg/5 10 ml PO Q8 PRN cough #473 mL 01/31/25 01/31/25 Rx mL oral liquid (Guaifenesin AC) Patient History Medical History Multifocal pneumonia Postobstructive pneumonia Sepsis with acute organ dysfunction Anemia Pneumonia Lung mass Sepsis Sepsis COPD with emphysema History of bladder cancer 2015--bladder sx/chemo Dehydration Acute pain of left hip Complicated urinary tract infection Fall from standing Sepsis Encounter for pre-operative examination Osteoarthritis Hx MRSA infection "years ago" dx hospital in [place], in a wound and blood?; tx w/abx. History of kidney stones Hyperlipidemia Frequent UTI "not as bad as he used to" Surgical History History of carpal tunnel surgery of right wrist History of carpal tunnel surgery of left wrist History of lumbar surgery 1961 History of esophagogastroduodenoscopy (EGD) Hx of colonoscopy Hx of tonsillectomy Hx of cataract extraction rt/lt. Hx of prostatectomy done with total cystectomy History of total cystectomy Family History Brother Prostate cancer Hypertension Father Heart disease Cancer throat Other No family history of adverse response to anesthesia Denies family history of Ovarian cancer Myocardial infarction Breast cancer Colorectal cancer Social History Smoking Status: Former smoker Tobacco Type: Smokeless Tobacco (Dip or Chew) Age Started Using Tobacco: 17; Second Hand Exposure: No; Do You Dip or Chew Tobacco: Yes; Tobacco Cessation Education Requested by Patient: No Hx Alcohol Use: No Hx Substance Use: No Preferred Language: Mosotho Communication Ability: Effective Visual Impairment: Limited Hearing Ability: Hard of Hearing Senior Online Marketing Manager Required: No Beliefs That Will Affect Care: None marital status: Current Living Situation: Spouse Current Living Situation Comment: home with 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 Skin: Warm and dry to touch. Noobvious lesions. Eyes: Anicteric.Noconjunctival hyperemia or exudates.No periorbital edema. ENT: No oral thrush. No oropharyngeal erythema or exudates. Modified-Mallampati 3 (Hard and soft palate seen). Neck: No palpable masses or adenopathy. Respiratory: Diffusely decreased breath sounds, inspiratory crackles and expiratory squeaks over right-upper lung field posteriorly. No use of accessory muscles and no prolonged exhalation. Cardiac: Distant sounds, regular rhythm, no murmurs, no gallops, no rubs; could not appreciate JV pulse elevation. GI: Soft, nontender. Extremities No clubbing,no cyanosis,no edema. Neuro: No gross motor deficits. Seems appropriate. No facial-droop. Speech is clear. Results & Data Results & Data Vital Signs (Past 12 Hours) Vital Signs Temp Pulse Pulse Resp BP Pulse Ox O2 Del Method 02/01/25 15:12 36.9 C 100 H 22 107/57 L 94 Nasal Cannula 02/01/25 13:53 110/62 02/01/25 13:17 Nasal Cannula 02/01/25 13:11 108 H 02/01/25 11:39 36.2 C L 103 H 22 112/61 92 Nasal Cannula 02/01/25 08:16 36.5 C 103 H 20 99/58 L 90 Nasal Cannula O2 Flow Rate 02/01/25 15:12 1 02/01/25 13:53 02/01/25 13:17 2 02/01/25 13:11 02/01/25 11:39 02/01/25 08:16 1 Laboratory Results 02/01/25 Unknown Gram Stain - Final Sputum, Expectorated Sputum Culture - Pending 01/31/25 13:05 Aerobic Blood Culture - Preliminary Blood No growth in Aerobic bottle after 24 hours. Anaerobic Blood Culture - Preliminary No growth in Anaerobic bottle after 24 hours. 01/31/25 10:48 Aerobic Blood Culture - Preliminary Blood No growth in Aerobic bottle after 24 hours. Anaerobic Blood Culture - Preliminary No growth in Anaerobic bottle after 24 hours. 01/31/25 15:20 Urine Culture - Preliminary Urine,Clean Catch Pin-point growth present, reincubating. 02/01/25 01/31/25 07:27 Unknown WBC 12.03 H RBC 3.00 L Hgb 8.7 L Hct 27.0 L MCV 90.0 MCH 29.0 MCHC 32.2 RDW Std Deviation 55.4 H RDW Coeff of Kwame 16.8 H Plt Count 337 MPV 9.9 Absolute Nucleated RBC 0.02 Nucleated RBC % (auto) 0.2 Sodium 133 L Potassium 3.3 L Chloride 99 Carbon Dioxide 26 Anion Gap 8 BUN 10 Creatinine 0.63 Est Cr Clr Drug Dosing 91.3 eGFR 93.21 BUN/Creatinine Ratio 15.9 Glucose 165 H Calcium 8.7 Nasal Screen MRSA (PCR) Negative Diagnostic Findings CT angio chest PE protocol CT DOSE: 844.39 mGy.cm HISTORY: sent by PCP for CT chest. TECHNIQUE: Multiple CTA images of the chest were obtained after the intravenous administration of 112 ml Optiray. Coronal and sagittal MIPS were obtained from the axial data set and were submitted for review. All measurements were obtained according to NASCET criteria. A dose lowering technique was utilized adhering to the principles of ALARA. COMPARISON STUDY: 12/01/2024 FINDINGS: There are mild airway secretions. There is moderate upper lobe emphysema. There is increased dense consolidation of a large portion of the right upper lobe. Stable areas of bandlike consolidation with bronchiectatic air bronchograms right lower lobe and right middle lobe. There is an interval 4 cm round hypodense finding with multiple internal gas locules right perihilar mid lung at the lower aspect of the right upper lobe. This bows the minor fissure inferiorly. This is at the lower aspect of the interval right upper lobe consolidation. There is a trace right pleural effusion. No consolidation or pleural effusion on the left. Evaluation of the right hilum is limited by the adjacent consolidation. No other enlarged adenopathy seen. No pericardial effusion. There are moderate coronary artery and aortic calcifications. No thoracic aortic dissection or aneurysm. No pulmonary embolism seen. There are mild thoracic spine degenerative changes. IMPRESSION: 1. No pulmonary embolism seen. 2. Large area of acute right upper lobe pneumonia. 3. Inferior parahilar right upper lobe lung abscess versus necrotic mass. 4. Otherwise as described. ACT 112: Positive. There are findings on this exam that require communication between the performing entity and the patient following Patient Test Result Information Act ([place] Act 112) guidelines. The above report was generated using voice recognition software. It may contain grammatical, syntax or spelling errors. Electronically signed by: Kamron Watson M.D. 01/31/2025 11:37 AM Dictated: 01/31/251126 Transcribed: 01/31/251126 Medications Administered Home Medications Medication Instructions Recorded Confirmed Last Taken alprazolam 0.5 mg tablet 0.5 mg PO BID PRN Anxiety 06/14/20 01/31/25 06/13/20 ascorbic acid (vitamin C) 500 mg 1,500 mg PO QPM 06/14/20 01/31/25 12/09/22 tablet (Vitamin C) aspirin 81 mg tablet,delayed 81 mg PO DAILY 06/14/20 01/31/25 05/26/21 release (Ramya Low Dose Aspirin) atorvastatin 20 mg tablet 20 mg PO QAM 05/28/21 01/31/25 12/09/22 mecobalamin (vitamin B12) 1,000 1,000 mcg PO DAILY 06/21/24 01/31/25 Unknown mcg chewable tablet albuterol sulfate 90 mcg/actuation 1 inh inhalation QID PRN Shortness 07/26/24 01/31/25 Unknown aerosol inhaler Of Breath Or Wheezing famotidine 20 mg tablet 20 mg PO BID #60 tabs 07/29/24 01/31/25 Unknown pantoprazole 40 mg tablet,delayed 40 mg PO BID #60 tabs 07/29/24 01/31/25 Unknown release sucralfate 100 mg/mL oral 1 g (10 mL) PO QID #1,200 mL 07/29/24 01/31/25 Unknown suspension chlorpheniramine 4 1 tab PO BID PRN allergy symptoms 12/10/24 01/31/25 Unknown mg-phenylephrine 10 mg tablet #30 tabs fluticasone propionate 50 1 spray intranasal DAILY #9.9 grams 12/10/24 01/31/25 Unknown mcg/actuation nasal spray,suspension (Allergy Relief (fluticasone)) L.acidop,casei,lactis,rham-B.lact,claude 1 cap PO DAILY 30 days #30 caps 01/18/25 01/31/25 Unknown 625 mg (10 billion cell) capsule (Advanced Probiotic) midodrine 2.5 mg tablet 2.5 mg PO TID@0800,1200,1700 30 01/18/25 01/31/25 Unknown days #90 tabs Lift Chair #1 ea 01/21/25 01/21/25 Unknown hydrocodone 5 mg-acetaminophen 325 1 - 2 tab PO BID PRN Pain #120 tabs 01/21/25 01/31/25 Unknown mg tablet budesonide 160 mcg-glycopyr 9 2 inh inhalation BID #10.7 grams 01/31/25 01/31/25 Unknown mcg-formot 4.8 mcg/actuation HFA inhaler (Breztri Aerosphere) codeine 10 mg-guaifenesin 100 mg/5 10 ml PO Q8 PRN cough #473 mL 01/31/25 01/31/25 Unknown mL oral liquid (Guaifenesin AC) Active Medications Generic Name Dose Route Start Last Admin Trade Name Freq PRN Reason Stop Dose Admin Famotidine 20 mg 01/31/25 21:00 02/01/25 09:02 Famotidine 20 Mg Tab PO 03/02/25 20:59 20 mg BID JOSE ALBERTO Administration Fluticasone Furoate 1 puffs 02/01/25 09:00 02/01/25 09:03 For Breztri~Fluticasone Furoate 200mcg 14 Puffs/Inhaler INH 03/03/25 08:59 1 puffs DAILY JOSE ALBERTO Administration Fluticasone Propionate 1 sprays 02/01/25 09:00 02/01/25 09:04 Fluticasone Propionate Na Spr 16 Gm Btl NA 03/03/25 08:59 1 sprays DAILY JOSE ALBERTO Administration Heparin Sodium (Porcine) 5,000 units 01/31/25 21:00 02/01/25 09:02 Heparin Sod 5,000 Unit/0.5 Ml Vial SQ 03/02/25 20:59 5,000 units Q12 JOSE ALBERTO Administration Cefepime HCl 2,000 mg in 20 mls @ 5 mls/min 01/31/25 21:00 02/01/25 13:28 Maxipime 2000mg IV 02/07/25 20:59 5 mls/min Q8H JOSE ALBERTO Administration Protocol Metronidazole 500 mg in 100 mls @ 100 mls/hr 01/31/25 22:00 02/01/25 10:43 Flagyl IV 02/07/25 21:59 Infused Q12H JOSE ALBERTO Infusion Protocol Midodrine 2.5 mg 01/31/25 17:00 02/01/25 17:08 Midodrine Hcl 2.5 Mg Tab PO 03/02/25 16:59 2.5 mg TID@0800,1200,1700 JOSE ALBERTO Administration Pantoprazole Sodium 40 mg 01/31/25 21:00 02/01/25 09:02 Pantoprazole 40 Mg Tab PO 03/02/25 20:59 40 mg BID JOSE ALBERTO Administration Umeclidinium/Vilanterol 1 puffs 02/01/25 09:00 02/01/25 09:03 For Breztri~Umeclidinium/Vilanterol 62.5/25mcg 7 Puffs/Inhaler INH 03/03/25 08:59 1 puffs DAILY JOSE ALBERTO Administration PG Care Time/CCT Total # of Minutes Spent Total Time Spent with Patient: Total time spent is greater than 50% in coordination of care (as documented) at patient's floor/unit and/or counseling patient: 65 minutes Coding Level of Care Code 11408 IN/OBS CONSULT LVL 4,60M Diagnoses Abscess of upper lobe of right lung with pneumonia J85.1 Laterality: right Lung location: upper lobe of lung Pulmonary abscess pneumonia presence: with pneumonia Hypoxia R09.02 Pneumonia of right upper lobe due to infectious organism J18.9 Laterality: right Lung location: upper lobe of lung Pneumonia type: due to unspecified organism Adenocarcinoma of lower lobe of right lung C34.31 Time Spent (min) 65
[2025-02-02 06:58] LABS: Hematocrit (blood only) 28.8 % (42.0-52.0); Hemoglobin 8.9 g/dL (14.0-18.0); Mean Corpuscular Hemoglobin 27.8 pg (25.0-34.0); Mean Corpuscular Volume 90.0 fL (80.0-100.0); Platelet Count 322 K/uL (130-400); RDW Standard Deviation 54.0 fL (36.4-46.3); Red Blood Count 3.20 M/uL (4.70-6.10); White Blood Count 10.85 K/ul (4.8-10.8)
[2025-02-02 07:21] LABS: Anion Gap 7 (3-11); Blood Urea Nitrogen 8 mg/dl (6-23); Calcium 8.8 mg/dl (8.6-10.3); Carbon Dioxide 30 mmol/L (21-32); Chloride 97 mmol/L (98-107); Creatinine Clr Calc Pharmacy 95.9 ml/min; Glucose 119 mg/dl (70-99(Fasting)); Potassium 3.2 mmol/L (3.5-5.1); Sodium 134 mmol/L (136-145)
[2025-02-02 07:23] LABS: Iron < 10 mcg/dl (35-175)
--- NOTE | 2025-02-02 07:47 | Hospitalist Progress Note ---
"Date of Service February 02, 2025 Assessment & Plan (1) Healthcare-associated pneumonia: (2) COPD with emphysema: (3) CAD (coronary artery disease): (4) GERD (gastroesophageal reflux disease): Plan Pt is an 84 y/o male w/ a PMHx significant for COPD, adenocarcinoma of the lung, Anemia, CAD, GERD, Hx Bladder CA w/ current ileal conduit in RLQ who was recently discharged from our facility after multifocal pneumonia. Pt was d/c on appropriate abx, however, he progressed and declined. Pt was readmitted w/ sepsis and possible lung abscess. #Sepsis | Pneumonia | Lung abscess? - Concern for gram negative/aspiration PNA; VSFF in 12/2024 w/ no aspiration, did have prolonged swallowing; Received Vancomycin, Cefepime, and Metronidazole in ED - Vanc d/c after negative nasal swab; CT -Pulm Consultation - Bronchoscopy scheduled 02/02 -BCx 01/31 - NGTD -Sputum Culture 02/01 - NGTD -Continue IV Metronidazole 500mg Q12H -Continue IV Cefepime 2,000mg Q8H -PT/OT eval and treat - pt states that he feels weak #Hypokalemia - -Potassium 40meq PO (02/02) #COPD - improving, only SOB on exertion, per pt -Continue Home Meds: Albuterol Hfa; DuoNebs, Fluticasone Furoate, Fluticasone Nasal spray # Anemia - Pt w/ JOSE DAVID on 02/02 -Start Iron PO 325mg BID #CAD - Patient is on aspirin and atorvastatin likely a secondary prevention medication. Aspirin is currently on hold in case any procedures to be indicated -HOLD ASA - In light of bronchoscopy -Restart Atorvastatin 20mg #GERD - No acute concerns -Hold: Famotidine, Sucralfate -Continue Pantoprazole 40mg BID Dispo: Continue Med/Tele - awaiting bronchoscopy, cultures, improvement DVT Proph: Heparin - Held for Bronchoscopy Updated Code Status: Pt is CONDITIONAL CODE - does not want invasive airway intervention Admission and Anticipated Discharge Date Admission Date: January 31, 2025 Subjective Pt was laying in bed today in NAD, family at bedside. Pt states that he is starting to feel much better than he did when he first came to the ED. Pt states that he was able to talk to Pulmonology and is aware of Bronchoscopy scheduled for this afternoon. Pt admits to occasional cough and that he feels short of breath when he moves around. Pt denies congestion, sore throat, CP, palpitations, abd pain, N/V/D. He notes that he feels quite weak and slow when ambulating around the room. Discussed PT/OT evaluation; pt stated he would appreciate that. Code Status: Discussed with Pt + Family; agreed to conditional code: Pt does not want invasive airway intervention. Telemetry: Sinus 100s overnight and this AM. Review of Systems Review of Systems: All systems reviewed & are unremarkable except as noted in Subjective Physical Exam Physical Exam: General: Pt is a 84 y/o WD/WN male in NAD in bed. VS: reviewed as above Skin: Illeal conduit in RLQ; sking is otherwise warm and dry; no lesions or ulcerations Respiratory: Decreased sounds bilat; crackles in RUL; otherwise no adventitious sounds noted. Cardio: RRR no murmurs Abdomen: Round, normoactive BS x4, nontender to palpation Extremities: no edema Neuro: A&Ox4, cooperative Results & Data Results & Data Vital Signs (Past 12 Hours) Vital Signs Temp Pulse Resp BP Pulse Ox O2 Del Method 02/02/25 04:00 97.7 F 99 H 16 107/63 92 Room Air 02/01/25 23:00 98.6 F 101 H 16 106/61 93 Room Air 02/01/25 19:51 Room Air 02/01/25 19:51 98.4 F 104 H 18 119/63 91 Room Air Laboratory Results Reviewed: CBC, CMP, Iron, Unsat IBT, Magnesium, Sputum culture - prelim, BCx - prelim, Urine culture PG Care Time/CCT Total # of Minutes Spent Total Time Spent with Patient: Total time spent is greater than 50% in coordination of care (as documented) at patient's floor/unit and/or counseling patient: Coding Level of Care Code 92878 SUB INP/OBS CARE 3/50MIN Diagnoses Healthcare-associated pneumonia J18.9 COPD with emphysema J43.9 CAD (coronary artery disease) I25.10 GERD (gastroesophageal reflux disease) K21.9"
[2025-02-02 08:44] LABS: Magnesium 1.6 mg/dl (1.7-2.4)
[2025-02-02] MEDS: POTASSIUM CHLORIDE CRTAB 20 MEQ TABCR PO STA (10:05)
--- NOTE | 2025-02-02 12:33 | Anesthesiology Consultation ---
Date of Service February 02, 2025 Assessment & Plan Chart Review Chart Review: Acceptable Risk for Surgery and Patient NOT seen in Pre Admission Testing Consults Requested none ASA ASA3 Proposed Anesthesia Anesthesia Type: General History Surgery Operation Date: 02/02/25 08:20 Proposed Procedures p Bronchoscopy - Chris Wakefield MD Height/Weight Height: 5 ft 11 in Weight: 77.8 kg Allergies Allergy/AdvReac Type Severity Reaction Status Date / Time wheat Allergy Severe Sneezing Unverified 01/21/25 11:16 Penicillins Allergy Intermediate Hives Verified 01/21/25 11:16 Medications Home Medications Medication Instructions Recorded Confirmed Last Taken alprazolam 0.5 mg tablet 0.5 mg PO BID PRN Anxiety 06/14/20 01/31/25 06/13/20 ascorbic acid (vitamin C) 500 mg 1,500 mg PO QPM 06/14/20 01/31/25 12/09/22 tablet (Vitamin C) aspirin 81 mg tablet,delayed 81 mg PO DAILY 06/14/20 01/31/25 05/26/21 release (Ramya Low Dose Aspirin) atorvastatin 20 mg tablet 20 mg PO QAM 05/28/21 01/31/25 12/09/22 mecobalamin (vitamin B12) 1,000 1,000 mcg PO DAILY 06/21/24 01/31/25 Unknown mcg chewable tablet albuterol sulfate 90 mcg/actuation 1 inh inhalation QID PRN Shortness 07/26/24 01/31/25 Unknown aerosol inhaler Of Breath Or Wheezing famotidine 20 mg tablet 20 mg PO BID #60 tabs 07/29/24 01/31/25 Unknown pantoprazole 40 mg tablet,delayed 40 mg PO BID #60 tabs 07/29/24 01/31/25 Unknown release sucralfate 100 mg/mL oral 1 g (10 mL) PO QID #1,200 mL 07/29/24 01/31/25 Unknown suspension chlorpheniramine 4 1 tab PO BID PRN allergy symptoms 12/10/24 01/31/25 Unknown mg-phenylephrine 10 mg tablet #30 tabs fluticasone propionate 50 1 spray intranasal DAILY #9.9 grams 12/10/24 01/31/25 Unknown mcg/actuation nasal spray,suspension (Allergy Relief (fluticasone)) L.acidop,casei,lactis,rham-B.lact,claude 1 cap PO DAILY 30 days #30 caps 01/18/25 01/31/25 Unknown 625 mg (10 billion cell) capsule (Advanced Probiotic) midodrine 2.5 mg tablet 2.5 mg PO TID@0800,1200,1700 30 01/18/25 01/31/25 Unknown days #90 tabs Lift Chair #1 ea 01/21/25 01/21/25 Unknown hydrocodone 5 mg-acetaminophen 325 1 - 2 tab PO BID PRN Pain #120 tabs 01/21/25 01/31/25 Unknown mg tablet budesonide 160 mcg-glycopyr 9 2 inh inhalation BID #10.7 grams 01/31/25 01/31/25 Unknown mcg-formot 4.8 mcg/actuation HFA inhaler (Breztri Aerosphere) codeine 10 mg-guaifenesin 100 mg/5 10 ml PO Q8 PRN cough #473 mL 01/31/25 01/31/25 Unknown mL oral liquid (Guaifenesin AC) Active Medications Generic Name Dose Route Start Last Admin Trade Name Freq PRN Reason Stop Dose Admin Famotidine 20 mg 01/31/25 21:00 02/02/25 10:05 Famotidine 20 Mg Tab PO 03/02/25 20:59 20 mg BID JOSE ALBERTO Administration Fluticasone Furoate 1 puffs 02/01/25 09:00 02/02/25 10:06 For Meenaztri~Fluticasone Furoate 200mcg 14 Puffs/Inhaler INH 03/03/25 08:59 1 puffs DAILY JOSE ALBERTO Administration Fluticasone Propionate 1 sprays 02/01/25 09:00 02/02/25 10:06 Fluticasone Propionate Na Spr 16 Gm Btl NA 03/03/25 08:59 1 sprays DAILY JOSE ALBERTO Administration Heparin Sodium (Porcine) 5,000 units 01/31/25 21:00 02/01/25 09:02 Heparin Sod 5,000 Unit/0.5 Ml Vial SQ 03/02/25 20:59 5,000 units Q12 JOSE ALBERTO Administration Cefepime HCl 2,000 mg in 20 mls @ 5 mls/min 01/31/25 21:00 02/02/25 12:18 Maxipime 2000mg IV 02/07/25 20:59 5 mls/min Q8H JOSE ALBERTO Administration Protocol Metronidazole 500 mg in 100 mls @ 100 mls/hr 01/31/25 22:00 02/02/25 11:21 Flagyl IV 02/07/25 21:59 Infused Q12H JOSE ALBERTO Infusion Protocol Midodrine 2.5 mg 01/31/25 17:00 02/02/25 12:18 Midodrine Hcl 2.5 Mg Tab PO 03/02/25 16:59 2.5 mg TID@0800,1200,1700 JOSE ALBERTO Administration Pantoprazole Sodium 40 mg 01/31/25 21:00 02/02/25 10:05 Pantoprazole 40 Mg Tab PO 03/02/25 20:59 40 mg BID JOSE ALBERTO Administration Umeclidinium/Vilanterol 1 puffs 02/01/25 09:00 02/02/25 10:06 For Breztri~Umeclidinium/Vilanterol 62.5/25mcg 7 Puffs/Inhaler INH 03/03/25 08:59 1 puffs DAILY JOSE ALBERTO Administration Past Medical History Medical History Multifocal pneumonia Postobstructive pneumonia Sepsis with acute organ dysfunction Anemia Pneumonia Lung mass Sepsis Sepsis COPD with emphysema History of bladder cancer 2016--bladder sx/chemo Dehydration Acute pain of left hip Complicated urinary tract infection Fall from standing Sepsis Encounter for pre-operative examination Osteoarthritis Hx MRSA infection "years ago" dx hospital in [place], in a wound and blood?; tx w/abx. History of kidney stones Hyperlipidemia Frequent UTI "not as bad as he used to" Past Family History Family History Brother Prostate cancer Hypertension Father Heart disease Cancer throat Other No family history of adverse response to anesthesia Denies family history of Ovarian cancer Myocardial infarction Breast cancer Colorectal cancer Past Surgical History Surgical History History of carpal tunnel surgery of right wrist History of carpal tunnel surgery of left wrist History of lumbar surgery 1961 History of esophagogastroduodenoscopy (EGD) Hx of colonoscopy Hx of tonsillectomy Hx of cataract extraction rt/lt. Hx of prostatectomy done with total cystectomy History of total cystectomy Social History Smoking Status: Former smoker Do You Dip or Chew Tobacco: Yes Hx Alcohol Use: No Hx Substance Use: No substance use type: does not use Physical Exam Vital Signs Last Vital Signs Temp 36.8 C 02/02/25 11:34 Pulse 97 H 02/02/25 11:34 Resp 18 02/02/25 11:34 BP 117/68 02/02/25 11:34 Pulse Ox 93 02/02/25 11:34 O2 Del Method Room Air 02/02/25 11:34 O2 Flow Rate 1 02/01/25 15:12 Testing Laboratory Results 02/02/25 06:06 02/02/25 06:06 PT 13.0 Seconds (9.0-12.0) H 01/31/25 11:47 INR 1.2 (0.9-1.1) H 01/31/25 11:47 APTT 26 Seconds (21-31) 01/31/25 11:47 Urine Color Yellow 01/31/25 15:20 Urine Appearance Clear (Clear) 01/31/25 15:20 Urine pH 7.5 (4.5-7.5) 01/31/25 15:20 Ur Specific [place] > 1.045 (1.000-1.030) H 01/31/25 15:20 Urine Protein 1+ (Negative) H 01/31/25 15:20 Urine Glucose (UA) Negative (Negative) 01/31/25 15:20 Urine Ketones Negative (Negative) 01/31/25 15:20 Urine Nitrite Positive (Negative) A 01/31/25 15:20 Ur Leukocyte Esterase Negative (Negative) 01/31/25 15:20 Urine WBC (Auto) 11-20 /hpf (0-5) H 01/31/25 15:20 Urine RBC (Auto) 6-10 /hpf (0-2) H 01/31/25 15:20 U Hyaline Cast (Auto) 3-5 /lpf (0-2) H 01/31/25 15:20 U Epithel Cells (Auto) 0-2 /hpf (0-2) 01/31/25 15:20 Urine Bacteria (Auto) 4+ (None Seen) H 01/31/25 15:20 02/01/25 Unknown Gram Stain - Final Sputum, Expectorated Sputum Culture - Preliminary Light normal vero present, final report to follow. 01/31/25 15:20 Urine Culture - Final Urine,Clean Catch Three types of organisms present, all high counts probable skin vero. No further identifications or sensitivities to follow. 01/31/25 13:05 Aerobic Blood Culture - Preliminary Blood No growth in Aerobic bottle after 24 hours. Anaerobic Blood Culture - Preliminary No growth in Anaerobic bottle after 24 hours. 01/31/25 10:48 Aerobic Blood Culture - Preliminary Blood No growth in Aerobic bottle after 24 hours. Anaerobic Blood Culture - Preliminary No growth in Anaerobic bottle after 24 hours.
[2025-02-02] MEDS ORDERED: LIDOCAINE 2% 2 ML VIAL/AMP(20MG/ML) INFIL ONE (13:53)
[2025-02-02] MEDS ORDERED: PROPOFOL IV EMULSION 10 MG/ML 20 ML VIAL IV ONE (13:54)
[2025-02-02] MEDS ORDERED: ONDANSETRON INJ 2 MG/ML 2 ML VIAL ONE (13:54)
[2025-02-02] MEDS ORDERED: DEXAMETHASONE SOD INJ 4 MG/ML VIAL ONE (13:54)
[2025-02-02] MEDS ORDERED: GLYCOPYRROLATE 0.2 MG/ML VIAL ONE (13:56)
[2025-02-02] MEDS: LACTATED RINGER'S 1,000 ML IV SCH (14:05)
[2025-02-02] MEDS ORDERED: ONDANSETRON INJ 2 MG/ML 2 ML VIAL IV PRN (14:11)
[2025-02-02] MEDS ORDERED: ATROPINE SULFATE 0.1 MG/ML 10ML SYR IV PRN (14:11)
[2025-02-02] MEDS ORDERED: NALOXONE HCL 0.4 MG/1 ML VIAL/CARP IV PRN (14:11)
--- NOTE | 2025-02-02 14:13 | Communication Note ---
Date of Service: February 02, 2025 01/31/2025- EKG- ST@ 126 w/ PAC's;RBNASRIN
[2025-02-02] MEDS ORDERED: ROCURONIUM BROMIDE 10 MG/ML 5 ML VIAL IV ONE (14:17)
[2025-02-02] MEDS ORDERED: SUGAMMADEX SODIUM 200 MG/2 ML VIAL IV ONE (14:18)
--- NOTE | 2025-02-02 14:39 | History & Physical Bridge Note ---
Date of Service February 02, 2025 History & Physical Bridge Note I have examined the patient, reviewed the History & Physical and in the interval since the performance of the Pulmonary consult. I have noted the following changes of clinical significance: no changes noted. Patient provided written consent in the presence of his family and witnessed by his bedside nurse.
--- NOTE | 2025-02-02 15:11 | Procedure Note ---
Procedure Note: Bronchoscopy Procedure Procedure: Flexible Bronchoscopy Attending/Advertising Sales Executive: Chris Wakefield MD Anesthetic/Sedation: General with Endotracheal Intubation Indication: Lung abscess in immunocompromised host Consent was signed and placed on the chart prior to procedure. Indication, risks, and benefits were explained at length. A time-out was completed verifying correct patient, procedure, site, positioning, and equipment. Findings: Trachea Normal Main Eva Small amount of thick off-white mucus LEFT Mainstem Bronchus: Normal ZIA Normal LLL Normal RIGHT Mainstem Bronchus: Filled with off-white mucus. When mucus was suctioned out there was significant edema at the take-off of the RUL. RUL: Significant edema at take-off. Filled with off-white mucus. When mucus was suctioned out there was significant edema, especially posterior segment. Around total 120 cc saline used 20 cc at a time to perform BAL. At the end white material kept oozing out of the posterior segment of the RUL. RIGHT Bronchus Intermedius: Normal RML Normal RLL Small amount of thick off-white mucus Specimens: BAL RUL Complications: NONE Impression: Edema and purulent secretions mostly in the RUL with some noted in the dependent segments of the RLL. White material oozing out from posterior segment of RUL most likely from abscess noted on CT scan. Plan: Sent BAL for Culture & Sensitivities, Gram Stain, AFB, Fungal, Fungal serologic studies, Legionella [facility] Procedure Codes (Charges) Pulmonary/Thoracic Procedure 1: Pulmonary and Thoracic: 84442 Dx bronchoscopy/BAL
--- NOTE | 2025-02-02 15:51 | Anesthesiology Progress Note ---
Date of Service February 02, 2025 Anesthesia Post Procedure Vital Signs Vital Signs: Temp Pulse Pulse Resp BP Pulse Ox Pulse Ox 02/02/25 15:40 106 H 15 111/56 L 94 02/02/25 15:30 104 H 17 97/59 L 95 02/02/25 15:22 36.2 C L 103 H 15 103/57 L 95 02/02/25 13:35 36.8 C 102 H 18 114/60 94 02/02/25 11:34 36.8 C 97 H 18 117/68 93 02/02/25 11:03 02/02/25 07:58 99 H 02/02/25 07:53 36.9 C 100 H 17 107/66 93 02/02/25 04:00 36.5 C 99 H 16 107/63 92 02/01/25 23:00 37.0 C 101 H 16 106/61 93 02/01/25 19:51 02/01/25 19:51 36.9 C 104 H 18 119/63 91 02/01/25 15:57 92 O2 Del Method O2 Del Method O2 Flow Rate 02/02/25 15:40 Room Air 02/02/25 15:30 Oxymask 5 02/02/25 15:22 Oxymask 10 02/02/25 13:35 Room Air 02/02/25 11:34 Room Air 02/02/25 11:03 Room Air 02/02/25 07:58 02/02/25 07:53 Room Air 02/02/25 04:00 Room Air 02/01/25 23:00 Room Air 02/01/25 19:51 Room Air 02/01/25 19:51 Room Air 02/01/25 15:57 Room Air Transfer of Care Handoff Completed per policy Notes Mental Status: alert / awake / arousable Patient Amnestic to Procedure: Yes Nausea / Vomiting: adequately controlled Pain: adequately controlled Airway Patency, RR, SpO2: stable & adequate BP & HR: stable & adequate Hydration State: stable & adequate Anesthetic Complications: no major complications apparent and Pt Satisfied with anesthetic care
[2025-02-02] MEDS: FERROUS SULFATE 325 MG TAB PO SCH (16:46)
[2025-02-03 06:31] LABS: Hematocrit (blood only) 31.2 % (42.0-52.0); Hemoglobin 9.8 g/dL (14.0-18.0); Mean Corpuscular Hemoglobin 28.1 pg (25.0-34.0); Mean Corpuscular Volume 89.4 fL (80.0-100.0); Platelet Count 356 K/uL (130-400); RDW Standard Deviation 54.3 fL (36.4-46.3); Red Blood Count 3.49 M/uL (4.70-6.10); White Blood Count 10.95 K/ul (4.8-10.8)
[2025-02-03 06:50] LABS: Anion Gap 7.0 (3-11); Blood Urea Nitrogen 15.0 mg/dl (6-23); Calcium 9.4 mg/dl (8.6-10.3); Carbon Dioxide 28.0 mmol/L (21-32); Chloride 103.0 mmol/L (98-107); Creatinine Clr Calc Pharmacy 91.3 ml/min; Glucose 192.0 mg/dl (70-99(Fasting)); Potassium 4.3 mmol/L (3.5-5.1); Sodium 138.0 mmol/L (136-145)
--- NOTE | 2025-02-03 08:34 | Hospitalist Progress Note ---
"Date of Service February 03, 2025 Assessment & Plan (1) Healthcare-associated pneumonia: (2) COPD with emphysema: (3) CAD (coronary artery disease): (4) GERD (gastroesophageal reflux disease): Plan Pt is an 84 y/o male w/ a PMHx significant for COPD, adenocarcinoma of the lung, Anemia, CAD, GERD, Hx Bladder CA w/ current ileal conduit in RLQ who was recently discharged from our facility after multifocal pneumonia. Pt was d/c on appropriate abx, however, he progressed and declined. Pt was readmitted w/ sepsis and possible lung abscess. #Sepsis | Pneumonia | Lung abscess - Concern for gram negative/aspiration PNA; VSFF in 12/2024 w/ no aspiration, did have prolonged swallowing; Received Vancomycin, Cefepime, and Metronidazole in ED - Vanc d/c after negative nasal swab; CT 01/31 pneumonia of RUL & inferior parahilar RUL lung abscess -Pulm Consultation - Bronchoscopy 02/02: R mainstem bronchus w/ significant edema + off-white mucous; white material ooxing from posterior segment of RUL, likely d/t abscess -BCx 01/31 - NGTD -Expectorated Sputum Culture 02/01 - NGTD -BA Lavage, RUL 02/02: fungal culture - pending Acid Fast Culture - pending Bronchial Culture - pending -Continue IV Metronidazole 500mg Q12H -Continue IV Cefepime 2,000mg Q8H -PT/OT eval and treat -CBC, BMP, Procalcitonin, CRP in AM Aspergillins AG + Legionella PCR additionally ordered by Dr Perez #COPD - improving, only SOB on exertion, per pt -Continue Home Meds: Albuterol Hfa; DuoNebs, Fluticasone Furoate, Fluticasone Nasal spray # Anemia - Pt w/ JOSE DAVID on 02/02 -Start Iron PO 325mg BID #CAD - Patient is on aspirin and atorvastatin likely a secondary prevention medication. Aspirin is currently on hold in case any procedures to be indicated -Restart ASA -Continue Atorvastatin 20mg #GERD - No acute concerns -Hold: Famotidine, Sucralfate -Continue Pantoprazole 40mg BID #Hypokalemia | Hypomagnesemia - RESOLVED -Mag in AM Dispo: Continue Med/Tele - awaiting bronchoscopy, cultures, improvement DVT Proph: Heparin Updated Code Status: Pt is CONDITIONAL CODE - does not want invasive airway intervention Admission and Anticipated Discharge Date Admission Date: January 31, 2025 Subjective Pt is laying in bed today in NAD. Pt states that he was able to sit in his chair for a while this AM 02/03 and denies feeling any SOB. He notes that he has been coughing up a green phlegm. Pt states that he overall is feeling much improved when compared to his evening in the ED. He notes that he hasn't used the supplemental O2 the evening of 02/02, overnight, or this AM 02/03. He denies sore throat, congestion, CP, palpitations, abd pain/discomfort, and N/V/D. Pt has not yet had a bowel movement since bronchoscopy, but has been passing gas. Review of Systems Review of Systems: All systems reviewed & are unremarkable except as noted in Subjective Physical Exam Physical Exam: General: Pt is a 84 y/o WD/WN male in NAD in bed. VS: reviewed as above Skin: Illeal conduit in RLQ; sking is otherwise warm and dry; no lesions or ulcerations Respiratory: Decreased in RUL/RLL; otherwise no adventitious sounds noted. Cardio: RRR no murmurs Abdomen: Round, normoactive BS x4, nontender to palpation Extremities: no edema : Illeal conduit in RLQ producing clear pale yellow urine Neuro: A&Ox4, cooperative Results & Data Results & Data Vital Signs (Past 12 Hours) Vital Signs Temp Pulse Pulse Resp BP Pulse Ox O2 Del Method 02/03/25 07:48 97.3 F L 86 18 95/56 L 94 Room Air 02/03/25 03:06 97.7 F 87 18 105/70 95 Room Air 02/02/25 23:37 96 H 02/02/25 22:58 Room Air 02/02/25 22:03 98.1 F 98 H 19 111/63 94 Room Air Laboratory Results Reviewed: CBC, BMP, Mag, CRP, Procal PG Care Time/CCT Total # of Minutes Spent Total Time Spent with Patient: Total time spent is greater than 50% in coordination of care (as documented) at patient's floor/unit and/or counseling patient: Coding Level of Care Code 79423 SUB INP/OBS CARE 2/35MIN Diagnoses Healthcare-associated pneumonia J18.9 COPD with emphysema J43.9 CAD (coronary artery disease) I25.10 GERD (gastroesophageal reflux disease) K21.9"
[2025-02-03 08:54] LABS: Magnesium 2.0 mg/dl (1.7-2.4)
[2025-02-03] MEDS: ATORVASTATIN 20 MG TAB PO SCH (09:04)
[2025-02-03 09:18] LABS: Fluid Mono/Macrophage 13 %; Lymphocyte Body Fluid Man 4 %; Neutrophil Body Fluid Man 83 %
--- NOTE | 2025-02-03 16:20 | Electrocardiogram Report ---
Test Reason : Blood Pressure : */* mmHG Vent. Rate : 126 BPM Atrial Rate : 126 BPM P-R Int : 160 ms QRS Dur : 124 ms QT Int : 298 ms P-R-T Axes : 29 67 34 degrees QTcB Int : 431 ms Sinus tachycardia with Premature atrial complexes Right bundle branch block Abnormal ECG When compared with ECG of 14-Jan-2025 18:05, Premature atrial complexes are now Present Confirmed by Beka Kimbrough ([id number]) on 02/03/2025 4:20:04 PM Referred By: Confirmed By: Beka Kimbrough
[2025-02-04 04:06] LABS: Hematocrit (blood only) 28.3 % (42.0-52.0); Hemoglobin 8.9 g/dL (14.0-18.0); Mean Corpuscular Hemoglobin 28.5 pg (25.0-34.0); Mean Corpuscular Volume 90.7 fL (80.0-100.0); Platelet Count 345 K/uL (130-400); RDW Standard Deviation 54.9 fL (36.4-46.3); Red Blood Count 3.12 M/uL (4.70-6.10); White Blood Count 13.06 K/ul (4.8-10.8)
[2025-02-04 04:26] LABS: Anion Gap 7.0 (3-11); Blood Urea Nitrogen 16.0 mg/dl (6-23); Calcium 8.9 mg/dl (8.6-10.3); Carbon Dioxide 27.0 mmol/L (21-32); Chloride 104.0 mmol/L (98-107); Creatinine Clr Calc Pharmacy 85.9 ml/min; Glucose 147.0 mg/dl (70-99(Fasting)); Magnesium 1.9 mg/dl (1.7-2.4); Potassium 4.0 mmol/L (3.5-5.1); Sodium 138.0 mmol/L (136-145)
--- NOTE | 2025-02-04 08:21 | Hospitalist Progress Note ---
"Date of Service February 04, 2025 Assessment & Plan (1) Healthcare-associated pneumonia: (2) COPD with emphysema: (3) CAD (coronary artery disease): (4) GERD (gastroesophageal reflux disease): Plan Pt is an 84 y/o male w/ a PMHx significant for COPD, adenocarcinoma of the lung, Anemia, CAD, GERD, Hx Bladder CA w/ current ileal conduit in RLQ who was recently discharged from our facility after multifocal pneumonia. Pt was d/c on appropriate abx, however, he progressed and declined. Pt was readmitted w/ sepsis and possible lung abscess. #Sepsis | Pneumonia | Lung abscess - Concern for gram negative/aspiration PNA; VSFF in 12/2024 w/ no aspiration, did have prolonged swallowing; Received Vancomycin, Cefepime, and Metronidazole in ED - Vanc d/c after negative nasal swab; CT 01/31 pneumonia of RUL & inferior parahilar RUL lung abscess -Pulm Consultation - Bronchoscopy 02/02: R mainstem bronchus w/ significant edema + off-white mucous; white material oozing from posterior segment of RUL, likely d/t abscess -BCx 01/31 - NGTD -Expectorated Sputum Culture 02/01 - NGTD -BA Lavage, RUL 02/02: fungal culture - pending Acid Fast Culture - pending Bronchial Culture - strep anginosus -Continue IV Metronidazole 500mg Q12H -Continue IV Cefepime 2,000mg Q8H -PT/OT eval and treat -CBC, BMP, Procalcitonin, CRP in AM -Continue to trend labs for clearer clinical picture Aspergillins AG + Legionella PCR additionally ordered by Dr Perez #Hypotension | Tachycardia - Pt had episode of Hypotension w/ PT and has become progressively tachycardic throughout day -HOLD LR 15mL/hr -Start IV NSS at 80mL/hr #COPD - improving, only SOB on exertion, per pt -Continue Home Meds: Albuterol Hfa; DuoNebs, Fluticasone Furoate, Fluticasone Nasal spray # Anemia - Pt w/ JOSE DAVID on 02/02 -Start Iron PO 325mg BID #CAD - Patient is on aspirin and atorvastatin likely a secondary prevention medication. Aspirin is currently on hold in case any procedures to be indicated -Restart ASA -Continue Atorvastatin 20mg #GERD - No acute concerns -Hold: Famotidine, Sucralfate -Continue Pantoprazole 40mg BID #Hypokalemia | Hypomagnesemia - RESOLVED -Mag in AM Dispo: Continue Med/Tele - awaiting bronchoscopy, cultures, improvement DVT Proph: Heparin Updated Code Status: Pt is CONDITIONAL CODE - does not want invasive airway intervention Admission and Anticipated Discharge Date Admission Date: January 31, 2025 Subjective Pt was laying in bed today in NAD. Pt states that he is feeling great today and is in a very positive mood. He notes that this is the best he's felt in a long time. Pt admits to still coughing and occasional SOB when he's moving around, but denies using a cannula. Pt denies H/A, sore throat, congestion, CP, palpitations, abd pain/discomfort, N/V/D. He notes that he is feeling stronger as he ambulates today as well. In the afternoon, pt became tachycardic and during his PT he became Hypotensive w/ a BPs of 97/55, 73/56 Telemetry: Sinus 80s overnight w/ few PAC's; Has progressively become more tachycardic since 10:00am, Pt at 116bpm Review of Systems Review of Systems: All systems reviewed & are unremarkable except as noted in Subjective Physical Exam Physical Exam: General: Pt is a 84 y/o WD/WN male in NAD in bed. VS: reviewed as above Skin: Illeal conduit in RLQ; sking is otherwise warm and dry; no lesions or ulcerations Respiratory: Decreased in RUL/RLL; otherwise no adventitious sounds noted. Cardio: RRR no murmurs Abdomen: Round, normoactive BS x4, nontender to palpation Extremities: no edema : Illeal conduit in RLQ producing clear pale yellow urine Neuro: A&Ox4, cooperative Results & Data Results & Data Vital Signs (Past 12 Hours) Vital Signs Temp Pulse Pulse Resp BP Pulse Ox O2 Del Method 02/04/25 07:38 79 02/04/25 07:16 97.9 F 67 21 100/61 93 Room Air 02/04/25 02:53 97.9 F 70 18 88/53 L 93 Room Air 02/04/25 00:33 80 02/04/25 00:08 Room Air 02/03/25 23:33 97.9 F 72 18 95/50 L 94 Room Air Laboratory Results Reviewed: BMP, CBC, CRP, Procal - CBC w/ increased WBC's although CRP demonstrates continued improvement; pt clinically improving. Reviewed: current results for BCx, Lavage cultures from RUL (Bacterial, Acid fast, Fungal) PG Care Time/CCT Total # of Minutes Spent Total Time Spent with Patient: Total time spent is greater than 50% in coordination of care (as documented) at patient's floor/unit and/or counseling patient: Coding Level of Care Code 78441 SUB INP/OBS CARE 2/35MIN Diagnoses Healthcare-associated pneumonia J18.9 COPD with emphysema J43.9 CAD (coronary artery disease) I25.10 GERD (gastroesophageal reflux disease) K21.9"
[2025-02-04] MEDS: ASPIRIN 81 MG ECTAB PO SCH (09:05)
[2025-02-04] MEDS: SODIUM CHLORIDE 0.9% 1,000 ML IV SCH (15:35)
[2025-02-05 07:24] LABS: Magnesium 1.6 mg/dl (1.7-2.4)
--- NOTE | 2025-02-05 07:58 | Hospitalist Progress Note ---
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 Pt was d/c on appropriate abx, however, he progressed and declined. Pt was readmitted w/ sepsis and possible lung abscess. #Sepsis | Pneumonia | Lung abscess - Concern for gram negative/aspiration PNA; VSFF in 12/2024 w/ no aspiration, did have prolonged swallowing; Received Vancomycin, Cefepime, and Metronidazole in ED - Vanc d/c after negative nasal swab; CT 01/31 pneumonia of RUL & inferior parahilar RUL lung abscess; BCx 01/31 negative; expectorated sputum culture 02/01 negative -Pulm Consultation - Bronchoscopy 02/02: R mainstem bronchus w/ significant edema + off-white mucous; white material oozing from posterior segment of RUL, likely d/t abscess -Aspergillins + Legionella PCR - Pending -BA Lavage, RUL 02/02: fungal culture - pending Acid Fast Culture - pending Bronchial Culture - strep anginosus -STOP IV Cefepime 2,000mg Q8H - per pulm -START IV Ceftriaxone 2,000 Q24 - per pulm -Continue IV Metronidazole 500mg Q12H -PT/OT eval and treat -Repeat BCx, UA w/ culture - consider additional sources of infection -CBC, BMP, Procalcitonin, CRP in AM Repeat Chest CTA on 02/12 to assess progression of abscess per pulm #Hypotension | Tachycardia - Pt had episode of Hypotension w/ PT and has become progressively tachycardic throughout day -Continue Midodrine -Orthostatic BPs Q2H -HOLD LR 15mL/hr -Start IV NSS at 125mL/hr #COPD - improving, only SOB on exertion, per pt -Continue Home Meds: Albuterol Hfa; DuoNebs, Fluticasone Furoate, Fluticasone Nasal spray # Anemia - Pt w/ JOSE DAVID on 02/02 -Start Iron PO 325mg BID #CAD - Patient is on aspirin and atorvastatin likely a secondary prevention medication. Aspirin is currently on hold in case any procedures to be indicated -Restart ASA -Continue Atorvastatin 20mg #GERD - No acute concerns -Hold: Famotidine, Sucralfate -Continue Pantoprazole 40mg BID #Hypokalemia | Hypomagnesemia - RESOLVED -Mag in AM Dispo: Continue Med/Tele - awaiting bronchoscopy, cultures, improvement DVT Proph: Heparin Updated Code Status: Pt is CONDITIONAL CODE - does not want invasive airway intervention Admission and Anticipated Discharge Date Admission Date: January 31, 2025 Subjective Pt was laying in bed today in NAD. Pt states that he feels okay today. Pt states that he has been coughing a bit more and states that his SOB has continued to improve. Pt denies feeling light-headed but continues to have low BP's. Pt does appear to be having orthostatic hypotension. Pt denies CP, sore throat, H/A, abd pain/discomfort, N/V/D. Telemetry: Sinus 90s consistently, occasional PAC's Review of Systems Review of Systems: All systems reviewed & are unremarkable except as noted in Subjective Physical Exam Physical Exam: General: Pt is a 84 y/o WD/WN male in NAD in bed. VS: Remarkable Skin: Illeal conduit in RLQ; sking is otherwise warm and dry; no lesions or ulcerations Respiratory: Decreased in RUL/RLL; otherwise no adventitious sounds noted. Cardio: RRR no murmurs Abdomen: Round, normoactive BS x4, nontender to palpation Extremities: no edema Neuro: A&Ox4, cooperative Results & Data Results & Data Vital Signs (Past 12 Hours) Vital Signs Temp Pulse Pulse Resp BP Pulse Ox O2 Del Method 02/05/25 07:00 96 H 02/05/25 02:59 105 H 02/05/25 02:29 98.8 F 109 H 18 124/71 92 Nasal Cannula 02/04/25 23:35 97.7 F 118 H 18 104/60 92 Room Air 02/04/25 21:00 Room Air O2 Flow Rate 02/05/25 07:00 02/05/25 02:59 02/05/25 02:29 2 02/04/25 23:35 02/04/25 21:00 PG Care Time/CCT Total # of Minutes Spent Total Time Spent with Patient: Total time spent is greater than 50% in coordination of care (as documented) at patient's floor/unit and/or counseling patient: Coding Level of Care Code 41960 SUB INP/OBS CARE 350MIN Diagnoses Healthcare-associated pneumonia J18.9 COPD with emphysema J43.9 CAD (coronary artery disease) I25.10 GERD (gastroesophageal reflux disease) K21.9"
[2025-02-05 08:57] LABS: Hematocrit (blood only) 31.1 % (42.0-52.0); Hemoglobin 9.5 g/dL (14.0-18.0); Immature Granulocytes # (auto) 0.51 K/uL (0.01-0.20); Immature Granulocytes % (auto) 2.9 %; Mean Corpuscular Hemoglobin 28.0 pg (25.0-34.0); Mean Corpuscular Volume 91.7 fL (80.0-100.0); Platelet Count 340 K/uL (130-400); RDW Standard Deviation 57.6 fL (36.4-46.3); Red Blood Count 3.39 M/uL (4.70-6.10); White Blood Count 17.62 K/ul (4.8-10.8)
[2025-02-05] MEDS: AMPICILLIN/SULBACTAM SOD 3,000 MG/100 ML BAG IV SCH (09:07)
[2025-02-05 09:16] LABS: Anion Gap 7.0 (3-11); Blood Urea Nitrogen 13.0 mg/dl (6-23); Calcium 8.7 mg/dl (8.6-10.3); Carbon Dioxide 27.0 mmol/L (21-32); Chloride 98.0 mmol/L (98-107); Creatinine Clr Calc Pharmacy 95.9 ml/min; Glucose 169.0 mg/dl (70-99(Fasting)); Potassium 3.7 mmol/L (3.5-5.1); Sodium 132.0 mmol/L (136-145)
[2025-02-05] MEDS: SODIUM CHLORIDE 0.9% 500 ML IV ONE ×3 (10:05→21:03)
[2025-02-05 11:12] LABS: Appearance Urine Clear (Clear); Bacteria Urine Automated None Seen (None Seen); Cast Urine Automated 0-2 /lpf (0-2); Epithelial Cell Urine Auto 0-2 /hpf (0-2); Glucose Urine UA Negative (Negative)
[2025-02-05] MEDS: cefTRIAXone SODIUM 2,000 MG/50 ML BAG IV SCH (11:38)
--- NOTE | 2025-02-05 12:58 | Pulmonology Progress Note ---
Date of Service February 05, 2025 Assessment & Plan (1) Lung abscess: Plan: * Previously treated for suspected post-obstructive pneumonia * Immunocompromised host * BAL growing Streptococcus anginosus ("Streptococcus milleri group"). * Metronidazole increased to 500 q8hrs and Cefepime switched to Ceftriaxone (history of Penicillin allergy, otherwise Unasyn would have been adequate). * The patient will need at least 2 weeks of IV antibiotics and then further action will depend on his response. * Will need to repeat imaging in around 7 days from now: If the abscess is not shrinking then it may have to be drained. Consideration will be given to repeating imaging earlier if no source for Leukocytosis identified. * Total treatment will be 6-8 weeks. * He could still be having silent aspiration, possibly during sleep, despite passing swallowing study. * I would avoid pro-biotics: there is no strong evidence of benefit in this population of immunocompromised hosts, and they can potentially cause pneumonia and abscesses. Laterality: right Lung location: upper lobe of lung Pulmonary abscess pneumonia presence: with pneumonia Qualified Code(s): J85.1 - Abscess of lung with pneumonia (2) Leukocytosis: Plan: * Recurrent increase in WBC along with recurrent increase in CRP * Mildly abnormal UA in the context of ileal-conduit * Consideration will be given to repeating chest imaging earlier if no source for Leukocytosis identified. (3) Hypoxia: (4) Pneumonia: Laterality: right Lung location: upper lobe of lung Pneumonia type: due to unspecified organism Qualified Code(s): J18.9 - Pneumonia, unspecified organism (5) Adenocarcinoma of lower lobe of right lung: Plan: * No malignant cells noted on BAL cytology. Admission and Anticipated Discharge Date Admission Date: January 31, 2025 Subjective History of Present Illness The patient is a very pleasant 84-year-old male who presented to the ED for evaluation of tachycardia and worsening shortness of breath. He had recently been discharged from a facility after treatment for pneumonia and had a known history of lung cancer. Over the two evenings prior to presentation, he experienced increased shortness of breath with exertion, palpitations, and chest pain. He denied hemoptysis but reported feverishness. His family physician, after evaluating him and noting tachycardia and hypoxia, sent him to the ED for further workup, including a CT scan of the chest. Imaging revealed a large infiltrate with concern for a necrotic mass versus a lung abscess on the right. He was treated with IV fluids and broad-spectrum antibiotics, including vancomycin, cefepime, and metronidazole. Pulmonary consultation was requested. His past medical history included COPD with emphysema, CAD, GERD, adenocarcinoma of the lung status post radiation therapy, and a history of bladder cancer with an ileal conduit. He was recently treated for healthcare-associated pneumonia and was on appropriate outpatient antibiotics prior to this admission. Note from 02/01/2025: The patient denies any dyspnea or chest pain at rest. He reported cough productive of yellowish sputum. He was able to expectorate a specimen while I was in his room, and I submitted it for culture. I reviewed the imaging studies, and there is a suspicious abscess in an area of previous bulla, in addition to infiltrates surrounding that area. Note from 02/05/2025: The patient feels well, and denies dyspnea at rest. He hasn't been exerting himself much. Occasional cough with expectoration of yellowish sputum. No hemoptysis. Increase in WBC and CRP after dropping following admission. Minimally abnormal U/A with Leukocytes and trace Leukocyte esterase in patient with ileal-conduit. BAL growing Streptococcus anginosus ("Streptococcus milleri group"). Metronidazole increased to 500 q8hrs and Cefepime switched to Ceftriaxone (history of Penicillin allergy, otherwise Unasyn would have been adequate). The patient will need at least 2 weeks of IV antibiotics and then further action will depend on his response. Will need to repeat imaging in around 7 days from now: If the abscess is not shrinking then it may have to be drained. Consideration will be given to repeating imaging earlier if no source for Leukocytosis identified. Total treatment will be 6-8 weeks. He could still be having silent aspiration, possibly during sleep, despite passing swallowing study. I would avoid pro-biotics: there is no strong evidence of benefit in this population of immunocompromised hosts, and they can potentially cause pneumonia and abscesses. Review of Systems Review of Systems: All systems reviewed & are unremarkable except as noted in HPI & below Physical Exam Physical Exam: General: In no acute distress, using Oxygenvia nasal cannula. Respiratory: Diffusely decreased breath sounds, inspiratory crackles and expiratory squeaks over right-upper lung field posteriorly. No use of accessory muscles and no prolonged exhalation. Cardiac: Distant sounds, regular rhythm, no murmurs, no gallops, no rubs; could not appreciate JV pulse elevation. GI: Soft, nontender. Extremities No clubbing,no cyanosis,no edema. Neuro: No gross motor deficits. Seems appropriate. No facial-droop. Speech is clear. Results & Data Results & Data Vital Signs (Past 12 Hours) Vital Signs Temp Pulse Pulse Resp BP Pulse Ox O2 Del Method 02/05/25 08:08 36.5 C 96 H 24 98/48 L 92 Room Air 02/05/25 08:00 Room Air 02/05/25 07:00 96 H 02/05/25 02:59 105 H 02/05/25 02:29 37.1 C 109 H 18 124/71 92 Nasal Cannula O2 Flow Rate 02/05/25 08:08 02/05/25 08:00 02/05/25 07:00 02/05/25 02:59 02/05/25 02:29 2 PG Care Time/CCT Total # of Minutes Spent Total Time Spent with Patient: Total time spent is greater than 50% in coordination of care (as documented) at patient's floor/unit and/or counseling patient: 45 minutes Coding Level of Care Code 47296 SUB INP/OBS CARE 2/35MIN Diagnoses Abscess of upper lobe of right lung with pneumonia J85.1 Laterality: right Lung location: upper lobe of lung Pulmonary abscess pneumonia presence: with pneumonia Leukocytosis D72.829 Hypoxia R09.02 Pneumonia of right upper lobe due to infectious organism J18.9 Laterality: right Lung location: upper lobe of lung Pneumonia type: due to unspecified organism Adenocarcinoma of lower lobe of right lung C34.31 Time Spent (min) 45
[2025-02-05] MEDS ORDERED: CEFEPIME 2000MG 2,000 MG/20 ML SYR IV SCH (13:00)
[2025-02-05] MEDS: metroNIDAZOLE 500 MG/100 ML BAG IV SCH (17:43)
[2025-02-05] MEDS: ALBUT/IPRATROP 3MG/0.5MG NEB 3 ML VIAL NEB PRN (21:57)
[2025-02-05] MEDS: ACETAMINOPHEN 325 MG TAB PO PRN (23:24)
[2025-02-06 06:45] LABS: Hematocrit (blood only) 26.7 % (42.0-52.0); Hemoglobin 8.3 g/dL (14.0-18.0); Mean Corpuscular Hemoglobin 28.3 pg (25.0-34.0); Mean Corpuscular Volume 91.1 fL (80.0-100.0); Platelet Count 305 K/uL (130-400); RDW Standard Deviation 55.8 fL (36.4-46.3); Red Blood Count 2.93 M/uL (4.70-6.10); White Blood Count 15.32 K/ul (4.8-10.8)
[2025-02-06 07:14] LABS: Anion Gap 5.0 (3-11); Blood Urea Nitrogen 10.0 mg/dl (6-23); Calcium 8.6 mg/dl (8.6-10.3); Carbon Dioxide 29.0 mmol/L (21-32); Chloride 105.0 mmol/L (98-107); Creatinine Clr Calc Pharmacy 123.2 ml/min; Glucose 119.0 mg/dl (70-99(Fasting)); Magnesium 1.7 mg/dl (1.7-2.4); Potassium 3.8 mmol/L (3.5-5.1); Sodium 139.0 mmol/L (136-145)
[2025-02-06 07:15] LABS: Immature Granulocytes # (auto) 0.84 K/uL (0.01-0.20); Immature Granulocytes % (auto) 5.5 %; Polychromasia 2+; Spherocytes 1+
[2025-02-06] MEDS: MIDODRINE HCL 2.5 MG TAB PO SCH (08:26)
--- NOTE | 2025-02-06 09:14 | Hospitalist Progress Note ---
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 Pt was d/c on appropriate abx, however, he progressed and declined. Pt was readmitted w/ sepsis and possible lung abscess. #Sepsis | Pneumonia | Lung abscess - Concern for gram negative/aspiration PNA; VSFF in 12/2024 w/ no aspiration, did have prolonged swallowing; Received Vancomycin, Cefepime, and Metronidazole in ED - Vanc d/c after negative nasal swab; CT 01/31 pneumonia of RUL & inferior parahilar RUL lung abscess; BCx 01/31 negative; expectorated sputum culture 02/01 negative; Repeat CXR 02/05; Bronchoscopy 02/02: R mainstem bronchus w/ significant edema + off-white mucous; white material oozing from posterior segment of RUL, likely d/t abscess; Repeat CXR 02/06 Dense consolidation seen in Rt Lung, modestly increased from 01/31 CT; CT 02/06 Fibrotic change seen in the right lung with dense confluent airspace consolidation. This is greatest in the right upper lobe and has progressed from 01/31/2025. There is loculated gas and fluid within the consolidated lung, and this could represent necrotizing pneumonia, abscess, and/or necrotic tumor. -Pulmonology following -Infectious Disease Consulted; recommended adding IV Azithromycin, agreed w/ IV Meropenem -Aspergillins + Legionella PCR - Pending -BA Lavage, RUL 02/02: fungal culture - presence of yeast, awaiting differentiation Acid Fast Culture - pending Bronchial Culture - strep anginosus -Repeat Source Work-up 02/05 for persistent SIRS despite therapy: UA w/ culture - pending, BCx -After discussion w/ Dr Wakefield & kwaku w/ ID on 02/06: Switch IV Ceftriaxone to IV Meropenem, IV Azithromycin and continue IV Metronidazole 500mg Q8H -Repeat Blood Culture #3 on 02/06 per ID -CBC, BMP, Procalcitonin, CRP in AM -NPO for potential bronchoscopy 02/07 Formal ID Consult on 02/07 AM - stated if nothing heard by noon, should reach out to ID. #Hypotension | Tachycardia -Continue Midodrine 5mg TID -HOLD LR 15mL/hr -HOLD IV NSS at 125mL/hr d/t low urine osmolality w/out improvement #COPD - improving, only SOB on exertion, per pt -Continue Home Meds: Albuterol Hfa; DuoNebs, Fluticasone Furoate, Fluticasone Nasal spray # Anemia - Pt w/ JOSE DAVID on 02/02 - Iron PO 325mg BID #CAD - Patient is on aspirin and atorvastatin likely a secondary prevention medication. Aspirin is currently on hold in case any procedures to be indicated -Restart ASA -Continue Atorvastatin 20mg #GERD - No acute concerns -Hold: Famotidine, Sucralfate -Continue Pantoprazole 40mg BID #Hypokalemia | Hypomagnesemia - RESOLVED Dispo: Continue Med/Tele - awaiting bronchoscopy, cultures, improvement; Pt being followed by PT/OT DVT Proph: Heparin Updated Code Status: Pt is CONDITIONAL CODE - does not want invasive airway intervention Admission and Anticipated Discharge Date Admission Date: January 31, 2025 Subjective Pt was laying in bed today, SOB. Pt states that he has started to become progressively SOB. Last night he needed a NC placed and is still currently using it this AM. Pt states that aside from the shortness of breath, he just feels more tired than the previous days and continues to cough. Pt denies sore throat, chest pain, palpitations, loss of appetite, N/V/D, and abd pain/discomfort. Review of Systems Review of Systems: All systems reviewed & are unremarkable except as noted in Subjective Physical Exam Physical Exam: General: Pt is a 84 y/o WD/WN male in NAD in bed. VS: Reviewed remarkable; pt needed nasal cannula Skin: Illeal conduit in RLQ; sking is otherwise warm and dry; no lesions or ulcerations Respiratory: Markedly decreased in RUL/RLL, RLL almost absent; Wheezing heard diffusely throughout lungs bilat Cardio: RRR no murmurs Abdomen: Round, normoactive BS x4, nontender to palpation Extremities: no edema, pt is weaker today Neuro: A&Ox4, cooperative Results & Data Results & Data Vital Signs (Past 12 Hours) Vital Signs Temp Pulse Pulse Resp BP Pulse Ox O2 Del Method 02/06/25 08:00 89 02/06/25 08:00 Nasal Cannula 02/06/25 07:00 97.7 F 98 H 20 90/56 L 96 Nasal Cannula 02/06/25 03:58 97.9 F 79 18 104/52 L 99 Nasal Cannula 02/05/25 23:22 99.6 F 99 H 24 98/55 L 96 Nasal Cannula 02/05/25 22:00 100 H 02/05/25 21:57 97 H 18 99 Nasal Cannula 02/05/25 21:34 Nasal Cannula O2 Flow Rate 02/06/25 08:00 02/06/25 08:00 2 02/06/25 07:00 2 02/06/25 03:58 2 02/05/25 23:22 2 02/05/25 22:00 02/05/25 21:57 4 02/05/25 21:34 2 Laboratory Results Reviewed: CBC, BMP, Urine Osmolality, Serum Osmolality, CRP, Procalcitonin, Diagnostic Findings Reviewed: CBC, BMP, CRP, Procalcitonin Reviewed: Cultures - notable for possible yeast growth from Rt lung lavage Reviewed: UA - notable for yeast, reflex culture ordered. PG Care Time/CCT Total # of Minutes Spent Total Time Spent with Patient: Total time spent is greater than 50% in coordination of care (as documented) at patient's floor/unit and/or counseling patient: Coding Level of Care Code 49144 SUB INP/OBS CARE 3/50MIN Diagnoses Healthcare-associated pneumonia J18.9 COPD with emphysema J43.9 CAD (coronary artery disease) I25.10 GERD (gastroesophageal reflux disease) K21.9"
--- NOTE | 2025-02-06 10:36 | XRay Report ---
SINGLE VIEW CHEST CLINICAL HISTORY: Hypoxia FINDINGS: An AP, portable, upright chest radiograph is compared to study dated 01/14/2025 and correla nelsy with chest CT dated 01/31/2025. The cardiomediastinal silhouette is unremarkable noting atheroscl erotic calcification of the thoracic aorta. Emphysema and chronic interstitial thickening is similar to previous. There is volume loss in the right lung with compensatory hyperinflation of the left lung . Consolidation and fibrosis throughout the left lung is again seen. This appears modestly increased from 01/31/[address] Left lung appears clear noting basilar scarring/atelectasis. There is a sma ll right pleural effusion. No pneumothorax is seen. The skeletal structures are osteopenic. The bony thorax is grossly intact. IMPRESSION: 1. Emphysema. 2. Fibrotic change and dense consolidation throughout the right lung appears modestly increased from the 01/31/2025 CT scan. 3. A small right pleural effusion is observed. 4. The left lung is clear. ACT 112: Negative or not required by law. Electronically signed by: Nilson De Luna M.D. 02/06/2025 10:35 AM
--- NOTE | 2025-02-06 11:52 | Pulmonology Progress Note ---
Date of Service February 06, 2025 Assessment & Plan (1) Pneumonia: Plan: * Worsening opacities over right lung with possible volume/atelectasis * Will obtain CT chest to assess for need to drain right lung abscess versus potential benefit from repeat bronchoscopy if there is suggestion of mucus plugging. Laterality: right Lung location: upper lobe of lung Pneumonia type: due to unspecified organism Qualified Code(s): J18.9 - Pneumonia, unspecified organism (2) Lung abscess: Plan: * Previously treated for suspected post-obstructive pneumonia * Immunocompromised host * BAL growing Streptococcus anginosus ("Streptococcus milleri group"). * Metronidazole increased to 500 q8hrs and Cefepime switched to Ceftriaxone (history of Penicillin allergy, otherwise Unasyn would have been adequate). * The patient will need at least 2 weeks of IV antibiotics and then further action will depend on his response. * Repeat imaging initially planned for 7-10 day, but will repeat today because of changes on exam and CXR. * Total treatment will be 6-8 weeks. May require drainage of lung abscess. * He could still be having silent aspiration, possibly during sleep, despite passing swallowing study. * I would avoid pro-biotics: there is no strong evidence of benefit in this population of immunocompromised hosts, and they can potentially cause pneumonia and abscesses. Pulmonary abscess pneumonia presence: with pneumonia Laterality: right Lung location: upper lobe of lung Qualified Code(s): J85.1 - Abscess of lung with pneumonia (3) Leukocytosis: Plan: * Recurrent increase in WBC, slightly better, but continued increase in CRP * Mildly abnormal UA in the context of ileal-conduit (4) Hypoxia: (5) Adenocarcinoma of lower lobe of right lung: Plan: * No malignant cells noted on BAL cytology. Admission and Anticipated Discharge Date Admission Date: January 31, 2025 Subjective The patient is a very pleasant 84-year-old male who presented to the ED for evaluation of tachycardia and worsening shortness of breath. He had recently been discharged from a facility after treatment for pneumonia and had a known history of lung cancer. Over the two evenings prior to presentation, he experienced increased shortness of breath with exertion, palpitations, and chest pain. He denied hemoptysis but reported feverishness. His family physician, after evaluating him and noting tachycardia and hypoxia, sent him to the ED for further workup, including a CT scan of the chest. Imaging revealed a large infiltrate with concern for a necrotic mass versus a lung abscess on the right. He was treated with IV fluids and broad-spectrum antibiotics, including vancomycin, cefepime, and metronidazole. Pulmonary consultation was requested. His past medical history included COPD with emphysema, CAD, GERD, adenocarcinoma of the lung status post radiation therapy, and a history of bladder cancer with an ileal conduit. He was recently treated for healthcare-associated pneumonia and was on appropriate outpatient antibiotics prior to this admission. Note from 02/01/2025: The patient denies any dyspnea or chest pain at rest. He reported cough productive of yellowish sputum. He was able to expectorate a specimen while I was in his room, and I submitted it for culture. I reviewed the imaging studies, and there is a suspicious abscess in an area of previous bulla, in addition to infiltrates surrounding that area. Note from 02/05/2025: The patient feels well, and denies dyspnea at rest. He hasn't been exerting himself much. Occasional cough with expectoration of yellowish sputum. No hemoptysis. Increase in WBC and CRP after dropping following admission. Minimally abnormal U/A with Leukocytes and trace Leukocyte esterase in patient with ileal-conduit. BAL growing Streptococcus anginosus ("Streptococcus milleri group"). Metronidazole increased to 500 q8hrs and Cefepime switched to Ceftriaxone (history of Penicillin allergy, otherwise Unasyn would have been adequate). The patient will need at least 2 weeks of IV antibiotics and then further action will depend on his response. Will need to repeat imaging in around 7 days from now: If the abscess is not shrinking then it may have to be drained. Consideration will be given to repeating imaging earlier if no source for Leukocytosis identified. Total treatment will be 6-8 weeks. He could still be having silent aspiration, possibly during sleep, despite pas sing swallowing study. I would avoid pro-biotics: there is no strong evidence of benefit in this population of immunocompromised hosts, and they can potentially cause pneumonia and abscesses. Note from 02/06/2025: The patient is feeling well. He denies dyspnea or chest pain. He reports cough productive of greenish sputum. WBC slightly better but CRP increasing. On exam there was decreased sounds over the right lung. CXR showed increased opacities throughout the right lung. There is some ipsilateral mediastinal (mainly cardiac) shift: possible volume-loss/atelectasis (personal review). Will obtain chest CT. Review of Systems Review of Systems: All systems reviewed & are unremarkable except as noted in HPI & below Physical Exam Physical Exam: General: In no acute distress, using Oxygenvia nasal cannula. Respiratory: Diffusely decreased breath sounds, almost absent sounds over right hemithorax. No use of accessory muscles and no prolonged exhalation. Cardiac: Distant sounds, regular rhythm, no murmurs, no gallops, no rubs; could not appreciate JV pulse elevation. GI: Soft, nontender. Extremities No clubbing,no cyanosis,no edema. Neuro: No gross motor deficits. Seems appropriate. No facial-droop. Speech is clear. Results & Data Results & Data Vital Signs (Past 12 Hours) Vital Signs Temp Pulse Pulse Resp BP Pulse Ox O2 Del Method 02/06/25 11:17 36.6 C 78 18 112/57 L 99 Nasal Cannula 02/06/25 10:00 82 16 100/57 L 94 Nasal Cannula 02/06/25 08:00 89 02/06/25 08:00 Nasal Cannula 02/06/25 07:00 36.5 C 98 H 20 90/56 L 96 Nasal Cannula 02/06/25 03:58 36.6 C 79 18 104/52 L 99 Nasal Cannula O2 Flow Rate 02/06/25 11:17 2 02/06/25 10:00 2 02/06/25 08:00 02/06/25 08:00 2 02/06/25 07:00 2 02/06/25 03:58 2 Laboratory Results 02/05/25 10:07 Aerobic Blood Culture - Preliminary Blood No growth in Aerobic bottle after 24 hours. Anaerobic Blood Culture - Preliminary No growth in Anaerobic bottle after 24 hours. 02/05/25 09:58 Aerobic Blood Culture - Preliminary Blood No growth in Aerobic bottle after 24 hours. Anaerobic Blood Culture - Preliminary No growth in Anaerobic bottle after 24 hours. 01/31/25 13:05 Aerobic Blood Culture - Final Blood No growth in Aerobic bottle after 5 days. Anaerobic Blood Culture - Final No growth in Anaerobic bottle after 5 days. 01/31/25 10:48 Aerobic Blood Culture - Final Blood No growth in Aerobic bottle after 5 days. Anaerobic Blood Culture - Final No growth in Anaerobic bottle after 5 days. 02/05/25 10:05 Urine Culture - Pending Urine,Clean Catch 02/06/25 02/06/25 02/05/25 06:10 05:46 20:40 WBC 15.32 H RBC 2.93 L Hgb 8.3 L Hct 26.7 L MCV 91.1 MCH 28.3 MCHC 31.1 L RDW Std Deviation 55.8 H RDW Coeff of Kwame 17.0 H Plt Count 305 MPV 10.1 Immature Gran % (Auto) 5.5 Neut % (Auto) 78.8 Lymph % (Auto) 3.4 [place] % (Auto) 10.8 Eos % (Auto) 1.1 Baso % (Auto) 0.4 Neut # (Auto) 12.08 H Lymph # (Auto) 0.52 L [place] # (Auto) 1.65 H Eos # (Auto) 0.17 Baso # (Auto) 0.06 Immature Gran # (Auto) 0.84 H Absolute Nucleated RBC 0.02 Nucleated RBC % (auto) 0.1 Polychromasia 2+ Spherocytes 1+ Sodium 139 Potassium 3.8 Chloride 105 Carbon Dioxide 29 Anion Gap 5 BUN 10 Creatinine 0.46 L Est Cr Clr Drug Dosing 123.2 eGFR 102.50 BUN/Creatinine Ratio 21.7 H Glucose 119 H Osmolality 284 Lactate 2.3 H* Calcium 8.6 Magnesium 1.7 C-Reactive Protein 24.91 H Procalcitonin 0.29 Urine Osmolality 192 L 02/05/25 18:44 WBC RBC Hgb Hct MCV MCH MCHC RDW Std Deviation RDW Coeff of Kwame Plt Count MPV Immature Gran % (Auto) Neut % (Auto) Lymph % (Auto) [place] % (Auto) Eos % (Auto) Baso % (Auto) Neut # (Auto) Lymph # (Auto) [place] # (Auto) Eos # (Auto) Baso # (Auto) Immature Gran # (Auto) Absolute Nucleated RBC Nucleated RBC % (auto) Polychromasia Spherocytes Sodium Potassium Chloride Carbon Dioxide Anion Gap BUN Creatinine Est Cr Clr Drug Dosing eGFR BUN/Creatinine Ratio Glucose Osmolality Lactate 2.1 H* Calcium Magnesium C-Reactive Protein Procalcitonin Urine Osmolality Diagnostic Findings Chest X-Ray 02/06/25 10:18 SINGLE VIEW CHEST CLINICAL HISTORY: Hypoxia FINDINGS: An AP, portable, upright chest radiograph is compared to study dated 01/14/2025 and correlated with chest CT dated 01/31/2025. The cardiomediastinal silhouette is unremarkable noting atherosclerotic calcification of the thoracic aorta. Emphysema and chronic interstitial thickening is similar to previous. There is volume loss in the right lung with compensatory hyperinflation of the left lung. Consolidation and fibrosis throughout the left lung is again seen. This appears modestly increased from 01/31/[address] Left lung appears clear noting basilar scarring/atelectasis. There is a small right pleural effusion. No pneumothorax is seen. The skeletal structures are osteopenic. The bony thorax is grossly intact. IMPRESSION: 1. Emphysema. 2. Fibrotic change and dense consolidation throughout the right lung appears modestly increased from the 01/31/2025 CT scan. 3. A small right pleural effusion is observed. 4. The left lung is clear. Electronically signed by: Nilson De Luna M.D. 02/06/2025 10:35 AM Medications Administered Home Medications Medication Instructions Recorded Confirmed Last Taken alprazolam 0.5 mg tablet 0.5 mg PO BID PRN Anxiety 06/14/20 01/31/25 06/13/20 ascorbic acid (vitamin C) 500 mg 1,500 mg PO QPM 06/14/20 01/31/25 12/09/22 tablet (Vitamin C) aspirin 81 mg tablet,delayed 81 mg PO DAILY 06/14/20 01/31/25 05/26/21 release (Ramya Low Dose Aspirin) atorvastatin 20 mg tablet 20 mg PO QAM 05/28/21 01/31/25 12/09/22 mecobalamin (vitamin B12) 1,000 1,000 mcg PO DAILY 06/21/24 01/31/25 Unknown mcg chewable tablet albuterol sulfate 90 mcg/actuation 1 inh inhalation QID PRN Shortness 07/26/24 01/31/25 Unknown aerosol inhaler Of Breath Or Wheezing famotidine 20 mg tablet 20 mg PO BID #60 tabs 07/29/24 01/31/25 Unknown pantoprazole 40 mg tablet,delayed 40 mg PO BID #60 tabs 07/29/24 01/31/25 Unknown release sucralfate 100 mg/mL oral 1 g (10 mL) PO QID #1,200 mL 07/29/24 01/31/25 Unknown suspension chlorpheniramine 4 1 tab PO BID PRN allergy symptoms 12/10/24 01/31/25 Unknown mg-phenylephrine 10 mg tablet #30 tabs fluticasone propionate 50 1 spray intranasal DAILY #9.9 grams 12/10/24 01/31/25 Unknown mcg/actuation nasal spray,suspension (Allergy Relief (fluticasone)) L.acidop,casei,lactis,rham-B.lact,claude 1 cap PO DAILY 30 days #30 caps 01/18/25 01/31/25 Unknown 625 mg (10 billion cell) capsule (Advanced Probiotic) midodrine 2.5 mg tablet 2.5 mg PO TID@0800,1200,1700 30 01/18/25 01/31/25 Unknown days #90 tabs Lift Chair #1 ea 01/21/25 01/21/25 Unknown hydrocodone 5 mg-acetaminophen 325 1 - 2 tab PO BID PRN Pain #120 tabs 01/21/25 01/31/25 Unknown mg tablet budesonide 160 mcg-glycopyr 9 2 inh inhalation BID #10.7 grams 01/31/25 01/31/25 Unknown mcg-formot 4.8 mcg/actuation HFA inhaler (Breztri Aerosphere) codeine 10 mg-guaifenesin 100 mg/5 10 ml PO Q8 PRN cough #473 mL 01/31/25 01/31/25 Unknown mL oral liquid (Guaifenesin AC) Active Medications Generic Name Dose Route Start Last Admin Trade Name Freq PRN Reason Stop Dose Admin Acetaminophen 650 mg 01/31/25 15:57 02/05/25 23:24 Acetaminophen 325 Mg Tab PO 03/02/25 15:56 650 mg Q4H PRN Administration Pain or Fever Albuterol 3 ml 01/31/25 15:57 02/05/25 21:57 Albut/Ipratrop 3mg/0.5mg Neb 3 Ml Vial NEB 03/02/25 15:56 3 ml Q6R PRN Administration sob Protocol Aspirin 81 mg 02/04/25 09:00 02/06/25 08:27 Aspirin 81 Mg Ectab PO 03/06/25 08:59 81 mg QAM JOSE ALBERTO Administration Atorvastatin Calcium 20 mg 02/03/25 09:00 02/06/25 08:27 Atorvastatin 20 Mg Tab PO 03/05/25 08:59 20 mg QAM JOSE ALBERTO Administration Famotidine 20 mg 01/31/25 21:00 02/06/25 08:29 Famotidine 20 Mg Tab PO 03/02/25 20:59 20 mg BID JOSE ALBERTO Administration Ferrous Sulfate 325 mg 02/02/25 17:00 02/06/25 08:27 Ferrous Sulfate 325 Mg Tab PO 03/04/25 16:59 325 mg BIDM JOSE ALBERTO Administration Fluticasone Furoate 1 puffs 02/01/25 09:00 02/06/25 08:28 For Breztri~Fluticasone Furoate 200mcg 14 Puffs/Inhaler INH 03/03/25 08:59 1 puffs DAILY JOSE ALBERTO Administration Fluticasone Propionate 1 sprays 02/01/25 09:00 02/06/25 08:28 Fluticasone Propionate Na Spr 16 Gm Btl NA 03/03/25 08:59 1 sprays DAILY JOSE ALBERTO Administration Guaifenesin/Codeine Phosphate 10 ml 01/31/25 15:57 02/05/25 21:11 Guaifenesin/Codeine 100mg/10mg 5ml Udc PO 03/02/25 15:56 10 ml Q8 PRN Administration cough Heparin Sodium (Porcine) 5,000 units 01/31/25 21:00 02/06/25 08:29 Heparin Sod 5,000 Unit/0.5 Ml Vial SQ 03/02/25 20:59 5,000 units Q12 JOSE ALBERTO Administration Sodium Chloride 1,000 mls @ 125 mls/hr 02/04/25 15:15 02/06/25 09:25 Nss IV 02/07/25 15:14 Infused .Q8H JOSE ALBERTO Infusion Ceftriaxone Sodium 2,000 mg in 50 mls @ 100 mls/hr 02/05/25 12:00 02/05/25 13:05 Rocephin IV 02/12/25 11:59 Infused Q24H JOSE ALBERTO Infusion Metronidazole 500 mg in 100 mls @ 100 mls/hr 02/05/25 18:00 02/06/25 09:34 Flagyl IV 02/07/25 21:59 Infused Q8H JOSE ALBERTO Infusion Protocol Midodrine 5 mg 02/06/25 08:00 02/06/25 08:26 Midodrine Hcl 2.5 Mg Tab PO 03/08/25 07:59 5 mg TID@0800,1200,1700 JOSE ALBERTO Administration Pantoprazole Sodium 40 mg 01/31/25 21:00 02/06/25 08:27 Pantoprazole 40 Mg Tab PO 03/02/25 20:59 40 mg BID JOSE ALBERTO Administration Umeclidinium/Vilanterol 1 puffs 02/01/25 09:00 02/06/25 08:28 For Marinatri~Umeclidinium/Vilanterol 62.5/25mcg 7 Puffs/Inhaler INH 03/03/25 08:59 1 puffs DAILY JOSE ALBERTO Administration PG Care Time/CCT Total # of Minutes Spent Total Time Spent with Patient: Total time spent is greater than 50% in coordination of care (as documented) at patient's floor/unit and/or counseling patient: 55 minutes Coding Level of Care Code 05479 SUB INP/OBS CARE 3/50MIN Diagnoses Pneumonia of right upper lobe due to infectious organism J18.9 Laterality: right Lung location: upper lobe of lung Pneumonia type: due to unspecified organism Abscess of upper lobe of right lung with pneumonia J85.1 Pulmonary abscess pneumonia presence: with pneumonia Laterality: right Lung location: upper lobe of lung Leukocytosis D72.829 Hypoxia R09.02 Adenocarcinoma of lower lobe of right lung C34.31 Time Spent (min) 55
--- NOTE | 2025-02-06 14:41 | CT Scan Report ---
CT SCAN OF THE CHEST WITHOUT IV CONTRAST CLINICAL HISTORY: Abnormal chest x-ray. COMPARISON STUDY: Chest x-ray dated 02/06/2025. Prior chest CT scans, most recently dated 01/31/2025 . TECHNIQUE: CT scan of the thorax was performed from the thoracic inlet to the upper abdomen. Images are reviewed in the axial, sagittal, and coronal planes. IV contrast was not administered for this ex amination as per the referring clinician. A dose lowering technique was utilized adhering to the nir cadena of CAROLYN. CT DOSE: 408.42 mGy.cm FINDINGS: Thyroid: Imaged portions of the thyroid gland are normal in size and attenuation. Thoracic aorta: There is atherosclerotic calcification of the thoracic aorta, which is normal in sarah cynthia and demonstrates standard 3-vessel arch anatomy. Heart: The heart is mildly enlarged and without pericardial effusion. The coronary arteries are dense ly calcified. The main pulmonary arteries appear dilated suggesting pulmonary artery hypertension. Lungs and pleural spaces: Emphysema is noted. There is chronic volume loss in the right lung with com pensatory hyperinflation of the left lung. Minimal secretions are seen in the distal trachea. Fluid/d ebris fills the right lower lobe airways. Scattered calcified granulomas are observed. There is depen dent atelectasis at the left lung base. The left lung is otherwise clear. Fibrotic changes in the rig ht lung with dense consolidation. Consolidation is most confluent throughout the right upper lobe whe re there are foci of cavitation and fluid. This has increased from 01/31/2025. There is a small pleur al effusion at the right lung base. Mediastinum: There are subcentimeter mediastinal nodes which are not pathologically enlarged by size criteria. Kathryn: There are calcified right hilar lymph nodes. The kathryn are not well assessed without IV contrast . Axillae: There is no axillary lymphadenopathy. Upper abdomen: Partially visualized upper abdominal viscera is within normal limits. Skeletal structures: The skeletal structures are osteopenic. Degenerative change is noted in the shou lders and spine. No lytic or blastic bony lesions are seen. IMPRESSION: 1. Cardiomegaly, emphysema, and chronic hyperinflation of the left lung. 2. Fibrotic change is again seen in the right lung with dense confluent airspace consolidation. This is greatest in the right upper lobe and has progressed from 01/31/2025. There is loculated gas and fl uid within the consolidated lung, and this could represent necrotizing pneumonia, abscess, and/or nec rotic tumor. 3. Small right pleural effusion. 4. There is fluid/debris filling the right lower lobe airways. Correlate clinically for evidence of a spiration. 5. Additional findings as above. ACT 112: Negative or not required by law. Electronically signed by: Nilson De Luna M.D. 02/06/2025 2:39 PM
[2025-02-06] MEDS: AZITHROMYCIN 500 MG/255 ML BAG IV SCH (17:07)
[2025-02-06] MEDS: MEROPENEM 500 MG in SYRINGE 0 ML IV SCH (17:07)
[2025-02-07 06:22] LABS: Hematocrit (blood only) 27.5 % (42.0-52.0); Hemoglobin 8.8 g/dL (14.0-18.0); Mean Corpuscular Hemoglobin 28.6 pg (25.0-34.0); Mean Corpuscular Volume 89.3 fL (80.0-100.0); Platelet Count 314 K/uL (130-400); RDW Standard Deviation 56.8 fL (36.4-46.3); Red Blood Count 3.08 M/uL (4.70-6.10); White Blood Count 15.00 K/ul (4.8-10.8)
[2025-02-07 06:38] LABS: Anion Gap 5.0 (3-11); Blood Urea Nitrogen 7.0 mg/dl (6-23); Calcium 8.5 mg/dl (8.6-10.3); Carbon Dioxide 30.0 mmol/L (21-32); Chloride 98.0 mmol/L (98-107); Creatinine Clr Calc Pharmacy 117.4 ml/min; Glucose 118.0 mg/dl (70-99(Fasting)); Potassium 3.7 mmol/L (3.5-5.1); Sodium 133.0 mmol/L (136-145)
[2025-02-07 06:48] LABS: Immature Granulocytes # (auto) 0.91 K/uL (0.01-0.20); Immature Granulocytes % (auto) 6.1 %; Polychromasia 1+
--- NOTE | 2025-02-07 07:43 | Pulmonology Progress Note ---
Date of Service February 07, 2025 Assessment & Plan (1) Pneumonia: Plan: Laterality: right Lung location: upper lobe of lung Pneumonia type: due to unspecified organism Qualified Code(s): J18.9 - Pneumonia, unspecified organism (2) Lung abscess: Laterality: right Lung location: upper lobe of lung Pulmonary abscess pneumonia presence: with pneumonia Qualified Code(s): J85.1 - Abscess of lung with pneumonia (3) Leukocytosis: (4) Hypoxia: (5) Adenocarcinoma of lower lobe of right lung: Plan: * No malignant cells noted on BAL cytology. (6) Necrotizing pneumonia: Plan CT chest 02/06/2025 personally reviewed: Centrilobular emphysema appreciated bilaterally Dense consolidative process appreciated in the right upper as well as right lower lobe Elevated right hemidiaphragm -- Multifocal necrotizing pneumonia on the right side Failed a course of antibiotics end of December 2024 S/p bronch 02/02/2025, BAL growing Streptococcus anginosus ("Streptococcus milleri group") Cecelia in the BAL is likely a colonizer, would not recommend treatment CT chest from 02/06/2025 seems to be worse compared to 01/31/2025 Video swallow eval 01/17/2025: Negative for aspiration --COPD with emphysema Gold E Not in exacerbation On BrezTri at home Continue with Anoro and Arnuity while in the hospital -- Chronic cough with upper airway cough syndrome Multifactorial Patient does seem to have reflux --> already on pantoprazole, sucralfate as well as famotidine Allergic rhinitis with postnasal drip also playing a part Not on any medications to make him cough It is not uncommon to have pneumonitis from radiation which can lead to cough. 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 The BAL is still positive for only 1 blood. Would recommend to continue treatment with. Drainage of lung abscess is usually not a good option as high risk of forming bronchopulmonary fistula Patient will not be a good candidate for VATS surgery but if there is no improvement then we can address that I will start the patient on hypertonic saline nebulized along with chest vest to help him bring all of the phlegm Patient will need at least 4 weeks of antibiotics Recommend infectious disease consultation, case was discussed with infectious disease I spent more than 50 minutes looking in the chart, images, discussing with outgoing physician, discussing the plan of care with the patient, RN as well as primary team Please note the above document was generated using voice recognition software. It may contain grammatical, syntax or spelling errors.Any formal questions or concerns about the content, text or information contained within the body of this dictation should be directly addressed to the provider for clarification. Admission and Anticipated Discharge Date Admission Date: January 31, 2025 Subjective Patient seen and examined at bedside. No acute distress He does complain of coughing, he says he is bringing up phlegm. Denies any hemoptysis He was saturating 93-94% on room air. As per the physical therapist he was also in the room, patient desaturated to 80% on room air on walking Appetite is poor. Has been afebrile Review of Systems 2 Review of Systems: All systems reviewed & are unremarkable except as noted in Subjective Physical Exam 2 Physical Exam: Constitutional: No acute distress HEENT: EOMI, PERRLA Respiratory system: Decreased air entry bilaterally, more decreased on the right side, no wheeze, no rhonchi, positive crackles bilaterally CVS: S1-S2 positive, no murmurs or gallops, accentuated P2, tachycardia Abdomen: Soft, nontender, nondistended, positive bowel sounds x4 Extremities: +2 pulses bilaterally radialis/ dorsalis pedis, no cyanosis, no edema Neuro: Awake alert oriented x3 Psych: Normal mood and affect G/U: Positive Schmitz Skin: no rashes, warm and dry Lymphatic: no cervical or axillary lymphadenopathy Results & Data Results & Data Vital Signs (Past 12 Hours) Vital Signs Temp Pulse Resp BP Pulse Ox O2 Del Method O2 Flow Rate 02/07/25 02:30 36.9 C 90 16 108/59 L 97 Nasal Cannula 2 02/06/25 22:17 36.6 C 100 H 19 104/47 L 96 Nasal Cannula 2 02/06/25 20:00 Nasal Cannula 2 Laboratory Results 02/07/25 05:50 02/07/25 05:50 PG Care Time/CCT Total # of Minutes Spent Total Time Spent with Patient: Total time spent is greater than 50% in coordination of care (as documented) at patient's floor/unit and/or counseling patient: Coding Level of Care Code 28278 SUB INP/OBS CARE 3/50MIN Diagnoses Pneumonia of right upper lobe due to infectious organism J18.9 Laterality: right Lung location: upper lobe of lung Pneumonia type: due to unspecified organism Abscess of upper lobe of right lung with pneumonia J85.1 Laterality: right Lung location: upper lobe of lung Pulmonary abscess pneumonia presence: with pneumonia Leukocytosis D72.829 Hypoxia R09.02 Adenocarcinoma of lower lobe of right lung C34.31 Necrotizing pneumonia J85.0
--- NOTE | 2025-02-07 09:04 | Infectious Disease Consult ---
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 On presentation, pt was afebrile, HR 110s-120s, requiring 1 L NC. Labs showed WBC 15.13 (up from 7.93 on discharge 01/18), normal lactate, CRP 30.30, procal 0.2. COVID-19/flu/RSV neg. CTA chest with no PE, large area of acute RUL pneumonia, inferior parahilar R upper lobe lung abscess vs necrotic mass. He was started on vanc, cefepime, metronidazole. Vanc dc'ed as MRSA nares negative. Expectorated sputum from 02/01 sent for culture, which grew light normal vero. Pt underwent bronchoscopy on 02/02 which showed edema and purulent secretions mostly in RUL with some noted in dependent segments of RLL. BAL cultures growing many Strep anginosus and rare Cecelia. Cefepime switched to ceftriaxone on 02/05. Pt has continued with persistent leukocytosis. CXR on 02/06 showed emphysema, fibrotic change and dense consolidation throughout R lung appears modestly increased from 01/[address] chest 02/06 showed fibrotic change again seen in R lung with dense confluent airspace consolidation, greatest in RUL and has progressed since 01/31. Loculated gas and fluid within the consolidated lung and this could represent necrotizing pneumonia, abscess, and/or necrotic tumor. Antibiotics broadened to meropenem on 02/06. On my evaluation, pt denies shortness of breath, endorses productive cough. Reports he had a penicillin allergy as a kid. Discussion: Discussed with pulm. Pt appears to be stable, on 2 L NC, WBC [address] from 02/06 looks worse. BAL culture grew Strep anginosus, which can cause abscesses--generally very susceptible to penicillins, cephalosporins. Will cover Strep anginosus plus anaerobes. Recommendations: - Will de-escalate meropenem back to ceftriaxone 2 g IV q24h - Continue metronidazole 500 mg q8h - Continue to trend WBC - Cecelia in BAL culture and urine culture likely represents colonizer Will continue to follow Consultation Information Consultation was provided via telemedicine using two-way real-time interactive telecommunication between the patient and the telemedicine provider. For the duration of the visit, the provider was performing the assessment from a different facility than the patient. This includesuse of bluetooth stethoscope forauscultationperformed by the telepresenter that the telemedicine provider can hear if described in the physical exam. Automobile Mechanic Helper contact information: Please call [facility] [phone]. 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 On presentation, pt was afebrile, HR 110s-120s, requiring 1 L NC. Labs showed WBC 15.13 (up from 7.93 on discharge 01/18), normal lactate, CRP 30.30, procal 0.2. COVID-19/flu/RSV neg. CTA chest with no PE, large area of acute RUL pneumonia, inferior parahilar R upper lobe lung abscess vs necrotic mass. He was started on vanc, cefepime, metronidazole. Vanc dc'ed as MRSA nares negative. Expectorated sputum from 02/01 sent for culture, which grew light normal vero. Pt underwent bronchoscopy on 02/02 which showed edema and purulent secretions mostly in RUL with some noted in dependent segments of RLL. BAL cultures growing many Strep anginosus and rare Cecelia. Cefepime switched to ceftriaxone on 02/05. Pt has continued with persistent leukocytosis. CXR on 02/06 showed emphysema, fibrotic change and dense consolidation throughout R lung appears modestly increased from 01/[address] chest 02/06 showed fibrotic change again seen in R lung with dense confluent airspace consolidation, greatest in RUL and has progressed since 01/31. Loculated gas and fluid within the consolidated lung and this could represent necrotizing pneumonia, abscess, and/or necrotic tumor. Antibiotics broadened to meropenem on 02/06. On my evaluation, pt denies shortness of breath, endorses productive cough. Reports he had a penicillin allergy as a kid. Allergies Allergy/AdvReac Type Severity Reaction Status Date / Time wheat Allergy Severe Sneezing Verified 02/02/25 13:42 Penicillins Allergy Intermediate Hives Verified 02/02/25 13:42 Home Medications Medication Instructions Recorded Confirmed Type alprazolam 0.5 mg tablet 0.5 mg PO BID PRN Anxiety 06/14/20 01/31/25 History ascorbic acid (vitamin C) 500 mg 1,500 mg PO QPM 06/14/20 01/31/25 History tablet (Vitamin C) aspirin 81 mg tablet,delayed 81 mg PO DAILY 06/14/20 01/31/25 History release (Ramya Low Dose Aspirin) atorvastatin 20 mg tablet 20 mg PO QAM 05/28/21 01/31/25 History mecobalamin (vitamin B12) 1,000 1,000 mcg PO DAILY 06/21/24 01/31/25 History mcg chewable tablet albuterol sulfate 90 mcg/actuation 1 inh inhalation QID PRN Shortness 07/26/24 01/31/25 History aerosol inhaler Of Breath Or Wheezing famotidine 20 mg tablet 20 mg PO BID #60 tabs 07/29/24 01/31/25 Rx pantoprazole 40 mg tablet,delayed 40 mg PO BID #60 tabs 07/29/24 01/31/25 Rx release sucralfate 100 mg/mL oral 1 g (10 mL) PO QID #1,200 mL 07/29/24 01/31/25 Rx suspension chlorpheniramine 4 1 tab PO BID PRN allergy symptoms 12/10/24 01/31/25 Rx mg-phenylephrine 10 mg tablet #30 tabs fluticasone propionate 50 1 spray intranasal DAILY #9.9 grams 12/10/24 01/31/25 Rx mcg/actuation nasal spray,suspension (Allergy Relief (fluticasone)) L.acidop,casei,lactis,rham-B.lact,claude 1 cap PO DAILY 30 days #30 caps 01/18/25 01/31/25 Rx 625 mg (10 billion cell) capsule (Advanced Probiotic) midodrine 2.5 mg tablet 2.5 mg PO TID@0800,1200,1700 30 01/18/25 01/31/25 Rx days #90 tabs Lift Chair #1 ea 01/21/25 01/21/25 Rx hydrocodone 5 mg-acetaminophen 325 1 - 2 tab PO BID PRN Pain #120 tabs 01/21/25 01/31/25 Rx mg tablet budesonide 160 mcg-glycopyr 9 2 inh inhalation BID #10.7 grams 01/31/25 01/31/25 Rx mcg-formot 4.8 mcg/actuation HFA inhaler (Breztri Aerosphere) codeine 10 mg-guaifenesin 100 mg/5 10 ml PO Q8 PRN cough #473 mL 01/31/25 01/31/25 Rx mL oral liquid (Guaifenesin AC) Patient History Medical History Multifocal pneumonia Postobstructive pneumonia Sepsis with acute organ dysfunction Anemia Pneumonia Lung mass Sepsis Sepsis COPD with emphysema History of bladder cancer 2015--bladder sx/chemo Dehydration Acute pain of left hip Complicated urinary tract infection Fall from standing Sepsis Encounter for pre-operative examination Osteoarthritis Hx MRSA infection "years ago" [facility] in [place], in a wound and blood?; tx w/abx. History of kidney stones Hyperlipidemia Frequent UTI "not as bad as he used to" Surgical History History of carpal tunnel surgery of right wrist History of carpal tunnel surgery of left wrist History of lumbar surgery 1961 History of esophagogastroduodenoscopy (EGD) Hx of colonoscopy Hx of tonsillectomy Hx of cataract extraction rt/lt. Hx of prostatectomy done with total cystectomy History of total cystectomy Family History Brother Prostate cancer Hypertension Father Heart disease Cancer throat Other No family history of adverse response to anesthesia Denies family history of Ovarian cancer Myocardial infarction Breast cancer Colorectal cancer Social History Smoking Status: Former smoker Tobacco Type: Smokeless Tobacco (Dip or Chew) Age Started Using Tobacco: 17; Second Hand Exposure: No; Do You Dip or Chew Tobacco: Yes; Tobacco Cessation Education Requested by Patient: No Hx Alcohol Use: No Hx Substance Use: No Preferred Language: Lao Communication Ability: Effective Visual Impairment: Limited Hearing Ability: Hard of Hearing Test And Balance Engineer Required: No Beliefs That Will Affect Care: None marital status: Current Living Situation: Spouse Current Living Situation Comment: home with 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 Physical Exam Physical Exam: GEN: elderly man in NAD RESP: No increased work of breathing SKIN: No lesions or rashes on exposed skin. NEURO: Alert and oriented. Answers all questions appropriately. Speech not slurred. PSYCH: Normal mood, affect appropriate. Results & Data Vital Signs (Past 12 Hours) Vital Signs Temp Pulse Resp BP Pulse Ox O2 Del Method O2 Flow Rate 02/07/25 07:47 36.7 C 89 14 100/60 96 Nasal Cannula 2 02/07/25 02:30 36.9 C 90 16 108/59 L 97 Nasal Cannula 2 02/06/25 22:17 36.6 C 100 H 19 104/47 L 96 Nasal Cannula 2 Laboratory Results Short CBC 02/07/25 Range/Units 05:50 WBC 15.00 H (4.8-10.8) K/ul Hgb 8.8 L (14.0-18.0) g/dL Hct 27.5 L (42.0-52.0) % Plt Count 314 (130-400) K/uL BMP 02/07/25 05:50 Sodium 133 L Potassium 3.7 Chloride 98 Carbon Dioxide 30 BUN 7 Creatinine 0.49 L Glucose 118 H Calcium 8.5 L Diagnostic Findings Chest X-Ray 02/06/25 10:18 SINGLE VIEW CHEST CLINICAL HISTORY: Hypoxia FINDINGS: An AP, portable, upright chest radiograph is compared to study dated 01/14/2025 and correlated with chest CT dated 01/31/2025. The cardiomediastinal silhouette is unremarkable noting atherosclerotic calcification of the thoracic aorta. Emphysema and chronic interstitial thickening is similar to previous. There is volume loss in the right lung with compensatory hyperinflation of the left lung. Consolidation and fibrosis throughout the left lung is again seen. This appears modestly increased from 01/31/[address] Left lung appears clear noting basilar scarring/atelectasis. There is a small right pleural effusion. No pneumothorax is seen. The skeletal structures are osteopenic. The bony thorax is grossly intact. IMPRESSION: 1. Emphysema. 2. Fibrotic change and dense consolidation throughout the right lung appears modestly increased from the 01/31/2025 CT scan. 3. A small right pleural effusion is observed. 4. The left lung is clear. ACT 112: Negative or not required by law. Electronically signed by: Nilson De Luna M.D. 02/06/2025 10:[address] 02/06/25 11:48 CT SCAN OF THE CHEST WITHOUT IV CONTRAST CLINICAL HISTORY: Abnormal chest x-ray. COMPARISON STUDY: Chest x-ray dated 02/06/2025. Prior chest CT scans, most recently dated 01/31/2025. TECHNIQUE: CT scan of the thorax was performed from the thoracic inlet to the upper abdomen. Images are reviewed in the axial, sagittal, and coronal planes. IV contrast was not administered for this examination as per the referring clinician. A dose lowering technique was utilized adhering to the principles of ALARA. CT DOSE: 408.42 mGy.cm FINDINGS: Thyroid: Imaged portions of the thyroid gland are normal in size and attenuation. Thoracic aorta: There is atherosclerotic calcification of the thoracic aorta, which is normal in caliber and demonstrates standard 3-vessel arch anatomy. Heart: The heart is mildly enlarged and without pericardial effusion. The coronary arteries are densely calcified. The main pulmonary arteries appear dilated suggesting pulmonary artery hypertension. Lungs and pleural spaces: Emphysema is noted. There is chronic volume loss in the right lung with compensatory hyperinflation of the left lung. Minimal secretions are seen in the distal trachea. Fluid/debris fills the right lower lobe airways. Scattered calcified granulomas are observed. There is dependent atelectasis at the left lung base. The left lung is otherwise clear. Fibrotic changes in the right lung with dense consolidation. Consolidation is most confluent throughout the right upper lobe where there are foci of cavitation and fluid. This has increased from 01/31/2025. There is a small pleural effusion at the right lung base. Mediastinum: There are subcentimeter mediastinal nodes which are not pathologically enlarged by size criteria. Kathryn: There are calcified right hilar lymph nodes. The kathryn are not well assessed without IV contrast. Axillae: There is no axillary lymphadenopathy. Upper abdomen: Partially visualized upper abdominal viscera is within normal limits. Skeletal structures: The skeletal structures are osteopenic. Degenerative change is noted in the shoulders and spine. No lytic or blastic bony lesions are seen. IMPRESSION: 1. Cardiomegaly, emphysema, and chronic hyperinflation of the left lung. 2. Fibrotic change is again seen in the right lung with dense confluent airspace consolidation. This is greatest in the right upper lobe and has progressed from 01/31/2025. There is loculated gas and fluid within the consolidated lung, and this could represent necrotizing pneumonia, abscess, and/or necrotic tumor. 3. Small right pleural effusion. 4. There is fluid/debris filling the right lower lobe airways. Correlate clinically for evidence of aspiration. 5. Additional findings as above. ACT 112: Negative or not required by law. Electronically signed by: Nilson De Luna M.D. 02/06/2025 2:39 PM Medications Administered Current Inpatient Medications Acetaminophen (Acetaminophen 325 Mg Tab) 650 mg PO Q4H PRN PRN Reason: Pain or Fever Stop: 03/02/25 15:56 Last Admin: 02/05/25 23:24 Dose: 650 mg Albuterol (Albuterol Hfa 8 Gm Inhaler) 1 puffs INH QID PRN PRN Reason: Shortness Of Breath Or Wheezin Stop: 03/02/25 15:56 Albuterol (Albut/Ipratrop 3mg/0.5mg Neb 3 Ml Vial) 3 ml NEB Q6R PRN; Protocol PRN Reason: sob Stop: 03/02/25 15:56 Last Admin: 02/05/25 21:57 Dose: 3 ml Alprazolam (Alprazolam 0.5 Mg Tablet) 0.5 mg PO BID PRN PRN Reason: Anxiety Stop: 03/02/25 15:56 Aspirin (Aspirin 81 Mg Ectab) 81 mg PO QAM JOSE ALBERTO Stop: 03/06/25 08:59 Last Admin: 02/07/25 07:32 Dose: 81 mg Atorvastatin Calcium (Atorvastatin 20 Mg Tab) 20 mg PO QAM JOSE ALBERTO Stop: 03/05/25 08:59 Last Admin: 02/07/25 07:32 Dose: 20 mg Famotidine (Famotidine 20 Mg Tab) 20 mg PO BID JOSE ALBERTO Stop: 03/02/25 20:59 Last Admin: 02/07/25 07:31 Dose: 20 mg Ferrous Sulfate (Ferrous Sulfate 325 Mg Tab) 325 mg PO BIDM JOSE ALBERTO Stop: 03/04/25 16:59 Last Admin: 02/07/25 07:32 Dose: 325 mg Fluticasone Furoate (For Breztri~Fluticasone Furoate 200mcg 14 Puffs/Inhaler) 1 puffs INH DAILY JOSE ALBERTO Stop: 03/03/25 08:59 Last Admin: 02/07/25 07:31 Dose: 1 puffs Fluticasone Propionate (Fluticasone Propionate Na Spr 16 Gm Btl) 1 sprays NA DAILY JOSE ALBERTO Stop: 03/03/25 08:59 Last Admin: 02/07/25 07:33 Dose: Not Given Guaifenesin/Codeine Phosphate (Guaifenesin/Codeine 100mg/10mg 5ml Udc) 10 ml PO Q8 PRN PRN Reason: cough Stop: 03/02/25 15:56 Last Admin: 02/06/25 20:23 Dose: 10 ml Heparin Sodium (Porcine) (Heparin Sod 5,000 Unit/0.5 Ml Vial) 5,000 units SQ Q12 JOSE ALBERTO Stop: 03/02/25 20:59 Last Admin: 02/07/25 07:31 Dose: 5,000 units Sodium Chloride (Nss) 1,000 mls @ 125 mls/hr IV .Q8H [facility] Stop: 02/07/25 15:14 Last Infusion: 02/06/25 09:25 Dose: Infused Metronidazole (Flagyl) 500 mg in 100 mls @ 100 mls/hr IV Q8H [facility]; Protocol Stop: 02/07/25 21:59 Last Infusion: 02/07/25 03:50 Dose: Infused Azithromycin (Zithromax) 500 mg in 255 mls @ 127.5 mls/hr IV Q24H [facility] Stop: 02/13/25 16:29 Last Infusion: 02/06/25 18:46 Dose: Infused Meropenem 500 mg/ Syringe 10 mls @ 2 mls/min IV Q6H [facility]; Protocol Stop: 02/13/25 16:29 Last Admin: 02/07/25 05:46 Dose: 2 mls/min Midodrine (Midodrine Hcl 2.5 Mg Tab) 5 mg PO TID@0800,1200,1700 [facility] Stop: 03/08/25 07:59 Last Admin: 02/07/25 07:32 Dose: 5 mg Ondansetron HCl (Ondansetron Inj 2 Mg/Ml 2 Ml Vial) 4 mg IV Q6H PRN PRN Reason: Nausea Stop: 03/02/25 15:56 Pantoprazole Sodium (Pantoprazole 40 Mg Tab) 40 mg PO BID [facility] Stop: 03/02/25 20:59 Last Admin: 02/07/25 07:32 Dose: 40 mg Umeclidinium/Vilanterol (For Breztri~Umeclidinium/Vilanterol 62.5/25mcg 7 Puffs/Inhaler) 1 puffs INH DAILY [facility] Stop: 03/03/25 08:59 Last Admin: 02/07/25 07:31 Dose: 1 puffs (1) Lung abscess Pulmonary abscess pneumonia presence: with pneumonia Laterality: right Lung location: upper lobe of lung Qualified Code(s): J85.1 - Abscess of lung with pneumonia
--- NOTE | 2025-02-07 11:23 | Hospitalist Progress Note ---
"Date of Service February 07, 2025 Assessment & Plan (1) Healthcare-associated pneumonia: (2) COPD with emphysema: (3) CAD (coronary artery disease): (4) GERD (gastroesophageal reflux disease): Plan Pt is an 84 y/o male w/ a PMHx significant for COPD, adenocarcinoma of the lung, Anemia, CAD, GERD, Hx Bladder CA w/ current ileal conduit in RLQ who was recently discharged 01/18 after multifocal pneumonia. Pt was readmitted w/ sepsis and possible lung abscess. #Sepsis | Pneumonia | Lung abscess - Concern for gram negative/aspiration PNA; VSFF in 12/2024 w/ no aspiration, but did have prolonged swallowing; CT 01/31 pneumonia of RUL & inferior parahilar RUL lung abscess. Bronchoscopy 02/02: R mainstem bronchus w/ significant edema + off-white mucous; white material oozing from posterior segment of RUL, likely d/t abscess; Repeat Chest CT 02/06 Fibrot ic change seen in the right lung with dense confluent airspace consolidation. This is greatest in the right upper lobe and has progressed from 01/31/2025. There is loculated gas and fluid within the consolidated lung, and this could represent necrotizing pneumonia, abscess, and/or necrotic tumor. -Pulmonology following - awaiting updated recs, daily antihistamine started -Infectious Disease Consulted; Continue meropenem, azithromycin and Flagyl -Aspergillins + Legionella PCR - Pending -BA Lavage, RUL 02/02: fungal culture - vamshi albicans, Acid Fast Culture - pending, neg to date, Bronchial Culture - strep anginosus -Repeat BC 02/05 - negative at 48 hours -Repeat Blood Culture 02/06 pending PT/OT - rec rehab Wean O2 as able, baseline is room air #Hypotension | Tachycardia -Continue Midodrine 5mg TID IVF held d/t low urine osmolality w/out improvement - pt tolerating PO #COPD - improving, only SOB on exertion, per pt -Continue Home Meds: Albuterol Hfa; DuoNebs, Fluticasone Furoate, Fluticasone Nasal spray # Anemia - Pt w/ JOSE DAVID on 02/02 - Iron PO 325mg daily #CAD - Continue ASA and statin #GERD -Continue Famotidine, Sucralfate and PPI #Hypokalemia | Hypomagnesemia - RESOLVED Dispo: Continue inpatient stay - awaiting bronchoscopy, cultures, improvement; DVT Proph: Heparin Q12 offered to call family, pt prefers updated at bedside later if they come in Admission and Anticipated Discharge Date Admission Date: January 31, 2025 Subjective Pateinet seen sitting up in bed. Currently requiring NC but does not normally wear O2 at home. Reports he has been ambulating around the room - uses cane and walker at baseline. Feels like his SOB is improving. Does have cough but non productive good appetite yesterday when he could eat, he is still NPO at this time waiting for possible bronch Tele - SR 80s Review of Systems Review of Systems: All systems reviewed & are unremarkable except as noted in Subjective Physical Exam Physical Exam: General: NAD, VS as above Resp: normal respiratory effort,on NC, diminished on the right, with coarse breath sounds on the left. No wheezing CV: RRR, no murmur, Abd: soft, ileal conduit in place Extremities: Moves all extremities, no edema Neuro: A&O x3, Results & Data Results & Data Vital Signs (Past 12 Hours) Vital Signs Temp Pulse Pulse Resp BP Pulse Ox O2 Del Method 02/07/25 10:55 98.2 F 90 22 108/61 97 Nasal Cannula 02/07/25 08:00 91 H 02/07/25 08:00 Nasal Cannula 02/07/25 07:47 98.1 F 89 14 100/60 96 Nasal Cannula 02/07/25 02:30 98.4 F 90 16 108/59 L 97 Nasal Cannula O2 Flow Rate 02/07/25 10:55 2 02/07/25 08:00 02/07/25 08:00 2 02/07/25 07:47 2 02/07/25 02:30 2 Laboratory Results cbc, chemistry and CRP reviewed Diagnostic Findings Chest CT reviewed PG Care Time/CCT Total # of Minutes Spent Total Time Spent with Patient: Total time spent is greater than 50% in coordination of care (as documented) at patient's floor/unit and/or counseling patient: Coding Level of Care Code 61683 SUB INP/OBS CARE 3/50MIN Diagnoses Healthcare-associated pneumonia J18.9 COPD with emphysema J43.9 CAD (coronary artery disease) I25.10 GERD (gastroesophageal reflux disease) K21.9"
[2025-02-07] MEDS: cefTRIAXone SODIUM 2,000 MG/50 ML BAG IV SCH (16:28)
[2025-02-07] MEDS: SUCRALFATE 1 GM/10 ML UDC PO SCH (16:29)
[2025-02-07] MEDS: SODIUM CHLOR 7% 4 ML NEB NEB SCH (20:06)
[2025-02-08 06:02] LABS: Hematocrit (blood only) 29.3 % (42.0-52.0); Hemoglobin 9.3 g/dL (14.0-18.0); Mean Corpuscular Hemoglobin 28.1 pg (25.0-34.0); Mean Corpuscular Volume 88.5 fL (80.0-100.0); Platelet Count 346 K/uL (130-400); RDW Standard Deviation 55.0 fL (36.4-46.3); Red Blood Count 3.31 M/uL (4.70-6.10); White Blood Count 13.30 K/ul (4.8-10.8)
[2025-02-08 06:44] LABS: Immature Granulocytes # (auto) 0.81 K/uL (0.01-0.20); Immature Granulocytes % (auto) 6.1 %; Polychromasia 2+; Toxic Vacuolation 1+
[2025-02-08 07:05] LABS: Anion Gap 7.0 (3-11); Blood Urea Nitrogen 11.0 mg/dl (6-23); Calcium 8.7 mg/dl (8.6-10.3); Carbon Dioxide 27.0 mmol/L (21-32); Chloride 99.0 mmol/L (98-107); Creatinine Clr Calc Pharmacy 102.7 ml/min; Glucose 136.0 mg/dl (70-99(Fasting)); Potassium 3.8 mmol/L (3.5-5.1); Sodium 133.0 mmol/L (136-145)
--- NOTE | 2025-02-08 07:33 | Pulmonology Progress Note ---
Date of Service February 08, 2025 Assessment & Plan (1) Pneumonia: Laterality: right Lung location: upper lobe of lung Pneumonia type: due to unspecified organism Qualified Code(s): J18.9 - Pneumonia, unspecified organism (2) Lung abscess: Laterality: right Lung location: upper lobe of lung Pulmonary abscess pneumonia presence: with pneumonia Qualified Code(s): J85.1 - Abscess of lung with pneumonia (3) Leukocytosis: (4) Hypoxia: (5) Adenocarcinoma of lower lobe of right lung: Plan: * No malignant cells noted on BAL cytology. (6) Necrotizing pneumonia: Plan CT chest 02/06/2025 personally reviewed: Centrilobular emphysema appreciated bilaterally Dense consolidative process appreciated in the right upper as well as right lower lobe Elevated right hemidiaphragm -- Multifocal necrotizing pneumonia on the right side Failed a course of antibiotics end of December 2024 S/p bronch 02/02/2025, BAL growing Streptococcus anginosus ("Streptococcus milleri group") Cecelia in the BAL is likely a colonizer, would not recommend treatment CT chest from 02/06/2025 seems to be worse compared to 01/31/2025 Video swallow eval 01/17/2025: Negative for aspiration --COPD with emphysema Gold E Not in exacerbation On BrezTri at home Continue with Anoro and Arnuity while in the hospital -- Chronic cough with upper airway cough syndrome Multifactorial Patient does seem to have reflux --> already on pantoprazole, sucralfate as well as famotidine Allergic rhinitis with postnasal drip also playing a part Not on any medications to make him cough It is not uncommon to have pneumonitis from radiation which can lead to cough. 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 Would recommend to continue treatment with. Drainage of lung abscess is usually not a good option as high risk of forming bronchopulmonary fistula Patient will not be a good candidate for VATS surgery but if there is no improvement then we can address that Continue with hypertonic saline nebulized along with chest vest Patient will need at least 4 weeks of antibiotics ID consultation reviewed Please note the above document was generated using voice recognition software. It may contain grammatical, syntax or spelling errors.Any formal questions or concerns about the content, text or information contained within the body of this dictation should be directly addressed to the provider for clarification. Admission and Anticipated Discharge Date Admission Date: January 31, 2025 Subjective Patient seen and examined at bedside. No acute distress, no adverse events overnight He was saturating 93-94% on room air while resting on the bed He stated that the hypertonic saline nebulized and the chest vest has been helping him bringing up the phlegm Denies any hemoptysis No nausea or vomiting Has been afebrile Appetite is still poor Review of Systems 2 Review of Systems: All systems reviewed & are unremarkable except as noted in Subjective Physical Exam 2 Physical Exam: Constitutional: No acute distress HEENT: EOMI, PERRLA Respiratory system: Decreased air entry bilaterally, more decreased on the right side, no wheeze, no rhonchi, positive crackles bilaterally CVS: S1-S2 positive, no murmurs or gallops, accentuated P2, tachycardia Abdomen: Soft, nontender, nondistended, positive bowel sounds x4 Extremities: +2 pulses bilaterally radialis/ dorsalis pedis, no cyanosis, no edema Neuro: Awake alert oriented x3 Psych: Normal mood and affect G/U: Positive Schmitz Skin: no rashes, warm and dry Lymphatic: no cervical or axillary lymphadenopathy Results & Data Results & Data Vital Signs (Past 12 Hours) Vital Signs Temp Pulse Pulse Resp BP Pulse Ox O2 Del Method 02/08/25 07:22 102 H 20 93 Room Air 02/08/25 02:41 36.9 C 101 H 22 121/63 92 Room Air 02/08/25 01:30 110 H 02/07/25 22:35 37.8 C H 111 H 17 91/55 L 91 Room Air 02/07/25 20:10 102 H 18 93 Room Air Laboratory Results 02/08/25 05:43 02/08/25 05:43 PG Care Time/CCT Total # of Minutes Spent Total Time Spent with Patient: Total time spent is greater than 50% in coordination of care (as documented) at patient's floor/unit and/or counseling patient: Coding Level of Care Code 17180 SUB INP/OBS CARE 2/35MIN Diagnoses Pneumonia of right upper lobe due to infectious organism J18.9 Laterality: right Lung location: upper lobe of lung Pneumonia type: due to unspecified organism Abscess of upper lobe of right lung with pneumonia J85.1 Laterality: right Lung location: upper lobe of lung Pulmonary abscess pneumonia presence: with pneumonia Leukocytosis D72.829 Hypoxia R09.02 Adenocarcinoma of lower lobe of right lung C34.31 Necrotizing pneumonia J85.0
[2025-02-08] MEDS: FERROUS SULFATE 325 MG TAB PO SCH (07:39)
[2025-02-08] MEDS: CETIRIZINE HCL 10 MG TABLET PO SCH (07:39)
[2025-02-08] MEDS: SODIUM CHLORIDE 0.9% 1,000 ML IV SCH (12:17)
--- NOTE | 2025-02-08 13:08 | Hospitalist Progress Note ---
"Date of Service February 08, 2025 Assessment & Plan (1) Healthcare-associated pneumonia: (2) COPD with emphysema: (3) CAD (coronary artery disease): (4) GERD (gastroesophageal reflux disease): Plan Pt is an 84 y/o male w/ a PMHx significant for COPD, adenocarcinoma of the lung, Anemia, CAD, GERD, Hx Bladder CA w/ current ileal conduit in RLQ who was recently discharged 01/18 after multifocal pneumonia. Pt was readmitted w/ sepsis and possible lung abscess. #Sepsis | Pneumonia | Lung abscess - Concern for gram negative/aspiration PNA; VSFF in 12/2024 w/ no aspiration, but did have prolonged swallowing; CT 01/31 pneumonia of RUL & inferior parahilar RUL lung abscess. Bronchoscopy 02/02: R mainstem bronchus w/ significant edema + off-white mucous; white material oozing from posterior segment of RUL, likely d/t abscess; Repeat Chest CT 02/06 Fibrot ic change seen in the right lung with dense confluent airspace consolidation. This is greatest in the right upper lobe and has progressed from 01/31/2025. There is loculated gas and fluid within the consolidated lung, and this could represent necrotizing pneumonia, abscess, and/or necrotic tumor. -Pulmonology following -daily antihistamine started, chest vest and hypertonic saline nebs. Rec 4 weeks of IV antibiotics -Infectious Disease Consulted; Deescalated to ceftriaxone and flagyl 02/07 -Aspergillins + Legionella PCR - Pending -BA Lavage, RUL 02/02: fungal culture - vamshi albicans (suspect colonized), Acid Fast Culture - pending, neg to date, Bronchial Culture - strep anginosus -Repeat BC 02/05 - negative at 48 hours -Repeat Blood Culture 02/06 neagtive at 24 hours PT/OT - rec rehab - pt refusing. CM involved - will likely need IV abx Weaned to room air, leukocytosis is improving, Continue to trend #Hypotension | Tachycardia -Continue Midodrine 5mg TID Will give additional 1L NSS for hyponatremia, dry MM and hypotension #COPD - improving, only SOB on exertion, per pt -Continue Home Meds: Albuterol Hfa; DuoNebs, Fluticasone Furoate, Fluticasone Nasal spray # Anemia - Pt w/ JOSE DAVID on 02/02 - Iron PO 325mg daily #CAD - Continue ASA and statin #GERD -Continue Famotidine, Sucralfate and PPI #Hypokalemia | Hypomagnesemia - RESOLVED Dispo: Continue inpatient stay - awaiting , cultures, improvement and final ID recs ; DVT Proph: Heparin Q12 updated via phone 18 Admission and Anticipated Discharge Date Admission Date: January 31, 2025 Subjective Patient seen sitting up in bed, more frequent sputum production with the new therapies reports good appeite but low BP and dry MM on phone during my visit - we discussed he will likely need IV antibiotics on discharge and at this time is still refusing rehab tele - SR 90-100s Review of Systems Review of Systems: All systems reviewed & are unremarkable except as noted in Subjective Physical Exam Physical Exam: General: NAD, VS as above Resp: normal respiratory effort,on NC, diminished on the right, with coarse breath sounds on the left. No wheezing CV: RRR, no murmur, Abd: soft, ileal conduit in place Extremities: Moves all extremities, no edema Neuro: A&O x3, Results & Data Results & Data Vital Signs (Past 12 Hours) Vital Signs Temp Pulse Pulse Resp BP Pulse Ox O2 Del Method 02/08/25 10:37 98.8 F 104 H 22 95/62 L 94 Room Air 02/08/25 08:02 97.9 F 105 H 24 109/51 L 93 Room Air 02/08/25 08:00 99 H 02/08/25 08:00 Room Air 02/08/25 07:22 102 H 20 93 Room Air 02/08/25 02:41 98.4 F 101 H 22 121/63 92 Room Air 02/08/25 01:30 110 H Laboratory Results cbc and chemistry reviewed PG Care Time/CCT Total # of Minutes Spent Total Time Spent with Patient: Total time spent is greater than 50% in coordination of care (as documented) at patient's floor/unit and/or counseling patient: Coding Level of Care Code 80872 SUB INP/OBS CARE 3/50MIN Diagnoses Healthcare-associated pneumonia J18.9 COPD with emphysema J43.9 CAD (coronary artery disease) I25.10 GERD (gastroesophageal reflux disease) K21.9"
[2025-02-09 06:37] LABS: Hematocrit (blood only) 30.6 % (42.0-52.0); Hemoglobin 9.5 g/dL (14.0-18.0); Mean Corpuscular Hemoglobin 27.9 pg (25.0-34.0); Mean Corpuscular Volume 89.7 fL (80.0-100.0); Platelet Count 370 K/uL (130-400); RDW Standard Deviation 55.3 fL (36.4-46.3); Red Blood Count 3.41 M/uL (4.70-6.10); White Blood Count 12.40 K/ul (4.8-10.8)
[2025-02-09 06:59] LABS: Anion Gap 7.0 (3-11); Blood Urea Nitrogen 11.0 mg/dl (6-23); Calcium 8.8 mg/dl (8.6-10.3); Carbon Dioxide 27.0 mmol/L (21-32); Chloride 99.0 mmol/L (98-107); Creatinine Clr Calc Pharmacy 104.6 ml/min; Glucose 149.0 mg/dl (70-99(Fasting)); Potassium 3.9 mmol/L (3.5-5.1); Sodium 133.0 mmol/L (136-145)
[2025-02-09 07:13] LABS: Immature Granulocytes # (auto) 0.82 K/uL (0.01-0.20); Immature Granulocytes % (auto) 6.6 %; Polychromasia 1+
--- NOTE | 2025-02-09 08:05 | Infectious Disease Progress Nt ---
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 On presentation, pt was afebrile, HR 110s-120s, requiring 1 L NC. Labs showed WBC 15.13 (up from 7.93 on discharge 01/18), normal lactate, CRP 30.30, procal 0.2. COVID-19/flu/RSV neg. CTA chest with no PE, large area of acute RUL pneumonia, inferior parahilar R upper lobe lung abscess vs necrotic mass. He was started on vanc, cefepime, metronidazole. Vanc dc'ed as MRSA nares negative. Expectorated sputum from 02/01 sent for culture, which grew light normal vero. Pt underwent bronchoscopy on 02/02 which showed edema and purulent secretions mostly in RUL with some noted in dependent segments of RLL. BAL cultures growing many Strep anginosus and rare Cecelia. Cefepime switched to ceftriaxone on 02/05. Pt has continued with persistent leukocytosis. CXR on 02/06 showed emphysema, fibrotic change and dense consolidation throughout R lung appears modestly increased from 01/[address] chest 02/06 showed fibrotic change again seen in R lung with dense confluent airspace consolidation, greatest in RUL and has progressed since 01/31. Loculated gas and fluid within the consolidated lung and this could represent necrotizing pneumonia, abscess, and/or necrotic tumor. Antibiotics broadened to meropenem on 02/06. On my evaluation, pt denies shortness of breath, endorses productive cough. Reports he had a penicillin allergy as a kid. Discussion: Despite worsened repeat CT chest on 02/06, given BAL culture only grew Strep anginosus and pt has been otherwise stable, switched meropenem back to ceftriaxone on 02/08. Strep anginosus can cause abscesses--generally very susceptible to penicillins, cephalosporins. Will cover Strep anginosus plus anaerobes. Recommendations: - Continue ceftriaxone 2 g IV q24h - Continue metronidazole 500 mg q8h - Continue to trend WBC - Duration of antibiotics will depend on improvement seen on follow-up CT. Anticipate pt will need at least 4 weeks of antibiotics - Cecelia in BAL culture and urine culture likely represents colonizer Will continue to follow Admission and Anticipated Discharge Date Admission Date: January 31, 2025 Subjective Subsequent visit was provided via telemedicine using two-way real-time interactive telecommunication between the patient and the telemedicine provider. For the duration of the visit, the provider was performing the assessment from a different facility than the patient. This includesuse of bluetooth stethoscope forauscultationperformed by the telepresenter that the telemedicine provider can hear if described in the physical exam. [facility] contact information: Please call [facility] . (Phone Number For Physician Use Only) After establishing a telemedicine visit, patient was: Patient was verified with two unique identifiers, Patient/authorized rep acknowledged consent and understanding and Gave permission to continue telehealth session Time Spent with Patient: Subsequent => 25 min Pt denies complaints, feels he has improved Productive cough is improved WBC 13.3 --> 12.4 Physical Exam Physical Exam: GEN: elderly man in NAD RESP: No increased work of breathing SKIN: No lesions or rashes on exposed skin. NEURO: Alert and oriented. Answers all questions appropriately. Speech not slurred. PSYCH: Normal mood, affect appropriate. Results & Data Vital Signs (Past 12 Hours) Vital Signs Temp Pulse Pulse Resp BP Pulse Ox O2 Del Method 02/09/25 07:09 106 H 02/09/25 07:06 108 H 22 91 Room Air 02/09/25 03:00 36.7 C 99 H 18 104/67 92 Room Air 02/08/25 22:40 36.9 C 96 H 20 108/68 92 Room Air (1) Lung abscess Laterality: right Lung location: upper lobe of lung Pulmonary abscess pneumonia presence: with pneumonia Qualified Code(s): J85.1 - Abscess of lung with pneumonia
--- NOTE | 2025-02-09 08:59 | Pulmonology Progress Note ---
Date of Service February 09, 2025 Assessment & Plan (1) Pneumonia: Laterality: right Lung location: upper lobe of lung Pneumonia type: due to unspecified organism Qualified Code(s): J18.9 - Pneumonia, unspecified organism (2) Lung abscess: Laterality: right Lung location: upper lobe of lung Pulmonary abscess pneumonia presence: with pneumonia Qualified Code(s): J85.1 - Abscess of lung with pneumonia (3) Leukocytosis: (4) Hypoxia: (5) Adenocarcinoma of lower lobe of right lung: (6) Necrotizing pneumonia: Plan CT chest 02/06/2025 personally reviewed: Centrilobular emphysema appreciated bilaterally Dense consolidative process appreciated in the right upper as well as right lower lobe Elevated right hemidiaphragm -- Multifocal necrotizing pneumonia on the right side Failed a course of antibiotics end of December 2024 S/p bronch 02/02/2025, BAL growing Streptococcus anginosus ("Streptococcus milleri group") Cecelia in the BAL is likely a colonizer, would not recommend treatment CT chest from 02/06/2025 seems to be worse compared to 01/31/2025 Video swallow eval 01/17/2025: Negative for aspiration --COPD with emphysema Gold E Not in exacerbation On BrezTri at home Continue with Anoro and Arnuity while in the hospital -- Chronic cough with upper airway cough syndrome Multifactorial Patient does seem to have reflux --> already on pantoprazole, sucralfate as well as famotidine Allergic rhinitis with postnasal drip also playing a part Not on any medications to make him cough It is not uncommon to have pneumonitis from radiation which can lead to cough. 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 Would recommend to continue treatment with. Chest x-ray from today on personal review did not show any significant change to maybe slight improvement compared to 02/06/2025, Dense consolidative opacity on the right side persist Drainage of lung abscess is usually not a good option as high risk of forming bronchopulmonary fistula Patient will not be a good candidate for VATS surgery but if there is no improvement then we can address that Continue with hypertonic saline nebulized along with chest vest Patient will need at least 4 weeks of antibiotics ID on board Case discussed with patient's son on the phone and [id number] at bedside Please note the above document was generated using voice recognition software. It may contain grammatical, syntax or spelling errors.Any formal questions or concerns about the content, text or information contained within the body of this dictation should be directly addressed to the provider for clarification. Admission and Anticipated Discharge Date Admission Date: January 31, 2025 Subjective Patient seen and examined at bedside. No acute distress, no adverse events overnight He was resting comfortably on the chair He was saturating 92-93% on room air Still tachycardic Overall stated that he is bringing up phlegm with the help of chest vest and hypertonic saline Appetite is still poor Denied any nausea or vomiting Review of Systems 2 Review of Systems: All systems reviewed & are unremarkable except as noted in Subjective Physical Exam 2 Physical Exam: Constitutional: No acute distress HEENT: EOMI, PERRLA Respiratory system: Decreased air entry bilaterally, more decreased on the right side, no wheeze, no rhonchi, positive crackles bilaterally CVS: S1-S2 positive, no murmurs or gallops, accentuated P2, tachycardia Abdomen: Soft, nontender, nondistended, positive bowel sounds x4 Extremities: +2 pulses bilaterally radialis/ dorsalis pedis, no cyanosis, no edema Neuro: Awake alert oriented x3 Psych: Normal mood and affect G/U: Positive Schmitz Skin: no rashes, warm and dry Lymphatic: no cervical or axillary lymphadenopathy Results & Data Results & Data Vital Signs (Past 12 Hours) Vital Signs Temp Pulse Pulse Resp BP Pulse Ox O2 Del Method 02/09/25 08:20 36.4 C L 111 H 19 101/63 94 Room Air 02/09/25 07:09 106 H 02/09/25 07:06 108 H 22 91 Room Air 02/09/25 03:00 36.7 C 99 H 18 104/67 92 Room Air 02/08/25 22:40 36.9 C 96 H 20 108/68 92 Room Air Laboratory Results 02/09/25 06:03 02/09/25 06:03 PG Care Time/CCT Total # of Minutes Spent Total Time Spent with Patient: Total time spent is greater than 50% in coordination of care (as documented) at patient's floor/unit and/or counseling patient: Coding Level of Care Code 63764 SUB INP/OBS CARE 2/35MIN Diagnoses Pneumonia of right upper lobe due to infectious organism J18.9 Laterality: right Lung location: upper lobe of lung Pneumonia type: due to unspecified organism Abscess of upper lobe of right lung with pneumonia J85.1 Laterality: right Lung location: upper lobe of lung Pulmonary abscess pneumonia presence: with pneumonia Leukocytosis D72.829 Hypoxia R09.02 Adenocarcinoma of lower lobe of right lung C34.31 Necrotizing pneumonia J85.0
[2025-02-09] MEDS: metroNIDAZOLE 500 MG TAB PO SCH ×2 (09:41→10:39)
--- NOTE | 2025-02-09 09:44 | XRay Report ---
XR chest 1V portable CLINICAL HISTORY: f/u COMPARISON STUDY: 02/06/2025 FINDINGS: Heart size and pulmonary vasculature are normal. There is patchy dense consolidation at the majority of the right lung, grossly stable. No pleural effusion or pneumothorax seen. Left lung karen ins well aerated. IMPRESSION: Grossly stable right-sided pneumonia. ACT 112: Negative or not required by law. Electronically signed by: Kamron Watson M.D. 02/09/2025 9:42 AM
--- NOTE | 2025-02-09 11:14 | Hospitalist Progress Note ---
"Date of Service February 09, 2025 Assessment & Plan (1) Healthcare-associated pneumonia: (2) COPD with emphysema: (3) CAD (coronary artery disease): (4) GERD (gastroesophageal reflux disease): Plan Pt is an 84 y/o male w/ a PMHx significant for COPD, adenocarcinoma of the lung, Anemia, CAD, GERD, Hx Bladder CA w/ current ileal conduit in RLQ who was recently discharged 01/18 after multifocal pneumonia. Pt was readmitted w/ sepsis and possible lung abscess. #Sepsis | necrotizing Pneumonia | Lung abscess - Concern for gram negative/aspiration PNA; VSFF in 12/2024 w/ no aspiration, but did have prolonged swallowing; CT 01/31 pneumonia of RUL & inferior parahilar RUL lung abscess. Bronchoscopy 02/02: R mainstem bronchus w/ significant edema + off- white mucous; white material oozing from posterior segment of RUL, likely d/t abscess; Repeat Chest CT 02/06 Fibrotic change seen in the right lung with dense confluent airspace consolidation. This is greatest in the right upper lobe and has progressed from 01/31/2025. There is loculated gas and fluid within the consolidated lung, and this could represent necrotizing pneumonia, abscess, and/or necrotic tumor. -Pulmonology following -daily antihistamine started, chest vest and hypertonic saline nebs. Rec 4 weeks of antibiotics -Infectious Disease Consulted; Deescalated to ceftriaxone and flagyl 02/07, duration depends on follow up imaging -Aspergillus + Legionella PCR - Pending -BA Lavage, RUL 02/02: fungal culture - vamshi albicans (suspect colonized), Acid Fast Culture - pending, neg to date, Bronchial Culture - strep anginosus -Repeat BC 02/05 - negative at 48 hours -Repeat Blood Culture 02/06 negative at 48 hours PT/OT - rec rehab - pt refusing. CM involved - will likely need IV abx Discussed with ID - with stable CXR would not rec repeat CT until end of treatment, can be converted to PO. Likely plan for Augmentin #Hypotension | Tachycardia -Continue Midodrine 5mg TID #COPD -Continue Home Meds: Albuterol Hfa; DuoNebs, Fluticasone Furoate, Fluticasone Nasal spray # Anemia - Pt w/ JOSE DAVID on 02/02 - Iron PO 325mg daily #CAD - Continue ASA and statin #GERD -Continue Famotidine, Sucralfate and PPI #Hypokalemia | Hypomagnesemia - RESOLVED Dispo: Continue inpatient stay - awaiting , cultures, improvement and final ID recs ; DVT Proph: Heparin Q12 updated via phone 02.08 granddaughter updated via phone 02/08 DIL updated in person 02/09 - stating will taking to him, family would consider [facility] but not SNF Admission and Anticipated Discharge Date Admission Date: January 31, 2025 Supervising Physician Co-Signing Physician Notes PA Supervision Note: I did not personally see or examine the patient today, but I verified all fernandez points of FOZIA Dias's assessment and plan with the following exceptions/additions: None Subjective Patient seen sitting up in bed. Reports that his cough is still productive. Reports good appetite. Moving his bowels. We discussed rehab again and states that he is willing to do what ever the doctors recommended Telemetry sinus tachycardia 100-110s Review of Systems Review of Systems: All systems reviewed & are unremarkable except as noted in Subjective Physical Exam Physical Exam: General: NAD, VS as above Resp: normal respiratory effort,on NC, diminished on the right, with coarse breath sounds on the left. No wheezing CV: RRR, no murmur, Abd: soft, ileal conduit in place Extremities: Moves all extremities, no edema Neuro: A&O x3, Results & Data Results & Data Vital Signs (Past 12 Hours) Vital Signs Temp Pulse Pulse Resp BP Pulse Ox O2 Del Method 02/09/25 09:43 Room Air 02/09/25 08:20 97.5 F L 111 H 19 101/63 94 Room Air 02/09/25 07:09 106 H 02/09/25 07:06 108 H 22 91 Room Air 02/09/25 03:00 98.1 F 99 H 18 104/67 92 Room Air Laboratory Results CBC and chemistry reviewed PG Care Time/CCT Total # of Minutes Spent Total Time Spent with Patient: Total time spent is greater than 50% in coordination of care (as documented) at patient's floor/unit and/or counseling patient: Coding Level of Care Code 70609 SUB INP/OBS CARE 2/35MIN Diagnoses Healthcare-associated pneumonia J18.9 COPD with emphysema J43.9 CAD (coronary artery disease) I25.10 GERD (gastroesophageal reflux disease) K21.9"
[2025-02-10 06:38] LABS: Hematocrit (blood only) 32.1 % (42.0-52.0); Hemoglobin 9.9 g/dL (14.0-18.0); Mean Corpuscular Hemoglobin 27.7 pg (25.0-34.0); Mean Corpuscular Volume 89.7 fL (80.0-100.0); Platelet Count 401 K/uL (130-400); RDW Standard Deviation 55.9 fL (36.4-46.3); Red Blood Count 3.58 M/uL (4.70-6.10); White Blood Count 12.08 K/ul (4.8-10.8)
[2025-02-10 06:56] LABS: Anion Gap 7.0 (3-11); Blood Urea Nitrogen 12.0 mg/dl (6-23); Calcium 9.2 mg/dl (8.6-10.3); Carbon Dioxide 28.0 mmol/L (21-32); Chloride 99.0 mmol/L (98-107); Creatinine Clr Calc Pharmacy 110.6 ml/min; Glucose 141.0 mg/dl (70-99(Fasting)); Potassium 4.1 mmol/L (3.5-5.1); Sodium 134.0 mmol/L (136-145)
--- NOTE | 2025-02-10 07:36 | Pulmonology Progress Note ---
Date of Service February 10, 2025 Assessment & Plan (1) Pneumonia: Laterality: right Lung location: upper lobe of lung Pneumonia type: due to unspecified organism Qualified Code(s): J18.9 - Pneumonia, unspecified organism (2) Lung abscess: Laterality: right Lung location: upper lobe of lung Pulmonary abscess pneumonia presence: with pneumonia Qualified Code(s): J85.1 - Abscess of lung with pneumonia (3) Leukocytosis: (4) Hypoxia: (5) Adenocarcinoma of lower lobe of right lung: (6) Necrotizing pneumonia: (7) Bronchiectasis: Plan CT chest 02/06/2025 personally reviewed: Centrilobular emphysema appreciated bilaterally Dense consolidative process appreciated in the right upper as well as right lower lobe Elevated right hemidiaphragm -- Multifocal necrotizing pneumonia on the right side Failed a course of antibiotics end of December 2024 S/p bronch 02/02/2025, BAL growing Streptococcus anginosus ("Streptococcus milleri group") Cecelia in the BAL is likely a colonizer, would not recommend treatment CT chest from 02/06/2025 seems to be worse compared to 01/31/2025 Video swallow eval 01/17/2025: Negative for aspiration --COPD with emphysema Gold E Not in exacerbation On BrezTri at home Continue with Anoro and Arnuity while in the hospital -- Chronic cough with upper airway cough syndrome Multifactorial Patient does seem to have reflux --> already on pantoprazole, sucralfate as well as famotidine Allergic rhinitis with postnasal drip also playing a part Not on any medications to make him cough It is not uncommon to have pneumonitis from radiation which can lead to cough. 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 Would recommend to continue treatment as per ID recommendation Drainage of lung abscess is usually not a good option as high risk of forming bronchopulmonary fistula Patient will not be a good candidate for VATS surgery but if there is no improvement then we can address that Given the severe necrotizing pneumonia, patient seems to be have been developing some bronchiectasis in the right side of the lung I truly believe that the patient will benefit from chest vest as this will help get rid of the phlegm in a patient who is cough effort is weak Continue with hypertonic saline nebulized along with chest vest Patient would benefit from chest vest even at home Patient will need at least 4 weeks of antibiotics ID on board Case discussed with patient's [id number] as well as RN at bedside Please note the above document was generated using voice recognition software. It may contain grammatical, syntax or spelling errors.Any formal questions or concerns about the content, text or information contained within the body of this dictation should be directly addressed to the provider for clarification. Admission and Anticipated Discharge Date Admission Date: January 31, 2025 Subjective Patient seen and examined at bedside. No acute distress, no adverse events overnight Patient said that he is feeling much better today compared to before He was saturating well on room air. Has been coughing up and bringing up a good amount of phlegm with the help of chest vest Has been afebrile Tolerating antibiotics Appetite is fair Review of Systems 2 Review of Systems: All systems reviewed & are unremarkable except as noted in Subjective Physical Exam 2 Physical Exam: Constitutional: No acute distress HEENT: EOMI, PERRLA Respiratory system: Decreased air entry bilaterally, more decreased on the right side, no wheeze, no rhonchi, positive crackles bilaterally, more on the right side CVS: S1-S2 positive, no murmurs or gallops, accentuated P2, tachycardia Abdomen: Soft, nontender, nondistended, positive bowel sounds x4 Extremities: +2 pulses bilaterally radialis/ dorsalis pedis, no cyanosis, no edema Neuro: Awake alert oriented x3 Psych: Normal mood and affect G/U: Positive Schmitz Skin: no rashes, warm and dry Lymphatic: no cervical or axillary lymphadenopathy Results & Data Results & Data Vital Signs (Past 12 Hours) Vital Signs Temp Pulse Pulse Resp BP Pulse Ox O2 Del Method 02/10/25 07:13 37.2 C 105 H 18 118/74 96 Room Air 02/10/25 07:05 102 H 16 93 Room Air 02/10/25 02:32 36.9 C 101 H 20 118/74 94 Room Air 02/09/25 22:36 36.6 C 99 H 20 115/56 L 92 Room Air 02/09/25 21:32 95 H 02/09/25 20:54 96 H 107/67 02/09/25 20:13 103 H 18 96 Room Air 02/09/25 19:45 Room Air Laboratory Results 02/10/25 05:32 02/10/25 05:32 PG Care Time/CCT Total # of Minutes Spent Total Time Spent with Patient: Total time spent is greater than 50% in coordination of care (as documented) at patient's floor/unit and/or counseling patient: Coding Level of Care Code 62862 CRITICAL CARE 1ST 30-74M Diagnoses Pneumonia of right upper lobe due to infectious organism J18.9 Laterality: right Lung location: upper lobe of lung Pneumonia type: due to unspecified organism Abscess of upper lobe of right lung with pneumonia J85.1 Laterality: right Lung location: upper lobe of lung Pulmonary abscess pneumonia presence: with pneumonia Leukocytosis D72.829 Hypoxia R09.02 Adenocarcinoma of lower lobe of right lung C34.31 Necrotizing pneumonia J85.0 Bronchiectasis J47.9
[2025-02-10 07:54] LABS: Hemoglobin A1C 7.2 % (4.5-5.6)
--- NOTE | 2025-02-10 09:46 | Infectious Disease Progress Nt ---
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 On presentation, pt was afebrile, HR 110s-120s, requiring 1 L NC. Labs showed WBC 15.13 (up from 7.93 on discharge 01/18), normal lactate, CRP 30.30, procal 0.2. COVID-19/flu/RSV neg. CTA chest with no PE, large area of acute RUL pneumonia, inferior parahilar R upper lobe lung abscess vs necrotic mass. He was started on vanc, cefepime, metronidazole. Vanc dc'ed as MRSA nares negative. Expectorated sputum from 02/01 sent for culture, which grew light normal vero. Pt underwent bronchoscopy on 02/02 which showed edema and purulent secretions mostly in RUL with some noted in dependent segments of RLL. BAL cultures growing many Strep anginosus and rare Cecelia. Cefepime switched to ceftriaxone on 02/05. Pt has continued with persistent leukocytosis. CXR on 02/06 showed emphysema, fibrotic change and dense consolidation throughout R lung appears modestly increased from 01/[address] chest 02/06 showed fibrotic change again seen in R lung with dense confluent airspace consolidation, greatest in RUL and has progressed since 01/31. Loculated gas and fluid within the consolidated lung and this could represent necrotizing pneumonia, abscess, and/or necrotic tumor. Antibiotics broadened to meropenem on 02/06. Discussion: Despite worsened repeat CT chest on 02/06, given BAL culture only grew Strep anginosus and pt has been otherwise stable, switched meropenem back to ceftriaxone on 02/08. Strep anginosus can cause abscesses--generally very susceptible to penicillins, cephalosporins. Will cover Strep anginosus plus anaerobes. Cecelia in BAL culture and urine culture likely represents colonizer. Pt has been stable on ceftriaxone, with slowly downtrending WBC now 12.08 on 02/10. Will transition to PO amox/clav. Pt reports a history of penicillin allergy as a child--documented as hives in his allergy list. Pt reports he had skin "boils", and does not recall whether he had respiratory symptoms as it was so long ago. Recommendations: - Stopped ceftriaxone and metronidazole - Started amoxicillin/clavulanate 875 mg PO TID (note higher dosing). Given his penicillin allergy was as a child, he likely no longer has this allergy. Will give full dose and monitor - Strep anginosus is generally susceptible to penicillins. I have asked the micro lab to run sensitivities. Per micro lab, they will try to sub it today and set up the plate tomorrow, but may not be viable. - Would plan for likely 4-6 week course of antibiotics for the necrotizing pneumonia (day 1 of antibiotics was on 01/31). Duration of antibiotics will depend on improvement seen on follow-up CT--suggest repeat CT in 3-4 weeks (or earlier if pt is clinically worsening) - Please arrange for follow-up with ID locally within the next month for further antibiotic management Admission and Anticipated Discharge Date Admission Date: January 31, 2025 Subjective Subsequent visit was provided via telemedicine using two-way real-time interactive telecommunication between the patient and the telemedicine provider. For the duration of the visit, the provider was performing the assessment from a different facility than the patient. This includesuse of bluetooth stethoscope forauscultationperformed by the telepresenter that the telemedicine provider can hear if described in the physical exam. [employer] contact information: Please call [facility] [phone]. (Phone Number For Physician Use Only) After establishing a telemedicine visit, patient was: Patient was verified with two unique identifiers, Patient/authorized rep acknowledged consent and understanding and Gave permission to continue telehealth session Time Spent with Patient: Subsequent => 25 min Pt denies complaints WBC 12.4 --> 12.08 Review of System A complete ROS was performed and is negative except as mentioned in the HPI. Physical Exam Physical Exam: GEN: elderly man in NAD RESP: No increased work of breathing SKIN: No lesions or rashes on exposed skin. NEURO: Alert and oriented. Answers all questions appropriately. Speech not slurred. PSYCH: Normal mood, affect appropriate. Results & Data Vital Signs (Past 12 Hours) Vital Signs Temp Pulse Resp BP Pulse Ox O2 Del Method 02/10/25 07:45 Room Air 02/10/25 07:13 37.2 C 105 H 18 118/74 96 Room Air 02/10/25 07:05 102 H 16 93 Room Air 02/10/25 02:32 36.9 C 101 H 20 118/74 94 Room Air 02/09/25 22:36 36.6 C 99 H 20 115/56 L 92 Room Air (1) Lung abscess Laterality: right Lung location: upper lobe of lung Pulmonary abscess pneumonia presence: with pneumonia Qualified Code(s): J85.1 - Abscess of lung with pneumonia
[2025-02-10 09:47] LABS: Rouleaux 1+
[2025-02-10] MEDS: AMOXICILLIN/CLAVULANATE 875 MG TAB PO SCH (10:24)
[2025-02-10 10:56] VITALS: BP 110/68; RESP 22; TEMP 98.4; O2SAT 94
--- NOTE | 2025-02-10 13:14 | Discharge Summary ---
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 Pt was readmitted w/ sepsis and possible lung abscess. Concern for gram negative/aspiration PNA; VSFF in 12/2024 w/ no aspiration, but did have prolonged swallowing; CT 01/31 pneumonia of RUL & inferior parahilar RUL lung abscess. Bronchoscopy 02/02: R mainstem bronchus w/ significant edema + off-white mucous; white material oozing from posterior segment of RUL, likely d/t abscess; Repeat Chest CT 02/06 Fibrotic change seen in the right lung with dense confluent airspace consolidation. This is greatest in the right upper lobe and has progressed from 01/31/2025. There is loculated gas and fluid within the consolidated lung, and this could represent necrotizing pneumonia, abscess, and/or necrotic tumor. Pulmonology consulted -daily antihistamine started, chest vest (also being ordered for home after discharge from rehab) and hypertonic saline nebs. Continue home inhalers and prn nebs. 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 PT/OT - rec rehab - pt to [facility] today. Infectious Disease Consulted:Received ceftriaxone and metronidazole - Continue amoxicillin/clavulanate 875 mg PO TID (note higher dosing). - Strep anginosus is generally susceptible to penicillins. I have asked the micro lab to run sensitivities. Per micro lab, they will try to sub it today and set up the plate tomorrow, but may not be viable. - Would plan for likely 4-6 week course of antibiotics for the necrotizing pneumonia (day 1 of antibiotics was on 01/31). Duration of antibiotics will depe nd on improvement seen on follow-up CT--suggest repeat CT in 3-4 weeks (or earlier if pt is clinically worsening) - Please arrange for follow-up with ID locally (Dr. Car) within the next month for further antibiotic management Pending studies: Aspergillus + Legionella PCR - Pending Repeat Blood Culture 02/06 negative at 48 hours #Diabetes Mellitus - new diagnosis, A1c 7.2. May be contributing to poor healing. Started on Metformin 500mg ER daily, titrate up as tolerated. Will need diabetes supplies at discharge from [facility]. #Hypotension | Tachycardia -Continue Midodrine, increased to 5mg TID #COPD -Continue Home Meds: Albuterol Hfa; DuoNebs, Fluticasone Furoate, Fluticasone Nasal spray # Anemia - Pt w/ JSOE DAVID on 02/02, started on Iron PO 325mg daily #CAD - Continue ASA and statin #GERD -Continue Famotidine, Sucralfate and PPI #Hypokalemia | Hypomagnesemia - RESOLVED Dispo: discharge to [facility] today updated via phone 02.08 granddaughter updated via phone 02/08. DIL updated in person 02/09. Son, fouzia updated by phone 02/10 Notes For Next Care Provider new dx of diabetes Medication Changes From Visit augmetnin TID for at least 4 weeks Admission HPI Per Admitting Provider 84-year-old male who was recently discharged 01/18/2025 for pneumonia. Patient was discharged on cefdinir and doxycycline for additional 6 days. Patient establish primary care with Marielle Rubio. The patient has a history of adenocarcinoma of the lung status post radiation therapy and a history of COPD.. Patient was sent to the emergency department on behest of his pulmonary cri the [facility] care doctor who is seen in the outpatient office for increased tachycardia and abnormal CT scan of the chest. Imaging suggest pulmonary abscess at this time. In emergency department blood cultures were obtained the patient received cefepime metronidazole and vancomycin although previous 01/15/2025 MRSA nasal swab is negative. MRSA nasal swab will be collected at this time. Discharge Exam General: NAD, VS as above Resp: normal respiratory effort,on NC, diminished on the right, with coarse breath sounds on the left. No wheezing CV: RRR, no murmur, Abd: soft, ileal conduit in place Extremities: Moves all extremities, no edema Neuro: A&O x3, Discharge Plan Discharge Items Patient Disposition: Transfer Inpatient Rehab Fac Reason For Visit: GRAM NEG PNEUMONIA Discharge Diagnosis: necrotizing Pneumonia Condition on Discharge: Fair Activity: As commented below Activity Comment: work with therapy to get stronger Weightbearing: Full weightbearing Non-emergency contact: Primary Care Provider Call non-emergency contact if: you have any medication questions, your symptoms worsen, your pain is not controlled and your temperature is above 101 Follow-up/Referrals: Colt Car DO [Physician] - (ID follow up - 3-4 weeks ) Brent Irene DO [Primary Care Provider] - (follow up after discharge from rehab ) Diet: Regular Diet Texture: Easy to Chew Addtl Attending Provider Instructions: Mr. Carrasquillo, You were hospitalized after having shortness of breath at home after recent stay. You were admitted and found to have a worsening pneumonia. Pulmonology and ID were consulted and bronchoscopy was preformed. You were given 10 days of IV antibiotics and then transitioned to Augmentin Three times a day. Blood cultures pending on discharge - but no growth to date. Per Pulm: Continue home inhalers Add prn nebulizer scheduled twice a day hypertonic saline nebs Daily Allergy medicine - zyrte started Continue GERD treatment Recommendations from ID as follows: - Started amoxicillin/clavulanate 875 mg PO TID (note higher dosing). - Strep anginosus is generally susceptible to penicillins. I have asked the micro lab to run sensitivities. Per micro lab, they will try to sub it today and set up the plate tomorrow, but may not be viable. - Would plan for likely 4-6 week course of antibiotics for the necrotizing pneumonia (day 1 of antibiotics was on 01/31). Duration of antibiotics will depend on improvement seen on follow-up CT--suggest repeat CT in 3-4 weeks (or earlier if pt is clinically worsening) - Please arrange for follow-up with ID locally within the next month for further antibiotic management You were also found to be hypotensive and started on midodrine 5mg three times a day - this can be weaned off as tolerated while you are rehab. You were also found to have mild diabetes - which may be contributing to your slow wound healing. Will start Metformin once a day and dose can be increased if you have no side effects. You were also started on iron supplementation for iron deficiency anemia. Please see your PCP within 7 days of discharge from [facility]. Pending Studies at Discharge: Yes (blood cultures ) Stand-Alone Forms: My [facility] Skilled Items Patient informed of condition?: Yes DNR: No Discharge Level of Care: Acute rehab Communicable Disease: No Discharge Prognosis: Stable Lines: None Urinary Catheter: Yes (ileal conduit ) Medications and DC Order Prescriptions: New ipratropium-albuterol 0.5 mg-3 mg(2.5 mg base)/3 mL Solution For Nebulization 3 ml NEB Q6R PRN (Reason: shortness of breath or wheezing) Qty: 90 0RF cetirizine 10 mg Tablet 10 mg PO QAM Qty: 30 0RF amoxicillin-pot clavulanate 875-125 mg Tablet 1 tab PO TID 28 Days Qty: 84 0RF midodrine 2.5 mg Tablet 5 mg PO TID@0800,1200,1700 Qty: 90 0RF ferrous sulfate 325 mg (65 mg iron) Tablet,Delayed Release (Dr/Ec) 325 mg PO QAM Qty: 30 0RF sodium chloride 7 % Solution For Nebulization 4 ml NEB BIDR Qty: 120 0RF metformin 500 mg tablet extended release 24 hr 500 mg PO DAILY Qty: 30 0RF Continued mecobalamin (vitamin B12) 1,000 mcg tablet,chewable 1,000 mcg PO DAILY (DME) Lift Chair Misc See Rx Instructions .Route Qty: 1 0RF Rx Instructions: As directed hydrocodone-acetaminophen 5-325 mg tablet 1 - 2 tab PO BID PRN (Reason: Pain) Qty: 120 0RF Hold Instructions: new medication Breztri Aerosphere 160-9-4.8 mcg/actuation HFA aerosol inhaler 2 inh inhalation BID Qty: 10.7 2RF codeine-guaifenesin [Guaifenesin AC] 10-100 mg/5 mL liquid 10 ml PO Q8 PRN (Reason: cough) Qty: 473 1RF fluticasone propionate [Allergy Relief (fluticasone)] 50 mcg/actuation spray,suspension 1 spray intranasal DAILY Qty: 9.9 1RF Rx Instructions: administer into each nostril once daily alprazolam 0.5 mg tablet 0.5 mg PO BID PRN (Reason: Anxiety) Patient Comments: usually takes once a day at night aspirin [Ramya Low Dose Aspirin] 81 mg Tablet,Delayed Release (Dr/Ec) 81 mg PO DAILY ascorbic acid (vitamin C) [Vitamin C] 500 mg Tablet 1,500 mg PO QPM atorvastatin 20 mg tablet 20 mg PO QAM albuterol sulfate 90 mcg/actuation Hfa Aerosol Inhaler 1 inh INHALATION QID PRN (Reason: Shortness Of Breath Or Wheezing) sucralfate 100 mg/mL Suspension 1 g PO QID Qty: 1200 0RF famotidine 20 mg Tablet 20 mg PO BID Qty: 60 0RF pantoprazole 40 mg Tablet,Delayed Release (Dr/Ec) 40 mg PO BID Qty: 60 0RF midodrine 2.5 mg Tablet 2.5 mg PO TID@0800,1200,1700 30 Days Qty: 90 0RF Advanced Probiotic 625 mg (10 billion cell) Capsule 1 cap PO DAILY 30 Days Qty: 30 0RF Discontinued chlorpheniramine-phenylephrine 4-10 mg tablet 1 tab PO BID PRN (Reason: allergy symptoms) Qty: 30 0RF Patient Comments: 01/31 otc/no fill history unable to verify Rx Instructions: Take 1 tab BID for 5 days then as needed. Discharge Orders: Discharge Order (Routine); Ordered 02/10/25 Ordered By: Dorothy Katz/Other Patient Handouts: Preventing Deep Vein Thrombosis, Type 2 Diabetes Admission Data Admit Date/Time: 01/31/25 13:47 Attending Provider: Alyssa Giraldo Admit Provider: Brock Heredia Primary Care Provider: Brent Irene Other Providers: Brock Heredia; Chris Wakefield; Agustin Kang [facility]; [employer]; Maday Torres; Debbie Cooper; Gabriella Beyer Antonie J.; Desi Montenegro; Rashida Peng Other Interventions: Discharge Summary Assessment (RN) Last Done: 02/10/25 13:36 Hospital Stay Data Consultations 01/31/25 12:44 ED Decision to Admit Stat 01/31/25 15:57 Consult Pulmonology Routine 02/06/25 14:10 Consult Infectious Diseases Routine Procedures Performed Operation Date: 02/02/25 08:20 Actual Procedures p Bronchoscopy, Bronchoalveolar Lavage(Not Applicable) - Chris Wakefield MD Diagnostic Imagining Performed Chest CTA 01/31/25 10:09 CT angio chest PE protocol CT DOSE: 844.39 mGy.cm HISTORY: sent by PCP for CT chest. TECHNIQUE: Multiple CTA images of the chest were obtained after the intravenous administration of 112 ml Optiray. Coronal and sagittal MIPS were obtained from the axial data set and were submitted for review. All measurements were obtained according to NASCET criteria. A dose lowering technique was utilized adhering to the principles of ALARA. COMPARISON STUDY: 12/01/2024 FINDINGS: There are mild airway secretions. There is moderate upper lobe emphysema. There is increased dense consolidation of a large portion of the right upper lobe. Stable areas of bandlike consolidation with bronchiectatic air bronchograms right lower lobe and right middle lobe. There is an interval 4 cm round hypodense finding with multiple internal gas locules right perihilar mid lung at the lower aspect of the right upper lobe. This bows the minor fissure inferiorly. This is at the lower aspect of the interval right upper lobe consolidation. There is a trace right pleural effusion. No consolidation or pleural effusion on the left. Evaluation of the right hilum is limited by the adjacent consolidation. No other enlarged adenopathy seen. No pericardial effusion. There are moderate coronary artery and aortic calcifications. No thoracic aortic dissection or aneurysm. No pulmonary embolism seen. There are mild thoracic spine degenerative changes. IMPRESSION: 1. No pulmonary embolism seen. 2. Large area of acute right upper lobe pneumonia. 3. Inferior parahilar right upper lobe lung abscess versus necrotic mass. 4. Otherwise as described. ACT 112: Positive. There are findings on this exam that require communication between the performing entity and the patient following Patient Test Result Information Act ([place] Act 112) guidelines. The above report was generated using voice recognition software. It may contain grammatical, syntax or spelling errors. Electronically signed by: Kamron Watson M.D. 01/31/2025 11:37 AM Chest X-Ray 02/06/25 10:18 SINGLE VIEW CHEST CLINICAL HISTORY: Hypoxia FINDINGS: An AP, portable, upright chest radiograph is compared to study dated 01/14/2025 and correlated with chest CT dated 01/31/2025. The cardiomediastinal silhouette is unremarkable noting atherosclerotic calcification of the thoracic aorta. Emphysema and chronic interstitial thickening is similar to previous. There is volume loss in the right lung with compensatory hyperinflation of the left lung. Consolidation and fibrosis throughout the left lung is again seen. This appears modestly increased from 01/31/[address] Left lung appears clear noting basilar scarring/atelectasis. There is a small right pleural effusion. No pneumothorax is seen. The skeletal structures are osteopenic. The bony thorax is grossly intact. IMPRESSION: 1. Emphysema. 2. Fibrotic change and dense consolidation throughout the right lung appears modestly increased from the 01/31/2025 CT scan. 3. A small right pleural effusion is observed. 4. The left lung is clear. ACT 112: Negative or not required by law. Electronically signed by: Nilson De Luna M.D. 02/06/2025 10:[address] 02/06/25 11:48 CT SCAN OF THE CHEST WITHOUT IV CONTRAST CLINICAL HISTORY: Abnormal chest x-ray. COMPARISON STUDY: Chest x-ray dated 02/06/2025. Prior chest CT scans, most recently dated 01/31/2025. TECHNIQUE: CT scan of the thorax was performed from the thoracic inlet to the upper abdomen. Images are reviewed in the axial, sagittal, and coronal planes. IV contrast was not administered for this examination as per the referring clinician. A dose lowering technique was utilized adhering to the principles of ALARA. CT DOSE: 408.42 mGy.cm FINDINGS: Thyroid: Imaged portions of the thyroid gland are normal in size and attenuation. Thoracic aorta: There is atherosclerotic calcification of the thoracic aorta, which is normal in caliber and demonstrates standard 3-vessel arch anatomy. Heart: The heart is mildly enlarged and without pericardial effusion. The coronary arteries are densely calcified. The main pulmonary arteries appear dilated suggesting pulmonary artery hypertension. Lungs and pleural spaces: Emphysema is noted. There is chronic volume loss in the right lung with compensatory hyperinflation of the left lung. Minimal secretions are seen in the distal trachea. Fluid/debris fills the right lower lobe airways. Scattered calcified granulomas are observed. There is dependent atelectasis at the left lung base. The left lung is otherwise clear. Fibrotic changes in the right lung with dense consolidation. Consolidation is most confluent throughout the right upper lobe where there are foci of cavitation and fluid. This has increased from 01/31/2025. There is a small pleural effusion at the right lung base. Mediastinum: There are subcentimeter mediastinal nodes which are not pathologically enlarged by size criteria. Marily: There are calcified right hilar lymph nodes. The marily are not well assessed without IV contrast. Axillae: There is no axillary lymphadenopathy. Upper abdomen: Partially visualized upper abdominal viscera is within normal limits. Skeletal structures: The skeletal structures are osteopenic. Degenerative change is noted in the shoulders and spine. No lytic or blastic bony lesions are seen. IMPRESSION: 1. Cardiomegaly, emphysema, and chronic hyperinflation of the left lung. 2. Fibrotic change is again seen in the right lung with dense confluent airspace consolidation. This is greatest in the right upper lobe and has progressed from 01/31/2025. There is loculated gas and fluid within the consolidated lung, and this could represent necrotizing pneumonia, abscess, and/or necrotic tumor. 3. Small right pleural effusion. 4. There is fluid/debris filling the right lower lobe airways. Correlate clinically for evidence of aspiration. 5. Additional findings as above. ACT 112: Negative or not required by law. Electronically signed by: Nilson De Luna M.D. 02/06/2025 2:39 PM Chest X-Ray 02/09/25 08:58 XR chest 1V portable CLINICAL HISTORY: f/u COMPARISON STUDY: 02/06/2025 FINDINGS: Heart size and pulmonary vasculature are normal. There is patchy dense consolidation at the majority of the right lung, grossly stable. No pleural effusion or pneumothorax seen. Left lung remains well aerated. IMPRESSION: Grossly stable right-sided pneumonia. ACT 112: Negative or not required by law. Electronically signed by: Kamron Watson M.D. 02/09/2025 9:42 AM Pending Results Patient Have Any Pending Studies at Discharge: Yes (blood cultures ) Discharge Instructions Given to Patient (Per Discharging Provider) Mr. Carrasquillo, You were hospitalized after having shortness of breath at home after recent stay. You were admitted and found to have a worsening pneumonia. Pulmonology and ID were consulted and bronchoscopy was preformed. You were given 10 days of IV antibiotics and then transitioned to Augmentin Three times a day. Blood cultures pending on discharge - but no growth to date. Per Pulm: Continue home inhalers Add prn nebulizer scheduled twice a day hypertonic saline nebs Daily Allergy medicine - zyrtec started Continue GERD treatment Recommendations from ID as follows: - Started amoxicillin/clavulanate 875 mg PO TID (note higher dosing). - Strep anginosus is generally susceptible to penicillins. I have asked the micro lab to run sensitivities. Per micro lab, they will try to sub it today and set up the plate tomorrow, but may not be viable. - Would plan for likely 4-6 week course of antibiotics for the necrotizing pneumonia (day 1 of antibiotics was on 01/31). Duration of antibiotics will depend on improvement seen on follow-up CT--suggest repeat CT in 3-4 weeks (or earlier if pt is clinically worsening) - Please arrange for follow-up with ID locally within the next month for further antibiotic management You were also found to be hypotensive and started on midodrine 5mg three times a day - this can be weaned off as tolerated while you are rehab. You were also found to have mild diabetes - which may be contributing to your slow wound healing. Will start Metformin once a day and dose can be increased if you have no side effects. You were also started on iron supplementation for iron deficiency anemia. Please see your PCP within 7 days of discharge from [facility]. Supervising Physician Co-Signing Physician Notes PA Supervision Note: I did not personally see or examine the patient today, but I verified all fernandez points of FOZIA Dias's assessment and plan with the following exceptions/additions: None Total Time Total Time Spent Total Time Spent (In Minutes): Time spent day of discharge 45 minutes including direct patient care, medication reconciliation, documentation, review of labs and images, and coordination of care. case discussed with ID and case management Coding Level of Care Code 92053 INP/OBS DISCH >30 MIN Diagnoses Healthcare-associated pneumonia J18.9 COPD with emphysema J43.9 CAD (coronary artery disease) I25.10 GERD (gastroesophageal reflux disease) K21.9"
[2025-02-10 14:51] VITALS: PULSE 106
== END 2025-02-10 15:00 | DRG 871 ==
LOC: ED 09:42 → 2E 13:47 → SUATTDRO 13:47 → 2E 15:28
DX: E87.1 Hypo-osmolality and hyponatremia; F17.220 Nicotine dependence, chewing tobacco, uncomplicated; Z85.51 Personal history of malignant neoplasm of bladder; E87.6 Hypokalemia; J44.9 Chronic obstructive pulmonary disease, unspecified; Z90.79 Acquired absence of other genital organ(s); J85.0 Gangrene and necrosis of lung; E11.9 Type 2 diabetes mellitus without complications; Z91.018 Allergy to other foods; J15.69 Pneumonia due to other Gram-negative bacteria; Z88.0 Allergy status to penicillin; Z79.51 Long term (current) use of inhaled steroids; Z79.899 Other long term (current) drug therapy; E83.42 Hypomagnesemia; Z86.14 Personal history of Methicillin resistant Staphylococcus aureus infection; Z90.6 Acquired absence of other parts of urinary tract; D50.9 Iron deficiency anemia, unspecified; A41.9 Sepsis, unspecified organism; C34.31 Malignant neoplasm of lower lobe, right bronchus or lung; Z79.82 Long term (current) use of aspirin; J96.21 Acute and chronic respiratory failure with hypoxia; I95.9 Hypotension, unspecified; K21.9 Gastro-esophageal reflux disease without esophagitis; Y95 Nosocomial condition; J85.1 Abscess of lung with pneumonia; I25.10 Atherosclerotic heart disease of native coronary artery without angina pectoris; R00.0 Tachycardia, unspecified